=== PATIENT | female | born 1980 | race Caucasian/White ===

== ENCOUNTER 2020-03-16 16:05 | Outpatient (CLI) | payer MEDICARE, MEDICAID, SELFPAY ==
--- NOTE | ~2020-03-16 | US_ITS ---
EXAMINATION: US thyroid EXAM DATE: 03/16/2020 16:30 INDICATION: Lynn's disease. TECHNIQUE: Multiple grayscale and Doppler images of the thyroid were obtained (by a technologist who performed the scan) and subsequently reviewed. Individual nodules and recommendations may be reporte d in accordance with TI-RADS system as designated by the 2017 ACR White Paper TI-RADS committee. Comp arison is made to prior examination from 10/05/2019, 01/11/2019. FINDINGS: The right thyroid lobe measures 6.6 x 2.7 x 2.3 cm, the left measuring 6.7 x 2.6 x 2.1 cm. There is d iffusely heterogeneous thyroid echogenicity. Scattered subcentimeter nodular regions, but difficult t o be sure some of these are discrete nodules given the diffuse heterogeneity. These dimensions are sl ightly larger than reported on prior 2 examinations. IMPRESSION: Moderately enlarged heterogeneous thyroid, mild interval increase in size. Reviewed, dictated and finalized at location A. IMPRESSION: Moderately enlarged heterogeneous thyroid, mild interval increase i n size.
== END 2020-03-16 16:06 | disposition home or self-care (01) ==
LOC: ANHIMG 16:08
PROVIDERS: PCP Family Medicine; Visit Provider Internal Medicine Endocrinology, Diabetes & Metabolism
DX: E04.1 Nontoxic single thyroid nodule (principal)
CPT/HCPCS: 76536

== ENCOUNTER 2021-02-13 13:29 | Outpatient (CLI) | payer MEDICARE, MEDICAID, SELFPAY ==
--- NOTE | 2021-02-13 | ECHO_ITS ---
Patient Info Name: Cheryl Alvarez Age: 40 years : 1980 Gender: Female Ht: 67 in Wt: 200 lbs BSA: 2.10 m2 HR: 78 bpm BP: 143 / 103 mmHg Heart Rhythm: Sinus Rhythm Technical Quality: Good Exam Date: 02/13/2021 1:52 PM Exam Location: [facility] Patient Status: Outpatient Admit Date: 02/13/2021 Staff Ordering Physician: MarieRenuka MD General Accounting Manager: Latoya Morin RDCS Attending Provider: Ray*Renuka MD Referring Physician: Scottie CARL; Exam Type: CA echo doppler color flow Study Info Indications I34.1 - Nonrheumatic mitral (valve) prolapse Complete two-dimensional, color flow and Doppler transthoracic echocardiogram is performed. Summary 1. Complete two-dimensional, color flow and Doppler transthoracic echocardiogram is performed. 2. Left ventricular wall thickness, systolic function and diastolic function are normal with no regional wall motion abnormalities with an estimated ejection fraction of 60-65%. Borderline left ventricular enlargement. 3. Left atrial chamber dimension is mildly enlarged. 4. No pulmonary hypertension, estimated pulmonary arterial systolic pressure is 30 mmHg. 5. No mitral valve prolapse and proceed on this study. 6. Normal sinus rhythm. Left Ventricle Left ventricular chamber dimension is mildly enlarged. Left ventricular systolic function is normal, estimated at 60-65%. There is no increased left ventricular wall thickness. Left ventricular septal wall motion is normal. The left ventricular diastolic function is normal. Global longitudinal strain is normal at 20 %. Left ventricular wall thickness, systolic function and diastolic function are normal with no regional wall motion abnormalities with an estimated ejection fraction of 60-65%. Borderline left ventricular enlargement. Right Ventricle Right ventricular chamber dimension is normal. Right ventricular systolic function is normal. Left Atria Left atrial chamber dimension is mildly enlarged. Right Atria Right atrial chamber dimension is normal. Aortic Valve The aortic valve is trileaflet. There is no aortic valve sclerosis. There is no aortic valve stenosis. There is no aortic valve regurgitation. Pulmonic Valve The pulmonic valve is normal. There is no pulmonic valve stenosis. There is no pulmonic regurgitation. Mitral Valve The mitral valve has normal leaflets. There is no mitral valve stenosis. There is trace mitral valve regurgitation. Tricuspid Valve The tricuspid valve leaflets are normal. There is no significant tricuspid valve stenosis. There is trace tricuspid valve regurgitation. No pulmonary hypertension, estimated pulmonary arterial systolic pressure is 30 mmHg. Pericardium/Pleural The pericardium appears normal. There is no pericardial effusion. Inferior Vena Cava Normal inferior vena cava with >50% collapse upon inspiration consistent with Empty right atrial pressure, 10 mmHg. Aorta The aortic root size at the sinus of Valsalva is normal. The prox ascending aorta size is normal. Left Ventricular Outflow Tract Name Value Normal LVOT 2D LVOT Diameter 2.0 cm LVOT Doppler
== END 2021-02-13 13:30 | disposition home or self-care (01) ==
LOC: ANHCARD 13:33
PROVIDERS: PCP Family Medicine; Visit Provider Internal Medicine Endocrinology, Diabetes & Metabolism
DX: I34.1 Nonrheumatic mitral (valve) prolapse (principal)
CPT/HCPCS: 93306

== ENCOUNTER 2021-10-23 10:58 | Outpatient (CLI) | payer OTHER, SELFPAY ==
--- NOTE | ~2021-10-23 | US_ITS ---
EXAMINATION: US thyroid DATE: 10/23/2021 11:40 INDICATION: Hypothyroidism TECHNIQUE: Multiple ultrasound images of the thyroid were obtained. COMPARISON: 03/16/2020, 01/11/2019 FINDINGS: The right thyroid lobe measures 6.2 x 1.9 x 1.9 cm. The left thyroid lobe measures 6.4 x 1.8 x 1.8 c m. There is heterogeneously decreased echogenicity with coarsened echotexture and with diffusely inc reased vascular flow throughout the thyroid. 5 mm wide than tall solid hypoechoic nodule with smooth margins and without echogenic foci (TI-RADS 4, moderately suspicious , FNA if >=1.5 cm, annual follow up is >=1 cm) at the inferior right thyroid lobe. No significant interval change since 01/11/2019 in a 1.8 x 0.5 x 0.5 cm solid hypoechoic nodule along the deep medial margin of the left thyroid lobe whi ch appears from the left thyroid lobe by thin hyperechoic plane at the periphery of the thy roid. IMPRESSION: 1. Enlarged heterogeneous and mildly hypervascular thyroid consistent with chronic lymphocytic densit ies Lynn) thyroiditis. 2. Unchanged 1.8 x 0.5 x 0.5 cm solid hypoechoic nodule along side but appearing peripheral to the de ep medial margin of the left thyroid lobe with differential including a lymph node, parathyroid adeno ma or less likely an additional TI-RADS 4 thyroid nodule. Could consider either ultrasound-guided fin e-needle aspiration or parathyroid scintigraphy as clinically indicated. Reviewed, dictated and finalized at location . CLE COST ENGINEER IMPRESSION: 1. Enlarged heterogeneous and mildly hypervascular thyroid consistent with baker pastry madeline lymphocytic densities Lynn) thyroiditis. 2. Unchanged 1.8 x 0.5 x 0.5 cm solid hypoechoic nodule along side but appearin g peripheral to the deep medial margin of the left thyroid lobe with differenti al including a lymph node, parathyroid adenoma or less likely an additional TI- RADS 4 thyroid nodule. Could consider either ultrasound-guided fine-needle aspi ration or parathyroid scintigraphy as clinically indicated.
== END 2021-10-23 10:59 | disposition home or self-care (01) ==
LOC: ANHIMG 11:05
PROVIDERS: PCP Family Medicine; Visit Provider Internal Medicine Endocrinology, Diabetes & Metabolism
DX: E03.9 Hypothyroidism, unspecified (principal); E04.1 Nontoxic single thyroid nodule
CPT/HCPCS: 76536

== ENCOUNTER 2022-11-26 07:51 | Outpatient (CLI) | payer OTHER, SELFPAY ==
--- NOTE | ~2022-11-26 | MM_ITS ---
EXAMINATION: MM screening renea BI w thompson HISTORY: Screening mammogram TECHNIQUE: Craniocaudal and mediolateral oblique 3-D tomosynthesis images were obtained and synthetic 2-D images were generated. CAD analysis was submitted and interpreted. COMPARISON: 10/01/2016 diagnostic left mammogram and limited left breast ultrasound BREAST PARENCHYMAL COMPOSITION: There are scattered areas of fibroglandular density. FINDINGS: There is no evidence of suspicious mass, calcification, or architectural distortion to sugg est malignancy in either breast. There has been no suspicious interval change. IMPRESSION: 1. No mammographic evidence of malignancy. 2. Recommend routine screening mammography in one year. BI-RADS Category 1: Negative Reviewed, dictated and finalized at location A. RONMENTAL PROGRAM MANAGER
== END 2022-11-26 07:52 | disposition home or self-care (01) ==
PROVIDERS: PCP Family Medicine; Visit Provider Family Medicine
DX: Z12.31 Encounter for screening mammogram for malignant neoplasm of breast (principal)
CPT/HCPCS: 77063; 77067

== ENCOUNTER 2024-01-07 09:24 | Outpatient (CLI) | payer OTHER, SELFPAY ==
--- NOTE | ~2024-01-07 | MM_ITS ---
EXAMINATION: MM screening renea BI w thompson HISTORY: Screening mammogram TECHNIQUE: Craniocaudal and mediolateral oblique 3-D tomosynthesis images were obtained and synthetic 2-D images were generated. CAD analysis was submitted and interpreted. COMPARISON: 11/22/2022 bilateral screening mammogram BREAST PARENCHYMAL COMPOSITION: There are scattered areas of fibroglandular density. FINDINGS: Approximately 3.8 mm and 6.4 mm circumscribed opacities are noted in the right axillary solomon l, likely benign axillary tail lymph nodes. These are not evident on the 11/22/2022 mammogram, likely due to positioning. Diagnostic right mammogram and right breast ultrasound examination are recommende d. Otherwise no suspicious mass, architectural distortion, malignant calcification, skin thickening or r etraction or significant new or developing density of either breast is detected. IMPRESSION: 1. Right axillary soft tissue masses, possibly benign lymph nodes, but not imaged on 11/22/2022 mammog mario 2. Diagnostic right mammogram and right breast ultrasound examination are recommended. BI-RADS Category 0: Incomplete: Needs additional imaging evaluation. Reviewed, dictated and finalized at location A. RTISING SALES AGENT IMPRESSION: 1. Right axillary soft tissue masses, possibly benign lymph nodes, but not imag ed on 11/22/2022 mammogram 2. Diagnostic right mammogram and right breast ultrasound examination are recom mended. BI-RADS Category 0: Incomplete: Needs additional imaging evaluation.
== END 2024-01-07 09:25 | disposition home or self-care (01) ==
LOC: ANHIMG 09:26
PROVIDERS: PCP Family Medicine; Visit Provider Family Medicine
DX: Z12.31 Encounter for screening mammogram for malignant neoplasm of breast (principal); R92.8 Other abnormal and inconclusive findings on diagnostic imaging of breast
CPT/HCPCS: 77063; 77067

== ENCOUNTER 2024-01-30 13:15 | Outpatient (CLI) | payer OTHER, SELFPAY ==
--- NOTE | ~2024-01-30 | MMUS_ITS ---
EXAMINATION: MM diagnostic renea RT w thompson, US breast RT limited HISTORY: Right axillary soft tissue masses, possibly benign lymph nodes, noted on 01/07/2024 screening mammogram TECHNIQUE: Additional 3-D tomosynthesis images of the right breast were performed and synthetic 2-D i mages were generated. CAD analysis was submitted and interpreted. High resolution targeted right axil armaan tail breast ultrasound was performed. COMPARISON: 01/07/2024 and 11/26/2022 bilateral screening mammogram examinations FINDINGS: MAMMOGRAPHIC FINDINGS: Circumscribed low-density approximately 4 x 5.6 mm opacity with halo sign is noted in the right axill grecia tail area. This is likely a benign axillary tail lymph node. Nearby approximately 2 x 3.5 mm oval low-density circumscribed opacities probably benign smaller axillary tail lymph node. No suspicious mass or architectural distortion is noted. ULTRASOUND: 3.6 x 6 mm parallel circumscribed lymph node with central fatty hilum is identified at 10:30 o'clock 13 cm from the nipple, corresponding to the mammographic finding. No suspicious mass or shadowing is detected. IMPRESSION: 1. Benign findings 2. Routine annual mammographic screening is recommended. BI-RADS Category 2: Benign finding(s). Reviewed, dictated and finalized at location A. IMPRESSION: 1. Benign findings 2. Routine annual mammographic screening is recommended. BI-RADS Category 2: Benign finding(s).
== END 2024-01-30 13:16 | disposition home or self-care (01) ==
LOC: ANHIMG 13:21
PROVIDERS: PCP Family Medicine; Visit Provider Family Medicine
DX: R92.8 Other abnormal and inconclusive findings on diagnostic imaging of breast (principal)
CPT/HCPCS: 76642; 77061; 77065; G0279

== ENCOUNTER 2024-03-17 13:32 | Outpatient (CLI) | payer OTHER, SELFPAY ==
--- NOTE | ~2024-03-17 | US_ITS ---
EXAMINATION: US thyroid DATE: 03/17/2024 14:50 INDICATION: Goiter. TECHNIQUE: Multiple ultrasound images of the thyroid were obtained. COMPARISON: Ultrasound 10/23/2021, 01/11/2019 FINDINGS: The right thyroid lobe measures 5.5 x 1.9 x 1.8 cm. The left thyroid lobe measures 5.9 x 1.3 x 2.5 c m. The thyroid is diffusely heterogeneous and hypoechoic. No discrete nodule. Vascularity is normal. IMPRESSION: 1. Heterogeneous thyroid, likely chronic lymphocytic (Lynn's) thyroiditis. Reviewed, dictated and finalized at location E.
== END 2024-03-17 13:33 | disposition home or self-care (01) ==
PROVIDERS: PCP Family Medicine; Visit Provider Family Medicine
DX: E04.9 Nontoxic goiter, unspecified (principal)
CPT/HCPCS: 76536

== ENCOUNTER 2024-06-14 08:22 | Outpatient (CLI) | payer OTHER, SELFPAY ==
[2024-06-14 09:01] LABS: Hemoglobin A1C 5.4 % (<5.7)
[2024-06-14 09:17] LABS: Thyroid Stimulating Hormone < 0.015 uIU/mL (0.465-4.680)
[2024-06-14 09:32] LABS: Free T4 Free Thyroxine 1.06 ng/mL (0.78-2.19); Vitamin D 25 Hydroxy 84.9 ng/mL
[2024-06-19 00:34] LABS: Testosterone Total 17 ng/dL (2-45)
[2024-06-19 23:09] LABS: Testosterone Free 1.4 pg/mL (0.2-5.0)
== END 2024-06-14 08:23 | disposition home or self-care (01) ==
LOC: ANHLAB 08:23
PROVIDERS: PCP Nurse Practitioner; Visit Provider Internal Medicine Endocrinology, Diabetes & Metabolism
DX: E03.9 Hypothyroidism, unspecified (principal); E28.2 Polycystic ovarian syndrome; R73.03 Prediabetes; E55.9 Vitamin D deficiency, unspecified; R79.89 Other specified abnormal findings of blood chemistry
CPT/HCPCS: 36415; 82306; 82607; 83036; 84402; 84403; 84439; 84443

== ENCOUNTER 2024-07-06 14:58 | Outpatient (CLI) | payer OTHER, SELFPAY ==
--- NOTE | ~2024-07-06 | US_ITS ---
EXAMINATION: US thyroid DATE: 07/06/2024 15:55 INDICATION: Nontoxic single thyroid nodule. TECHNIQUE: Multiple ultrasound images of the thyroid were obtained. COMPARISON: Ultrasound 03/17/2024 FINDINGS: The right thyroid lobe measures 5.9 x 1.5 x 1.7 cm. The left thyroid lobe measures 5.0 x 1.3 x 1.6 c m. The thyroid is diffusely hypoechoic and heterogeneous. Vascularity is increased. No discrete nodu le. IMPRESSION: 1. Heterogeneous and hypervascular thyroid, likely chronic lymphocytic (Lynn's) thyroiditis. Reviewed, dictated and finalized at location A. IMPRESSION: 1. Heterogeneous and hypervascular thyroid, likely chronic lymphocytic (Hashimo to's) thyroiditis.
== END 2024-07-06 14:59 | disposition home or self-care (01) ==
LOC: ANHIMG 15:00
PROVIDERS: PCP Nurse Practitioner; Visit Provider Internal Medicine Endocrinology, Diabetes & Metabolism
DX: E04.1 Nontoxic single thyroid nodule (principal); E07.89 Other specified disorders of thyroid
CPT/HCPCS: 76536

== ENCOUNTER 2024-07-21 12:58 | Outpatient (CLI) | payer OTHER, SELFPAY ==
--- NOTE | ~2024-07-21 | XR_ITS ---
EXAMINATION: XR hip RT min 2V DATE: 07/21/2024 13:20 INDICATION: Posterior right hip pain TECHNIQUE: Anteroposterior and frog-leg lateral views of the right hip were obtained. COMPARISON: None. FINDINGS: Bone alignment is normal. No fracture or suspected osteonecrosis. There is mild right right hip and s acral iliac osteoarthritis. A few phleboliths in the pelvis. Soft tissues otherwise unremarkable. IMPRESSION: 1. Moderate right hip and sacroiliac osteoarthritis without acute osseous abnormality. Reviewed, dictated and finalized at location B. IMPRESSION: 1. Moderate right hip and sacroiliac osteoarthritis without acute osseous abnor mality.
== END 2024-07-21 12:59 | disposition home or self-care (01) ==
LOC: ANHIMG 13:00
PROVIDERS: PCP Nurse Practitioner; Visit Provider Nurse Practitioner
DX: M25.551 Pain in right hip (principal)
CPT/HCPCS: 73502

== ENCOUNTER 2024-07-22 08:23 | Outpatient (CLI) | payer OTHER, SELFPAY ==
[2024-07-22 13:40] LABS: Alanine Aminotransferase 25 U/L (6-35); Alkaline Phosphatase 59 U/L (38-126); Anion Gap 6 mmol/L (4-12); Aspartate Amino Transferase 61 U/L (14-36); Bilirubin,Total 0.4 mg/dL (0.2-1.3); Blood Urea Nitrogen 9 mg/dL (7-17); Calcium 9.3 mg/dL (8.4-10.2); Carbon Dioxide 29 mmol/L (22-30); Chloride 103 mmol/L (98-107); Cholesterol 201 mg/dL (0-200); Estimated Glomerular Filt Rate > 60; Glucose 95 mg/dL (65-110); HDL Direct 45 mg/dL; Potassium 4.1 mmol/L (3.4-5.0); Sodium 138 mmol/L (137-145); Triglycerides 115 mg/dL (<150); Uric Acid 6.1 mg/dL (2.5-7.5)
[2024-07-22 13:41] LABS: Basophils Percent Auto 0.6 % (0.2-1.2); Eosinophils Absolute Auto 0.1 K/mm3 (0-0.3); Eosinophils Percent Auto 1.8 % (0-4.4); Hematocrit 44.7 % (37.0-47.0); Hemoglobin 14.7 g/dL (12.0-15.0); Immature Granulocyte Absolute 0.02 K/mm3 (0.00-0.031); Immature Granulocyte Percent A 0.3 % (0-0.5); Lymphocytes Absolute Auto 2.16 K/mm3 (0.9-3.2); Lymphocytes Percent Auto 30.7 % (18.3-44.2); Mean Corpuscular HGB Conc 32.9 g/dl (32-36); Mean Corpuscular Hemoglobin 29.1 pg (26-34); Mean Corpuscular Volume 88.3 fl (80-100); Mean Platelet Volume 9.5 fl (7.4-10.4); Monocytes Absolute Auto 0.4 K/mm3 (0.1-0.6); Neutrophils Absolute Auto 4.3 K/mm3 (1.3-6.7); Neutrophils Percent Auto 60.6 % (45.5-73.1); Platelet Count Result 231 k/mm3 (150-375); Red Blood Count 5.06 M/mm3 (4.2-5.4); Red Cell Distribution Width 12.5 % (11.5-14.5)
[2024-07-22 13:51] LABS: LDL Cholesterol Direct 135 mg/dL; Rheumatoid Factor < 12.0 IU/ML (<12)
[2024-07-22 14:11] LABS: Thyroid Stimulating Hormone < 0.015 uIU/mL (0.465-4.680)
[2024-07-22 14:57] LABS: Free T4 Free Thyroxine 1.06 ng/mL (0.78-2.19)
[2024-07-23 10:27] LABS: ANA Cascade Screen NEGATIVE (NEGATIVE)
== END 2024-07-22 08:24 | disposition home or self-care (01) ==
LOC: ANHGOSHLAB 08:25
PROVIDERS: PCP Nurse Practitioner; Visit Provider Internal Medicine Endocrinology, Diabetes & Metabolism
DX: E03.9 Hypothyroidism, unspecified (principal); M25.551 Pain in right hip; R76.8 Other specified abnormal immunological findings in serum; R79.89 Other specified abnormal findings of blood chemistry; R73.03 Prediabetes
CPT/HCPCS: 36415; 80053; 80061; 84439; 84443; 84550; 85025; 86038; 86225; 86235; 86364; 86430

== ENCOUNTER 2024-08-07 13:01 | Emergency (ER) | payer OTHER, SELFPAY ==
--- NOTE | 2024-08-07 14:00 | ED.GENADULT ---
HPI - General Adult General Chief complaint: Abdominal Pain Stated complaint: severe abdominal pain Time Seen by Provider: 08/07/24 14:24 Source: patient, RN notes reviewed and old records reviewed Mode of arrival: ambulatory Limitations: no limitations History of Present Illness HPI narrative: 44-year-old female to [facility] with complaint left upper abdominal pain and swelling for 2 days. Patient states that she is currently using a cane and that 5 days ago she started experiencing a sulfur burps. Patient states she skipped her dose for the week and noticed the abdominal pain starting shortly thereafter. Patient also endorsing loose, [place] colored stool for 2 days. Patient denies urinary changes, nausea, vomiting, injury. Patient states that she did eat breakfast this morning and has been able to keep food and fluids down without difficulty. Patient resting comfortably in exam room in no acute distress. Respirations even and nonlabored. Related Data Home Medications Medication Instructions Recorded Confirmed cholecalciferol (vitamin D3) 250 250 mcg PO DAILY 06/10/24 08/07/24 mcg (10,000 unit) tablet escitalopram oxalate 20 mg tablet 40 mg PO DAILY 06/10/24 08/07/24 vitamin B complex 1 tablet PO DAILY 06/10/24 08/07/24 liothyronine 5 mcg tablet 5 mcg PO DAILY 07/23/24 08/07/24 Allergies Allergy/AdvReac Type Severity Reaction Status Date / Time hydrocodone Allergy Unknown Itching Verified 08/07/24 14:08 amoxicillin AdvReac Unknown Diarrhea Verified 08/07/24 14:08 clavulanic acid AdvReac Unknown Diarrhea Verified 08/07/24 14:08 Review of Systems Review of Systems: All systems reviewed & are unremarkable except as noted in HPI and below Constitutional: Constitutional: Reports no additional constitutional complaints Eyes: Eyes: Reports no additional eye complaints ENT: Reports system reviewed and no additional complaints, except as documented Cardiovascular: Cardiovascular: Reports no additional cardiovascular complaints, Denies chest pain and Denies dyspnea Respiratory: Respiratory: Reports no additional respiratory complaints, Denies cough and Denies dyspnea Gastrointestinal: Gastrointestinal: Reports as per HPI, Reports abdominal pain ( Left upper quadrant, with swelling per patient) and Reports loose stools Musculoskeletal: Musculoskeletal: Reports no additional musculoskeletal complaints Neurologic: Reports system reviewed and no additional complaints, except as documented Psychiatric: Psychiatric: Reports no additional psychiatric complaints PMFSH Past Medical History Medical History Anxiety Arthritis delivery delivered 11/22/2011 and 04/01/2014 Headache Legal blindness Family History Family History Mother Depression Anxiety Cerebrovascular accident Father Alcoholism Anxiety Depression Sibling Depression Anxiety Other Diabetes mellitus Heart disease Hypertension Social History Social History Smoking status: Never smoker Alcohol intake: never Substance use: never Do You Feel Safe in your Home?: No Lack of Transportation: YES Lack of Food: Sometimes True Current Housing: I Have Housing Concerned About Future Housing: No Difficulty Paying Gas/Electric Bills: No Difficulty Paying for Meds: No Currently Unemployed: No Education: Decline to Answer Difficulty w/ Childcare or Family Care: No Living arrangements: with family Gender identity (if verbalized by the patient): Female Comments At the time of my signature, I reviewed and agree with the nursing past medical, surgical, social, and family history. There is no relevant family history pertinent to the patient complaint. Exam Const: General: cooperative, no acute distress, alert, uncomfortable, we
[2024-08-07 14:11] VITALS: BP 144/106; PULSE 76; RESP 16; TEMP 36.6; O2SAT 99
== END 2024-08-07 14:35 | disposition short-term general hospital (02) ==
LOC: EXPGOSH 13:33
PROVIDERS: Emergency Provider Nurse Practitioner Family; PCP Nurse Practitioner
DX: R10.12 Left upper quadrant pain (principal)
CPT/HCPCS: 99212; G0463

== ENCOUNTER 2024-08-07 14:51 | Emergency (ER) | payer OTHER, SELFPAY ==
--- NOTE | ~2024-08-07 | CT_ITS ---
EXAMINATION: CT abdomen pelvis w con DATE: 08/07/2024 17:11 INDICATION: LUQ abd pain TECHNIQUE: Computed tomography (CT) of the abdomen and pelvis was performed with 100 mL Omnipaque-350 intravenous contrast. Automated exposure control and iterative reconstruction technique were employe d. The dose-length product was 1153.07 mGy-cm. COMPARISON: None. FINDINGS: Lower thorax: Unremarkable Liver: Normal. Biliary/Gallbladder: Gallbladder is normal. No bile duct dilation. Pancreas: No mass or duct dilation. Spleen: Normal. Adrenals:No mass. Kidneys: No suspicious mass, obstructing stone, or hydronephrosis. GI tract: No small or large bowel dilation. Normal appendix. Mesentery/Peritoneum: No ascites, mass, or free air. Retroperitoneum: No mass. Pelvis: Pelvic organs are within normal limits. Soft Tissues: Moderate sized uncomplicated appearing fat-containing umbilical hernia. Bones: No acute osseous finding. IMPRESSION: No acute abdominopelvic process detected. Reviewed, dictated and finalized at location K.
--- NOTE | ~2024-08-07 | XR_ITS ---
EXAMINATION: XR chest 2V Exam Date/Time: 08/07/2024 17:45 CDT HISTORY: LUQ pain Comparison: 08/18/2019. RESULT: Lines, tubes, and devices: None. Lungs and pleura: Clear. Cardiomediastinal silhouette: Stable. Other: No acute osseous or upper abdominal finding. IMPRESSION: No acute cardiopulmonary process. Reviewed, dictated and finalized at location K.
[2024-08-07 14:55] VITALS: BP 149/93; PULSE 78; RESP 18; TEMP 35.7; O2SAT 97
[2024-08-07 16:14] LABS: Basophils Percent Auto 0.5 % (0.2-1.2); Eosinophils Absolute Auto 0.2 K/mm3 (0-0.3); Eosinophils Percent Auto 2.1 % (0-4.4); Hematocrit 42.9 % (37.0-47.0); Hemoglobin 14.5 g/dL (12.0-15.0); Immature Granulocyte Absolute 0.02 K/mm3 (0.00-0.031); Immature Granulocyte Percent A 0.2 % (0-0.5); Lymphocytes Absolute Auto 2.45 K/mm3 (0.9-3.2); Mean Corpuscular HGB Conc 33.8 g/dl (32-36); Mean Corpuscular Hemoglobin 29.2 pg (26-34); Mean Corpuscular Volume 86.3 fl (80-100); Mean Platelet Volume 8.7 fl (7.4-10.4); Monocytes Absolute Auto 0.5 K/mm3 (0.1-0.6); Monocytes Percent Auto 5.9 % (2.6-8.5); Neutrophils Percent Auto 61.3 % (45.5-73.1); Platelet Count Result 266 k/mm3 (150-375); Red Blood Count 4.97 M/mm3 (4.2-5.4); Red Cell Distribution Width 12.7 % (11.5-14.5); White Blood Count 8.2 K/mm3 (4.5-10.0)
--- NOTE | 2024-08-07 16:19 | ED.ABDPAIN ---
HPI - Abdominal Pain General Chief Complaint: Abdominal Pain Stated Complaint: swollen abd Time Seen by Provider: 08/07/24 15:49 History of Present Illness HPI narrative: 44-year-old female with history of albinism, Lynn's, diabetes, Blindness, anxiety and depression presents to the emergency department from local urgent care for abdominal pain. Patient states she has had several days of left upper quadrant abdominal pain the pain is worsened since yesterday. She reports associated nausea but no emesis. States she has been taking Ozempic for 9 weeks and skipped her dose this week due to her symptoms. she reports associated diarrhea, last bowel movement was yesterday and watery. Also reporting associated belching. She denies fever, dysuria or hematuria. denies history of alcohol or drug Abuse. Denies prior history of pancreatitis. Related Data Home Medications Medication Instructions Recorded Confirmed cholecalciferol (vitamin D3) 250 250 mcg PO DAILY 06/10/24 08/07/24 mcg (10,000 unit) tablet escitalopram oxalate 20 mg tablet 40 mg PO DAILY 06/10/24 08/07/24 vitamin B complex 1 tablet PO DAILY 06/10/24 08/07/24 liothyronine 5 mcg tablet 5 mcg PO DAILY 07/23/24 08/07/24 Allergies Allergy/AdvReac Type Severity Reaction Status Date / Time hydrocodone Allergy Unknown Itching Verified 08/07/24 14:08 amoxicillin AdvReac Unknown Diarrhea Verified 08/07/24 14:08 clavulanic acid AdvReac Unknown Diarrhea Verified 08/07/24 14:08 Review of Systems Review of Systems: All systems reviewed & are unremarkable except as noted in HPI and below PMFSH Past Medical History Medical History Anxiety Arthritis delivery delivered 11/22/2011 and 04/01/2014 Headache Legal blindness Family History Family History Mother Depression Anxiety Cerebrovascular accident Father Alcoholism Anxiety Depression Sibling Depression Anxiety Other Diabetes mellitus Heart disease Hypertension Social History Social History Smoking status: Never smoker Alcohol intake: never Substance use: never Do You Feel Safe in your Home?: No Lack of Transportation: YES Lack of Food: Sometimes True Current Housing: I Have Housing Concerned About Future Housing: No Difficulty Paying Gas/Electric Bills: No Difficulty Paying for Meds: No Currently Unemployed: No Education: Decline to Answer Difficulty w/ Childcare or Family Care: No Living arrangements: with family Gender identity (if verbalized by the patient): Female Exam Narrative: GENERAL: Well-appearing, well-nourished, and in no acute distress. HEAD: Normocephalic, atraumatic. ENT: Nares clear, no rhinorrhea or epistaxis. Mucous membranes moist. NECK: Supple. CHEST: Clear to auscultation. No respiratory distress. HEART: Regular rate and rhythm. No murmur heard. Normal peripheral pulses. ABDOMEN: Quiet bowel sounds. Abdomen soft with tenderness in the left upper quadrant with associated voluntary guarding. No rebound or rigidity. No CVA tenderness. EXTREMITIES: Normal range of motion. No edema. SKIN: Warm, dry, no rash. NEURO: No focal deficits. Alert and oriented x3 Course Vital Signs Vital signs: Vital Signs Temperature 96.3 F L 08/07/24 14:55 Pulse Rate 78 08/07/24 14:55 Respiratory Rate 18 08/07/24 14:55 Blood Pressure 149/93 H 08/07/24 14:55 Pulse Oximetry 97 08/07/24 14:55 Temperature 96.3 F L 08/07/24 14:55 Pulse Rate 78 08/07/24 14:55 Respiratory Rate 18 08/07/24 14:55 Blood Pressure 149/93 H 08/07/24 14:55 Pulse Oximetry 97 08/07/24 14:55 MDM - Abdominal Pain MDM Narrative Medical decision making narrative: 44-year-old female presents to the emergency department for left upper quadrant abdominal p
[2024-08-07 16:23] LABS: Ammonia < 9 umol/L (9-30)
[2024-08-07 16:24] LABS: Alanine Aminotransferase 21 U/L (6-35); Albumin Level 4.2 g/dL (3.5-5.1); Alkaline Phosphatase 70 U/L (38-126); Anion Gap 8 mmol/L (4-12); Aspartate Amino Transferase 25 U/L (14-36); Bilirubin,Total 0.3 mg/dL (0.2-1.3); Blood Urea Nitrogen 11 mg/dL (7-17); Calcium 9.6 mg/dL (8.4-10.2); Carbon Dioxide 25 mmol/L (22-30); Chloride 106 mmol/L (98-107); Estimated CRCL calculation 100 ml/min; Estimated Glomerular Filt Rate > 60; Glucose 97 mg/dL (65-110); Lactic Acid Reflex 0.7 mmol/L (0.7-2.0); Lipase 122 U/L (23-300); Potassium 3.8 mmol/L (3.4-5.0); Sodium 139 mmol/L (137-145)
[2024-08-07 16:27] LABS: Add Urine Microscopic? YES; Appearance Urine Cloudy (Clear); Bacteria Urine None Seen /hpf; Bilirubin Urine Negative (Negative); Blood Urine 1+ (Negative); Color Urine Dark Yellow (Yellow); Glucose Urine UA Negative (Negative); Ketones Urine Trace mg/dL (Negative); Leukocyte Esterase Ur Negative LEU/UL (Negative); Nitrate Urine Negative (Negative); Non Pathogenic Casts 0-2; Protein Urine Negative (Negative); RBC Urine 0-2 /hpf (0-2); Specific Grav Ur 1.031 (1.001-1.035); Squamous Epithelial Cell Urine Occasional /hpf (Few); WBC Urine 0-5 /hpf (0-3); pH Urine 5.5 (5.0-9.0)
[2024-08-07] MEDS: ONDANSETRON INJ 4 MG/2 ML VIAL IV PUSH (16:28)
[2024-08-07] MEDS: SODIUM CHLORIDE 0.9% IV 1,000 ML 999 ML IV CONT (16:28)
[2024-08-07] MEDS: PANTOPRAZOLE SODIUM IV 40 MG VIAL IV PUSH (16:28)
[2024-08-07 16:35] LABS: BEDSIDEPREGUCG Negative (Negative)
--- NOTE | 2024-08-07 17:21 | ECG_ITS ---
Test Date: 2024-08-07 17:40:14 Measurements Intervals [place] Rate: 61 P: 10 CT: 152 QRS: 4 QRSD: 105 T: 14 QT: 417 QTc: 423 Interpretive Statements SINUS RHYTHM No previous ECG available for comparison Electronically Signed On 08-08-2024 11:31:14 CDT by Bebeto Frazier M.D.
[2024-08-07 17:44] LABS: Troponin I < 0.012 ng/mL (0.000-0.034)
[2024-08-07 19:01] VITALS: TEMP 37.1
== END 2024-08-07 18:55 | disposition home or self-care (01) ==
PROVIDERS: Preventive Medicine Aerospace Medicine; Emergency Provider Physician Assistant; PCP Nurse Practitioner
DX: K52.9 Noninfective gastroenteritis and colitis, unspecified (principal); R10.12 Left upper quadrant pain; E11.9 Type 2 diabetes mellitus without complications; E06.3 Autoimmune thyroiditis; E70.30 Albinism, unspecified; H54.8 Legal blindness, as defined in USA; F41.9 Anxiety disorder, unspecified; Z79.899 Other long term (current) drug therapy; Z79.85 Long-term (current) use of injectable non-insulin antidiabetic drugs
CPT/HCPCS: 36415; 71046; 74177; 80053; 81001; 81025; 82140; 83605; 83690; 84484; 85025; 93005; 96361; 96374; 96375; 99284; J2405; J2470; J7030; Q9967

== ENCOUNTER 2024-09-15 11:43 | Emergency (ER) | payer OTHER, SELFPAY ==
[2024-09-15 11:53] VITALS: BP 143/98; PULSE 96; RESP 16; TEMP 36.6; O2SAT 98
--- NOTE | 2024-09-15 12:06 | ED.DENTAL ---
HPI - Dental/Oral General Chief complaint: Dental/Oral Stated complaint: left side jaw pain Source: patient Mode of arrival: ambulatory History of Present Illness HPI Narrative: 44-year-old female presented for complaint of left TMJ swelling and pain. Onset last night. Reports pain is worse when trying to open her mouth, stating the pain is sharp. Has not taken anything for pain stating she did not want to mask it. Rates pain 4/10. Denies popping or clicking to the jaw. Denies pain with chewing or swallowing. denies ear pain. Denies trauma. MD Complaint: tooth pain Related Data Home Medications Medication Instructions Recorded Confirmed cholecalciferol (vitamin D3) 250 250 mcg PO DAILY 06/10/24 08/07/24 mcg (10,000 unit) tablet escitalopram oxalate 20 mg tablet 40 mg PO DAILY 06/10/24 08/07/24 vitamin B complex 1 tablet PO DAILY 06/10/24 08/07/24 liothyronine 5 mcg tablet 5 mcg PO DAILY 07/23/24 08/07/24 Allergies Allergy/AdvReac Type Severity Reaction Status Date / Time hydrocodone Allergy Unknown Itching Verified 09/15/24 11:56 amoxicillin AdvReac Unknown Diarrhea Verified 09/15/24 11:56 clavulanic acid AdvReac Unknown Diarrhea Verified 09/15/24 11:56 Review of Systems Review of Systems: CONSTITUTIONAL: Denies body aches, fever, chills ENT: Denies rhinorrhea, congestion, sore throat, or otalgia. Reports dental pain CARDIOVASCULAR: Denies chest pain, palpitations RESPIRATORY: Denies cough or dyspnea. SKIN: Denies rash, itching, or wounds. MUSCULOSKELETAL: Denies myalgia. NEUROLOGIC: Denies headache, numbness, tingling, or weakness. FORMERLY [facility] Past Medical History Medical History Anxiety Arthritis delivery delivered 11/22/2011 and 04/01/2014 Headache Legal blindness Family History Family History Mother Depression Anxiety Cerebrovascular accident Father Alcoholism Anxiety Depression Sibling Depression Anxiety Other Diabetes mellitus Heart disease Hypertension Social History Social History Smoking status: Never smoker Alcohol intake: never Substance use: never Do You Feel Safe in your Home?: No Lack of Transportation: YES Lack of Food: Sometimes True Current Housing: I Have Housing Concerned About Future Housing: No Difficulty Paying Gas/Electric Bills: No Difficulty Paying for Meds: No Currently Unemployed: No Education: Decline to Answer Difficulty w/ Childcare or Family Care: No Living arrangements: with family Gender identity (if verbalized by the patient): Female Comments At time of signature, I have reviewed and agree with nursing past medical, surgical, social and family history unless otherwise noted. Please see nursing chart for further information. There is no relevant family history pertinent to the presenting complaint Exam Narrative: GENERAL: well appearing; no acute distress. HEAD: Normocephalic, atraumatic. EYES: EOMI. No redness or drainage. Conjunctivae normal. ENT: Subjective pain location of Left TMJ, mild swelling noted. No erythema. Nontender with palpation no apparent popping or clicking. Pt reported improvement with ROM of the jaw with pressure applied to the TMJ. Mucous membranes pink and moist. TMs normal bilaterally. Throat normal. Uvula midline. NECK: Normal AROM. No lymphadenopathy. CHEST: Clear to auscultation. HEART: Regular rate and rhythm. SKIN: Warm, dry, no rash. NEURO: No focal deficits. Alert and oriented x3. Gait steady. Course Course Emergency Course: Patient is aware of diagnosis, understands and agrees to treatment plan. Anticipatory guidance given. Patient agrees to follow-up as directed and is aware of reasons to seek care at the emergency department. Portions of this record may have been created with voice recognition software Level of Care: Express Care Visit Vital Signs Vital signs: Vital Signs Oxygen Delivery Room Air 09/15/24 11:52 Temperature 97.9 F 09/15/24 11:53 Pulse Rate 96 09/15/24 11:53 Respiratory Rate 16 09/15/24 11:53 Blood Pressure 143/98 H 09/15/24 11:53 Pulse Oximetry 98 09/15/24 11:53 Oxygen Delivery Room Air 09/15/24 11:52 MDM - Dental/Oral MDM Narrative Medical decision making narrative: Patients pain and complaint coupled with physical findings are consistent with pain to TMJ area. There are no focal signs of space occupying lesions that are compromising to the airway; Patient is non-toxic appearing. The floor of the mouth is soft with no signs of Augie's Angina. Patient is without trismus or drooling and able to swallow secretions. Patient is felt appropriate for discharge home with dental follow up. Discharge Plan Discharge Clinical Impression: Temporomandibular joint pain Patient Disposition: Home, Self-Care Condition: Stable Instructions: Antibiotic Form, Temporomandibular Disorder (ED) Additional Instructions: May apply heat or ice to the face Alternate Tylenol and ibuprofen as needed for pain Avoid these things which may result in more jaw pain: - Yawning or yelling - Crunchy or hard foods - Taking large bites of food - Foods that require prolonged chewing - Chewing gum -?Nail biting - Chewing cheeks and lips - Resting your jaw in your hand - Clenching or grinding your teeth - Clenching jaw muscles pushing the tongue against your teeth Follow-up with the dentist as soon as possible Follow up with your pcp Go to the ER for worsening symptoms or concerns Prescriptions: New ibuprofen 800 mg tablet 800 mg PO TID PRN (Reason: pain) Qty: 15 0RF No Action escitalopram oxalate 20 mg tablet 40 mg PO DAILY Ozempic 0.25 mg or 0.5 mg (2 mg/3 mL) pen injector 0.25 mg subcut WEEKLY Qty: 6 0RF Rx Instructions: 0.25 mg once a week for 4 weeks then 0.5 mg once a weeks cholecalciferol (vitamin D3) 250 mcg (10,000 unit) tablet 250 mcg PO DAILY vitamin B complex Tablet 1 tablet PO DAILY pantoprazole 40 mg tablet,delayed release (DR/EC) 40 mg PO HS Qty: 20 0RF ondansetron 4 mg tablet,disintegrating 4 mg PO Q8H Qty: 14 0RF liothyronine 5 mcg tablet 5 mcg PO DAILY levothyroxine [Synthroid] 88 mcg tablet 88 mcg PO DAILY Qty: 90 1RF Follow-up/Referrals: PHYSICIAN NOT ON STAFF,NONSTAFF [Primary Care Provider] - Stand Alone Forms: Work/School Release IP Time of Disposition: 12:17
== END 2024-09-15 12:19 | disposition home or self-care (01) ==
PROVIDERS: Emergency Provider Nurse Practitioner Family
DX: M26.622 Arthralgia of left temporomandibular joint (principal); M19.90 Unspecified osteoarthritis, unspecified site; H54.8 Legal blindness, as defined in USA
CPT/HCPCS: 99211; G0463

== ENCOUNTER 2024-10-01 10:03 | Outpatient (CLI) | payer OTHER, SELFPAY ==
[2024-10-01 10:53] LABS: Free T4 Free Thyroxine 1.14 ng/mL (0.78-2.19)
[2024-10-01 11:02] LABS: Thyroid Stimulating Hormone < 0.015 uIU/mL (0.465-4.680)
== END 2024-10-01 10:04 | disposition home or self-care (01) ==
PROVIDERS: PCP Nurse Practitioner; Visit Provider Internal Medicine Endocrinology, Diabetes & Metabolism
DX: E03.9 Hypothyroidism, unspecified (principal); R73.03 Prediabetes
CPT/HCPCS: 36415; 84439; 84443

== ENCOUNTER 2024-11-10 09:05 | Outpatient (CLI) | payer OTHER, SELFPAY ==
--- NOTE | ~2024-11-10 | XR_ITS ---
XR chest 2V Ordering provider: Edwina Mckeon NP History: 44 years Female with . R05.9 - Cough, unspecified . Comparison: August 07, 2024 FINDINGS: MEDIASTINUM: The cardiac silhouette is not enlarged. LUNGS: No infiltrates, effusions or pneumothorax. OTHER: No free air under the diaphragm. IMPRESSION: No acute cardiopulmonary pathology. Reviewed, dictated and finalized at location A. [facility] FRAME OPERATOR
== END 2024-11-10 09:06 | disposition home or self-care (01) ==
PROVIDERS: PCP Internal Medicine; Visit Provider Nurse Practitioner
DX: R05.9 Cough, unspecified (principal)
CPT/HCPCS: 71046

== ENCOUNTER 2024-11-24 12:31 | Emergency (ER) | payer OTHER, SELFPAY ==
[2024-11-24 12:46] VITALS: BP 150/96; PULSE 80; RESP 16; TEMP 36.6; O2SAT 98
[2024-11-24 13:16] LABS: EDSTREPNEGPOS1 Negative (Negative)
--- NOTE | 2024-11-24 13:59 | ED_ITS ---
HPI - URI/Sore Throat General Chief Complaint: Upper Respiratory Infection Stated Complaint: sorethroat, boil Time Seen by Provider: 11/24/24 13:03 Source: patient, family (Friend) and RN notes reviewed Mode of arrival: ambulatory Limitations: no limitations History of Present Illness HPI Narrative: Patient presents today with a 4 to five-day history of sore throat with postnasal drainage, congestion, rhinorrhea. She has been taking Tylenol and ibuprofen with some relief and currently rates her sore throat 4/. Patient is also complaining a boil to the right groin area. The few weeks ago she was seen by her PCP to prescribe her some doxycycline. States that the area has improved with the antibiotic but wanted to have it looked at while she was here. History of hidradenitis suppurativa. Related Data Home Medications ?Medication ?Instructions ?Recorded ?Confirmed ?Last Taken ?Type cholecalciferol (vitamin D3) 250 250 mcg PO DAILY 06/10/24 11/24/24 Unknown History mcg (10,000 unit) tablet escitalopram oxalate 20 mg tablet 40 mg PO DAILY 06/10/24 11/24/24 Unknown History vitamin B complex 1 tablet PO DAILY 06/10/24 11/24/24 Unknown History liothyronine 5 mcg tablet 5 mcg PO DAILY 07/23/24 11/24/24 Unknown History Saccharomyces boulardii 250 mg 250 mg PO DAILY 10/20/24 11/24/24 Unknown History capsule (Daily Probiotic (S. boulardii)) Allergies Allergy/AdvReac Type Severity Reaction Status Date / Time hydrocodone Allergy Unknown Itching Verified 11/24/24 12:48 amoxicillin AdvReac Unknown Diarrhea Verified 11/24/24 12:48 clavulanic acid AdvReac Unknown Diarrhea Verified 11/24/24 12:48 Review of Systems Review of Systems: CONSTITUTIONAL: Denies body aches, fever, chills, or sweats. EYES: Denies visual changes, redness, or discharge. ENT: + sore throat, postnasal drip, congestion, rhinorrhea CARDIOVASCULAR: Denies chest pain, palpitations, or edema. RESPIRATORY: Denies cough or dyspnea. GASTROINTESTINAL: Denies abdominal pain, nausea, vomiting, or diarrhea. GENITOURINARY: Denies dysuria or hematuria. SKIN: Denies rash, itching, or wounds.+ boil to right groin MUSCULOSKELETAL: Denies back pain, joint pain, or myalgia. NEUROLOGIC: Denies headache, numbness, tingling, or weakness. PSYCH: Denies depression or anxiety. FORMERLY [facility], [facility] Past Medical History Medical History (Updated 11/24/24 @ 14:01 by Renuka Boone, [facility], ) Hidradenitis suppurativa Legal blindness delivery delivered 11/22/2011 and 04/01/2014 Headache Arthritis Anxiety Family History Family History Mother Depression Anxiety Cerebrovascular accident Bright esophagus Father Alcoholism Anxiety Depression Sibling Depression Anxiety Other Diabetes mellitus Heart disease Hypertension Social History Social History Smoking status: Never smoker Alcohol intake: never Substance use: never Do You Feel Safe in your Home?: No Lack of Transportation: YES Lack of Food: Sometimes True Current Housing: I Have Housing Concerned About Future Housing: No Difficulty Paying Gas/Electric Bills: No Difficulty Paying for Meds: No Currently Unemployed: No Education: Decline to Answer Difficulty w/ Childcare or Family Care: No Living arrangements: with family Gender identity (if verbalized by the patient): Female Comments At time of signature, I have reviewed and agree with nursing past medical, surgical, social and family history unless otherwise noted. Please see nursing chart for further information. There is no relevant family history pertinent to the presenting complaint Exam Narrative: GENERAL: Well-appearing, well-nourished, and in no acute distress. HEAD: Normocephalic, atraumatic. EYES: Nystagmus noted bilaterally. No redness or drainage. Conjunctivae normal. ENT: Mucous membranes pink and moist. Nares mildly congested. No rhinorrhea. TMs normal bilaterally. Throat normal. Uvula midline. NECK: Normal AROM. Supple. No lymphadenopathy. CHEST: No respiratory distress. Clear to auscultation. HEART: Regular rate and rhythm. No murmur appreciated. EXTREMITIES: Normal range of motion. No edema. SKIN: Warm, dry, no rash. Capillary refill normal. Normal skin turgor. Small, nonerythematous nodule noted to the right groin fold that is mildly tender to palpation, measuring approx 0.5 cm round. No fluctuance noted. NEURO: No focal deficits. Alert and oriented x3. Gait steady. PSYCH: Normal affect. No signs of depression or anxiety. Course Course Level of Care: Express Care Visit Vital Signs Vital signs: Vital Signs Temperature 98 F 11/24/24 12:46 Pulse Rate 80 11/24/24 12:46 Respiratory Rate 16 11/24/24 12:46 Blood Pressure 150/96 H 11/24/24 12:46 Pulse Oximetry 98 11/24/24 12:46 Temperature 98 F 11/24/24 12:46 Pulse Rate 80 11/24/24 12:46 Respiratory Rate 16 11/24/24 12:46 Blood Pressure 150/96 H 11/24/24 12:46 Pulse Oximetry 98 11/24/24 12:46 Reviewed MDM - URI/Sore Throat MDM Narrative Medical decision making narrative: Rapid strep negative. Strep culture pending. Symptoms likely viral in etiology. Discussed ayrl-gqi-vunozod medication use and duration of illness. No prescription medications indicated at this time. Anticipatory guidance given. Patient's boil has improved significantly since onset and even from this morning, per patient. At this time, there is nothing to margarita. Differential Diagnosis Differential diagnosis: Likely upper respiratory infection, viral infection, pharyngitis and other (Strep throat, abscess, cellulitis) Lab Data Attestation: I reviewed the patient's lab results. Labs: Lab Results 11/24/24 Range/Units 13:14 POC Grp A Strep Screen Negative (Negative) Critical Care Time Critical Care Time Critical Care Time: No Discharge Plan Discharge Clinical Impression: Upper respiratory infection Patient Disposition: Home, Self-Care Condition: Stable Instructions: Upper Respiratory Infection (DC) Additional Instructions: Your rapid strep swab was negative today at [facility]. You will be notified in a few days if the culture comes back positive for strep, and appropriate antibiotics will be called in for you at that time. Your symptoms are likely due to a viral illness, which is not treated with antibiotics. Viral symptoms can be present for up to 7-10 days. Take Tylenol or ibuprofen for fever or pain. Rest and stay hydrated. Follow up with your PCP in 7 days if symptoms are not improving. Go to the ER immediately if [] any difficulty breathing or swallowing. Your blood pressure was elevated above 120/80 today at Urgent Care. This puts you above the threshold for follow up. Please schedule a followup visit with your personal physician as soon as possible, for further evaluation and treatment. Even blood pressure exceeding 120/80 may indicate pre-hypertension. Patient Language: Vietnamese Prescriptions: No Action escitalopram oxalate 20 mg tablet 40 mg PO DAILY cholecalciferol (vitamin D3) 250 mcg (10,000 unit) tablet 250 mcg PO DAILY vitamin B complex Tablet 1 tablet PO DAILY Saccharomyces boulardii [Daily Probiotic (S. boulardii)] 250 mg capsule 250 mg PO DAILY lisinopril 5 mg tablet 5 mg PO DAILY Qty: 30 2RF liothyronine 5 mcg tablet 5 mcg PO DAILY levothyroxine [Synthroid] 88 mcg tablet 88 mcg PO .COMPLEX Qty: 90 1RF Rx Instructions: 88 mcg orally 6 days a week, skip Sundays; Follow-up/Referrals: Edwina Mckeon DATABASE CONSULTANT [Primary Care Provider] - Time of Disposition: 13:14
== END 2024-11-24 13:17 | disposition home or self-care (01) ==
PROVIDERS: Emergency Provider Nurse Practitioner; PCP Nurse Practitioner
DX: J06.9 Acute upper respiratory infection, unspecified (principal); Z48.00 Encounter for change or removal of nonsurgical wound dressing; H54.8 Legal blindness, as defined in USA; M19.90 Unspecified osteoarthritis, unspecified site; F41.9 Anxiety disorder, unspecified
CPT/HCPCS: 87081; 87880; 99213; G0463

== ENCOUNTER 2024-12-02 14:28 | Outpatient (CLI) | payer OTHER, SELFPAY ==
--- NOTE | ~2024-12-02 | US_ITS ---
EXAM: Focused ultrasound examination of the soft tissues of the left axilla HISTORY: R22.31 TECHNIQUE: Sonographic evaluation of the soft tissues of the bilateral axilla were performed assessin g grayscale appearance and color Doppler flow. COMPARISON: None. FINDINGS: Multiple morphologically benign nonpathologically enlarged lymph nodes within the bilateral axilla, c orresponding to the area of palpable concern. Sonographic evaluation of the remainder of the soft tissues of the bilateral axilla demonstrate benig n fibrofatty and fibromuscular elements without a cystic or solid lesion of concern. IMPRESSION: Morphologically benign nonpathologically enlarged lymph nodes within the bilateral axilla, correspond ing to the area of palpable concern. Reviewed, dictated and finalized at location A. RECORDER IMPRESSION: Morphologically benign nonpathologically enlarged lymph nodes within the bilate ral axilla, corresponding to the area of palpable concern.
--- OUTSIDE RECORDS SUMMARY | 2024-12-02 15:09 | XMS_ITS | Clinical Summary ---
Author Organization [facility] [address] Address [address] [place] [address] Care Team Providers Care Property Management Bookkeeper Name Role Phone Walter Erwin DO Primary Care Provider [phone] Allergies Active Allergy Reactions Criticality Noted Date Comments Amoxicillin-Pot Clavulanate Diarrhea,Nausea And Vomiting Low 09/01/2018 Hydrocodone-Acetaminophe n Hives,Itching High 09/01/2018 Levothyroxine Other (See comments) Low 12/05/2023 Does not work. Must have brand name Synthroid Medications cholecalciferol (VITAMIN D-3) 5,000 unit tablet Take by mouth 05/29/20 23 Active Trulicity 3 mg/0.5 mL pen injector INJECT 3 MG SUBCUTANEOUSLY EVERY WEEK AT DINNER FOR 90 DAYS 10/22/20 23 Active escitalopram (LEXAPRO) 20 mg tablet Take 2 tablets (40 mg total) by mouth daily Active Lactobacillus rhamnosus GG 5 billion cell powder in packet Take by mouth 05/29/20 23 Active multivitamin tablet Take 1 tablet by mouth daily Active Synthroid 112 mcg tabletIndicatio ns:Hypothyroidi sm due to Lynn's thyroiditis Take 1 tablet (112 mcg total) by mouth daily 90 tablet 3 12/08/19 24 025 Active Active Problems Problem Noted Date Diagnosed Date 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 Assessment & Plan (12/08/2023 8:29 AM AUTOMATIC BUFFING WHEEL FORMER): Chronic, unknown status Continue current dose of Synthroid 112 mcg oral daily Advised to stop Cytomel Recheck thyroid function test today and further plans based on it Polycystic ovarian syndrome 12/05/2023 Assessment & Plan (12/08/2023 8:30 AM AUTOMATIC BUFFING WHEEL FORMER): Counseled on diet and exercise Class 1 obesity due to exces s calories with serious comorbidity and body mass index (BMI) of 33.0 to 33.9 in adult 12/05/2023 Assessment & Plan (12/08/2023 8:30 AM AUTOMATIC BUFFING WHEEL FORMER): Chronic, progressively improving with Trulicity 3 mg subQ weekly dose Advised patient to include healthy lifestyle habits Include complex carbs, healthy fats and proteins Work on portion control Avoid eating processed food cutback on sugar Advised to start exercising at least 30-40 minutes every day Prediabetes 12/05/2023 Assessment & Plan (12/08/2023 8:30 AM AUTOMATIC BUFFING WHEEL FORMER): On Trulicity Recheck A1c Counseled on diet and exercise Surgical History Surgery Date Site/Laterality Comments SECTION 2011, 2013 Medical History Medical History Date Comments Hypothyroidism Legally blind Albinism (HCC) Social History Tobacco Use Types Packs/Day Years Used Date Smoking Tobacco: Never Smokeless Tobacco: Never AUDIT-C Answer Date Recorded Frequency of Alcohol Consumption Not on file 12/05/2023 Q2: How many drinks containi ng alcohol do you have on a typical day when you are drinking? Patient does not drink Frequency of Binge Drinking Not on file 12/2023 Personal Safety Answer Date Recorded Getting School Help Needed Not on file 11/22 Comments Unknown Sex and Gender Information Value Date Recorded Sex Assigned at Not on file Legal Sex Female 5:17 PM AUTOMATIC BUFFING WHEEL FORMER Gender Identity Female 12/05/2023 10:07 AM AUTOMATIC BUFFING WHEEL FORMER Sexual Orientation Choose not to disclose 2023 10:07 AM AUTOMATIC BUFFING WHEEL FORMER Obstetrics History Last Filed Vital Signs Vital Sign Reading Time Taken Comments Blood Pressure 128/80 12/05/2023 11:22 AM AUTOMATIC BUFFING WHEEL FORMER Pulse 73 12/05/2023 11:22 AM AUTOMATIC BUFFING WHEEL FORMER Temperature - - Respiratory Rate 16 12/05/2023 11:22 AM AUTOMATIC BUFFING WHEEL FORMER Oxygen Saturation - - Inhaled Oxygen Concentration - - Weight 97.1 kg (214 lb) 12/05/2023 11:22 AM AUTOMATIC BUFFING WHEEL FORMER Height 170.2 cm (5' 7 ) 12/05/2023 11:22 AM AUTOMATIC BUFFING WHEEL FORMER Body Mass Index 33.52 12/05/2023 11:22 AM AUTOMATIC BUFFING WHEEL FORMER Plan of Treatment Health Maintenance Due Date Last Done Comments Breast Cancer Screening-Mammogram 1981 Cervical Cancer Screening 1981 Depression Screening 1981 Hepatitis C Screening 1981 DTaP/Tdap/Td Vaccine (1 - Tdap) 1992 Varicella Vaccines (1 of 2 - 13+ 2-dose series) 1994 Hepatitis B Screening 1999 Regular Well Visit/Exam 18-64 1999 Covid-19 Vaccine ( season) 2024 10/12/2021, 01/05/2021 Influenza Vaccine (#1) 2024 5, 08/30/2013, 08/30/2013, Additional history exists HPV Vaccines Aged Out No longer eligi ble based on patient's age to complete this topic Pneumococcal vaccine <65 Aged Out No longer eligible based on patient's age to complete this topic Insurance ([place]) [address] [place] [id number] [facility] Care Teams Property Management Bookkeeper Relationship Specialty Start Date End Date Walter Erwin DO [facility] [address] [address] PCP - General Internal Medicine 10/20/24
--- OUTSIDE RECORDS SUMMARY | 2024-12-02 15:09 | XMS_ITS | Clinical Summary ---
Author Organization [facility] Address [address] [place] [address] Care Team Providers Care Rotary Drill Operator Helper Name Role Phone Jess Plascencia MD Primary Care Provider + Allergies Active Allergy Reactions Criticality Noted Date Comments Amoxicillin-Pot Clavulanate Nausea and Vomiting Low 09/01/2018 Hydrocodone-Acetaminophen Hives High 09/01/2018 Medications TURMERIC ORAL Take by mouth daily. Active ergocalciferol, vitamin D2, (VITAMIN D ORAL) Take by mouth daily. Active multivitamin (DAILY-JESSICA) tablet Take 1 Tablet by mouth daily. Active levothyroxine 75 mcg tablet Take 75 mcg by mouth daily. Active escitalopram oxalate (LEXAPRO) 20 mg tablet TK 1 T PO QD 4 06/24/2018 Active Lactobacillus rhamnosus GG (CULTURELLE ORAL) Take by mouth daily. Active Active Problems Problem Noted Date Diagnosed Date Albinism 10/02/2018 Acute mastitis 09/04/2018 Mastodynia 09/01/2018 Swollen breast 09/01/2018 Social History Tobacco Use Types Packs/Day Years Used Date Smoking Tobacco: Never Smokeless Tobacco: Never Alcohol Use Standard Drinks/Week Comments No 0 (1 standard drink = 0.6 oz pur e alcohol) Comments No Sex and Gender Information Value Date Recorded Sex Assigned at Not on file Legal Sex Female 11:47 AM CDT Gender Identity Not on file Sexual Orientation Not on file Last Filed Vital Signs Vital Sign Reading Time Taken Comments Blood Pressure 126/83 10/01/2018 9:52 AM FLOOR COVERING CONTRACTOR Pulse 70 10/01/2018 9:52 AM FLOOR COVERING CONTRACTOR Temperature 36.7 ??C (98.1 ??F) 10/01/2018 9:52 AM CS T Respiratory Rate - - Oxygen Saturation 98% 10/01/2018 9:52 AM FLOOR COVERING CONTRACTOR Inhaled Oxygen Concentration - - Weight 112.7 kg (248 lb 8 oz) 10/01/2018 9:52 AM FLOOR COVERING CONTRACTOR Height 170.2 cm (5' 7 ) 10/01/2018 9:52 AM FLOOR COVERING CONTRACTOR Body Mass Index 38.92 10/01/2018 9:52 AM FLOOR COVERING CONTRACTOR Plan of Treatment Health Maintenance Due Date Last Done Comments DTAP/TDAP/TD VACCINES (1 - Tdap) 2000 HEPATITIS B VACCINES (1 of 3 - 19+ 3-dose series) 2000 CERVICAL CANCER SCREENING 2011 BREAST CANCER SCREENING 2021 INFLUENZA VACCINE (#1) 2024 HPV VACCINES Aged Out No longer eligi ble based on patient's age to complete this topic Insurance MEDICARE PART A AND B Care Teams Rotary Drill Operator Helper Relationship Specialty Start Date End Date Jess Plascencia MD [address] [place] [id number] PCP - General Family Practice 09/01/18
--- OUTSIDE RECORDS SUMMARY | 2024-12-02 15:09 | XMS_ITS | Referral Summary ---
Author Organization [facility] [address] Address [address] [place] [address] Care Team Providers Care Nitroglycerin Supervisor Name Role Phone Walter Erwin DO Primary Care Provider [phone]- [phone] Allergies Active Allergy Reactions Criticality Noted Date [...] thyroiditis Assessment & Plan (12/08/2023 8:29 AM INSTRUCTIONAL MEDIA SERVICES TECHNICIAN): Chronic, unknown status Continue current dose of Synthroid 112 mcg oral daily Advised to stop Cytomel Recheck thyroid function test today and further plans based on it Polycystic ovarian syndrome 12/05/2023 Assessment & Plan (12/08/2023 8:30 AM INSTRUCTIONAL MEDIA SERVICES TECHNICIAN): Counseled on diet and exercise Class 1 obesity due to exces s calories with serious comorbidity and body mass index (BMI) of 33.0 to 33.9 in adult 12/05/2023 Assessment & Plan (12/08/2023 8:30 AM INSTRUCTIONAL MEDIA SERVICES TECHNICIAN): Chronic, progressively improving with Trulicity 3 mg subQ weekly dose Advised patient to include healthy lifestyle habits Include complex carbs, healthy fats and proteins Work on portion control Avoid eating processed food cutback on sugar Advised to start exercising at least 30-40 minutes every day Prediabetes 12/05/2023 Assessment & Plan (12/08/2023 8:30 AM INSTRUCTIONAL MEDIA SERVICES TECHNICIAN): On Trulicity Recheck A1c Counseled on diet and exercise Social History Tobacco Use Types Packs/Day Years [...] on file Legal Sex Female 5:17 PM INSTRUCTIONAL MEDIA SERVICES TECHNICIAN Gender Identity Female 12/05/2023 10:07 AM INSTRUCTIONAL MEDIA SERVICES TECHNICIAN Sexual Orientation Choose not to disclose 2023 10:07 AM INSTRUCTIONAL MEDIA SERVICES TECHNICIAN Last Filed Vital Signs Vital Sign Reading Time Taken Comments Blood Pressure 128/80 12/05/2023 11:22 AM INSTRUCTIONAL MEDIA SERVICES TECHNICIAN Pulse 73 12/05/2023 11:22 AM INSTRUCTIONAL MEDIA SERVICES TECHNICIAN Temperature - - Respiratory Rate 16 12/05/2023 11:22 AM INSTRUCTIONAL MEDIA SERVICES TECHNICIAN Oxygen Saturation - - Inhaled Oxygen Concentration - - Weight 97.1 kg (214 lb) 12/05/2023 11:22 AM INSTRUCTIONAL MEDIA SERVICES TECHNICIAN Height 170.2 cm (5' 7 ) 12/05/2023 11:22 AM INSTRUCTIONAL MEDIA SERVICES TECHNICIAN Body Mass Index 33.52 12/05/2023 11:22 AM INSTRUCTIONAL MEDIA SERVICES TECHNICIAN Plan of Treatment Not on file Insurance [facility] Care Teams Nitroglycerin Supervisor Relationship Specialty Start Date End Date Walter Erwin DO [facility] [address] PCP - General Internal Medicine 10/20/24
== END 2024-12-02 14:29 | disposition home or self-care (01) ==
PROVIDERS: PCP Internal Medicine; Visit Provider Nurse Practitioner
DX: R22.31 Localized swelling, mass and lump, right upper limb (principal)
CPT/HCPCS: 76882

== ENCOUNTER 2024-12-11 08:34 | Outpatient (CLI) | payer OTHER, SELFPAY ==
--- OUTSIDE RECORDS SUMMARY | 2024-12-11 08:36 | XMS_ITS | Referral Summary ---
Author Organization [facility] [place] [address] Address [address] [place] [address] Care Team Providers Care Learning And Development Assistant Name Role Phone Walter Erwin DO Primary Care Provider [phone]- [phone] Encounters Date Type Department Care Team Description 12/08/2024 8:00 AM PROGRAM MGR Office Visit [facility] [address] [place] [phone] Arnulfo Molina, OD Ocular albinism (HCC) (Primary Dx) from Last 3 Months Allergies Active Allergy Reactions Criticality Noted Date Comments Amoxicillin-Pot Clavulanate Diarrhea,Nausea And Vomiting Low 09/01/2018 Hydrocodone-Acetaminophe n Hives,Itching High 09/01/2018 Levothyroxine Other (See comments),Unknown Low 12/05/2023 Does not work. 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 Assessment & Plan (12/08/2024 8:58 AM PROGRAM MGR): Very difficult views with nystagmus DFE generally unremarkable Patient having some intermittent tearing / swelling OD (not present today) Could be MGD related, will try artificial tears and hot compresses RTC with next flare PRN Auto MRx today with high cyl, has been told in past she needs bitoric Spoke with patient about potential for prosthetic colored CL for photophobia Gave patient information on low vision, has been in past but not in [facility] RTC 1 year, PRN with concerns GERD (gastroesophageal reflux disease) Overview (12/08/2024): Last Assessment & Plan: Condition: stable Source of diagnosis: Medication and Diagnosis confirmed from PCP record and currently active GERD Guidelines Problem: GERD Managing Stress Goal: Member/caregiver/family will use at least 1 stress/anxiety reduction technique to reduce gastroesophageal reflux disease (GERD) symptoms Intervention: Member will walk 30 minutes a day, 5 days of the week as tolerable for the management of anxiety/stress and gastroesophageal reflux symptoms Reviewed use of antacid medication and/or diet modifications of decreasing caffeine, spicy foods, chocolate, and avoiding alcohol, tobacco, NSAIDs, and reducing citrus acids. 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 Assessment & Plan (12/08/2023 8:29 AM PROGRAM MGR): Chronic, unknown status Continue current dose of Synthroid 112 mcg oral daily Advised to stop Cytomel Recheck thyroid function test today and further plans based on it Class 1 obesity due to exces s calories with serious comorbidity and body mass index (BMI) of 33.0 to 33.9 in adult 12/05/2023 Assessment & Plan (12/08/2023 8:30 AM PROGRAM MGR): Chronic, progressively improving with Trulicity 3 mg subQ weekly dose Advised patient to include healthy lifestyle habits Include complex carbs, healthy fats and proteins Work on portion control Avoid eating processed food cutback on sugar Advised to start exercising at least 30-40 minutes every day Prediabetes 12/05/2023 Assessment & Plan (12/08/2023 8:30 AM PROGRAM MGR): On Trulicity Recheck A1c Counseled on diet and exercise Blindness of both eyes 05/29/2023 Overview (12/08/2024): Last Assessment & Plan: Condition: stable Source of diagnosis: Diagnosis confirmed from PCP record and currently active Follow up in: one month Vitamin D deficiency 05/29/2023 Overview (12/08/2024): Last Assessment & Plan: Condition: stable Source of diagnosis: Medication and Diagnosis confirmed from PCP record and currently active Follow up in: one month Dermatitis 04/09/2023 Overview (12/08/2024): Last Assessment & Plan: Condition: stable Source of diagnosis: Medication and Diagnosis confirmed from PCP record and currently active Follow up in: one month Last Assessment & Plan: Condition: stable Source of diagnosis: Medication and Diagnosis confirmed from PCP record and currently active Follow up in: one month Polycystic ovary syndrome 01/05/2023 Overview (12/08/2024): Last Assessment & Plan: Condition: stable Source of diagnosis: Diagnosis confirmed from PCP record and currently active Follow up in: one month Assessment & Plan (12/08/2023 8:30 AM PROGRAM MGR): Counseled on diet and exercise EMY (generalized anxiety disorder) 01/25/2022 Overview (12/08/2024): Last Assessment & Plan: Condition: stable Source of diagnosis: Medication and Diagnosis confirmed from PCP record and currently active Anxiety Guidelines Problem: Anxiety Coping Strategies Goal: Member will use at least 1 strategy that would decrease triggers for anxiety that may improve their emotional and behavioral health Interventions: Member will monitor anxiety symptoms via the use of a daily journal or well being/mental health phone application to track internal/external triggers or stressors that impact mood and coping strategies used to address them Follow up in: one month Hypothyroidism 01/25/2022 Overview (12/08/2024): Last Assessment & Plan: Condition: stable Source of diagnosis: Medication and Diagnosis confirmed from PCP record and currently active Follow up in: one month Albinism 10/02/2018 Overview (12/08/2024): Last Assessment & Plan: Condition: stable Source of diagnosis: Diagnosis confirmed from PCP record and currently active Follow up in: one month Acute mastitis 09/04/2018 Mastodynia 09/01/2018 Swollen breast [...] of Binge Drinking Not on file 12/2023 Comments Unknown Sex and Gender Information Value Date Recorded Sex Assigned at Not on file Legal Sex Female 5:17 PM PROGRAM MGR Gender Identity Female 12/05/2023 10:07 AM PROGRAM MGR Sexual Orientation Choose not to disclose 2023 10:07 AM PROGRAM MGR Last Filed Vital Signs Vital Sign Reading Time Taken Comments Blood Pressure 128/80 12/05/2023 11:22 AM PROGRAM MGR Pulse 73 12/05/2023 11:22 AM PROGRAM MGR Temperature - - Respiratory Rate 16 12/05/2023 11:22 AM PROGRAM MGR Oxygen Saturation - - Inhaled Oxygen Concentration - - Weight 97.1 kg (214 lb) 12/05/2023 11:22 AM PROGRAM MGR Height 170.2 cm (5' 7 ) 12/05/2023 11:22 AM PROGRAM MGR Body Mass Index 33.52 12/05/2023 11:22 AM PROGRAM MGR Plan of Treatment Not on file Insurance [facility] Care Teams Learning And Development Assistant Relationship Specialty Start Date End Date Walter Erwin DO [facility] [address] [address] [place] [id number] PCP - General Internal Medicine 10/20/24
--- OUTSIDE RECORDS SUMMARY | 2024-12-11 08:36 | XMS_ITS | Clinical Summary ---
Author Organization [facility] [place] [address] Address [address] [place] [address] Care Team Providers Care Muck Operator Name Role Phone Walter Erwin DO Primary Care Provider [phone]- [phone] Allergies Active Allergy Reactions Criticality Noted Date [...] 12/08/2024 Assessment & Plan (12/08/2024 8:58 AM OPHTHALMIC ASST): Very difficult views with nystagmus DFE generally [...] thyroiditis Assessment & Plan (12/08/2023 8:29 AM OPHTHALMIC ASST): Chronic, unknown status Continue current dose of Synthroid 112 mcg oral daily Advised to stop Cytomel Recheck thyroid function test today and further plans based on it Class 1 obesity due to exces s calories with serious comorbidity and body mass index (BMI) of 33.0 to 33.9 in adult 12/05/2023 Assessment & Plan (12/08/2023 8:30 AM OPHTHALMIC ASST): Chronic, progressively improving with Trulicity 3 mg subQ weekly dose Advised patient to include healthy lifestyle habits Include complex carbs, healthy fats and proteins Work on portion control Avoid eating processed food cutback on sugar Advised to start exercising at least 30-40 minutes every day Prediabetes 12/05/2023 Assessment & Plan (12/08/2023 8:30 AM OPHTHALMIC ASST): On Trulicity Recheck A1c Counseled on diet [...] month Assessment & Plan (12/08/2023 8:30 AM OPHTHALMIC ASST): Counseled on diet and exercise EMY (generalized [...] mastitis 09/04/2018 Mastodynia 09/01/2018 Swollen breast 09/01/2018 Encounters Date Type Department Care Team Description 12/08/2024 8:00 AM OPHTHALMIC ASST Office Visit [facility] [address] [place] [phone] Arnulfo Molina, MYRTLE Ocular albinism (HCC) (Primary Dx) from Last 3 Months Surgical History Surgery Date Site/Laterality Comments SECTION 2011, 2013 Medical History Medical History Date Comments Hypothyroidism Legally blind Albinism (HCC) Family History Medical History Relation Name Comments Glaucoma Mother Relation Name Status Comments Mother Social History Tobacco Use Types Packs/Day Years [...] on file Legal Sex Female 5:17 PM OPHTHALMIC ASST Gender Identity Female 12/05/2023 10:07 AM OPHTHALMIC ASST Sexual Orientation Choose not to disclose 2023 10:07 AM OPHTHALMIC ASST Obstetrics History Last Filed Vital Signs Vital Sign Reading Time Taken Comments Blood Pressure 128/80 12/05/2023 11:22 AM OPHTHALMIC ASST Pulse 73 12/05/2023 11:22 AM OPHTHALMIC ASST Temperature - - Respiratory Rate 16 12/05/2023 11:22 AM OPHTHALMIC ASST Oxygen Saturation - - Inhaled Oxygen Concentration - - Weight 97.1 kg (214 lb) 12/05/2023 11:22 AM OPHTHALMIC ASST Height 170.2 cm (5' 7 ) 12/05/2023 11:22 AM OPHTHALMIC ASST Body Mass Index 33.52 12/05/2023 11:22 AM OPHTHALMIC ASST Plan of Treatment Health Maintenance Due Date Last Done Comments Breast Cancer Screening-Mammogram 1981 Cervical Cancer Screening 1981 Depression Screening 1981 Hepatitis C Screening 1981 DTaP/Tdap/Td Vaccine (1 - Tdap) 1992 Varicella Vaccines (1 of 2 - 13+ 2-dose series) 1994 Hepatitis B Screening 1999 Regular Well Visit/Exam 18-64 1999 Covid-19 Vaccine (3 - 2023-2 5 season) 2024 10/12/2021, 01/05/2021 Influenza Vaccine (#1) 2024 5, 08/30/2013, 08/27/2013 HPV Vaccines Aged Out No longer eligi ble based on patient's age to complete this topic Pneumococcal vaccine <65 Aged Out No longer eligible based on patient's age to complete this topic Insurance [facility] Care Teams Muck Operator Relationship Specialty Start Date End Date Walter Erwin DO [address] [place], [place] [id number] PCP - General Internal Medicine 10/20/24
--- OUTSIDE RECORDS SUMMARY | 2024-12-11 08:37 | XMS_ITS | Data Portability ---
Author Organization [place] - [facility] [employer], Main Office Address [address] [place] [address] Assessment Encounter Date Assessment Date Assessment LastModified by Organization Details LastModified Time 04/22/2024 04/22/2024 Assessment: Delayed sleep phase syndrome Mild OSHS, HI = 4 Plan: The following were reviewed and explained to the patient: primary care/referral note [facility] home sleep study 04/14/24 HI = 4, supine HI = 18. Sleep in lateral recumbent or semirecumbent position for the time being. There could also be substantial [id number] variability in the AHI that can lead to missed diagnosis and disease severity misclassification. The home sleep study unit's estimated total sleep time is only 3 minutes less than total recording time. The patient's own estimated total sleep time is around 5 hours, and hence the HI will be 8 or higher. We will appeal to insurance and obtain authorization for either an in-lab diagnostic sleep study. General information on sleep disordered breathing and evaluation of sleep disordered breathing were covered. We discussed with the patient the impact of weight on: Sleep disordered breathing Hypertension Hyperlipidemia Prediabetes Varicosis Educated the patient on sleep hygiene measures. Relaxing rituals to rest easy, understanding foods with positive and negative impact on sleep, creating a peaceful sleep environment, timing of exercise, using herbal sleep aids, and practicing sleep-friendly meditation were covered. To determine how much sleep is needed, the patient will assess where she falls on the spectrum, examine what lifestyle factor such as stress is affecting the quality and quantity of sleep. In general, adults need 7-9 hours of sleep. Educated the patient regarding foods that promote sleep. These include but are not limited to cherries, bananas, toast, oatmeal, and warm milk. Educated the patient regarding foods and drinks to avoid before bedtime. These include but are not limited to aged cheese, chocolate, spicy foods, tomato-based sauces, soy, ginseng tea and processed meat. Advocated influenza vaccination annually and pneumonia vaccination SHANELLE. Advocated weight loss through diet and exercise. Patient's ideal body weight according to height and gender is up to 145 lbs. Encouraged patient to adjust caloric intake to maintain/achieve ideal body weight, emphasizing on fruits, vegetables, whole grains, and fat-free or low-fat products. These include lean meats, poultry, fish, beans, eggs, and nuts and foods that are low in saturated fats, trans-fats, cholesterol, salt (sodium), and glycemic index. Stressed the importance of regular exercise up to the patient's capacity limits. In this case, we recommend 20 min daily walking, 2 days a week of resistance training. Patient to monitor BP daily and bring records to PCP for further management. Follow-up: 1 week after diagnostic sleep study Not available 04/22/2024 10:49:07 06/16/2024 06/16/2024 Assessment: Mild OSAHS, AHI = 6 Plan: The following were reviewed and explained to the patient: [facility] home sleep study 04/14/24 HI = 4, supine HI = 18 [facility] diagnostic sleep study 06/08/24 sleep onset = 18 minutes, REM onset = none, AHI = 6, supine AHI = 36, PLMI = 2 General information on sleep disordered breathing, evaluation of sleep disordered breathing, treatment with PAP therapy, and living with PAP therapy were covered. PSG is medically necessary to determine the management of sleep apnea. We discussed with the patient the impact of weight on: Sleep disordered breathing Hypertension Hyperlipidemia Prediabetes Varicosis We discussed with the patient the benefit of PAP therapy on: Sleep disordered breathing Depression/Anxiety Rhinitis PASP 30 mmHg Hypertension Prediabetes Educated the patient on sleep hygiene measures. Relaxing rituals to rest easy, understanding foods with positive and negative impact on sleep, creating a peaceful sleep environment, timing of exercise, using herbal sleep aids, and practicing sleep-friendly meditation were covered. To determine how much sleep is needed, the patient will assess where she falls on the spectrum, examine what lifestyle factor such as stress is affecting the quality and quantity of sleep. In general, adults need 7-9 hours of sleep. Educated the patient regarding foods that promote sleep. These include but are not limited to cherries, bananas, toast, oatmeal, and warm milk. Educated the patient regarding foods and drinks to avoid before bedtime. These include but are not limited to aged cheese, chocolate, spicy foods, tomato-based sauces, soy, ginseng tea and processed meat. Advocated influenza vaccination annually and pneumonia vaccination SHANELLE. Advocated weight loss through diet and exercise. Patient's ideal body weight according to height and gender is up to 145 lbs. Encouraged patient to adjust caloric intake to maintain/achieve ideal body weight, emphasizing on fruits, vegetables, whole grains, and fat-free or low-fat products. These include lean meats, poultry, fish, beans, eggs, and nuts and foods that are low in saturated fats, trans-fats, cholesterol, salt (sodium), and glycemic index. Stressed the importance of regular exercise up to the patient's capacity limits. In this case, we recommend 20 min daily walking, 2 days a week of resistance training. Patient to monitor BP daily and bring records to PCP for further management. Follow-up: 1 week after titration sleep study Not available 06/16/2024 09:47:25 08/24/2024 08/24/2024 Assessment: Mild OSAHS, AHI = 6 Plan: The following were reviewed and explained to the patient: [facility] home sleep study 04/14/24 HI = 4, supine HI = 18 [facility] diagnostic sleep study 06/08/24 sleep onset = 18 minutes, REM onset = none, AHI = 6, supine AHI = 36, PLMI = 2 [facility] titration sleep study 08/03/24 sleep onset = 61.5 minutes, REM onset = none, Respironics small DreamWear full face mask @ 9-20 cmH2O Educated the patient on problems and solutions associated with positive airway pressure (PAP) use. Difficulty tolerating pressure, mask leaks, intolerance of interface, nasal congestion, claustrophobic response, dry mouth, and unintentional mask removal during sleep were covered. Patient's mask leaks air. We will ensure the mask is situated properly. Patient can wear protective eye covering during sleep, and the mask can be resized. Dry mouth is a normal occurrence for people who just start out on PAP therapy because they are not used to air blowing in to the throat to hold open. Dry mouth is exacerbated for people who wear nasal PAP mask and whose jaw drops open during sleep. Not only does this create a much less efficient therapy because of leakage, it also causes dry mouth. There are a couple solutions to help prevent this type of problem. A simple solution would be to wear a chinstrap which essentially holds the jaw in place. A second solution would be a switch to a full face mask which covers both the nose and mouth. Although this is another easy solution, using a full face mask for some could seem claustrophobic or confining. There is no silver bullet solution as no single mask is right for everybody. Sometimes it takes a bit of experimentation to find a PAP mask which best meets the patient's needs as well as fits comfortably. Another tactic is to use a humidifier on your PAP machine. Most new PAP machines have integrated humidifiers. Humidification is maldonado when dealing with symptoms of dry mouth because the humidifier can supply both warm and room temperate air. Even a small amount of humidity in the airflow will help nasal passages to stay hydrated. If a person is using both a full face mask and a PAP machine with a heated humidifier and is still experiencing dry mouth, an ill-fitted PAP mask might be causing the problem. Leakage can be caused by a mask that is to large or small, the wrong style mask, the cushion is degraded or simply because the mask's straps aren't adjusted correctly. If leakage occurs, dry air from the room can leak in while humidification escapes. The result is reduced humidification within the circuit and resulting in dry throat and mouth. Finally, beyond factors involving the PAP machine and mask, dry mouth can also be caused or worsened by dehydration. The general recommendation to during eight 8 oz. glasses of water a day might be too little for many people. When people drink large amounts of coffee or other caffeine beverages, or sweat a lot during the day, making sure to rehydrate is an important part of PAP therapy. ResMed Air Sense 11 auto set unit with heated humidifier, supplies and Respironics small DreamWear full face mask @ 9-20 cmH2O ordered. Further titration will be based on clinical response. Provided the patient with a list of local home care stores where positive airway pressure (PAP) units, accoutrement, and services are available. Home care store selection is based on patient's insurance carrier. Patient will setup an appointment with [facility] for supplies and pressure adjustments. A major predictor of success with use of PAP is follow-up with both the respiratory supplier and the treating physician. The respiratory supplier optimally will follow-up within two weeks after starting use while the treating physician optimally will follow-up within 90 days after starting therapy to assess adherence and effectiveness of treatment. The download results can show the treating physician information about adherence to treatment, residual AHI while on treatment and presence of large mask leakage. This information is especially helpful if the patient has residual sleepiness despite treatment. General information on sleep disordered breathing, evaluation of sleep disordered breathing, treatment with PAP therapy, and living with PAP therapy were covered. We discussed with the patient the impact of weight on: Sleep disordered breathing Hypertension Hyperlipidemia Prediabetes Varicosis We discussed with the patient the benefit of PAP therapy on: Sleep disordered breathing Depression/Anxiety Rhinitis PASP 30 mmHg Hypertension Prediabetes Educated the patient on sleep hygiene measures. Relaxing rituals to rest easy, understanding foods with positive and negative impact on sleep, creating a peaceful sleep environment, timing of exercise, using herbal sleep aids, and practicing sleep-friendly meditation were covered. To determine how much sleep is needed, the patient will assess where she falls on the spectrum, examine what lifestyle factor such as stress is affecting the quality and quantity of sleep. In general, adults need 7-9 hours of sleep. Educated the patient regarding foods that promote sleep. These include but are not limited to cherries, bananas, toast, oatmeal, and warm milk. Educated the patient regarding foods and drinks to avoid before bedtime. These include but are not limited to aged cheese, chocolate, spicy foods, tomato-based sauces, soy, ginseng tea and processed meat. Advocated influenza vaccination annually and pneumonia vaccination SHANELLE. Advocated weight loss through diet and exercise. Patient's ideal body weight according to height and gender is up to 145 lbs. Encouraged patient to adjust caloric intake to maintain/achieve ideal body weight, emphasizing on fruits, vegetables, whole grains, and fat-free or low-fat products. These include lean meats, poultry, fish, beans, eggs, and nuts and foods that are low in saturated fats, trans-fats, cholesterol, salt (sodium), and glycemic index. Stressed the importance of regular exercise up to the patient's capacity limits. In this case, we recommend 20 min daily walking, 2 days a week of resistance training. Patient to monitor BP daily and bring records to PCP for further management. Follow-up: 3 months, November 2024 Not available 08/24/2024 09:58:16 11/24/2024 11/24/2024 Assessment: Mild OSAHS, AHI = 6 Plan: The following were reviewed and explained to the patient: [facility] home sleep study 04/14/24 HI = 4, supine HI = 18 [facility] diagnostic sleep study 06/08/24 sleep onset = 18 minutes, REM onset = none, AHI = 6, supine AHI = 36, PLMI = 2 [facility] titration sleep study 08/03/24 sleep onset = 61.5 minutes, REM onset = none, Respironics small DreamWear full face mask @ 9-20 cmH2O PAP compliance downloaded and interpreted x 20 minutes. Data reviewed and explained to the patient. Average apnea/hypopnea index (AHI) is 0.6. Patient used PAP > 4 hours 62% of the time. PAP is set at 9-20 cmH2O. PAP will be reset at 8-12 cmH2O. Oxygen supplementation: none Keep ramp start at 7 cmH2O. Keep ramp duration at 20 minutes. Keep EPR +2 time clock repairer. Keep humidifier level at 2. Keep tube temperature at 76 F. Patient is benefiting from PAP therapy. Encouraged patient to maintain PAP use more than 70% of the time. Statement of PAP use and benefits will be sent to the home care store. Educated the patient on problems and solutions associated with positive airway pressure (PAP) use. Difficulty tolerating pressure, mask leaks, intolerance of interface, nasal congestion, claustrophobic response, dry mouth, and unintentional mask removal during sleep were covered. Patient's mask leaks air. We will ensure the mask is situated properly. Patient can wear protective eye covering during sleep, and the mask can be resized. Dry mouth is a normal occurrence for people who just start out on PAP therapy because they are not used to air blowing in to the throat to hold open. Dry mouth is exacerbated for people who wear nasal PAP mask and whose jaw drops open during sleep. Not only does this create a much less efficient therapy because of leakage, it also causes dry mouth. There are a couple solutions to help prevent this type of problem. A simple solution would be to wear a chinstrap which essentially holds the jaw in place. A second solution would be a switch to a full face mask which covers both the nose and mouth. Although this is another easy solution, using a full face mask for some could seem claustrophobic or confining. There is no silver bullet solution as no single mask is right for everybody. Sometimes it takes a bit of experimentation to find a PAP mask which best meets the patient's needs as well as fits comfortably. Another tactic is to use a humidifier on your PAP machine. Most new PAP machines have integrated humidifiers. Humidification is maldonado when dealing with symptoms of dry mouth because the humidifier can supply both warm and room temperate air. Even a small amount of humidity in the airflow will help nasal passages to stay hydrated. If a person is using both a full face mask and a PAP machine with a heated humidifier and is still experiencing dry mouth, an ill-fitted PAP mask might be causing the problem. Leakage can be caused by a mask that is to large or small, the wrong style mask, the cushion is degraded or simply because the mask's straps aren't adjusted correctly. If leakage occurs, dry air from the room can leak in while humidification escapes. The result is reduced humidification within the circuit and resulting in dry throat and mouth. Finally, beyond factors involving the PAP machine and mask, dry mouth can also be caused or worsened by dehydration. The general recommendation to during eight 8 oz. glasses of water a day might be too little for many people. When people drink large amounts of coffee or other caffeine beverages, or sweat a lot during the day, making sure to rehydrate is an important part of PAP therapy. Provided the patient with a list of local home care stores where positive airway pressure (PAP) units, accoutrement, and services are available. Home care store selection is based on patient's insurance carrier. Patient will setup an appointment with [facility] for supplies and pressure adjustments. A major predictor of success with use of PAP is follow-up with both the respiratory supplier and the treating physician. The respiratory supplier optimally will follow-up within two weeks after starting use while the treating physician optimally will follow-up within 90 days after starting therapy to assess adherence and effectiveness of treatment. The download results can show the treating physician information about adherence to treatment, residual AHI while on treatment and presence of large mask leakage. This information is especially helpful if the patient has residual sleepiness despite treatment. General information on sleep disordered breathing, evaluation of sleep disordered breathing, treatment with PAP therapy, and living with PAP therapy were covered. We discussed with the patient the impact of weight on: Sleep disordered breathing Hypertension Hyperlipidemia Prediabetes Varicosis We discussed with the patient the benefit of PAP therapy on: Sleep disordered breathing Depression/Anxiety Rhinitis PASP 30 mmHg Hypertension Prediabetes Educated the patient on sleep hygiene measures. Relaxing rituals to rest easy, understanding foods with positive and negative impact on sleep, creating a peaceful sleep environment, timing of exercise, using herbal sleep aids, and practicing sleep-friendly meditation were covered. To determine how much sleep is needed, the patient will assess where she falls on the spectrum, examine what lifestyle factor such as stress is affecting the quality and quantity of sleep. In general, adults need 7-9 hours of sleep. Educated the patient regarding foods that promote sleep. These include but are not limited to cherries, bananas, toast, oatmeal, and warm milk. Educated the patient regarding foods and drinks to avoid before bedtime. These include but are not limited to aged cheese, chocolate, spicy foods, tomato-based sauces, soy, ginseng tea and processed meat. Advocated influenza vaccination annually and pneumonia vaccination SHANELLE. Advocated weight loss through diet and exercise. Patient's ideal body weight according to height and gender is up to 145 lbs. Encouraged patient to adjust caloric intake to maintain/achieve ideal body weight, emphasizing on fruits, vegetables, whole grains, and fat-free or low-fat products. These include lean meats, poultry, fish, beans, eggs, and nuts and foods that are low in saturated fats, trans-fats, cholesterol, salt (sodium), and glycemic index. Stressed the importance of regular exercise up to the patient's capacity limits. In this case, we recommend 20 min daily walking, 2 days a week of resistance training. Patient to monitor BP daily and bring records to PCP for further management. Follow-up: 1 year, November 2025 Not available 11/24/2024 09:27:02 Plan of Treatment Reminders Order Date Submit Date Provider Last Modified By Organization Details Last Modified Time Details Appointments Follow Up 30 2025 10:00A Aislinn Phipps MD Not available Not available Not available Lab None recorded. Referral None recorded. Procedures None recorded. Surgeries None recorded. Imaging home sleep study - *Please call pt to schedule* 2023 024 [facility], [address] [place], [address], 04/16/2024 14:48:34 polysomno gram, diagnosti c, 6 yrs or older - approved [id number] 1 04/22/24-2023 024 [email or web address] [facility], [address] [place], [address], 05/03/2024 08:12:03 polysomno gram, titration study 2023 024 [email or web address] [facility], [address] [place], [address], 07/19/2024 10:04:06 Medication Orders aspirin 81 mg tablet,de layed release 2023 024 [id number], [address], [id number], 11/24/2024 09:35:14 losartan 50 mg tablet 2023 024 [facility] #[id number], [address], [id number], 04/22/2024 10:06:10 Patient TargetsNo targets recorded. Patient InstructionsNo instructions recorded. Reason for Referral None Reported. Results Created Date Observation Date Name Description Value Unit Range Abnormal Flag Note LastModifiedBy Organization Detail LastModifiedTime 03/17/2003/17/2024 US, thyro id No observ ation record ed. [facility] [address] [facility] [address] [place] [address], [address], 03/18/2024 13:20:14 04/16/20 24 04/14/2024 home sleep study No observ ation record ed. [email or web address] [facility] [address] [place], [address], 05/21/2024 09:41:12 04/16/20 24 04/14/2024 home sleep study No observ ation record ed. [facility] [address] [place], [address], 04/16/2024 14:48:34 06/11/20 24 06/08/2024 polys omnog mario, diagn ostic , 6 yrs or older No observ ation record ed. [facility] [address] [place], [address], 06/11/2024 12:17:27 08/24/20 24 08/03/2024 polys omnog mario, titra tion study No observ ation record ed. [facility] [address] [place], [address], 08/24/2024 10:07:59 Result Notes None recorded. Problems Name Problem SNOMED Code Status Onset Date Resolution Date Notes Provider Name and Address Organization Details Recorded Time Polycystic ovary syndrome 815880720 Active 2022 Not Available [facility] 3 22:28:42 Prediabete s 772708836 Active 2022 Not Available [facility] 3 22:28:42 Arthritis 9399898 Active 2022 Not Available [facility] 3 22:28:42 Mixed anxiety and depressive disorder 171349060 Active 2022 Not Available [facility] 3 22:28:42 Cobalamin deficiency 904090266 Active 2023 Jess Plascencia MD [address] [facility] [address], [place], [address] , [facility] 4 12:27:48 Albinism 66146663 Active Not Available [facility] 3 22:28:42 Pain in throat 074388896 Completed Not Available [facility] 3 03:22:27 Blindness - both eyes 871763367 Active Not Available [facility] 3 22:28:42 Vitamin D deficiency 16913462 Active Not Available [facility] 3 22:28:42 Goiter 6402709 Active Not Available [facility] 3 22:28:42 Hypothyroi dism 90038030 Active Not Available [facility] 3 22:28:42 Hemorrhoid s 17715261 Active Not Available [facility] 3 22:28:42 Essential hypertensi on 73022277 Active 2023 MARTINE Mcginnis-C [address], [place], [address] , [facility] 4 14:32:49 Varicose veins of lower extremity 01643495 Active 2023 MARTINE Mcginnis-C [address], [place], [address] , [facility] 4 14:33:55 Obstructiv e sleep apnea syndrome 31800481 Active 2023 Jw Phipps MD [address], [place], [address] , [facility] 4 10:44:19 Notes:Medical History: Beltran ism Depression/Anxiety Bilateral legal blindness Rhinitis with postnasal drip Obesity with mild OSAHS, AHI = 6, 06/08/24, on autoCPAP Treatment-emergent central apneas PASP 30 mmHg Mild LAE Hypertension EF 60% Hyperlipidemia Lynn's hypothyroidism Prediabetes Hemorrhoids PCOS Vit B12 deficiency Vit D deficiency Varicosis Procedure History: C-sections 2011, 2013 Occupational History: Disabled PAP Mask Use History: Respironics small DreamWear full face mask ResMed medium AirTouch F20 full face mask Problem Notes None recorded. Procedures Surgical History Date Name Laterality Status Provider Name and Address Organization Details Recorded Time 4 Most Recent Mammogram completed Lola Chávez LPN [employer] 01/08/2024 11:27:10 4 delivery completed Not Available [facility] 01/01/2023 03:14:20 2 delivery completed Not Available [facility] 01/01/2023 03:14:20 Imaging Results Imaging Date Name Status LastModified by Organiz ation Details LastModified Time 03/17/2024 US, thyroid completed [facility] [address], [place], [address], 03/18/2024 13:20:14 04/14/2024 home sleep study completed [address] [place], [address], 05/21/2024 09:41:12 04/14/2024 home sleep study completed [facility] [address] [place], [address], 04/16/2024 14:48:34 06/08/2024 polysomnogram, diagnostic, 6 yrs or older completed [facility] [address] [place], [address], 06/11/2024 12:17:27 08/03/2024 polysomnogram, titration study completed [facility] [address] [place], [address], 08/24/2024 10:07:59 Procedure Notes None recorded. Medical Equipment None Reported. Allergies Allergen ID Allergen Name Allergen Category Reaction Reaction Severity Criticality Documentation Date Start Date Code Code System Note Provider Name and Address Organization Details Recorded Time 6274 acetamino phen / hydrocodo ne medicatio n itching Not available Not available 01/01/2023 96860 2 RxNorm Not Available [facility] 3 03:34:13 6275 Augmentin medicatio n diarrhea Not available Not available 01/01/2023 94747 2 RxNorm Not Available [facility] 3 03:34:13 Medications Name Sig Start Date Stop Date Status Note LastModified by Organization Details LastModified Time losartan 50 mg tablet TAKE 1 TABLET BY MOUTH EVERY DAY 04/22 completed Not Available Not Available Not Available clindamycin HCl 300 mg capsule TK 1 C PO Q 6 H 09/07 completed Not Available Not Available Not Available azithromyci n 250 mg tablet TAKE 2 TABLETS BY MOUTH FOR 1 DAY THEN TAKE 1 TABLET BY MOUTH DAILY FOR 4 DAYS 01/06 completed Not Available Not Available Not Available ibuprofen 800 mg tablet TAKE 1 TABLET BY MOUTH THREE TIMES DAILY NEEDED FOR PAIN 11/24 completed Not Available Not Available Not Available tizanidine 4 mg tablet Take 1 tablet every 8 hours by oral route as needed. active Not Available Not Available No t Available fluconazole 150 mg tablet TAKE 1 TABLET BY MOUTH 1 TIME. MAY REPEAT IN 72 HOURS NEEDED 11/24 completed Not Available Not Available Not Available Nystop 100,000 unit/gram topical powder APPLY TO THE AFFECTED AREA TOPICALLY TWICE DAILY 04/15 completed Not Available Not Available Not Available Synthroid 150 mcg tablet TAKE 1 TABLET BY MOUTH EVERY DAY IN THE MORNING 04/10 completed Not Available Not Available Not Available meloxicam 15 mg tablet TK 1 T PO QD active Not Available Not Available No t Available promethazin e 12.5 mg tablet TK 1 T PO Q 6 H PRF NAUSEA OR VOM 09/07 completed Not Available Not Available Not Available Synthroid 125 mcg tablet TAKE 1 TABLET BY MOUTH EVERY DAY IN THE MORNING 05/24 completed Not Available Not Available Not Available prednisone 20 mg tablet Take 2 tablets every day by oral route for 5 days. active Not Available Not Available No t Available Synthroid 100 mcg tablet TK 1 T PO QAM 04/07 completed Not Available Not Available Not Available acetaminoph en 300 mg-codeine 30 mg tablet TK 1-2 TS PO Q 4 TO 6 H PRN P 05/14 completed Not Available Not Available Not Available amlodipine 5 mg tablet Take 1 tablet every day by oral route for 30 days. active Not Available Not Available No t Available allopurinol 100 mg tablet TK 1 T PO D 09/07 completed Not Available Not Available Not Available sulfamethox azole 800 mg-trimetho prim 160 mg tablet TK 1 T PO Q 12 H FOR 10 DAYS active Not Available Not Available No t Available liothyronin e 5 mcg tablet TAKE 1 TABLET BY MOUTH TWICE DAILY AROUND THE CLOCK active Not Available Not Available No t Available aspirin 81 mg tablet,christian yed release TAKE 1 TABLET BY MOUTH EVERY DAY 11/24 completed Not Available Not Available Not Available triamcinolo ne acetonide 0.1 % topical cream APPLY THIN LAYER TOPICALLY TO THE AFFECTED AREA TWICE DAILY 04/15 completed Not Available Not Available Not Available levothyroxi ne 25 mcg tablet Take 1 tablet every day by oral route. 05/08 completed Not Available Not Available Not Available levothyroxi ne 75 mcg tablet TK 1 T PO D 09/03 completed Not Available Not Available Not Available hydrocortis one 2.5 % topical cream with perineal applicator APPLY THIN LAYER TOPICALLY TO THE AFFECTED AREA 2 TO 4 TIMES DAILY NEEDED 04/22 completed Not Available Not Available Not Available amoxicillin 875 mg tablet Take 1 tablet every 12 hours by oral route for 10 days. active Not Available Not Available No t Available dexamethaso ne 1 mg tablet TAKE 1 TABLET BY MOUTH AT 10PM NIGHT PRIOR TO 8AM CORTISOL APPOINTME NT 04/10 completed Not Available Not Available Not Available levothyroxi ne 50 mcg tablet TK 1 T PO QD 05/08 completed Not Available Not Available Not Available cephalexin 500 mg capsule TAKE 1 CAPSULE BY MOUTH TWICE DAILY FOR 7 DAYS 02/03 completed Not Available Not Available Not Available pantoprazol e 40 mg tablet,christian yed release TAKE 1 TABLET BY MOUTH AT BEDTIME 11/24 completed Not Available Not Available Not Available oseltamivir 75 mg capsule TAKE 1 CAPSULE BY MOUTH TWICE DAILY FOR 5 DAYS 02/03 completed Not Available Not Available Not Available nystatin 100,000 unit/gram topical cream 11/24 completed Not Available Not Available Not Available Synthroid 88 mcg tablet TAKE 1 TABLET BY MOUTH DAILY active Not Available Not Available No t Available cephalexin 500 mg tablet Take 1 tablet twice a day by oral route for 7 days. 09/07 completed Not Available Not Available Not Available lisinopril 5 mg tablet TAKE 1 TABLET BY MOUTH DAILY active Not Available Not Available No t Available Synthroid 112 mcg tablet TAKE 1 TABLET BY MOUTH EVERY MORNING 02/03 completed Not Available Not Available Not Available dexamethaso ne sodium phosphate 4 mg/mL injection solution APPLY TO HEEL WITH IONTOPHRE SIS 2ML PER SESSION 05/14 completed Not Available Not Available Not Available levofloxaci n 500 mg tablet TK 1 T PO Q 24 H IN THE MORNING FOR 14 DAYS 01/16 completed Not Available Not Available Not Available methylpredn isolone 4 mg tablets in a dose pack TK PER [facility] DIRECTION S UTD FOR 6 DAYS active Not Available Not Available No t Available ondansetron 4 mg disintegrat ing tablet DISSOLVE 1 TABLET ON THE TONGUE EVERY 8 HOURS 11/24 completed Not Available Not Available Not Available metformin ER 500 mg tablet,exte nded release 24 hr TAKE 1 TABLET BY MOUTH TWICE DAILY BEFORE MEALS 01/06 completed Not Available Not Available Not Available doxycycline hyclate 100 mg tablet TAKE 1 TABLET BY MOUTH EVERY 12 HOURS FOR 7 DAYS 11/24 completed Not Available Not Available Not Available loratadine 10 mg tablet TK 1 T PO QD 09/07 completed Not Available Not Available Not Available spironolact one 50 mg tablet TAKE 2 TABLETS BY MOUTH EVERY DAY IN THE MORNING 04/07 completed Not Available Not Available Not Available amoxicillin 875 mg-potassiu m clavulanate 125 mg tablet Take 1 tablet every 12 hours by oral route for 4 days. active Not Available Not Available No t Available buspirone 15 mg tablet TK 1 T PO TID 05/08 completed Not Available Not Available Not Available escitalopra m 10 mg tablet Take 1 tablet every day by oral route. active Not Available Not Available No t Available escitalopra m 20 mg tablet TAKE 2 TABLETS BY MOUTH EVERY DAY active Not Available Not Available No t Available Synthroid 137 mcg tablet TAKE 1 TABLET BY MOUTH EVERY DAY IN THE MORNING 08/14 completed Not Available Not Available Not Available cyclobenzap rine 5 mg tablet Take 1 tablet 3 times a day by oral route. active Not Available Not Available No t Available bupropion HCl XL 150 mg 24 hr tablet, extended release Take 1 tablet every day by oral route. active Not Available Not Available No t Available metformin ER 500 mg tablet,exte nded release 24hr (osmotic) Take 1 tablet twice a day by oral route before meals for 30 days. 04/28 completed Not Available Not Available Not Available chlorhexidi ne gluconate 0.12 % mouthwash USE UTD 11/06 completed Not Available Not Available Not Available Vitamin B-12 04/22 completed Not Available Not Available Not Available Vitamin D 04/22 completed Not Available Not Available Not Available 05/08 completed Not Available Not Available Not Available Vitamin B12 04/15 completed Not Available Not Available Not Available Colcrys 0.6 mg tablet TK 1 T PO QD IN THE MORNING 04/28 completed Not Available Not Available Not Available Tirosint 100 mcg capsule Take 1 capsule every day by oral route in the morning for 30 days. 03/23 completed Not Available Not Available Not Available Vitamin D3 50 mcg (2,000 unit) capsule Take 2 capsules every day by oral route in the morning for 30 days. 10/13 completed Not Available Not Available Not Available Trulicity 1.5 mg/0.5 mL subcutaneou s pen injector INJECT 1.5 MG UNDER THE SKIN ONCE A WEEK AT DINNER 08/14 completed Not Available Not Available Not Available Trulicity 0.75 mg/0.5 mL subcutaneou s pen injector Inject 0.75 mg every week by subcutane ous route at dinner for 30 days. 08/14 completed Not Available Not Available Not Available Anusol-HC 2.5 % topical cream APPLY A THIN LAYER TO THE AFFECTED AREA(S) BY TOPICAL ROUTE 2 TIMES PER DAY 11/06 completed Not Available Not Available Not Available Trulicity 3 mg/0.5 mL subcutaneou s pen injector INJECT 3 MG SUBCUTANE OUSLY EVERY WEEK AT DINNER FOR 90 DAYS 04/22 completed Not Available Not Available Not Available Paxlovid 300 mg (150 mg x 2)-100 mg tablets in a dose pack FOLLOW PACKAGE DIRECTION S 01/06 completed Not Available Not Available Not Available Ozempic 0.25 mg or 0.5 mg (2 mg/3 mL) subcutaneou s pen injector 11/24 completed Not Available Not Available Not Available Vitals Date Recorded Body height Body mass index (BMI) Body weight Body temperature Heart rate Oxygen saturation Oxygen saturation in Arterial blood by Pulse oximetry Systolic blood pressure Diastolic blood pressure Provider Name and Address Organization Details Last Updated DateTime 4 170.18 cm 35.2 kg/m2 790847. 28 g 97.1 [degF] 79 /min 96 % 96 % 152 mm[Hg] 98 mm[Hg] Keara Santana RN [place] - [place] [employer] [facility] 4 14:13:47 Date Recorded Body height Body mass index (BMI) Body weight Heart rate Oxygen saturation Oxygen saturation in Arterial blood by Pulse oximetry Body temperature Systolic blood pressure Diastolic blood pressure Provider Name and Address Organization Details Last Updated DateTime 4 170.18 cm 35.2 kg/m2 438671. 28 g 70 /min 98 % 98 % 97.6 [degF] 120 mm[Hg] 70 mm[Hg] Enedina Sánchez CMA [place] [employer] [facility] [employer] [facility] 4 10:02:54 Date Recorded Heart rate Respiratory rate Provider N ayan and Address Organization Details Last Updated DateTime 04/22/2024 70 /min 15 /min Jw Phipps MD [address], [place], [address], [place] [employer] [facility] [employer] 04/22/2024 10:49:29 Date Recorded Body height Body mass index (BMI) Body weight Body temperature Heart rate Oxygen saturation Oxygen saturation in Arterial blood by Pulse oximetry Systolic blood pressure Diastolic blood pressure Provider Name and Address Organization Details Last Updated DateTime 4 170.18 cm 37 kg/m2 552234. 8 g 98.1 [degF] 76 /min 97 % 97 % 118 mm[Hg] 76 mm[Hg] Sosa Mazariegos MA [facility] [employer] 4 09:09:52 Date Recorded Heart rate Respiratory rate Provider N ayan and Address Organization Details Last Updated DateTime 06/16/2024 76 /min 15 /min Jw Phipps MD [address], [place], [address], [facility] [employer] 06/16/2024 09:49:18 Date Recorded Body height Body mass index (BMI) Body weight Heart rate Oxygen saturation Oxygen saturation in Arterial blood by Pulse oximetry Body temperature Systolic blood pressure Diastolic blood pressure Provider Name and Address Organization Details Last Updated DateTime 4 170.18 cm 37.1 kg/m2 894435. 39 g 75 /min 97 % 97 % 98.1 [degF] 118 mm[Hg] 70 mm[Hg] Enedina Sánchez CMA [place] [employer] [facility] [employer] 4 09:31:48 Date Recorded Heart rate Respiratory rate Provider N ayan and Address Organization Details Last Updated DateTime 08/24/2024 75 /min 15 /min Jw Phipps MD [address] [facility], [address], [place], [address], [place] [employer] [facility] [employer] 08/24/2024 09:59:00 Date Recorded Body height Body mass index (BMI) Body weight Body temperature Heart rate Oxygen saturation Oxygen saturation in Arterial blood by Pulse oximetry Systolic blood pressure Diastolic blood pressure Provider Name and Address Organization Details Last Updated DateTime 170.18 cm 38.2 kg/m2 932963. 54 g 97.7 [degF] 70 /min 98 % 98 % 126 mm[Hg] 84 mm[Hg] Sosa Mazariegos MA [place] [employer] [facility] [employer] 09:22:52 Date Recorded Heart rate Respiratory rate Provider Flor botello and Address Organization Details Last Updated DateTime 11/24/2024 70 /min 15 /min Jw Phipps MD [address] [facility], [address], [place], [address], [employer] 11/24/2024 09:44:05 Social History Question Answer Notes LastModified by Organizat ion Details LastModified Time Tobacco Smoking Status Never Smoker SHERRI Garg null, [facility] [employer] 08/14/2023 15:59:16 What Is Your Level Of Alcohol Consumption? None [id number] Information not available 01/01/2023 What Is Your Level Of Caffeine Consumption? Occasional [id number] Information not available 01/01/2023 How Much Tobacco Do You Chew? None [id number] Information not available 01/01/2023 In The 14 Days Before Symptom Onset, Have You Had Close Contact With A Laboratory-confir med COVID-19 While That Case Was Ill? No Information not available 08/14/2023 In The 14 Days Before Symptom Onset, Have You Had Close Contact With A Person Who Is Under Investigation For COVID-19 While That Person Was Ill? No Information not available 08/14/2023 What Type Of Diet Are You Following? REGULAR Information not available 06/16/2024 Which Illicit Or Recreational Drugs Have You Used? None Information not available 08/14/2023 Do You Or Have You Ever Used E-cigarettes Or Vape? Never Used Electronic Cigarettes Information not available 08/14/2023 Do You Have An Electrostatic Air Filter? Yes Information not available 06/16/2024 What Is Your Occupation? Disabled Information not available 08/14/2023 Do You Have A Humidifier? Yes Information not available 06/16/2024 Do You Have Moisture Problems In Your Home? No Information not available 06/16/2024 What Was The Date Of Your Most Recent Tobacco Screening? 11/24/2024 Information not available 11/24/2024 Do You Have Any Pets? Yes Information not available 06/16/2024 Do You Use Your Seat Belt Or Car Seat Routinely? Yes Information not available 06/16/2024 Do You Have Smoke And Carbon Monoxide Detectors In Your Home? Yes Information not available 06/16/2024 Are You Passively Exposed To Smoke? No Information no t available 06/16/2024 Do You Or Have You Ever Used Smokeless Tobacco? Never Used Smokeless Tobacco [id number] Information not available 01/01/2023 Do You Feel Stressed (tense, Restless, Nervous, Or Anxious, Or Unable To Sleep At Night)? [id number] Information not available 06/16/2024 Do You Use Sunscreen Routinely? Yes Information not available 06/16/2024 Have You Recently Traveled Abroad? No Information not available 06/16/2024 Do You Have Any Dietary Restrictions? No Information not available 06/16/2024 Sex: Unknown Functional Status Question Answer Note LastModified by Organizat ion Details LastModified Time What is your exercise level? Occasional Information not available 06/16/2024 Mental Status None recorded. Family History Relationship Description Onset Age of this Age Resolved Age Notes LastModified by Organization Details LastModified Time Mother Rheumatoid arthritis [email or web address] Not available 11/24 09:08:12 Mother Fibromyalgia [email or web address] Not sherry ilable 11/24/2024 09:08:12 Mother Autoimmune hepatitis [email or web address] Not available 11/24 09:08:12 Mother Osteoporosis [email or web address] Not sherry ilable 11/24/2024 09:08:12 Mother Transient cerebral ischemia Not available 11/24 09:08:12 Maternal Grandfather Diabetes mellitus [id number] Not available 01/01/2023 03:14:27 Maternal Grandfather Heart disease [id number] Not available 01/01/2023 03:14:27 Maternal Grandfather Congestive heart failure [email or web address] Not available 11/24 09:08:12 Maternal Grandfather Malignant neoplasm of skin [email or web address] Not available 11/24 09:08:12 Maternal Grandfather Malignant tumor of prostate [email or web address] Not available 11/24 09:08:12 Maternal Grandfather Tuberculosis [email or web address] Not availabl e 11/24/2024 09:08:12 Maternal Grandmother Diabetes mellitus [id number] Not available 01/01/2023 03:14:27 Maternal Grandmother Heart disease [id number] Not available 01/01/2023 03:14:27 Paternal Grandfather Diabetes mellitus [id number] Not available 01/01/2023 03:14:27 Paternal Grandmother Diabetes mellitus [id number] Not available 01/01/2023 03:14:27 Sister Polycystic ovary syndrome [email or web address] Not available 11/24 09:08:12 Sister Prolactinoma [email or web address] Not sherry ilable 11/24/2024 09:08:12 Father Chronic obstructive pulmonary disease [email or web address] Not available 11/24 09:08:12 Paternal Grandfather Heart disease Not available 2023 10:17:10 Paternal Grandfather Cerebrovascu lar accident [email or web address] Not available 09:08:12 Paternal Grandmother Heart disease Not available 2023 10:17:13 Maternal Grandmother Cerebrovascu lar accident [email or web address] Not available 09:08:12 Medical History Condition Response Other # 2 Y OTHER # 1 Y INPATIENT PSYCH CARE Y DEPRESSION (INCLUDING POST ) Y HYPOTHYROIDISM Y Gynecological History Statement/Question Response Most Recent Mammogram 01/07/2024 Obstetrics History GPAL:G 0 P 0 0 0 0 Immunizations Vaccine Type Date Status Note Provider Nam e and Address Organization Details Recorded Time Influenza, split virus, trivalent, PF 3 completed Not Available [facility] 08/13/2023 22:28:42 Influenza, split virus, trivalent, preservative 3 completed Not Available [facility] 08/13/2023 22:28:42 Influenza, split virus, quadrivalent, PF 5 completed Not Available [facility] 08/13/2023 22:28:42 Past Encounters Encounter ID Performer Location Encounter Start Date Encounter Closed Date Diagnosis/Indication Diagnosis SNOMED-CT Code Diagnosis ICD10 Code Diagnosis Note [id number] [facility] [place] [address] [facility] [address] [place] [address] 01/09/2021 00:00:00 01/09/2021 09:15:01 [id number] [facility] [place] [address] [place] [address] 01/12/2021 00:00:00 01/12/2021 17:31:37 [id number] [facility] [place] [address] [place] [address] [address] [place] [address] 02/23/2021 00:00:00 02/28/2021 16:27:12 [id number] [facility] [place] [address] [place] [address] 05/14/2021 00:00:00 05/14/2021 13:26:05 [id number] [facility] [place] [address] [place] [address] [address] [place] [address] 08/09/2021 00:00:00 08/09/2021 09:17:14 [id number] [facility] [place] [address] [place] [address] 08/14/2021 00:00:00 08/14/2021 18:08:12 [id number] [facility] [place] [address] [facility] [address] [place] [address] 10/31/2021 00:00:00 11/01/2021 07:47:28 [id number] [facility] [place] [address] [place] [address] 02/05/2022 00:00:00 02/05/2022 17:25:28 [id number] [facility] [place] [address] [place] [address] 02/12/2022 00:00:00 02/13/2022 12:25:32 [id number] [facility] [place] [address] [place] [address] 03/13/2022 00:00:00 03/13/2022 10:35:24 [id number] [facility] [place] [address] [place] [address] 05/24/2022 00:00:00 05/24/2022 17:41:32 [id number] [facility] [place] [address] [place] [address] 05/28/2022 00:00:00 05/28/2022 17:28:27 [id number] [facility] [place] [address] [place] [address] 07/17/2022 00:00:00 07/17/2022 11:42:05 [id number] [facility] [place] [address] [place] [address] 11/01/2022 00:00:00 11/01/2022 20:13:31 [id number] MARTINE Ruiz [facility] [place] [address] [place] [address] 01/02/2023 08:24:23 01/02/2023 08:43:01 [id number] Renuka Rubin MD [facility] [place] [address] [place] [address] 01/06/2023 16:41:17 01/06/2023 17:30:43 [facility] [id number] E03.9 FT4 low and patient having more fatigue- will uptitrate synthroid to 150 mcg daily and continue T3 twice daily. She was reminded to take her synthroid on empty stomach with glass of water and wait one hour to eat or have her coffee in morning and up to 4 hours if ever taking any heartburn or reflux medication s to help optimize absorption . Discussed paleo like diet with restrictio n of GMOs to help with energy and to optimize absorption of vitamins and minerals and reduce inflammati on. 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 Continue on spironolac tone as she has had less hair loss/ more growth. Tolerating well. Weight gain 0963697 R63. 5 Will send for low dose dexa suppressio n testing to screen for hypercorti solic state. She had a 1.1 ug/dL last year- has more weight gain and higher BP so screen for assessment in change or increase. Spent up to 25 minutes preparing to see the patient (eg, review of tests), obtaining and/or reviewing separately obtained history, performing a medically appropriat e examinatio n and evaluation , counseling and educating the patient, ordering medication s, tests, along with documentin g clinical informatio n in the electronic health record, independen tly interpreti ng results and communicat ing results to the patient. RTC in 3-4 months. Patient was provided a handwritte n lab order which contains our fax number. If she chooses to go outside of the [facility] system to obtain labwork she was advised to provide our fax number and my informatio n to the lab she will be obtaining labwork from in order to have her labs properly forwarded over for me to review so there is no loss of follow up due to use of outside network. She was also advised to contact our clinic informing us that she has completed her labwork so we are aware we will need to reach out to the appropriat e laboratory to request her results be forwarded to us so I might have the ability to review and make further medical decision making in her case. She voiced understand ing. [id number] CHARISSA Hernandez [facility] [place] [address] [facility] [address] [place] [address] 01/08/2023 08:56:53 01/08/2023 09:00:37 [id number] Jess Plascencia MD [facility] [place] [address] [facility] [address] [place] [address] 04/02/2023 11:11:45 04/02/2023 11:39:23 [id number] Renuka Rubin MD [facility] [place] [address] [place] [address] 04/10/2023 16:16:28 04/10/2023 17:08:03 Prediabetes [id number] R73.03 Glucose running around 99-115 mg/dL fasting- she is tolerating metformin well. Recommende d GLP1 agonist therapy as she is having trouble at times with cravings of sweets and portion control. Discussed potentiall y reducing total carb intake to 120 grams daily into 4-5 small split meals with addition of healthy protein based snack at bedtime to help reduce financial sales manager hyperglyce [place]. She has no hx of pancreatit is or medullary thyroid cancer and is willing to trial on a GLP1 agonist therapy. She was advised to contact clinic if she experience s any nausea, vomiting or significan t thyroid pain / swelling or abdominal pain so we can discuss and discontinu e and potentiall y look to other therapy. Will trial on trulicity 0.75 mg SQ weekly x 4 weeks then increase to 1.5 mg SQ weekly with largest meal of that day as tolerated. Polycystic ovary syndrome [id number] E28.2 Continue natural insulin textile conversion manager s as struggled with metformin. Continue on spironolac tone as she has had less hair loss/ more growth. Tolerating well. Hypothyroidism [id number] E03.9 FT4 in range- continue on synthroid 137 mcg daily. She was reminded to take her synthroid on empty stomach with glass of water and wait one hour to eat or have her coffee in morning and up to 4 hours if ever taking any heartburn or reflux medication s to help optimize absorption . Discussed paleo like diet with restrictio n of GMOs to help with energy and to optimize absorption of vitamins and minerals and reduce inflammati on. Arthritis [id number] M19.90 Will send for repeat SAIRA with specific antibodies along with rheumatoid screening to assess for any evidence of autoimmune disease. Thyroid nodule [id number] E04.1 Repeat thyroid u/s prior to return visit. Send for calcitonin and parathyroi d function to screen for c cell hyperplasi a and hyperparat hyroidism. 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 will uptitrate escitalopr am to 40 mg daily as this seems to help when she takes higher dose on occasion. Spent up to 28 minutes preparing to see the patient (eg, review of tests), obtaining and/or reviewing separately obtained history, performing a medically appropriat e examinatio n and evaluation , counseling and educating the patient, ordering medication s, tests, along with documentin g clinical informatio n in the electronic health record, independen tly interpreti ng results and communicat ing results to the patient. RTC in 4 months. Patient was provided a handwritte n lab order which contains our fax number. If she chooses to go outside of the [facility] system to obtain labwork she was advised to provide our fax number and my informatio n to the lab she will be obtaining labwork from in order to have her labs properly forwarded over for me to review so there is no loss of follow up due to use of outside network. She was also advised to contact our clinic informing us that she has completed her labwork so we are aware we will need to reach out to the appropriat e laboratory to request her results be forwarded to us so I might have the ability to review and make further medical decision making in her case. She voiced understand ing. [id number] [facility] [address] [facility] [address] [place] [address] 04/14/2023 08:23:02 04/14/2023 09:57:18 [id number] [facility] [address] [facility] [facility] [address] [place] [address] 08/06/2023 11:10:43 09/02/2023 14:58:20 [id number] Renuka Rubin MD [facility] Nicholas Giordano [address] [place] [address] 08/14/2023 15:58:27 08/14/2023 16:49:03 Hypothyroidism [id number] E03.9 FT4 high normal range and with weight loss recommend we drop her dose 25 mcg - drop to 112 mcg of synthroid daily and she can hold on the liothyroni ne until she has lost her weight- and resume in afternoon if struggling with any fatigue in future. She was reminded to take her synthroid on empty stomach with glass of water and wait one hour to eat or have her coffee in morning and up to 4 hours if ever taking any heartburn or reflux medication s to help optimize absorption . Discussed paleo like diet with restrictio n of GMOs to help with energy and to optimize absorption of vitamins and minerals and reduce inflammati on. Prediabetes [id number] R7 3.03 A1C 5.3% down from 6% range- she has lost 26 pounds- continue on trulicity but uptitrate to 3 mg once weekly as patient tolerating well. Discussed carb counting and how to read food labels. Recommende d patient to utilize the diabetesfo [employer] from the ADA website to help with food preparatio n as this presents ideal carb content per meal so this will make carb counting much easier for patient. Recommende d she incorporat e natural insulin textile conversion manager s such as pears, apples, cinnamon, cristóbal and sweet potatoes to help mobilize her endogenous insulin. Recommende d up to 150 minutes of moderate level activity/e xercise weekly. Polycystic ovary syndrome [id number] E28.2 Continue natural insulin textile conversion manager s as struggled with metformin. Continue on spironolac tone as she has had less hair loss/ more growth. Tolerating well. Generalize d anxiety disorder [id number] F41.1 Continue on escitalopr am 40 mg daily. Spent up to 25 minutes preparing to see the patient (eg, review of tests), obtaining and/or reviewing separately obtained history, performing a medically appropriat e examinatio n and evaluation , counseling and educating the patient, ordering medication s, tests, along with documentin g clinical informatio n in the electronic health record, independen tly interpreti ng results and communicat ing results to the patient. Patient can be followed by PCP - she/he is aware of my resignatio n and last day of August 15. If needed his/her PCP can refer patient to another endocrinol ogist in the area. All questions /concerns answered and refills necessary at visit today. [id number] Jess Plascencia MD [facility] Primary Care [address] [place] [address] 12/02/2023 17:40:44 12/02/2023 17:46:35 [id number] Jess Plascencia MD [facility] Primary Care [address] [place] [address] 02/04/2024 12:12:00 02/04/2024 12:42:54 Hypothyroidism 07755166 E03.9 refills givenhas appt with endocrinol ogy Dr. Rubin Prediabetes 556507284 R7 3.03 Vitamin D deficiency 347 08707 E55.9 Cobalamin deficiency 190 323152 E53.8 Hyperlipid emia screening 103102995 Z13.220 Z79.981 [id number] RACHELE Mcginnis [facility] Primary Care [address] [place] [address] 04/07/2024 14:00:02 04/07/2024 14:40:03 Varicose veins of lower extremity 14844325 I83.92 -noted only to the left lower extremity so far-declin es 81mg-trial aspirin Essential hypertension 37699057 I10 trial losartan Sleep apnea 81439374 G47 .30 snoring, witnessed apnea, excessive daytime somnolence . Will order home sleep study. [id number] Jw Phipps MD [address] [address] 04/22/2024 09:54:32 04/26/2024 09:11:25 Obstructive sleep apnea syndrome 89260779 G47.33 G47.36 G47.61 [id number] Jw Phipps MD [address] [address] 06/16/2024 08:55:08 06/17/2024 09:14:10 Obstructive sleep apnea syndrome 64867502 G47.33 G47.36 [id number] Jw Phipps MD [facility] [place] [address] 08/24/2024 09:07:43 08/24/2024 15:51:59 Obstructive sleep apnea syndrome 03145481 G47.33 G47.36 [id number] MD PRASANTH Trujillo_[address] [address] 11/24/2024 09:07:16 11/29/2024 14:55:34 Obstructive sleep apnea syndrome 57756515 G47.33 G47.36 Health Concerns Section Related Observation LastModified by Organization Detai ls LastModified Time None Recorded Concern Status LastModified by Organization Details LastModified Time None Recorded Advance Directives Directive None Recorded Payers Encounter Date Sequence Insurance Name Policy Number Policy Ring Covered Member ID Ring Member ID Guarantor Name 04/07/2024 1 [employer] [facility] [place] [facility] [employer] (MEDICARE - MEDICAID REPLACEMENT HMO) [id number] Cheryl B Shake [id number] Cheryl B Shake 04/22/2024 1 [employer] [place] (MEDICARE - MEDICAID REPLACEMENT HMO) [id number] 0003 Cheryl B Shake [id number] Cheryl B Shake 06/16/2024 1 [employer] [place] [place]MEDICARE - MEDICAID REPLACEMENT HMO) [id number] 0003 Cheryl B Shake [id number] Cheryl B Shake 08/24/2024 1 [employer] [facility] [place] (MEDICARE - MEDICAID REPLACEMENT HMO) [id number] 0003 Cheryl B Shake [id number] Cheryl B Shake 11/24/2024 1 [employer] [place] [employer] (MEDICARE - MEDICAID REPLACEMENT HMO) [id number] 0003 Cheryl B Shake [id number] Cheryl B Shake Notes Date Note Type Note Provider Name and Address Organization Details Recorded Time 04/07/2024 text/html pt is here for varicose veins MARTINE Mcginnis-Angel [address], [place], [address], [place] [facility] 04/07/2024 15:30:09 04/22/2024 text/html Primary care/Ref erring provider: MARTINE Bernard-C During the [facility] home sleep study on 04/14/24 HI = 4, supine HI = 18. At home, the patient sleeps from 1 am to 7 am and wakes up with an alarm. Snoring: light Snorting: no Choking: yes Coughing: yes Gasping: yes Gagging: no Sighing: yes Witnessed apnea: yes Twitching or jerking of leg(s), arm(s), body, head: yes Teeth grinding: no Teeth clenching: no Sleeptalking: yes Sleepwalking: no Sleep crying: yes Bedwetting: no Tongue/lip/gum/cheek biting: no Sleeping with open mouth: yes Sleep paralysis: no Hypnagogic hallucinations: no Hypnopompic hallucinations: no Vivid dreams: no Difficulty with sleep onset: yes Difficulty with sleep maintenance: yes Sleep interruptions: bodily movements Patient wakes up with: fatigue, xerostomia, sore throat, headaches Daytime cataplexy: no Morning hypersomnolence: yes Afternoon hypersomnolence: yes Caffeine sources in diet: soda 24 oz per day, chocolate 1 candy bar per month Associated medical and psychiatric conditions: Congestive heart failure: no Coronary artery disease: no Myocardial infarction: no Hypertension: yes Stroke: no Bronchial asthma: no Chronic obstructive pulmonary disease: no Depression: yes Bipolar disorder: no Anxiety: yes Panic disorder: no Posttraumatic stress disorder: no Attention deficit and hyperactivity disorder: no Obsessive Compulsive disorder: no Schizophrenia: no Schizoaffective disorder: no Personality disorder: no Chronic analgesic use: no Chronic sedative/hypnotic use: no EPWORTH SLEEPINESS SCALE (ESS) CHANCE OF DOZING SCORE 0 = would never doze 1 = slight chance of dozing 2 = moderate chance of dozing 3 = high chance of dozing SITUATION AND CHANCE OF DOZING Sitting and reading - 1 Watching television - 1 Sitting inactive in a public place (e.g. a theater or meeting) - 1 As a passenger in a car for an hour without a break - 1 Lying down to rest in the afternoon when circumstances permit - 2 Sitting and talking to someone - 1 Sitting quietly after lunch without alcohol - 2 In a car, while stopped for a few minutes in the traffic - 1 TOTAL SCORE 0 Subjectively, patient has no chance of dozing. Jw Phipps MD [address] [place] [address], [address], [place] - [facility] [employer] 04/22/2024 10:49:46 06/16/2024 text/html Primary care/Ref erring provider: Phil Evangelista, [facility] During the [facility] home sleep study on 04/14/24, HI = 4, supine HI = 18. During the [facility] diagnostic sleep study 06/08/24, sleep onset = 18 minutes, REM onset = none, AHI = 6, supine AHI = 36, PLMI = 2. At home, the patient sleeps from 1 am to 7 am and wakes up with an alarm. Snoring: lightSnorting: noChoking: yesCoughing: yesGasping: yesGagging: noSighing: yesWitnessed apnea: yesTwitching or jerking of leg(s), arm(s), body, head: yesTeeth grinding: noTeeth clenching: noSleeptalking: yesSleepwalking: noSleep crying: yesBedwetting: noTongue/lip/gum/cheek biting: noSleeping with open mouth: yesSleep paralysis: noHypnagogic hallucinations: noHypnopompic hallucinations: noVivid dreams: noDifficulty with sleep onset: yesDifficulty with sleep maintenance: yesSleep interruptions: bodily movementsPatient wakes up with: fatigue, xerostomia, sore throat, headachesDaytime cataplexy: noMorning hypersomnolence: yesAfternoon hypersomnolence: yesCaffeine sources in diet: soda 24 oz per day, chocolate 1 candy bar per month Associated medical and psychiatric conditions:Congestive heart failure: noCoronary artery disease: noMyocardial infarction: noHypertension: yesStroke: noBronchial asthma: noChronic obstructive pulmonary disease: noDepression: yesBipolar disorder: noAnxiety: yesPanic disorder: noPosttraumatic stress disorder: noAttention deficit and hyperactivity disorder: noObsessive Compulsive disorder: noSchizophrenia: noSchizoaffective disorder: noPersonality disorder: noChronic analgesic use: noChronic sedative/hypnotic use: no EPWORTH SLEEPINESS SCALE (ESS) CHANCE OF DOZING SCORE0 = would never doze1 = slight chance of dozing2 = moderate chance of dozing3 = high chance of dozing SITUATION AND CHANCE OF DOZINGSitting and reading - 1Watching television - 1Sitting inactive in a public place (e.g. a theater or meeting) - 1As a passenger in a car for an hour without a break - 3Lying down to rest in the afternoon when circumstances permit - 3Sitting and talking to someone - 0Sitting quietly after lunch without alcohol - 1In a car, while stopped for a few minutes in the traffic - 0TOTAL SCORE 10Subjectively, patient has a moderate chance of dozing. Jw Phipps MD [address] [place] [address], [address], [address], [facility] [employer] 06/16/2024 09:49:27 08/24/2024 text/html Primary care/Ref erring provider: Phil Evangelista, [facility] During the [facility] home sleep study on 04/14/24, HI = 4, supine HI = 18. During the [facility] diagnostic sleep study 06/08/24, sleep onset = 18 minutes, REM onset = none, AHI = 6, supine AHI = 36, PLMI = 2. During the [facility] titration sleep study on 08/03/24, sleep onset = 61.5 minutes, REM onset = none. The patient uses a ResMed AirSense 11 autoset unit with heated humidification. The patient does not need the ramp to start low and go up slowly on the pressure. There is some xerostomia in a.m. There is no hose/mask condensation with water. The patient wears a Respironics small DreamWear full face mask without chin strap. There is no claustrophobia, no nostril/nose bridge irritation, no facial rash, no facial numbness, no nosebleeding. The patient feels more refreshed upon waking and daytime alertness is improved. Energy levels are sustained for the remainder of the day. At home, the patient sleeps from 1 am to 7 am and wakes up with an alarm. Snoring: lightSnorting: noChoking: yesCoughing: yesGasping: yesGagging: noSighing: yesWitnessed apnea: yesTwitching or jerking of leg(s), arm(s), body, head: yesTeeth grinding: noTeeth clenching: noSleeptalking: yesSleepwalking: noSleep crying: yesBedwetting: noTongue/lip/gum/cheek biting: noSleeping with open mouth: yesSleep paralysis: noHypnagogic hallucinations: noHypnopompic hallucinations: noVivid dreams: noDifficulty with sleep onset: yesDifficulty with sleep maintenance: yesSleep interruptions: bodily movementsPatient wakes up with: fatigue, xerostomia, sore throat, headachesDaytime cataplexy: noMorning hypersomnolence: yesAfternoon hypersomnolence: yesCaffeine sources in diet: soda 24 oz per day, chocolate 1 candy bar per month Associated medical and psychiatric conditions:Congestive heart failure: noCoronary artery disease: noMyocardial infarction: noHypertension: yesStroke: noBronchial asthma: noChronic obstructive pulmonary disease: noDepression: yesBipolar disorder: noAnxiety: yesPanic disorder: noPosttraumatic stress disorder: noAttention deficit and hyperactivity disorder: noObsessive Compulsive disorder: noSchizophrenia: noSchizoaffective disorder: noPersonality disorder: noChronic analgesic use: noChronic sedative/hypnotic use: no EPWORTH SLEEPINESS SCALE (ESS) CHANCE OF DOZING SCORE0 = would never doze1 = slight chance of dozing2 = moderate chance of dozing3 = high chance of dozing SITUATION AND CHANCE OF DOZINGSitting and reading - 0Watching television - 0Sitting inactive in a public place (e.g. a theater or meeting) - 0As a passenger in a car for an hour without a break - 1Lying down to rest in the afternoon when circumstances permit - 0Sitting and talking to someone - 0Sitting quietly after lunch without alcohol - 0In a car, while stopped for a few minutes in the traffic - 0TOTAL SCORE 1Subjectively, patient has a slight chance of dozing. Jw Phipps MD [address] [place] [address], [facility] [address], [place], [address], [place] - [facility] 08/24/2024 09:59:12 11/24/2024 text/html Primary care/Ref erring provider: Edwina Mckeon NP During the [facility] home sleep study on 04/14/24, HI = 4, supine HI = 18. During the [facility] diagnostic sleep study 06/08/24, sleep onset = 18 minutes, REM onset = none, AHI = 6, supine AHI = 36, PLMI = 2. During the [facility] titration sleep study on 08/03/24, sleep onset = 61.5 minutes, REM onset = none. At home since 09/03/24, the patient uses a ResMed AirSense 11 autoset unit with heated humidification. The patient does not need the ramp to start low and go up slowly on the pressure. There is some xerostomia in a.m. There is no hose/mask condensation with water. The patient switched from a Respironics small DreamWear full face mask to a ResMed medium AirTouch F20 full face mask without chin strap. There is no claustrophobia, no nostril/nose bridge irritation, no facial rash, no facial numbness, no nosebleeding. The patient feels more refreshed upon waking and daytime alertness is improved. Energy levels are sustained for the remainder of the day. At home, the patient sleeps from 1 am to 7 am and wakes up with an alarm. Snoring: lightSnorting: noChoking: yesCoughing: yesGasping: yesGagging: noSighing: yesWitnessed apnea: yesTwitching or jerking of leg(s), arm(s), body, head: yesTeeth grinding: noTeeth clenching: noSleeptalking: yesSleepwalking: noSleep crying: yesBedwetting: noTongue/lip/gum/cheek biting: noSleeping with open mouth: yesSleep paralysis: noHypnagogic hallucinations: noHypnopompic hallucinations: noVivid dreams: noDifficulty with sleep onset: yesDifficulty with sleep maintenance: yesSleep interruptions: bodily movementsPatient wakes up with: fatigue, xerostomia, sore throat, headachesDaytime cataplexy: noMorning hypersomnolence: yesAfternoon hypersomnolence: yesCaffeine sources in diet: soda 24 oz per day, chocolate 1 candy bar per month Associated medical and psychiatric conditions:Congestive heart failure: noCoronary artery disease: noMyocardial infarction: noHypertension: yesStroke: noBronchial asthma: noChronic obstructive pulmonary disease: noDepression: yesBipolar disorder: noAnxiety: yesPanic disorder: noPosttraumatic stress disorder: noAttention deficit and hyperactivity disorder: noObsessive Compulsive disorder: noSchizophrenia: noSchizoaffective disorder: noPersonality disorder: noChronic analgesic use: noChronic sedative/hypnotic use: no EPWORTH SLEEPINESS SCALE (ESS) CHANCE OF DOZING SCORE0 = would never doze1 = slight chance of dozing2 = moderate chance of dozing3 = high chance of dozing SITUATION AND CHANCE OF DOZINGSitting and reading - 0Watching television - 0Sitting inactive in a public place (e.g. a theater or meeting) - 0As a passenger in a car for an hour without a break - 0Lying down to rest in the afternoon when circumstances permit - 2Sitting and talking to someone - 0Sitting quietly after lunch without alcohol - 0In a car, while stopped for a few minutes in the traffic - 0TOTAL SCORE 2Subjectively, patient has a slight chance of dozing. Jw Phipps MD [address] [facility] [address], [place], [address], [facility] [employer] 11/24/2024 10:52:51 OBGyn Episode No OBEpisode recorded.
--- OUTSIDE RECORDS SUMMARY | 2024-12-11 08:37 | XMS_ITS ---
Author Organization [facility] [employer] [facility] Address [address] [facility] [address] [place] [address] Care Team Providers [employer] Professor Name Role Phone Edwina Mckeon APN Primary Care Provider Unavailab Edwina May Unavailable [phone] REASON FOR VISIT RE:RE:Bridge therapy Social History Sex Assigned At : Social History Observation Description Sex Assigned At Female Encounters Encounter Location Date Provider Diagnosis [facility] [email or web address] [facility] [address] [facility] [address] [place] [address] 11/30/2024 Edwina Blackwell Plan Of Treatment Next Appt Details Provider Name:Edwina loo, 12/15/2024 02:00:00 PM, [address], [address], [address], Provider Name:Sergio Aguayo , 12/29/2024 10:30:00 AM, [facility], [address], [address], Provider Name:Darcie Singh , 01/05/2025 11:00:00 AM, [facility] [address], [address], [address], Progress Notes * SAMAN CAMERONB:1980 ([age] yo F)Acc No.[id number]:11/30/2024 Patient: MATIAS KAHN :1980 A ge:44 Y S ex:Female Phone: Address:[address], [place], [address] * * Date:
--- OUTSIDE RECORDS SUMMARY | 2024-12-11 08:37 | XMS_ITS ---
Author Organization [facility] Mobile [employer] [facility] Address [address] [place] [address] Care Team Providers Care Business Process Analyst Name Role Phone Edwina Mckeon APN Primary Care Provider Unavailab Edwina May Unavailable [phone] REASON FOR VISIT Therapy Visit, phq less than 5 Medications Medication SIG (Take, Route, Frequency, Duration) Notes Start Date End Date Status Nystatin 323122 UNIT/GM External for 30 Days Unknown Liothyronine Sodium 5 MCG Oral for 90 Days Unknown Escitalopram Oxalate 20 MG Oral for 90 Days Unknown Atomoxetine HCl 25 MG 1 capsule Orally once daily for 14 days after two weeks increase to 4 0 mg daily 11/26/2024 12/10/2024 Unknown Atomoxetine HCl 40 MG 1 capsule in the morning Orally Once a day for 30 days 12/02/2024 01/01/2025 Unknown Vitamin D 25 MCG (1000 UT) 1 tablet Oral ly Once a day Unknown Vitamin B Complex - as directed Orally Unknown Synthroid 88 MCG Oral for 90 Days Unknown Lisinopril 5 MG Oral for 90 Days Unknown Social History Tobacco Use: Social History Observation Description Date Details (start date - stop date) Never Smoker NA - NA Sex Assigned At : Social History Observation Description Sex Assigned At Female Household Question Answer Notes Number of adults in household: 2 Number of children in household: 2 Tobacco Control (Standard) Question Answer Notes Tobacco use: Nonsmoker AUDIT-C (Standard) Question Answer Notes Did you have a drink containing alcohol in the p ast year? No Encounters Encounter Location Date Provider Diagnosis [facility] [email or web address] [facility], [address] [address] [place] [address] 12/08/2024 Edwina Blackwell Major depressive disorder, recurrent severe without psychotic features F33.2 ; Generalized anxiety disorder F41.1 and ADHD (attention deficit hyperactivity disorder), inattentive type F90.0 Assessments Encounter Date Diagnosis (ICD Code) Assessment Notes Treatment Notes Treatment Clinical Notes Section Notes 12/08/2024 Major depressive disorder, recurrent severe without psychotic features (ICD-10 - F33.2) Eye Swelling and Vision Distortion Follow up with the low vision doctor and [employer] as recommended after patient reports intermittent eye swelling and vision distortion in one eye. Monitor symptoms and report any changes or worsening to the computer specialist. PTSD Continue with current therapy sessions and support system for patient with a history of PTSD who startles easily. Consider discussing with the therapist about possible group therapy or additional resources for managing PTSD symptoms. Angioedema due to Lisinopril Follow up with primary care provider for alternative blood pressure medication, avoiding BRYN inhibitors, after patient experienced angioedema as a side effect of lisinopril. Monitor for any recurrence of angioedema symptoms and report to the primary care provider immediately. ADHD Continue taking generic Strattera (non-stimulant medication) as prescribed and monitor for effectiveness for recently diagnosed ADHD. Follow up with the prescribing physician for dose adjustments and to discuss any side effects or concerns. Anxiety and Depression Continue with new therapist for patient with a history of anxiety and depression. Encourage open communication with the therapist about any concerns or changes in mental health status. Consider discussing with the therapist about additional coping strategies and resources for managing anxiety and depression. Family and Social Support Encourage open communication with the therapist about concerns regarding family dynamics, social support, and safety. Continue building a support network and engaging in self-care activities. Consider discussing with the therapist about resources for family therapy or support groups. 12/08/2024 Generalized anxiety disorder (ICD-10 - F41.1) Eye Swelling and Vision Distortion Follow up with the low vision doctor and [employer] as recommended after patient reports intermittent eye swelling and vision distortion in one eye. Monitor symptoms and report any changes or worsening to the computer specialist. PTSD Continue with current therapy sessions and support system for patient with a history of PTSD who startles easily. Consider discussing with the therapist about possible group therapy or additional resources for managing PTSD symptoms. Angioedema due to Lisinopril Follow up with primary care provider for alternative blood pressure medication, avoiding BRYN inhibitors, after patient experienced angioedema as a side effect of lisinopril. Monitor for any recurrence of angioedema symptoms and report to the primary care provider immediately. ADHD Continue taking generic Strattera (non-stimulant medication) as prescribed and monitor for effectiveness for recently diagnosed ADHD. Follow up with the prescribing physician for dose adjustments and to discuss any side effects or concerns. Anxiety and Depression Continue with new therapist for patient with a history of anxiety and depression. Encourage open communication with the therapist about any concerns or changes in mental health status. Consider discussing with the therapist about additional coping strategies and resources for managing anxiety and depression. Family and Social Support Encourage open communication with the therapist about concerns regarding family dynamics, social support, and safety. Continue building a support network and engaging in self-care activities. Consider discussing with the therapist about resources for family therapy or support groups. 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 Monitor symptoms and report any changes or worsening to the computer specialist. PTSD Continue with current therapy sessions and support system for patient with a history of PTSD who startles easily. Consider discussing with the therapist about possible group therapy or additional resources for managing PTSD symptoms. Angioedema due to Lisinopril Follow up with primary care provider for alternative blood pressure medication, avoiding BRYN inhibitors, after patient experienced angioedema as a side effect of lisinopril. Monitor for any recurrence of angioedema symptoms and report to the primary care provider immediately. ADHD Continue taking generic Strattera (non-stimulant medication) as prescribed and monitor for effectiveness for recently diagnosed ADHD. Follow up with the prescribing physician for dose adjustments and to discuss any side effects or concerns. Anxiety and Depression Continue with new therapist for patient with a history of anxiety and depression. Encourage open communication with the therapist about any concerns or changes in mental health status. Consider discussing with the therapist about additional coping strategies and resources for managing anxiety and depression. Family and Social Support Encourage open communication with the therapist about concerns regarding family dynamics, social support, and safety. Continue building a support network and engaging in self-care activities. Consider discussing with the therapist about resources for family therapy or support groups. Plan Of Treatment Next Appt Details Follow Up: 1 Week, Reason: Provider Name:Edwina loo, 12/15/2024 02:00:00 PM, [address], [address], [place], [address], Provider Name:Sergio Aguayo , 12/29/2024 10:30:00 AM, [address], [facility] [address], [place], [address], Provider Name:Darcie Singh , 01/05/2025 11:00:00 AM, [address], [address], [place], [address], Progress Notes * SAMAN CAMERONB:1980 ([age] yo F)Acc No.[id number]:12/08/2024 Patient: MATIAS KAHN Provider: Mikey Blackwell :1980 A ge:44 Y S ex:Female Date:12/08/2024 Phone: Address:[facility], [id number] Pcp:Edwina Mckeon APN Data: * Time Tracker: * Date Start Time End Time Duration User Type Captured By Mode Notes 12/08/2024 11:00 AM 12:05 PM 01:05:26 Therapist Harvinder Blackwell Timer * Chief Complaints: * 1 . Therapy Visit. 2. Phq less than 5. * HPI: D epression screening: PHQ-9 L ittle interest or pleasure in doing things N ot at all, F eeling down, depressed, or hopeless N ot at all, T rouble falling or staying asleep, or sleeping too much S everal days, F eeling tired or having little energy S everal days, P oor appetite or overeating N ot at all, F eeling bad about yourself or that you are a failure, or have let yourself or your family down N ot at all, T rouble concentrating on things, such as reading the newspaper or watching television N ot at all, M oving or speaking so slowly that other people could have noticed; or the opposite, being so fidgety or restless that you have been moving around a lot more than usual N ot at all, T houghts that you would be better off or of hurting yourself in some way N ot at all, T otal Score 2 , Interpretation M inimal Depression. I ntervention D epression Screening Findings?Negative, S uicide Risk Assessment Performed 0 12/08/2024 . C [place]-Suicide Severity Rating Scale: Suicide Risk (CSRS-screener) i n the past one month Have you wished you were or wished you could go to sleep and not wake up? N o, i n the past one month Have you actually had any thoughts of killing yourself? N o. D epression Screening: EMY-7 (2018 Edition) F eeling nervous, anxious, or on edge?Not at all, N ot being able to stop or control worrying N ot at all, W orrying too much about different things N ot at all, T rouble relaxing S everal days, B eing so restless that it is hard to sit still N ot at all, B ecoming easily annoyed or irritable?Not at all, F eeling afraid as if something awful might happen N ot at all, T otal EMY-7 Score 1 , I nterpretation of Total ( 0 to 4) No Anxiety. F unctional Status: Client presents today for psychotherapy to treat trauma. Based on the session, the client appears to be making good progress. Changes to the treatment plan are not recommended at this time. Client denies wanting to harm self or others at this time. Discussed continued treatment with client. She would like to meet again in one week. The patient reports experiencing intermittent swelling in one eye occurring a few times per week, accompanied by vision distortion, somnolence, and lacrimation. She underwent an eye examination today, where the physician noted her eyes appeared consistent with albinism. The patient was provided with paperwork to consult a low television antenna installer. Her last comprehensive eye exam was in 2022. The patient recently experienced a severe episode of angioedema while taking lisinopril, manifesting as significant lingual swelling, drooling, and severe odynophagia. She discontinued the medication, resulting in significant improvement of symptoms within 24 hours. During this episode, she reported experiencing dyspnea and anxiety, with her oxygen saturation dropping to 90-91%. As a result, she is now allergic to all BRYN inhibitors and requires alternative antihypertensive medication. The patient describes symptoms consistent with ADHD, primarily inattentive type, including disorganization and racing thoughts. She was recently prescribed generic Strattera, a non-stimulant medication, due to her concurrent use of medical marijuana. Given her sensitivity to medications, she is currently on the lowest dose. The patient reports ongoing anxiety and depression, which she speculates may be related to untreated ADHD and a history of emotional neglect. She expresses feeling developmentally stunted and has concerns about her emotional maturity. * Behavioral History: P ast psychiatric Hospitalization:Yes. W hen and where was the last admission?:2002. H istory of suicidal attempt?:No. * Family History: F ather: alive, Anxiety Disorder,PTSD,Major Depressive Episode. M aternal Aunt: None. M aternal Uncle: None. P aternal Aunt: None. P aternal Uncle: None. M other: alive, Major Depressive Episode. P aternal Grandfather: None. P aternal Grandmother: None. M aternal Grandfather: None. M aternal Grandmother: None. B rother: alive, Major Depressive Episode,ADHD. S ister: alive, Major Depressive Episode. S on: alive, None. 1 brother(s) , 2 sister(s) . 2 son(s) - healthy. . * Social History: T obacco Use: T obacco Control (Standard) T obacco use: N onsmoker. D rug/Alcohol: D rugs H ave you used drugs other than those for medical reasons in the past 12 months??No. D o you smoke marijuana?: Admits, has medical card. Do you drink alcohol?: No. AUDIT-C (Standard) D id you have a drink containing alcohol in the past year? N o. H ousehold: H ousehold N umber of adults in household: 2 , N umber of children in household:?2. M iscellaneous: S afety issues A re there any firearms in the house? N o. O ccupation: Disabled. Advance Care Planning A re you your own decision-maker Y es, D o you have Power of Rat Culturist for Health or Medical? N o. S ocial History: H ousehold M arital Status: N ot Answered, N umber of Adults in household: 2 ,?Number of Children in Household: 2 , L evel of Education: N ot Finished College.? * Medications: U nknown Vitamin B Complex - Tablet as directed Orally , Unknown Vitamin D 25 MCG (1000 UT) Tablet 1 tablet Orally Once a day , Unknown Synthroid 88 MCG Tablet Oral , Unknown Lisinopril 5 MG Tablet Oral , Unknown Nystatin 904393 UNIT/GM Cream External , Unknown Escitalopram Oxalate 20 MG Tablet Oral , Unknown Liothyronine Sodium 5 MCG Tablet Oral , Unknown Atomoxetine HCl 40 MG Capsule 1 capsule in the morning Orally Once a day , stop date 01/01/2025, Unknown Atomoxetine HCl 25 MG Capsule 1 capsule Orally once daily after two weeks increase to 4 0 mg daily, stop date 12/10/2024, Medication List reviewed and reconciled with the patient * Examination: G eneral Examination: M ental Status Examination: Patient presented wearing sunglasses, attributed to a recent eye appointment and eye dilation. Demonstrated anxiety and distress, particularly concerning personal health and safety. Speech was coherent, yet laden with distress about personal and family safety. Mood was characterized as anxious, with feelings of being overwhelmed and fearfulness. Cognition appeared intact, albeit heavily preoccupied with various stressors. Physical Examination: Eye Examination: Recent eye examination revealed no alarming findings, aside from a remark on appearance indicative of albinism. Symptoms include periodic swelling, vision distortion, sleepiness, and eye watering. General Appearance: Physical appearance showed no signs of acute distress, with the exception of eye health concerns. Diagnostic Test Results and Labs: Eye Health: Underwent unspecified imaging tests during eye examination; results were not detailed. Referral made to a low television antenna installer and the [employer] in [place]. Allergy to BRYN inhibitors: Severe allergic reaction to lisinopril in 2022, marked by angioedema of the tongue, significant pain, and respiratory distress, necessitating discontinuation of the medication. P sychiatry: Appearance: w ell-groomed. Abnormal body movements: n one. Affect / mood: a nxious. Aggression: l ow. Anger control: g ood. Attention: n ormal in conversation. Attitude: c ooperative. Homicidal ideation: n one. Suicidal ideation: n one. Memory status: n o impairment noted. Degree of awareness of surroundings: w ithin normal limits.? Delusions: n o. Hallucinations: n o. Impulse control: g ood. Insight: g ood. Intellectual functioning: n o impairment noted. Judgement: g ood. Orientation: a wake, alert and oriented x 3. Perceptual disorders: n o perceptual disorder noted. Psychomotor activity: w ithin normal range. Speech / language: n ormal rate, volume, and articulation (RVR), loud at times. Thought content: a ppropriate. Thought process: i ntact. Assessment: * Assessment: 1. G eneralized anxiety disorder - F41.1 (Primary) 2 . M ajor depressive disorder, recurrent severe without psychotic features - F33.2 3 . A DHD (attention deficit hyperactivity disorder), inattentive type - F90.0 Eye Swelling and Vision Dist ortion Follow up with the low vision doctor and [employer] as recommended after patient reports intermittent eye swelling and vision distortion in one eye. Monitor symptoms and report any changes or worsening to the computer specialist. PTSD Continue with current therapy sessions and support system for patient with a history of PTSD who startles easily. Consider discussing with the therapist about possible group therapy or additional resources for managing PTSD symptoms. Angioedema due to Lisinopril Follow up with primary care provider for alternative blood pressure medication, avoiding BRYN inhibitors, after patient experienced angioedema as a side effect of lisinopril. Monitor for any recurrence of angioedema symptoms and report to the primary care provider immediately. ADHD Continue taking generic Strattera (non-stimulant medication) as prescribed and monitor for effectiveness for recently diagnosed ADHD. Follow up with the prescribing physician for dose adjustments and to discuss any side effects or concerns. Anxiety and Depression Continue with new therapist for patient with a history of anxiety and depression. Encourage open communication with the therapist about any concerns or changes in mental health status. Consider discussing with the therapist about additional coping strategies and resources for managing anxiety and depression. Family and Social Support Encourage open communication with the therapist about concerns regarding family dynamics, social support, and safety. Continue building a support network and engaging in self-care activities. Consider discussing with the therapist about resources for family therapy or support groups. Plan: * Behavioral Health Treatment Plan: I mported Date:12/08/2024 02:47 PM Imported By:Edwina Blackwell Term Therapy ProgramStrengthsRelationships, such as having family or friends who support the patient.Good social supportSelf-awareness of weakness, barrier, and triggersProblem/Goal/Objective/InterventionGroup1: Adult Psychotherapy 5eProblem 1:Unipolar DepressionICDMajor depressive disorder, recurrent severe without psychotic featuresBehavioral DefinitionHistory of chronic or recurrent depression for which the client has taken antidepressant medication, been hospitalized, had outpatient treatment, or had a course of electroconvulsive therapy.Low self-esteem.Feelings of hopelessness, worthlessness, or inappropriate guilt.Suicidal thoughts and/or gestures.Poor concentration and indecisiveness.Lack of energy.Sleeplessness or hypersomnia.Psychomotor agitation or retardation.Diminished interest in or enjoyment of activities.Decrease or loss of appetite.Depressed or irritable mood.GoalRecognize, accept, and cope with feelings of depression. Progress Start Date Target Date Assigned To Priority Statu s 22% 2024-09-22 2024-12-23 Edwina Blackwell Open Objective* Learn and implement behavioral strategies to overcome depression. Progress Start Date Target Date Assigned To Status 22% 2024-09-22 2024-12-23 Edwina Blackwell Intervention* Conduct Cognitive-Behavioral Therapy (see Cognitive Behavior Therapy by Latif; Overcoming Depressionby Jeferson et al.), beginning with helping the client learn the connection among cognition, depressive feelings, and actions. Start Date Target Date Assigned To Status 2024-09-22 2024-12-23 Edwina Blackwell * Treatment: * Procedure Codes: 9 6127 BEHAV ASSMT W/SCORE & DOCD/STAND INSTRUMENT, 25812 PSYCHOTHERAPY W/PATIENT 60 MINUTES * Follow Up: 1 Week * Billing Information: * Visit Code: * Procedure Codes: 53074 BEHAV ASSMT W/SCORE & DOCD/STAND INSTRUMENT. 88081 PSYCHOTHERAPY W/PATIENT 60 MINUTES. * WASHER TENDER Sign off status: Completed Signatures: No Ad Hoc Signature Added true * Provider: Mikey Blackwell Date: 0 12/08/2024 Generated for Marita hinojosa/Sarita/Reji on: 12/11/2024 08:36 AM COAL WASHER TENDER
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
--- OUTSIDE RECORDS SUMMARY | 2024-12-11 08:37 | XMS_ITS | Clinical Summary ---
Author Organization [facility] Address [address] [place] [address] Care Team Providers Care Blasting Entry Specialist Name Role Phone Jess Plascencia MD Primary [...] Comments Blood Pressure 126/83 10/01/2018 9:52 AM SILK SCREEN CUTTER Pulse 70 10/01/2018 9:52 AM SILK SCREEN CUTTER Temperature 36.7 C (98.1 F) 10/01/2018 9:52 AM SILK SCREEN CUTTER Respiratory Rate - - Oxygen Saturation 98% 10/01/2018 9:52 AM SILK SCREEN CUTTER Inhaled Oxygen Concentration - - Weight 112.7 kg (248 lb 8 oz) 10/01/2018 9:52 AM SILK SCREEN CUTTER Height 170.2 cm (5' 7 ) 10/01/2018 9:52 AM SILK SCREEN CUTTER Body Mass Index 38.92 10/01/2018 9:52 AM SILK SCREEN CUTTER Plan of Treatment Health Maintenance Due Date Last Done Comments DTAP/TDAP/TD VACCINES (1 - Tdap) 2000 HEPATITIS B VACCINES (1 of 3 - 19+ 3-dose series) 2000 CERVICAL CANCER SCREENING 2011 BREAST CANCER SCREENING 2021 INFLUENZA VACCINE (#1) 2024 HPV VACCINES Aged Out No longer eligi ble based on patient's age to complete this topic Insurance MEDICARE PART A AND B Care Teams Blasting Entry Specialist Relationship Specialty Start Date End Date Jess Plascencia MD [address] [place] [id number] PCP - General Family Practice 09/01/18
--- OUTSIDE RECORDS SUMMARY | 2024-12-11 08:38 | XMS_ITS ---
Author Organization [facility] Address [facility] [address] [address] Care Team Providers Care Vegetables Cook Name Role Phone Edwina Mckeon APN Primary Care Provider Unavailab Edwina May Unavailable [phone] REASON FOR VISIT RE:Bridge therapy Social History Sex Assigned At : Social History Observation Description Sex Assigned At Female Encounters Encounter Location Date Provider Diagnosis [facility] [address] [address] 11/29/2024 Edwina Blackwell Plan Of Treatment Next Appt Details Provider Name:Edwina loo, 12/15/2024 02:00:00 PM, [facility] [address] [facility], [address], [address], Provider Name:Sergio Aguayo , 12/29/2024 10:30:00 AM, [facility] [address], [address], [address], Provider Name:Darcie Singh , 01/05/2025 11:00:00 AM, [address] [place] [address] [address], [address], [address], Progress Notes * SAMAN CAMERONB:1980 ([age] yo F)Acc No.[id number]:11/29/2024 Patient: MATIAS KAHN :1980 A ge:44 Y S ex:Female Phone: Address:[address], [place], [address] * true * Date: Generated for Printi ng/Faxing/eTransmitting on: 0 12/11/2024 08:37 AM COLOR CHECKER ROVING OR YARN
[2024-12-11 09:32] LABS: Thyroid Stimulating Hormone 0.196 uIU/mL (0.465-4.680)
== END 2024-12-11 08:35 | disposition home or self-care (01) ==
LOC: ANHLAB 08:35
PROVIDERS: PCP Internal Medicine; Visit Provider Internal Medicine Endocrinology, Diabetes & Metabolism
DX: R73.03 Prediabetes (principal); E03.9 Hypothyroidism, unspecified
CPT/HCPCS: 36415; 84439; 84443

== ENCOUNTER 2024-12-22 10:15 | Emergency (ER) | payer OTHER, SELFPAY ==
[2024-12-22 10:16] VITALS: BP 149/114; PULSE 120; RESP 18; TEMP 36.8; O2SAT 100
[2024-12-22 10:23] VITALS: BP 166/116; PULSE 103; RESP 16; TEMP 36.9; O2SAT 99
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
--- OUTSIDE RECORDS SUMMARY | 2024-12-22 10:27 | XMS_ITS | Clinical Summary ---
Author Organization [facility] [address] Address [address] [place] [address] Care Team Providers Care Customs Compliance Specialist Name Role Phone Walter Erwin DO Primary Care Provider [phone] Allergies Active Allergy Reactions Criticality Noted Date [...] 12/08/2024 Assessment & Plan (12/08/2024 8:58 AM DRIER AND EVAPORATOR OPERATOR): Very difficult views with nystagmus DFE generally [...] thyroiditis Assessment & Plan (12/08/2023 8:29 AM DRIER AND EVAPORATOR OPERATOR): Chronic, unknown status Continue current dose of Synthroid 112 mcg oral daily Advised to stop Cytomel Recheck thyroid function test today and further plans based on it Class 1 obesity due to exces s calories with serious comorbidity and body mass index (BMI) of 33.0 to 33.9 in adult 12/05/2023 Assessment & Plan (12/08/2023 8:30 AM DRIER AND EVAPORATOR OPERATOR): Chronic, progressively improving with Trulicity 3 mg subQ weekly dose Advised patient to include healthy lifestyle habits Include complex carbs, healthy fats and proteins Work on portion control Avoid eating processed food cutback on sugar Advised to start exercising at least 30-40 minutes every day Prediabetes 12/05/2023 Assessment & Plan (12/08/2023 8:30 AM DRIER AND EVAPORATOR OPERATOR): On Trulicity Recheck A1c Counseled on diet [...] month Assessment & Plan (12/08/2023 8:30 AM DRIER AND EVAPORATOR OPERATOR): Counseled on diet and exercise EMY (generalized [...] Department Care Team Description 12/08/2024 8:00 AM DRIER AND EVAPORATOR OPERATOR Office Visit [facility] [address] [place] [id number] Arnulfo Molina, MYRTLE Ocular albinism (HCC) (Primary [...] on file Legal Sex Female 5:17 PM DRIER AND EVAPORATOR OPERATOR Gender Identity Female 12/05/2023 10:07 AM DRIER AND EVAPORATOR OPERATOR Sexual Orientation Choose not to disclose 2023 10:07 AM DRIER AND EVAPORATOR OPERATOR Obstetrics History Last Filed Vital Signs Vital Sign Reading Time Taken Comments Blood Pressure 128/80 12/05/2023 11:22 AM DRIER AND EVAPORATOR OPERATOR Pulse 73 12/05/2023 11:22 AM DRIER AND EVAPORATOR OPERATOR Temperature - - Respiratory Rate 16 12/05/2023 11:22 AM DRIER AND EVAPORATOR OPERATOR Oxygen Saturation - - Inhaled Oxygen Concentration - - Weight 97.1 kg (214 lb) 12/05/2023 11:22 AM DRIER AND EVAPORATOR OPERATOR Height 170.2 cm (5' 7 ) 12/05/2023 11:22 AM DRIER AND EVAPORATOR OPERATOR Body Mass Index 33.52 12/05/2023 11:22 AM DRIER AND EVAPORATOR OPERATOR Plan of Treatment Health Maintenance Due Date [...] patient's age to complete this topic Insurance [facility] Care Teams Customs Compliance Specialist Relationship Specialty Start Date End Date Walter Erwin DO [address] [place], [place] [id number] PCP - General Internal Medicine 10/20/24
--- OUTSIDE RECORDS SUMMARY | 2024-12-22 10:27 | XMS_ITS ---
Author Organization [facility] [employer] Address [address] [place] [address] Care Team Providers Care Director Of Quality Control Name Role Phone Edwina Mckeon APN Primary Care Provider Unavailab Edwina May Unavailable [phone] REASON FOR VISIT Therapy Visit, Depression screening negative Medications Medication SIG (Take, Route, Frequency, Duration) Notes Start Date End Date Status Vitamin D 25 MCG (1000 UT) 1 tablet Oral ly Once a day Unknown Vitamin B Complex - as directed Orally Unknown Lisinopril 5 MG Oral for 90 Days Unknown Synthroid 88 MCG Oral for 90 Days Unknown Atomoxetine HCl 40 MG 1 capsule in the morning Orally Once a day for 30 days 12/02/2024 01/01/2025 Unknown Liothyronine Sodium 5 MCG Oral for 90 Days Unknown Escitalopram Oxalate 20 MG Oral for 90 Days Unknown Nystatin 339528 UNIT/GM External for 30 Days Unknown Social History Tobacco Use: Social [...] No Encounters Encounter Location Date Provider Diagnosis [facility] [employer] [facility], [address] [address] [place] [address] 12/15/2024 Edwina Blackwell ADHD (attention deficit hyperactivity disorder), inattentive type F90.0 ; Major depressive disorder, recurrent severe without psychotic features F33.2 and Generalized anxiety disorder F41.1 Assessments Encounter Date Diagnosis (ICD Code) Assessment Notes Treatment Notes Treatment Clinical Notes Section Notes 12/15/2024 ADHD (attention deficit hyperactivity disorder), inattentive type (ICD-10 - F90.0) Assessment and Plan: ADHD Acknowledge the patient's increased awareness and understanding of ADHD symptoms and their impact. Maintain the current treatment plan and monitor progress. Recommend exploring resources such as How to ADHD on [employer] and [employer] for additional support and information. Rejection-Sensit khanh Dysphoria (RSD) Note the patient's significant distress related to RSD and its effects on relationships and self-perception. Apply cognitive-behavi oral strategies to address cognitive distortions and unhelpful thinking patterns associated with RSD. Provide the patient with a handout on cognitive distortions via email for further review. Plan to delve into attachment issues linked to RSD in upcoming sessions. Depression Discuss the patient's inquiry about the possibility of tapering off Lexapro contingent on improved management of ADHD symptoms. Monitor ADHD symptom management progress and consider discussing medication adjustments with Dr. Aguayo as needed. Attachment Issues Recognize the patient's awareness of the impact of her attachment style on relationships and her willingness to address these issues. Continue exploring attachment patterns in therapy and developing strategies for building healthy attachments in relationships. Coping Skills and Self-Compassion Support the patient's intention to practice self-compassion and develop coping skills for managing ADHD and RSD symptoms. Keep assisting the patient in the development and application of coping strategies and self-compassion practices in daily life. 12/15/2024 Major depressive disorder, recurrent severe without psychotic features (ICD-10 - F33.2) Assessment and Plan: ADHD Acknowledge the patient's increased awareness and understanding of ADHD symptoms and their impact. Maintain the current treatment plan and monitor progress. Recommend exploring resources such as How to ADHD on [employer] and [employer] for additional support and information. Rejection-Sensit khanh Dysphoria (RSD) Note the patient's significant distress related to RSD and its effects on relationships and self-perception. Apply cognitive-behavi oral strategies to address cognitive distortions and unhelpful thinking patterns associated with RSD. Provide the patient with a handout on cognitive distortions via email for further review. Plan to delve into attachment issues linked to RSD in upcoming sessions. Depression Discuss the patient's inquiry about the possibility of tapering off Lexapro contingent on improved management of ADHD symptoms. Monitor ADHD symptom management progress and consider discussing medication adjustments with Dr. Aguayo as needed. Attachment Issues Recognize the patient's awareness of the impact of her attachment style on relationships and her willingness to address these issues. Continue exploring attachment patterns in therapy and developing strategies for building healthy attachments in relationships. Coping Skills and Self-Compassion Support the patient's intention to practice self-compassion and develop coping skills for managing ADHD and RSD symptoms. Keep assisting the patient in the development and application of coping strategies and self-compassion practices in daily life. 12/15/2024 Generalized anxiety disorder (ICD-10 - F41.1) Assessment and Plan: ADHD Acknowledge the patient's increased awareness and understanding of ADHD symptoms and their impact. Maintain the current treatment plan and monitor progress. Recommend exploring resources such as How to ADHD on [employer] and [employer] for additional support and information. Rejection-Sensit khanh Dysphoria (RSD) Note the patient's significant distress related to RSD and its effects on relationships and self-perception. Apply cognitive-behavi oral strategies to address cognitive distortions and unhelpful thinking patterns associated with RSD. Provide the patient with a handout on cognitive distortions via email for further review. Plan to delve into attachment issues linked to RSD in upcoming sessions. Depression Discuss the patient's inquiry about the possibility of tapering off Lexapro contingent on improved management of ADHD symptoms. Monitor ADHD symptom management progress and consider discussing medication adjustments with Dr. Aguayo as needed. Attachment Issues Recognize the patient's awareness of the impact of her attachment style on relationships and her willingness to address these issues. Continue exploring attachment patterns in therapy and developing strategies for building healthy attachments in relationships. Coping Skills and Self-Compassion Support the patient's intention to practice self-compassion and develop coping skills for managing ADHD and RSD symptoms. Keep assisting the patient in the development and application of coping strategies and self-compassion practices in daily life. Plan Of Treatment Next Appt Details Follow Up: 1 Week, Reason: Provider Name:Sergio Aguayo , 12/29/2024 10:30:00 AM, [address], [facility] [address], [place], [address], Provider Name:Edwina loo, 12/29/2024 11:00:00 AM, [address], [address], [place], [address], Provider Name:Darcie Singh , 01/05/2025 11:00:00 AM, [address], [address], [place], [address], Progress Notes * LALA CAMERON:1980 ([age] yo F)Acc No.[id number]:12/15/2024 Patient: MATIAS KAHN Provider: Mikey Blackwell :1980 A ge:44 Y S ex:Female Date:12/15/2024 Phone: Address:[address] [place] [address], [id number] Pcp:Edwina Mckeon APN Data: * Time Tracker: * Date Start Time End Time Duration User Type Captured By Mode Notes 12/15/2024 01:58 PM 02:59 PM 01:00:59 Therapist Harvinder Blackwell Timer * Chief Complaints: * 1 . Therapy Visit. 2. Depression screening negative. * HPI: D epression screening: PHQ-9 L ittle interest or pleasure in doing things?Not at all F eeling down, depressed, or hopeless N ot at all T rouble falling or staying asleep, or sleeping too much M ore than half the days F eeling tired or having little energy N ot at all P oor appetite or overeating S everal days F eeling bad about yourself or that you are a failure, or have let yourself or your family down N ot at all T rouble concentrating on things, such as reading the newspaper or watching television N ot at all M oving or speaking so slowly that other people could have noticed; or the opposite, being so fidgety or restless that you have been moving around a lot more than usual N ot at all T houghts that you would be better off or of hurting yourself in some way N ot at all T otal Score 3 I nterpretation M inimal Depression Intervention D epression Screening Findings N egative S uicide Risk Assessment Performed 0 12/15/2024 C [place]-Suicide Severity Rating Scale: Suicide Risk (CSRS-screener) i n the past one month Have you wished you were or wished you could go to sleep and not wake up? N o i n the past one month Have you actually had any thoughts of killing yourself? N o D epression Screening: EMY-7 (2018 Edition) F eeling nervous, anxious, or on edge N ot at all N ot being able to stop or control worrying?Not at all W orrying too much about different things N ot at all T rouble relaxing N ot at all B eing so restless that it is hard to sit still N ot at all B ecoming easily annoyed or irritable N ot at all F eeling afraid as if something awful might happen N ot at all T otal EMY-7 Score 0 I nterpretation of Total ( 0 to 4) No Anxiety F unctional Status: Client presents today for psychotherapy to treat ADHD and rejection sensitive dysphoria. Based on the session, the client appears to be making good progress. Changes to the treatment plan are not recommended at this time. Client denies wanting to harm self or others at this time. Discussed continued treatment with client. She would like to meet again in one week. The patient presents with concerns related to Attention Deficit Hyperactivity Disorder (ADHD). She reports recently hyperfocusing on ADHD and discovering various symptoms she previously did not associate with the condition. The patient emphasizes experiencing Rejection Sensitive Dysphoria (RSD), which she describes as intense and distressing. She notes that RSD affects her relationships, including her 15-year partnership, where even what she considers minor comments can trigger strong emotional responses. The patient discloses a history of seeking medical attention for years, feeling that something was wrong. She has received an ADHD diagnosis and has been conducting personal education on the condition. The patient expresses relief at having an explanation for her experiences and aims to use this knowledge for self- treatment and self-compassion. She reports symptoms consistent with ADHD, such as the ability to multitask effectively (e.g., listening to audiobooks at increased speed while completing other tasks). The patient inquires about the possibility of tapering off Lexapro, suggesting a potential link between her ADHD symptoms and depressive experiences. She hypothesizes that addressing her ADHD might alleviate her depressive symptoms. Additionally, the patient mentions a recent thyroid appointment, where her TSH levels were reported to have increased, which her doctor indicated was still not within the desired range. * Behavioral History: P ast psychiatric Hospitalization:Yes. [...] obacco Control (Standard) T obacco use: N onsmoker D rug/Alcohol: D rugs H ave you used drugs other than those for medical reasons in the past 12 months? N o Do you smoke marijuana?: Admits, has medical card. Do you drink alcohol?: No. AUDIT-C (Standard) D id you have a drink containing alcohol in the past year? N o H ousehold: H john N umber of adults in household: 2 N umber of children in household: 2 M iscellaneous: S afety issues A re there any firearms in the house? N o Occupation: Disabled. Advance Care Planning A re you your own decision-maker Y es D o you have Power of [employer] Prospect[employer] Operator Helper for Health or Medical? N o S ocial History: H john M arital Status: N ot Answered N umber of Adults in household: 2 N umber of Children in Household: 2 L evel of Education: N ot Finished College * Medications: U nknown Vitamin B Complex - Tablet as directed Orally , Unknown Vitamin D 25 MCG (1000 UT) Tablet 1 tablet Orally Once a day , Unknown Synthroid 88 MCG Tablet Oral , Unknown Lisinopril 5 MG Tablet Oral , Unknown Nystatin 892754 UNIT/GM Cream External , Unknown Escitalopram Oxalate 20 MG Tablet Oral , Unknown Liothyronine Sodium 5 MCG Tablet Oral , Unknown Atomoxetine HCl 40 MG Capsule 1 capsule in the morning Orally Once a day , stop date 01/01/2025, Medication List reviewed and reconciled with the patient * Examination: P sychiatry: Appearance: w ell-groomed. Abnormal body [...] w ithin normal range. Speech / language: c lear and coherent, pressured. Thought content: a ppropriate. Thought process: i ntact. G eneral Examination: - Mental Status Examination: - Patient exhibited signs of hyper-focus and detailed self-awareness regarding her ADHD diagnosis and associated symptoms, particularly rejection-sensitive dysphoria (RSD). - Demonstrated significant insight into personal mental health, with a clear understanding of her symptoms and their impact on daily functioning. - Emotional responses included feelings of guilt, shame, and a strong reaction to perceived rejection, consistent with reported RSD. - Cognitive processes appeared intact with good verbal fluency, though patient reported difficulty with decision-making and attention consistency, typical of ADHD. Assessment: * Assessment: 1. A DHD (attention deficit hyperactivity disorder), inattentive type - F90.0 (Primary) ? 2 . M ajor depressive disorder, recurrent severe without psychotic features - F33.2? 3. G eneralized anxiety disorder - F41.1 Assessment and Plan: ADHD A cknowledge the patient's increased awareness and understanding of ADHD symptoms and their impact. M aintain the current treatment plan and monitor progress. R ecommend exploring resources such as How to ADHD on [employer] and [employer] for additional support and information. Rejection-Sensitive Dysphoria (RSD) N ote the patient's significant distress related to RSD and its effects on relationships and self-perception. A pply cognitive-behavioral strategies to address cognitive distortions and unhelpful thinking patterns associated with RSD. P rovide the patient with a handout on cognitive distortions via email for further review. P mike to delve into attachment issues linked to RSD in upcoming sessions. Depression D iscuss the patient's inquiry about the possibility of tapering off Lexapro contingent on improved management of ADHD symptoms. M onitor ADHD symptom management progress and consider discussing medication adjustments with Dr. Aguayo as needed. Attachment Issues R ecognize the patient's awareness of the impact of her attachment style on relationships and her willingness to address these issues. C ontinue exploring attachment patterns in therapy and developing strategies for building healthy attachments in relationships. Coping Skills and Self-Compassion S upport the patient's intention to practice self-compassion and develop coping skills for managing ADHD and RSD symptoms. K eep assisting the patient in the development and application of coping strategies and self-compassion practices in daily life. Plan: * Behavioral Health Treatment Plan: I mported Date:12/16/2024 08:00 AM Imported By:Edwina Blackwell Term Therapy ProgramStrengthsRelationships, such [...] Target Date Assigned To Priority Statu s 24% 2024-09-22 2024-12-23 Edwina Blackwell Open Objective* Learn and implement behavioral strategies to overcome depression. Progress Start Date Target Date Assigned To Status 24% 2024-09-22 2024-12-23 Edwina Blackwell Intervention* Conduct Cognitive-Behavioral Therapy (see Cognitive Behavior Therapy by Latif; Overcoming Depressionby Jeferson et al.), beginning with helping the client learn the connection among cognition, depressive feelings, and actions. Start Date Target Date Assigned To Status 2024-09-22 2024-12-23 Edwina Blackwell * Treatment: * Procedure Codes: 9 0837 PSYCHOTHERAPY W/PATIENT 60 MINUTES, 39418 BEHAV ASSMT W/SCORE & DOCD/STAND INSTRUMENT * Follow Up: 1 Week * Billing Information: * Visit Code: * Procedure Codes: 41002 PSYCHOTHERAPY W/PATIENT 60 MINUTES. 69383 BEHAV ASSMT W/SCORE & DOCD/STAND INSTRUMENT. * SCOURER Sign off status: Completed Signatures: No Ad Hoc Signature Added true * Provider: Mikey Blackwell Date: 0 12/15/2024 Generated for Marita Simeon/Reji on: 0 12/22/2024 10:27 AM HEEL SCOURER
--- OUTSIDE RECORDS SUMMARY | 2024-12-22 10:27 | XMS_ITS | Referral Summary ---
Author Organization [facility] [address] Address [address] [place] [address] Care Team Providers Care Meters Superintendent Name Role Phone Walter Erwin DO Primary Care Provider [phone] Encounters Date Type Department Care Team Description 12/08/2024 8:00 AM TRACKLESS TROLLEY DRIVER Office Visit [facility] [address] [place] [id number] Arnulfo Molina, OD Ocular albinism (HCC) (Primary [...] 12/08/2024 Assessment & Plan (12/08/2024 8:58 AM TRACKLESS TROLLEY DRIVER): Very difficult views with nystagmus DFE generally [...] thyroiditis Assessment & Plan (12/08/2023 8:29 AM TRACKLESS TROLLEY DRIVER): Chronic, unknown status Continue current dose of Synthroid 112 mcg oral daily Advised to stop Cytomel Recheck thyroid function test today and further plans based on it Class 1 obesity due to exces s calories with serious comorbidity and body mass index (BMI) of 33.0 to 33.9 in adult 12/05/2023 Assessment & Plan (12/08/2023 8:30 AM TRACKLESS TROLLEY DRIVER): Chronic, progressively improving with Trulicity 3 mg subQ weekly dose Advised patient to include healthy lifestyle habits Include complex carbs, healthy fats and proteins Work on portion control Avoid eating processed food cutback on sugar Advised to start exercising at least 30-40 minutes every day Prediabetes 12/05/2023 Assessment & Plan (12/08/2023 8:30 AM TRACKLESS TROLLEY DRIVER): On Trulicity Recheck A1c Counseled on diet [...] month Assessment & Plan (12/08/2023 8:30 AM TRACKLESS TROLLEY DRIVER): Counseled on diet and exercise EMY (generalized [...] on file Legal Sex Female 5:17 PM TRACKLESS TROLLEY DRIVER Gender Identity Female 12/05/2023 10:07 AM TRACKLESS TROLLEY DRIVER Sexual Orientation Choose not to disclose 2023 10:07 AM TRACKLESS TROLLEY DRIVER Last Filed Vital Signs Vital Sign Reading Time Taken Comments Blood Pressure 128/80 12/05/2023 11:22 AM TRACKLESS TROLLEY DRIVER Pulse 73 12/05/2023 11:22 AM TRACKLESS TROLLEY DRIVER Temperature - - Respiratory Rate 16 12/05/2023 11:22 AM TRACKLESS TROLLEY DRIVER Oxygen Saturation - - Inhaled Oxygen Concentration - - Weight 97.1 kg (214 lb) 12/05/2023 11:22 AM TRACKLESS TROLLEY DRIVER Height 170.2 cm (5' 7 ) 12/05/2023 11:22 AM TRACKLESS TROLLEY DRIVER Body Mass Index 33.52 12/05/2023 11:22 AM TRACKLESS TROLLEY DRIVER Plan of Treatment Not on file Insurance [facility] Care Teams Meters Superintendent Relationship Specialty Start Date End Date Walter Erwin DO [facility] [address] [place] [id number] PCP - General Internal Medicine 10/20/24
--- OUTSIDE RECORDS SUMMARY | 2024-12-22 10:28 | XMS_ITS | Patient Health Record ---
Author Organization [facility] [employer] Address [address] [facility] [address] [place] [address] Care Team Providers Care Web Communications Specialist Name Role Phone Edwina Mckeon APN Primary Care Provider Unavailab Edwina May Unavailable [phone] Sergio Aguayo Unavailable [phone] Allergies Allergen (clinical drug ingredient) Drug/Non Drug Allergy documented on EMR Reaction Allergy Type Onset Date Status amoxicillin / clavulanate Augmentin Unknown Drug Allergy Active Vicodin Unknown Drug Allergy Active Results Component Value Reference Range Notes UDT Reviewed date:11/26/2024 11:15:53 AM Interpretation: Performing Lab: Notes/Report: THC POS 0 - 50 ng/ml Cocaine NEG 0 - 300 ng/ml Amphetamine NEG 0 - 1000 ng/ml Buprenorphine (BUP) NEG 0 - 10 ng/ml Secobarbital (Bar) NEG 0 - 300 ng/ml Oxazepam (BZO) NEG 0 - 300 ng/ml 2-cudsgivzqw-2,7-skzfvikd-5,3-diphenylpyrrolidine (STEVIE P) NEG 0 - 300 ng/ml Methamphetamine (MET) NEG 0 - 1000 ng/ml Methylenedioxymethamphetamine (MDMA) NEG 0 - 500 ng/ml Morphine (MOP 300/DTE1283) NEG 0 - 300 ng/ml Methadone (MTD) NEG 0 - 300 ng/ml Phencyclidine (PCP) NEG 0 - 25 ng/ml Propoxyphene (PPX) NEG 0 - 300 ng/ml Nortriptyline (TCA) NEG 0 - 1000 ng/ml Oxycodone NEG 0 - 300 ng/ml Reason For Referral No Information Medications Medication SIG (Take, Route, Frequency, Duration) Notes Start Date End Date Status Vitamin B Complex - as directed Orally Unknown Vitamin D 25 MCG (1000 UT) 1 tablet Oral ly Once a day Unknown Atomoxetine HCl 40 MG 1 capsule in the morning Orally Once a day for 30 days 12/02/2024 01/01/2025 Unknown Escitalopram Oxalate 20 MG Oral for 90 Days Unknown Liothyronine Sodium 5 MCG Oral for 90 Days Unknown Lisinopril 5 MG Oral for 90 Days Unknown Nystatin 570887 UNIT/GM External for 30 Days Unknown Synthroid 88 MCG Oral for 90 Days Unknown Social History [...] alcohol in the p ast year? 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), inattentive type (F90.0) Active confirmed Problem 150370722 Medical marijuan a use (Z79.899) Active confirmed Problem Polycystic ovarian syndrome (E28.2) 12/05/19 24 Active confirmed Problem Vitamin D deficiency (05095176) Vitamin D deficiency (E55.9) 05/29/20 23 Active confirmed Problem 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 (658204160) 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) 12/05/19 24 Active confirmed Problem Blindness - both eyes (disorder) (127040218) Blindness of both eyes (H54.3) 05/29/20 23 Active confirmed Problem Albinism (58127937) 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) 10/02/20 18 Active confirmed Vital Signs Heart Rate 96 /min 11/26/2024 Blood pressure diastolic 88 mm Hg 11/26/2024 Weight-kg 111.49 kg 11/26/2024 Blood pressure systolic 149 mm Hg 11/26/2024 Weight 245.8 lbs 11/26/2024 Encounters Encounter Location Date Provider Diagnosis [facility] [employer], [place] [address] [place] [address] 12/22/2024 Edwina Hinderliter [facility], [employer] [address] [place] [address] 09/22/2024 Edwina Hinderliter Major depressive disorder, recurrent severe without psychotic features F33.2 [facility], [place] [address] [place] [address] 09/29/2024 Edwina Hinderliter Major depressive disorder, recurrent severe without psychotic features F33.2 [facility], [place] [address] [place] [address] 10/06/2024 Edwina Hinderliter Major depressive disorder, recurrent severe without psychotic features F33.2 [facility], [place] [address] [place] [address] 10/13/2024 Edwina Hinderliter Major depressive disorder, recurrent severe without psychotic features F33.2 [facility] [employer], [place] [address] [place] [address] 10/20/2024 Edwina Hinderliter Major depressive disorder, recurrent severe without psychotic features F33.2 and Generalized anxiety disorder F41.1 [facility], [place] [address] [place] [address] 10/29/2024 Edwina Hinderliter Major depressive disorder, recurrent severe without psychotic features F33.2 and Generalized anxiety disorder F41.1 [facility] [place] [address] [place] [address] 11/10/2024 Edwina Hinderliter Major depressive disorder, recurrent severe without psychotic features F33.2 and Generalized anxiety disorder F41.1 [facility] [place] [address] [place] [address] 11/17/2024 Edwina Hinderliter Major depressive disorder, recurrent severe without psychotic features F33.2 and Generalized anxiety disorder F41.1 [facility] [place] [address] [place] [address] 11/24/2024 Edwina Hinderliter Major depressive disorder, recurrent severe without psychotic features F33.2 and Generalized anxiety disorder F41.1 [facility] [address] [place] [address] 11/26/2024 Sergio Aguayo Major depressive disorder, recurrent severe without psychotic features F33.2 ; ADHD (attention deficit hyperactivity disorder), inattentive type F90.0 ; Polycystic ovarian syndrome E28.2 ; 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 E06.3 ; Essential (primary) hypertension I10 ; Blindness of both eyes H54.3 ; Vitamin D deficiency E55.9 ; Albinism E70.30 ; Generalized anxiety disorder F41.1 and Medical marijuana use Z79.899 [facility], [facility] [address] [place] [address] 12/08/2024 Edwina Blackwell Major depressive disorder, recurrent severe without psychotic features F33.2 ; Generalized anxiety disorder F41.1 and ADHD (attention deficit hyperactivity disorder), inattentive type F90.0 [facility], [place] [address] [place] [address] 12/15/2024 Edwina Blackwell ADHD (attention deficit hyperactivity disorder), inattentive type F90.0 ; Major depressive disorder, recurrent severe without psychotic features F33.2 and Generalized anxiety disorder F41.1 [facility] [address] [place] [address] 11/26/2024 Edwina Blackwell [facility] [address] [facility] [address] [place] [address] 12/15/2024 Edwina Blackwell [facility] [address] [place] [address] 11/09/2024 Edwina Blackwell [facility] [address] [place] [address] 11/29/2024 Edwina Blackwell [facility] [address] [facility] [address] [place] [address] 11/30/2024 Edwina Blackwell [facility] [address] [facility] [address] [place] [address] 12/15/2024 Edwina Blackwell Assessments Encounter Date Diagnosis (ICD Code) Assessment Notes Treatment Notes Treatment Clinical Notes Section Notes 09/22/2024 Major depressive disorder, recurrent severe without psychotic features (ICD-10 - F33.2) Marital Status: terminal carman partnership Living Arrangement: lives with partner and 2 children Children: 2 children, online abigail friends, 3 sisters, best friends Support System: /partner Highest Level of Education: some college Employment Status: disabled Financial Concerns: just like everyone else. 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 Currently on cpap, obstructive sleep apnea, hypertension Suicidal Ideation/Self Harm: Passive SI Homicidal Ideation: Denied Access to Means (firearms, stockpiled medication, etc.): Denied Anxiety: Restless, decision paralysis, will vomit if too anxious. Feels like mind runs a mile a minute. Misophonia Depression: Isolation, fatigued, low self-esteem. Shutting down to recharge and process. Currently on Lexapro. Sleep: Average of 3-5 hours a night. 2 sleep study lab that show no REM sleep. Takes 4 hours to fall asleep. Appetite: Noted first time she was hospitalized because she was starving herself. Noted some texture aversions Trauma: Noted childhood trauma Substance Use (type, last use, amount, frequency, withdrawal symptoms): Denied Goal(s) for Therapy: Increase positive self talk 1. Suicidal Ideation - Continue to closely monitor the patient's passive suicidal ideation in subsequent sessions, focusing on safety planning and enhancing support system utilization. 2. Sleep Disorders - Address the patient's chronic sleep disturbances and the impact of obstructive sleep apnea on mental health. The patient plans to discuss sleep issues and hypertension with her doctor. 3. Mental Health Management - Schedule follow-up appointments for continuous cognitive behavioral therapy, focusing on self-talk and decision-making processes. Assess the effectiveness of Lexapro 40 mg and facilitate consultation with a psychiatrist for potential medication adjustments. 4. Vision Impairment and [place] - Discuss strategies to enhance the patient's independence, considering the limitations due to legal blindness and albinism, in future sessions. 5. Social Support and Family Dynamics - Encourage the use of the patient's support system and further explore complex family dynamics in therapy to improve coping strategies. 6. General Health and Medication Management - Recommend a comprehensive medication review with a nurse practitioner and encourage discussion of health concerns with the primary care provider to optimize the medication regimen. 7. ADHD and Neurodivergence - Arrange for ADHD testing and consider referral for non-computerized testing if necessary. Discuss the results and implications for treatment in future sessions. Follow-up: - Schedule a follow-up appointment to monitor the patient's progress and continue addressing the identified issues. 09/29/2024 Major depressive disorder, recurrent severe without psychotic features (ICD-10 - F33.2) 1. Sleep Issues and Insomnia - Continue monitoring Cheryl's sleep patterns and discuss stress management techniques to mitigate insomnia, especially nocturnal thoughts that may contribute to sleep disturbances. 2. Premenstrual Dysphoric Disorder (PMDD) - Closely track Cheryl's mood and menstrual cycle to assess for PMDD, noting the unusual frequency of her periods and historical mood fluctuations. - Consider hormonal therapy or antidepressants following a thorough evaluation if PMDD is diagnosed. 3. Stress and Coping Mechanisms - Encourage Cheryl to utilize therapy sessions for developing healthier coping mechanisms and improving communication strategies within her relationships. - Support Cheryl in establishing boundaries and assertiveness in decision-making processes, with her partner Lizbeth taking over some decisions to alleviate stress. 4. Adjustment with CPAP Machine - Monitor the effectiveness of the CPAP machine adjustments and consider further modifications if necessary to address persistent sleep issues and discomfort. - Encourage follow up with PCP on any recurrent issues related to swelling or discomfort post-adjustment. 5. Social Support and Family Dynamics - Continue supporting Cheryl in setting boundaries with family members and advocating for her needs in social settings. - Encourage open communication with her family about her preferences and limitations to reduce anxiety related to social interactions and decision-making. 6. General Mental Health and Well-being - Consider a comprehensive mental health evaluation to reassess Cheryl's current treatment plan, including potential medication adjustments and therapy focus enhancements. - Encourage regular therapy sessions to address significant depressive symptoms and improve overall mental health, acknowledging her feelings of being a shell and her history of depression. Follow-up: - Schedule a follow-up appointment to monitor Cheryl's progress and continue addressing the identified issues. 10/06/2024 Major depressive disorder, recurrent severe without psychotic features (ICD-10 - F33.2) 1. Thyroid Dysfunction Management - Continue monitoring and management under the care of her surgical lead for hyperthyroidism, as indicated by a TSH level less than 0.015 and symptoms including heart palpitations and shakiness. No changes in treatment or medication were discussed. 2. Arthritis Management - Continue current management strategies for moderate arthritis, attributed to current medication, and follow up with healthcare provider as needed. 3. Mental Health - PTSD and Family Dynamics - Continue cognitive behavioral therapy focusing on managing PTSD symptoms and handling complex family dynamics. Encourage the use of radical acceptance for uncontrollable aspects of her relationship with her mother. 4. Sleep Issues - Consider evaluation for alternative sleep medications or therapies post-holidays, respecting the patient's preference and history of Ambien use. Encourage adherence to CPAP use as prescribed. 5. Social Relationships and Communication - Focus therapy sessions on enhancing communication skills, managing expectations in relationships, and maintaining healthy boundaries with friends and family. -Client will utilize communication discussed in session with a friend to better communicate her social needs. 6. Comprehensive Psychological Evaluation - Refer for a comprehensive psychological assessment to explore potential diagnoses such as ADHD or Autism Spectrum Disorder. Discuss options for providers who accept her insurance. Overall Plan: - Continue regular therapy sessions to address ongoing mental health concerns. - Follow up on referrals and ensure connection with appropriate medical and psychological services. - Monitor response to any new treatments or changes in current regimen. 10/13/2024 Major depressive disorder, recurrent severe without psychotic features (ICD-10 - F33.2) 1. Depression and Anxiety - Continue Cognitive Behavioral Therapy focusing on managing symptoms of depression and anxiety, including feeling down, trouble sleeping, low energy, and poor concentration. - Utilize techniques such as challenging negative thoughts and increasing mindfulness to improve emotional regulation, especially in social situations and in response to stressors. 2. ADHD (Inattentive Type) - Implement non-pharmacologica l strategies to enhance executive functioning and decision-making for symptoms like decision paralysis and difficulty managing emotions. - Techniques include breaking tasks into smaller steps and using cognitive restructuring to handle overwhelming choices. 3. Menopause and Emotional Regulation - Focus on improving emotional regulation through therapy, addressing triggers, and developing healthier response mechanisms to emotional stimuli, in light of symptoms such as hot flashes and night sweats. 4. Attachment and Relationship Dynamics - Work on understanding and addressing anxious attachment styles in therapy to improve personal relationships and meet emotional needs effectively. - Use self-reflection and communication strategies to address concerns about interactions with partners and friends. 5. Self-Compassion and Coping Strategies - Encourage the development of self-compassion through cognitive restructuring and positive self-talk, particularly after accidents or mistakes. - Practice reframing negative thoughts and focus on being kinder to oneself as discussed in sessions. Follow-up: - Schedule follow-up appointments to continue addressing these issues, monitor progress, and adjust treatment strategies as necessary. 10/20/2024 Major depressive disorder, recurrent severe without psychotic features (ICD-10 - F33.2) Assessment and Plan: 1. Anxiety and Panic Attacks - Continue taking Lexapro as prescribed. - Utilize grounding techniques such as physical touch, deep breathing, and exposure to cold air. - Engage in healthy distractions like art and crafts, listening to loud music, and physical activity. - Practice RAIN (Recognize, Allow, Investigate, Nurture) to manage anxiety and stay present. 2. Attachment and Communication Issues - Continue working on healing attachments and improving communication skills. - Practice assertiveness without being passive-aggressive . - Focus on building a solid foundation for core family relationships. 3. Thyroid Eye Disease - Attend eye appointment with Paola. - Follow up with thyroid appointment in December. - Monitor for DEXA bone density scan and echocardiogram orders from the doctor. 4. Sleep Issues and CPAP Use - Continue using CPAP machine and monitor hours of use. - Address panic attacks related to CPAP use with grounding techniques. - Discuss potential changes in thyroid medication and its impact on sleep with the doctor. 5. ADHD Symptoms - Monitor daily activities and distractions. - Consider discussing ADHD evaluation with the doctor during the next appointment. 6. Depression - Continue taking Lexapro as prescribed. - Monitor progress in therapy and changes in depression rating scale. - Engage in activities that promote self-compassion and staying present. 7. Coping with Medical Concerns - Focus on staying present and not worrying about future medical issues. - Utilize grounding techniques and RAIN to manage anxiety related to medical concerns. 8. Family Dynamics and Boundaries - Continue setting boundaries with family members. - Encourage open communication and expression of feelings within the core family. Follow-up: - Schedule a follow-up appointment to assess progress and discuss any concerns. 10/20/2024 Generalized anxiety disorder (ICD-10 - F41.1) Assessment and Plan: 1. Anxiety and Panic Attacks - Continue taking Lexapro as prescribed. - Utilize grounding techniques such as physical touch, deep breathing, and exposure to cold air. - Engage in healthy distractions like art and crafts, listening to loud music, and physical activity. - Practice RAIN (Recognize, Allow, Investigate, Nurture) to manage anxiety and stay present. 2. Attachment and Communication Issues - Continue working on healing attachments and improving communication skills. - Practice assertiveness without being passive-aggressive . - Focus on building a solid foundation for core family relationships. 3. Thyroid Eye Disease - Attend eye appointment with Paola. - Follow up with thyroid appointment in December. - Monitor for DEXA bone density scan and echocardiogram orders from the doctor. 4. Sleep Issues and CPAP Use - Continue using CPAP machine and monitor hours of use. - Address panic attacks related to CPAP use with grounding techniques. - Discuss potential changes in thyroid medication and its impact on sleep with the doctor. 5. ADHD Symptoms - Monitor daily activities and distractions. - Consider discussing ADHD evaluation with the doctor during the next appointment. 6. Depression - Continue taking Lexapro as prescribed. - Monitor progress in therapy and changes in depression rating scale. - Engage in activities that promote self-compassion and staying present. 7. Coping with Medical Concerns - Focus on staying present and not worrying about future medical issues. - Utilize grounding techniques and RAIN to manage anxiety related to medical concerns. 8. Family Dynamics and Boundaries - Continue setting boundaries with family members. - Encourage open communication and expression of feelings within the core family. Follow-up: - Schedule a follow-up appointment to assess progress and discuss any concerns. 10/29/2024 Major depressive disorder, recurrent severe without psychotic features (ICD-10 - F33.2) 1. Emotional Distress Related to Family Conflicts - Continue Cognitive Behavioral Therapy to address emotional distress and improve coping skills. - Encourage the patient to set healthy boundaries with family members. - Develop communication strategies to express feelings and needs assertively. - Explore the possibility of family therapy to address ongoing conflicts and improve relationships. 2. Migraines Triggered by Stress - Encourage the patient to identify and manage stressors, including family conflicts. - Recommend relaxation techniques, such as deep breathing exercises, progressive muscle relaxation, and mindfulness meditation. - Advise the patient to maintain a regular sleep schedule and practice good sleep hygiene. - Consider referral to a neurologist for further evaluation and management of migraines if they persist or worsen. 3. Sleep Disturbances Related to CPAP Machine Issues - Encourage the patient to consult with her primary care provider or sleep specialist to address CPAP machine issues. - Recommend the patient to maintain a consistent sleep schedule and create a relaxing bedtime routine. - Advise the patient to avoid caffeine, nicotine, and alcohol close to bedtime. 4. Difficulty with Emotional Regulation and Grounding - Teach the patient grounding techniques to help manage feelings of dissociation and dysregulation. - Encourage the patient to practice self-compassion and self-care during times of emotional distress. Encourage use of RAIN (Recognize, Allow, Interpret, Nurture) to increase acceptance of emotions and increase in self care. - Continue to monitor the patient's progress in therapy and adjust the treatment plan as needed. 5. Strained Relationships with Family Members - Encourage the patient to set boundaries and prioritize her mental health and well-being. - Explore the possibility of family therapy or mediation to address ongoing conflicts and improve relationships. - Support the patient in developing healthy communication strategies to express her feelings and needs assertively. Follow-up: - Schedule a follow-up appointment to monitor the patient's progress and continue working on the identified issues. 10/29/2024 Generalized anxiety disorder (ICD-10 - F41.1) 1. Emotional Distress Related to Family Conflicts - Continue Cognitive Behavioral Therapy to address emotional distress and improve coping skills. - Encourage the patient to set healthy boundaries with family members. - Develop communication strategies to express feelings and needs assertively. - Explore the possibility of family therapy to address ongoing conflicts and improve relationships. 2. Migraines Triggered by Stress - Encourage the patient to identify and manage stressors, including family conflicts. - Recommend relaxation techniques, such as deep breathing exercises, progressive muscle relaxation, and mindfulness meditation. - Advise the patient to maintain a regular sleep schedule and practice good sleep hygiene. - Consider referral to a neurologist for further evaluation and management of migraines if they persist or worsen. 3. Sleep Disturbances Related to CPAP Machine Issues - Encourage the patient to consult with her primary care provider or sleep specialist to address CPAP machine issues. - Recommend the patient to maintain a consistent sleep schedule and create a relaxing bedtime routine. - Advise the patient to avoid caffeine, nicotine, and alcohol close to bedtime. 4. Difficulty with Emotional Regulation and Grounding - Teach the patient grounding techniques to help manage feelings of dissociation and dysregulation. - Encourage the patient to practice self-compassion and self-care during times of emotional distress. Encourage use of RAIN (Recognize, Allow, Interpret, Nurture) to increase acceptance of emotions and increase in self care. - Continue to monitor the patient's progress in therapy and adjust the treatment plan as needed. 5. Strained Relationships with Family Members - Encourage the patient to set boundaries and prioritize her mental health and well-being. - Explore the possibility of family therapy or mediation to address ongoing conflicts and improve relationships. - Support the patient in developing healthy communication strategies to express her feelings and needs assertively. Follow-up: - Schedule a follow-up appointment to monitor the patient's progress and continue working on the identified issues. 11/10/2024 Major depressive disorder, recurrent severe without psychotic features (ICD-10 - F33.2) Emotional distress related to family dynamics Continue Cognitive Behavioral Therapy sessions to address emotional distress and improve coping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
--- OUTSIDE RECORDS SUMMARY | 2024-12-22 10:28 | XMS_ITS | Clinical Summary ---
Author Organization [facility] Address [address] [place] [address] Care Team Providers Care Final Inspector And Tester Name Role Phone Jess Plascencia MD Primary [...] Comments Blood Pressure 126/83 10/01/2018 9:52 AM [facility] Pulse 70 10/01/2018 9:52 AM [facility] [employer] Temperature 36.7 C (98.1 F) 10/01/2018 9:52 AM [facility] [employer] Respiratory Rate - - Oxygen Saturation 98% 10/01/2018 9:52 AM [facility] [employer] Inhaled Oxygen Concentration - - Weight 112.7 kg (248 lb 8 oz) 10/01/2018 9:52 AM [facility] [employer] Height 170.2 cm (5' 7 ) 10/01/2018 9:52 AM [facility] [employer] Body Mass Index 38.92 10/01/2018 9:52 AM [facility] [employer] Plan of Treatment Health Maintenance Due Date Last Done Comments DTAP/TDAP/TD VACCINES (1 - Tdap) 2000 HEPATITIS B VACCINES (1 of 3 - 19+ 3-dose series) 2000 CERVICAL CANCER SCREENING 2011 BREAST CANCER SCREENING 2021 INFLUENZA VACCINE (#1) 2024 HPV VACCINES Aged Out No longer eligi ble based on patient's age to complete this topic Insurance MEDICARE PART A AND B Care Teams Final Inspector And Tester Relationship Specialty Start Date End Date Jess Plascencia MD [address] [place] [id number] PCP - General Family Practice 09/01/18
--- OUTSIDE RECORDS SUMMARY | 2024-12-22 10:28 | XMS_ITS | Data Portability ---
Author Organization [place] [facility], Main Office Address [address] [place] [address] Assessment Encounter Date Assessment Date Assessment LastModified by Organization Details LastModified Time 04/22/2024 04/22/2024 Assessment: Delayed sleep phase syndrome Mild OSHS, HI = 4 Plan: The following were reviewed and explained to the patient: primary care/referral note [facility] home sleep study 04/14/24 HI = 4, supine HI = 18. Sleep in lateral recumbent or semirecumbent position for the time being. There could also be substantial smwnt-vt-eblfv variability in the AHI that can lead [...] were reviewed and explained to the patient: [facility] home sleep study 04/14/24 HI = 4, supine HI = 18 [facility] diagnostic sleep study 06/08/24 sleep onset = [...] were reviewed and explained to the patient: [facility] home sleep study 04/14/24 HI = 4, supine HI = 18 [facility] diagnostic sleep study 06/08/24 sleep onset = 18 minutes, REM onset = none, AHI = 6, supine AHI = 36, PLMI = 2 [facility] titration sleep study 08/03/24 sleep onset = [...] carrier. Patient will setup an appointment with [facility] for supplies and pressure adjustments. A major [...] were reviewed and explained to the patient: [facility] home sleep study 04/14/24 HI = 4, supine HI = 18 [facility] diagnostic sleep study 06/08/24 sleep onset = 18 minutes, REM onset = none, AHI = 6, supine AHI = 36, PLMI = 2 [facility] titration sleep study 08/03/24 sleep onset = [...] at 20 minutes. 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 Keep humidifier level at 2. Keep tube [...] carrier. Patient will setup an appointment with [facility] for supplies and pressure adjustments. A major [...] Procedures None recorded. Surgeries None recorded. Imaging polysomno gram, titration study 2023 024 [email or web address] [facility], [address] [place], [address], 07/19/2024 10:04:06 polysomno gram, diagnosti c, 6 yrs or older - approved [id number] 1 04/22/24-2023 024 [email or web address] [facility], [address] [place], [address], 05/03/2024 08:12:03 home sleep study - *Please call pt to schedule* 2023 024 [facility], [address] [place], [address], 04/16/2024 14:48:34 Medication Orders aspirin 81 mg tablet,de layed release 2023 024 [id number], [address], [id number], 11/24/2024 09:35:14 losartan 50 mg tablet 2023 024 [email or web address] [facility] #[id number], [address], [id number], 04/22/2024 10:06:10 Patient TargetsNo targets recorded. Patient InstructionsNo instructions recorded. Reason for Referral None Reported. Results Created Date Observation Date Name Description Value Unit Range Abnormal Flag Note LastModifiedBy Organization Detail LastModifiedTime 03/17/2003/17/2024 US, thyro id No observ ation record ed. [facility] [address] [place] [address], [address], 03/18/2024 13:20:14 04/16/20 24 04/14/2024 home sleep study No observ ation record ed. [email or web address] [address] [place], [address], 05/21/2024 09:41:12 04/16/20 24 04/14/2024 home sleep study No observ ation record ed. [facility] [place] [address] [place], [address], 04/16/2024 14:48:34 06/11/20 24 06/08/2024 polys omnog mario, diagn ostic , 6 yrs or older No observ ation record ed. [facility] [place] [address] [place], [address], 06/11/2024 12:17:27 08/24/20 24 08/03/2024 polys omnog mario, titra tion study No observ ation record ed. [facility] [address] [place], [address], 08/24/2024 10:07:59 Result Notes None recorded. Problems Name Problem SNOMED Code Status Onset Date Resolution Date Notes Provider Name and Address Organization Details Recorded Time Polycystic ovary syndrome 963704192 Active 2022 Not Available [facility] 3 22:28:42 Prediabete s 334811384 Active 2022 Not Available [employer] 3 22:28:42 Arthritis 7979706 Active 2022 Not Available [facility] 3 22:28:42 Mixed anxiety and depressive disorder 182685995 Active 2022 Not Available [employer] 3 22:28:42 Cobalamin deficiency 241568768 Active 2023 Jess Plascencia MD [address] [facility], [facility] [address], [place], [address] , [facility] [email or web address] [facility] 4 12:27:48 Albinism 34468849 Active Not Available [facility] 3 22:28:42 Pain in throat 316303310 Completed Not Available [facility] 3 03:22:27 Blindness - both eyes 515751133 Active Not Available [employer] 3 22:28:42 Vitamin D deficiency 24243406 Active Not Available [facility] 3 22:28:42 Goiter 2624792 Active Not Available [facility] 3 22:28:42 Hypothyroi dism 16276628 Active Not Available [facility] 3 22:28:42 Hemorrhoid s 71985535 Active Not Available [facility] 3 22:28:42 Essential hypertensi on 88631346 Active 2023 MARTINE Mcginnis-C [address], [address], [place], [address] , [employer] 4 14:32:49 Varicose veins of lower extremity 09861821 Active 2023 MARTINE Mcginnis-C [address], [address], [place], [address] , [employer] 4 14:33:55 Obstructiv e sleep apnea syndrome 89438459 Active 2023 Jw Phipps MD [address], [address], [place], [address] , [employer] 4 10:44:19 Notes:Medical History: Beltran ism Depression/Anxiety [...] Most Recent Mammogram completed Lola Chávez LPN [employer] 01/08/2024 11:27:10 4 delivery completed Not Available [facility] 01/01/2023 03:14:20 2 delivery completed Not Available [facility] 01/01/2023 03:14:20 Imaging Results Imaging Date Name Status LastModified by Organiz ation Details LastModified Time 03/17/2024 US, thyroid completed [facility] [address], [place], [address], 03/18/2024 13:20:14 04/14/2024 home sleep study completed [address] [place], [address], 05/21/2024 09:41:12 04/14/[address] [facility] [address] [place], [address], 04/16/2024 14:48:34 06/08/2024 polysomnogram, diagnostic, [address] [facility] [address] [place], [address], 06/11/2024 12:17:27 08/03/2024 polysomnogram, titration study completed [facility] [address] [place], [address], 08/24/2024 10:07:59 Procedure Notes None recorded. Medical Equipment None Reported. Allergies Allergen ID Allergen Name Allergen Category Reaction Reaction Severity Criticality Documentation Date Start Date Code Code System Note Provider Name and Address Organization Details Recorded Time 6274 acetamino phen / hydrocodo ne medicatio n itching Not available Not available 01/01/2023 95521 2 RxNorm Not Available [facility] 3 03:34:13 6275 Augmentin medicatio n diarrhea Not available Not available 01/01/2023 78485 2 RxNorm Not Available [facility] 3 03:34:13 Medications Name Sig Start Date [...] tablets in a dose pack TK PER [facility] DIRECTION S UTD FOR 6 DAYS active [...] Updated DateTime 4 170.18 cm 35.2 kg/m2 877466. 28 g 97.1 [degF] 79 /min 96 % 96 % 152 mm[Hg] 98 mm[Hg] Keara Santana RN [place] - [place] [employer] [facility] 4 14:13:47 Date Recorded Body height Body mass index (BMI) Body weight Heart rate Oxygen saturation Oxygen saturation in Arterial blood by Pulse oximetry Body temperature Systolic blood pressure Diastolic blood pressure Provider Name and Address Organization Details Last Updated DateTime 4 170.18 cm 35.2 kg/m2 925348. 28 g 70 /min 98 % 98 % 97.6 [degF] 120 mm[Hg] 70 mm[Hg] Enedina Sánchez CMA [place] [employer] [facility] [employer] [facility] 4 10:02:54 Date Recorded Heart rate Respiratory rate Provider N ayan and Address Organization Details Last Updated DateTime 04/22/2024 70 /min 15 /min Jw Phipps MD [address], [place], [address], [place] [employer] [facility] [employer] 04/22/2024 10:49:29 Date Recorded Body height Body mass index (BMI) Body weight Body temperature Heart rate Oxygen saturation Oxygen saturation in Arterial blood by Pulse oximetry Systolic blood pressure Diastolic blood pressure Provider Name and Address Organization Details Last Updated DateTime 4 170.18 cm 37 kg/m2 158651. 8 g 98.1 [degF] 76 /min 97 % 97 % 118 mm[Hg] 76 mm[Hg] Sosa Mazariegos MA [facility] [employer] 4 09:09:52 Date Recorded Heart rate Respiratory rate Provider N ayan and Address Organization Details Last Updated DateTime 06/16/2024 76 /min 15 /min Jw Phipps MD [address], [place], [address], [facility] [employer] 06/16/2024 09:49:18 Date Recorded Body height Body mass index (BMI) Body weight Heart rate Oxygen saturation Oxygen saturation in Arterial blood by Pulse oximetry Body temperature Systolic blood pressure Diastolic blood pressure Provider Name and Address Organization Details Last Updated DateTime 4 170.18 cm 37.1 kg/m2 152446. 39 g 75 /min 97 % 97 % 98.1 [degF] 118 mm[Hg] 70 mm[Hg] Enedina Sánchez CMA [place] [employer] [facility] [employer] 4 09:31:48 Date Recorded Heart rate Respiratory rate Provider N ayan and Address Organization Details Last Updated DateTime 08/24/2024 75 /min 15 /min Jw Phipps MD [address] [facility], [address], [place], [address], [place] [employer] [facility] [employer] 08/24/2024 09:59:00 Date Recorded Body height Body mass index (BMI) Body weight Body temperature Heart rate Oxygen saturation Oxygen saturation in Arterial blood by Pulse oximetry Systolic blood pressure Diastolic blood pressure Provider Name and Address Organization Details Last Updated DateTime 170.18 cm 38.2 kg/m2 063051. 54 g 97.7 [degF] 70 /min 98 % 98 % 126 mm[Hg] 84 mm[Hg] Sosa Mazariegos MA [place] [employer] [facility] 09:22:52 Date Recorded Heart rate Respiratory rate Provider Flor botello and Address Organization Details Last Updated DateTime 11/24/2024 70 /min 15 /min Jw Phipps MD [address] [facility], [address], [place], [address], [employer] 11/24/2024 09:44:05 Social History Question Answer Notes LastModified by Organizat ion Details LastModified Time Tobacco Smoking Status Never Smoker SHERRI Garg null, [facility] 08/14/2023 15:59:16 What Is Your Level Of Alcohol Consumption? None [id number] Information not available 01/01/2023 What Is Your Level Of Caffeine Consumption? Occasional [id number] Information not available 01/01/2023 How Much Tobacco Do You Chew? None [id number] Information not available 01/01/2023 In The 14 [...] Used Smokeless Tobacco? Never Used Smokeless Tobacco [id number] Information not available 01/01/2023 Do You Feel Stressed (tense, Restless, Nervous, Or Anxious, Or Unable To Sleep At Night)? [id number] Information not available 06/16/2024 Do You Use [...] Organization Details LastModified Time Mother Rheumatoid arthritis [email or web address] Not available 11/24 09:08:12 Mother Fibromyalgia [email or web address] Not sherry ilable 11/24/2024 09:08:12 Mother Autoimmune hepatitis [email or web address] Not available 11/24 09:08:12 Mother Osteoporosis orplqsxl28 Not sherry ilable 11/24/2024 09:08:12 Mother Transient cerebral ischemia Not available 11/24 09:08:12 Maternal Grandfather Diabetes mellitus MIGRATION.550 [id number] Not available 01/01/2023 03:14:27 Maternal Grandfather Heart disease MIGRATION.108 [id number] Not available 01/01/2023 03:14:27 Maternal Grandfather Congestive heart failure [email or web address] Not available 11/24 09:08:12 Maternal Grandfather Malignant neoplasm of skin [email or web address] Not available 11/24 09:08:12 Maternal Grandfather Malignant tumor of prostate glfjzpzo73 Not available 11/24 09:08:12 Maternal Grandfather Tuberculosis [email or web address] Not availabl e 11/24/2024 09:08:12 Maternal Grandmother Diabetes mellitus MIGRATION.398 [id number] Not available 01/01/2023 03:14:27 Maternal Grandmother Heart disease MIGRATION.389 [id number] Not available 01/01/2023 03:14:27 Paternal Grandfather Diabetes mellitus MIGRATION.036 [id number] Not available 01/01/2023 03:14:27 Paternal Grandmother Diabetes mellitus MIGRATION.139 [id number] Not available 01/01/2023 03:14:27 Sister Polycystic ovary syndrome [id number] Not available 11/24 09:08:12 Sister Prolactinoma [email or web address] Not sherry ilable 11/24/2024 09:08:12 Father Chronic obstructive pulmonary disease [id number] Not available 11/24 09:08:12 Paternal Grandfather Heart disease Not available 2023 10:17:10 Paternal Grandfather Cerebrovascu lar accident [email or web address] Not available 09:08:12 Paternal Grandmother Heart disease Not available 2023 10:17:13 Maternal Grandmother Cerebrovascu lar accident [email or web address] Not available 09:08:12 Medical History Condition Response [...] virus, trivalent, PF 3 completed Not Available [facility] 08/13/2023 22:28:42 Influenza, split virus, trivalent, preservative 3 completed Not Available [facility] 08/13/2023 22:28:42 Influenza, split virus, quadrivalent, PF 5 completed Not Available [facility] 08/13/2023 22:28:42 Past Encounters Encounter ID Performer Location Encounter Start Date Encounter Closed Date Diagnosis/Indication Diagnosis SNOMED-CT Code Diagnosis ICD10 Code Diagnosis Note [id number] [facility] [place] [address] [facility] [address] [place] [address] 01/09/2021 00:00:00 01/09/2021 09:15:01 [id number] [facility] [place] [place] [address] [place] [address] 01/12/2021 00:00:00 01/12/2021 17:31:37 [id number] [facility] [place] [address] [place] [address] [address] [place] [address] 02/23/2021 00:00:00 02/28/2021 16:27:12 [id number] [facility] [place] [address] [place] [address] 05/14/2021 00:00:00 05/14/2021 13:26:05 [id number] [facility] [place] [address] [place] [address] [address] [place] [address] 08/09/2021 00:00:00 08/09/2021 09:17:14 [id number] [facility] [place] [address] [place] [address] 08/14/2021 00:00:00 08/14/2021 18:08:12 [id number] [facility] [place] [address] [facility] [address] [place] [address] 10/31/2021 00:00:00 11/01/2021 07:47:28 [id number] [facility] [place] [address] [place] [address] 02/05/2022 00:00:00 02/05/2022 17:25:28 [id number] [facility] [place] [address] [place] [address] 02/12/2022 00:00:00 02/13/2022 12:25:32 [id number] [facility] [place] [address] [place] [address] 03/13/2022 00:00:00 03/13/2022 10:35:24 [id number] [facility] [place] [address] [place] [address] 05/24/2022 00:00:00 05/24/2022 17:41:32 [id number] [facility] [place] [address] [place] [address] 05/28/2022 00:00:00 05/28/2022 17:28:27 [id number] [facility] [place] [address] [place] [address] 07/17/2022 00:00:00 07/17/2022 11:42:05 [id number] [facility] [place] [address] [place] [address] 11/01/2022 00:00:00 11/01/2022 20:13:31 [id number] MARTINE Ruiz [facility] [place] [address] [place] [address] 01/02/2023 08:24:23 01/02/2023 08:43:01 [id number] Renuka Rubin MD [facility] [place] [address] [place] [address] 01/06/2023 16:41:17 01/06/2023 17:30:43 [facility] 54323406 E03.9 FT4 low and patient having more [...] and reduce inflammati on. Polycystic ovary syndrome 322821737 E28.2 Continue natural insulin tinsmith apprentice s as struggled with metformin. Continue on spironolac tone as she has had less hair loss/ more growth. Tolerating well. Weight gain 6014055 R63. 5 Will send for low dose [...] she chooses to go outside of the [facility] to obtain labwork she was [...] in her case. She voiced understand ing. [id number] CHARISSA Hernandez [facility] [place] [address] [facility] [address] [place] [address] 01/08/2023 08:56:53 01/08/2023 09:00:37 [id number] Jess Plascencia MD [facility] [place] [address] [facility] [address] [place] [address] 04/02/2023 11:11:45 04/02/2023 11:39:23 [id number] Renuka Rubin MD [facility] [place] [address] [place] [address] 04/10/2023 16:16:28 04/10/2023 17:08:03 Prediabetes 045603562 R73.03 Glucose running around 99-115 mg/dL fasting- she is tolerating metformin well. Recommende d GLP1 agonist therapy as she is having trouble at times with cravings of sweets and portion control. 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 She has no hx [...] that day as tolerated. Polycystic ovary syndrome 212591631 E28.2 Continue natural insulin tinsmith apprentice s as struggled with metformin. Continue on spironolac tone as she has had less hair loss/ more growth. Tolerating well. Hypothyroidism 85726071 E03.9 FT4 in range- continue on synthroid [...] and minerals and reduce inflammati on. Arthritis 5020768 M19.90 Will send for repeat SAIRA with specific antibodies along with rheumatoid screening to assess for any evidence of autoimmune disease. Thyroid nodule 830343756 E04.1 Repeat thyroid u/s prior to return visit. Send for calcitonin and parathyroi d function to screen for c cell hyperplasi a and hyperparat hyroidism. Mixed anxi ety and depressive disorder 928715314 F41.8 refer to psychiatry for further evaluation [...] she chooses to go outside of the [facility] to obtain labwork she was [...] in her case. She voiced understand ing. [id number] [facility] [address] [facility] [address] [place] [address] 04/14/2023 08:23:02 04/14/2023 09:57:18 [id number] Jess [facility]encia [facility] [address] [facility] [address] [place] [address] 08/06/2023 11:10:43 09/02/2023 14:58:20 [id number] Renuka Rubin MD [facility] [place] [address] [place] [address] 08/14/2023 15:58:27 08/14/2023 16:49:03 Hypothyroidism 89760789 E03.9 FT4 high normal range and with [...] and minerals and reduce inflammati on. Prediabetes 179031387 R7 3.03 A1C 5.3% down from 6% range- she has lost 26 pounds- continue on trulicity but uptitrate to 3 mg once weekly as patient tolerating well. Discussed carb counting and how to read food labels. Recommende d patient to utilize the diabetesfo [employer] from the ADA website to help with food preparatio n as this presents ideal carb content per meal so this will make carb counting much easier for patient. Recommende d she incorporat e natural insulin tinsmith apprentice s such as pears, apples, cinnamon, cristóbal and sweet potatoes to help mobilize her endogenous insulin. Recommende d up to 150 minutes of moderate level activity/e xercise weekly. Polycystic ovary syndrome 445967580 E28.2 Continue natural insulin tinsmith apprentice s as struggled with metformin. Continue on spironolac tone as she has had less hair loss/ more growth. Tolerating well. Generalize d anxiety disorder 99628683 F41.1 Continue on escitalopr am 40 mg [...] answered and refills necessary at visit today. [id number] Jess Plascencia MD [facility] Primary Care [address] [place] [address] 12/02/2023 17:40:44 12/02/2023 17:46:35 [id number] Jess Plascencia MD [facility] Primary Care [address] [place] [address] 02/04/2024 12:12:00 02/04/2024 12:42:54 Hypothyroidism 84319332 E03.9 refills givenhas appt with endocrinol ogy Dr. Rubin Prediabetes 779527356 R7 3.03 Vitamin D deficiency 347 02138 E55.9 Cobalamin deficiency 190 234545 E53.8 Hyperlipid emia screening 990465685 Z13.220 Z79.047 [id number] RACHELE Mcginnis [facility] Primary Care [address] [place] [address] 04/07/2024 14:00:02 04/07/2024 14:40:03 Varicose veins of lower extremity 05803297 I83.92 -noted only to the left lower extremity so far-declin es 81mg-trial aspirin Essential hypertension 28053275 I10 trial losartan Sleep apnea 00660689 G47 .30 snoring, witnessed apnea, excessive daytime somnolence . Will order home sleep study. [id number] Jw Phipps MD [address] [address] 04/22/2024 09:54:32 04/26/2024 09:11:25 Obstructive sleep apnea syndrome 46048136 G47.33 G47.36 G47.61 [id number] Jw Phipps MD [address] [address] 06/16/2024 08:55:08 06/17/2024 09:14:10 Obstructive sleep apnea syndrome 14755789 G47.33 G47.36 [id number] Jw Phipps MD [facility] [place] [address] 08/24/2024 09:07:43 08/24/2024 15:51:59 Obstructive sleep apnea syndrome 22870037 G47.33 G47.36 [id number] MD PRASANTH Trujillo_[address] [address] 11/24/2024 09:07:16 11/29/2024 14:55:34 Obstructive sleep apnea syndrome 99805971 G47.33 G47.36 Health Concerns Section Related Observation LastModified by Organization Detai ls LastModified Time None Recorded Concern Status LastModified by Organization Details LastModified Time None Recorded Advance Directives Directive None Recorded Payers Encounter Date Sequence Insurance Name Policy Number Policy Ring Covered Member ID Ring Member ID Guarantor Name 04/07/2024 1 [employer] [facility] [place] [employer] (MEDICARE - MEDICAID REPLACEMENT HMO) [id number] Cheryl B Shake [id number] Cheryl B Shake 04/22/2024 1 [employer] [place] [employer] (MEDICARE - MEDICAID REPLACEMENT HMO) [id number] Cheryl B Shake [id number] Cheryl B Shake 06/16/2024 1 [employer] [place] (MEDICARE - MEDICAID REPLACEMENT HMO) [id number] 0003 Cheryl B Shake [id number] Cheryl B Shake 08/24/2024 1 [employer] [place] (MEDICARE - MEDICAID REPLACEMENT HMO) [id number] 0003 Cheryl B Shake [id number] Cheryl B Shake 11/24/2024 1 [employer] [place] [employer] [place] (MEDICARE - MEDICAID REPLACEMENT HMO) [id number] 0003 Cheryl B Shake [id number] Cheryl B Shake Notes Date Note Type Note Provider Name and Address Organization Details Recorded Time 04/07/2024 text/html pt is here for varicose veins MARTINE Mcginnis-Angel [address] [facility], [place], [address], [place] - [facility] 04/07/2024 15:30:09 04/22/2024 text/html Primary care/Ref erring provider: MARTINE Bernard-C During the [facility] home sleep study on 04/14/24 HI = [...] no chance of dozing. Jw Phipps MD [address] [place] [address], [address], [place] [facility] 04/22/2024 10:49:46 06/16/2024 text/html Primary care/Ref erring provider: Phil Evangelista, [facility] During the [facility] home sleep study on 04/14/24, HI = 4, supine HI = 18. During the [facility] diagnostic sleep study 06/08/24, sleep onset = [...] moderate chance of dozing. Jw Phipps MD [address] [place] [address], [address], [address], [facility] [place] [facility] [employer] 06/16/2024 09:49:27 08/24/2024 text/html Primary care/Ref erring provider: Phil Evangelista, [facility] [facility] During the [facility] home sleep study on 04/14/24, HI = 4, supine HI = 18. During the [facility] diagnostic sleep study 06/08/24, sleep onset = 18 minutes, REM onset = none, AHI = 6, supine AHI = 36, PLMI = 2. During the [facility] titration sleep study on 08/03/24, sleep onset [...] slight chance of dozing. Jw Phipps MD [address] [place] [address], [facility] [address], [place], [address], [place] - [facility] 08/24/2024 09:59:12 11/24/2024 text/html Primary care/Ref erring provider: Edwina Mckeon NP During the [facility] home sleep study on 04/14/24, HI = 4, supine HI = 18. During the [facility] diagnostic sleep study 06/08/24, sleep onset = 18 minutes, REM onset = none, AHI = 6, supine AHI = 36, PLMI = 2. During the [facility] titration sleep study on 08/03/24, sleep onset [...] chance of dozing. Jw Phipps MD [address] [facility], [facility] [address], [place], [address], [facility] [employer] 11/24/2024 10:52:51 OBGyn Episode No OBEpisode recorded.
--- OUTSIDE RECORDS SUMMARY | 2024-12-22 10:28 | XMS_ITS ---
Author Organization [facility] [employer] [facility] Address [address] [facility] [address] [place] [address] Care Team Providers Care Industrial Technician Name Role Phone Edwina Mckeon APN Primary Care Provider Unavailab Edwina May Unavailable [phone] REASON FOR VISIT Therapy Visit Medications Medication SIG (Take, Route, Frequency, Duration) [...] MG Oral for 90 Days Unknown Nystatin 610103 UNIT/GM External for 30 Days Unknown Synthroid [...] No Encounters Encounter Location Date Provider Diagnosis [facility] [employer] [facility], [address] [place] [address] 12/22/2024 Edwina Blackwell Plan Of Treatment Next Appt Details Provider Name:Sergio Aguayo , 12/29/2024 10:30:00 AM, [address], [address], [address], Provider Name:Edwina loo, 12/29/2024 11:00:00 AM, [address], [facility] [address], [place], [address], Provider Name:Darcie Singh , 01/05/2025 11:00:00 AM, [address], [facility] [address], [place], [address], Progress Notes * BRETT CAMERONANAB:1980 ([age] yo F)Acc No.[id number]:12/22/2024 Patient: MATIAS KAHN Provider: Mikey Blackwell :1980 A ge:44 Y S ex:Female Date:12/22/2024 Phone: Address:[address] [place] [address], [id number] Pcp:Edwina Mckeon APN Data: * Time Tracker: * Date Start Time End Time Duration User Type Captured By Mode Notes 12/22/2024 08:02 AM 09:19 AM 01:17:11 Therapist Harvinder Blackwell Timer * Chief Complaints: * 1 . Therapy Visit. * HPI: D epression Screening: EMY-7 (2018 Edition) F eeling nervous, anxious, or on edge S everal days N ot being able to stop or control worrying?Several days W orrying too much about different things S everal days T rouble relaxing N ot at all B eing so restless that it is hard to sit still N ot at all B ecoming easily annoyed or irritable S everal days F eeling afraid as if something awful might happen M ore than half the days T otal EMY-7 Score 6 I nterpretation of Total ( 5 to 9) Mild [place]-Suicide Severity Rating Scale: Suicide Risk (CSRS-screener) i n the past one month Have you wished you were or wished you could go to sleep and not wake up? Y es i n the past one month Have you actually had any thoughts of killing yourself? N o D epression screening: PHQ-9 L ittle interest or pleasure in doing things?Nearly every day F eeling down, depressed, or hopeless M ore than half the days T rouble falling or staying asleep, or sleeping too much N early every day F eeling tired or having little energy N early every day P oor appetite or overeating N early every day F eeling bad about yourself or that you are a failure, or have let yourself or your family down S T rouble concentrating on things, such as reading the newspaper or watching television M oving or speaking so slowly that other people could have noticed; or the opposite, being so fidgety or restless that you have been moving around a lot more than usual S T houghts that you would be better off or of hurting yourself in some way S (Consider Suicide Assessment Risk) T otal Score 1 8 I nterpretation M oderately Severe Depression * Social History: T obacco Use: T [...] es D o you have Power of Plsql Developer for Health or Medical? N o S ocial History: H oukathi M arital Status: N ot Answered N [...] 5 MG Tablet Oral , Unknown Nystatin 362851 UNIT/GM Cream External , Unknown Escitalopram Oxalate 20 MG Tablet Oral , Unknown Liothyronine Sodium 5 MCG Tablet Oral , Unknown Atomoxetine HCl 40 MG Capsule 1 capsule in the morning Orally Once a day , stop date 01/01/2025 Assessment: Plan: * Treatment: * Billing Information: * Visit Code: * Procedure Codes: * Electronic signature of Harvinder Blackwell LCPC on 12/22/2024 at 10:27 AM HEALTH AND WELLNESS DIRECTOR Sign off status: Pending Signatures: No Ad Hoc Signature Added * Provider: Mikey Blackwell Date: 0 12/22/2024 Generated for Marita ng/Fasarai/eTransmitting on: 0 12/22/2024 10:27 AM HEALTH AND WELLNESS DIRECTOR History and Physical Notes * HPI (History of Present Illness) Category Sub-Category Detail Notes Category Not es Depression screening PHQ-9 Little inte rest or pleasure in doing things: Nearly every day Feeling down, depressed, or hopeless: Mo re than half the days Trouble falling or staying asleep, or sl eeping too much: Nearly every day Feeling tired or having little energy: N early every day Poor appetite or overeating: Nearly ever y day Feeling bad about yourself o r that you are a failure, or have let yourself or your family down: Several days Trouble concentrating on thi ngs, such as reading the newspaper or watching television: Several days Moving or speaking so slowly that other people could have noticed; or the opposite, being so fidgety or restless that you have been moving around a lot more than usual: Several days Thoughts that you would be b lei off or of hurting yourself in some way: Several days (Consider Suicide Assessment Risk) Total Score: 18 Interpretation: Moderately Severe Depres spencer Depression Screening EMY-7 (2018 Edition) Feelin g nervous, anxious, or on edge: Several days Not being able to stop or control worryi ng: Several days Worrying too much about different things : Several days Trouble relaxing: Not at all Being so restless that it is hard to sit still: Not at all Becoming easily annoyed or irritable: Se veral days Feeling afraid as if something awful rhonda ht happen: More than half the days Total EMY-7 Score: 6 Interpretation of Total: (5 to 9) Mild [place]-Suicide Severity Rating Scale Suicide Risk (CSRS-screener) in the past one month Have you wished you were or wished you could go to sleep and not wake up?: Yes in the past one month Have y ou actually had any thoughts of killing yourself?: No
--- OUTSIDE RECORDS SUMMARY | 2024-12-22 10:28 | XMS_ITS ---
Author Organization [facility] [employer] [facility] Address [address] [facility] [address] [place] [address] Care Team Providers Care Draw Frame Operator Name Role Phone Edwina Mckeon APN Primary Care Provider Unavailab Edwina May Unavailable [phone] REASON FOR VISIT Appt time r/s Social History Sex Assigned At : Social History Observation Description Sex Assigned At Female Encounters Encounter Location Date Provider Diagnosis [facility] [employer] [facility] [address] [facility] [address] [place] [address] 12/15/2024 Edwina Blackwell Plan Of Treatment Next Appt Details Provider Name:Sergio Aguayo , 12/29/2024 10:30:00 AM, [address], [address], [address], Provider Name:Edwina loo, 12/29/2024 11:00:00 AM, [facility], [address], [address], Provider Name:Darcie Singh , 01/05/2025 11:00:00 AM, [facility], [address], [address], Progress Notes * SAMAN CAMERONB:1980 ([age] yo F)Acc No.[id number]:12/15/2024 Patient: MATIAS KAHN :1980 A ge:44 Y S ex:Female Phone: Address:[address], [place], [address] * true * Date: Generated for Printi ng/Faxing/eTransmitting on: 0 12/22/2024 10:27 AM QUARRY WORKER
--- NOTE | 2024-12-22 10:30 | ED.ALLEREA ---
HPI - Allergic Reaction General Chief complaint: Allergic Reaction Stated complaint: ?mouth swelling Time Seen by Provider: 12/22/24 10:22 Source: patient Mode of arrival: ambulatory Limitations: no limitations History of Present Illness HPI narrative: This is a 44 year old female that presents to the ER for possible allergic reaction. Reports a couple of weeks ago she experienced angioedema from her Lisinopril. This was stopped and her symptoms resolved. Reports again last night she started to experience swelling in her tongue and lips. She used magic mouth wash with some relief. Denies trouble swallowing or difficulty breathing. Related Data Home Medications ?Medication ?Instructions ?Recorded ?Confirmed ?Last Taken ?Type cholecalciferol (vitamin D3) 250 250 mcg PO DAILY 06/10/24 12/22/24 12/21/24 History mcg (10,000 unit) tablet escitalopram oxalate 20 mg tablet 40 mg PO DAILY 06/10/24 12/22/24 12/21/24 History vitamin B complex 1 tablet PO DAILY 06/10/24 12/22/24 12/21/24 History Saccharomyces boulardii 250 mg 250 mg PO DAILY 10/20/24 12/22/24 12/21/24 History capsule (Daily Probiotic (S. boulardii)) atomoxetine 25 mg capsule 25 mg PO DAILY 12/15/24 12/22/24 12/21/24 History (Strattera) Allergies Allergy/AdvReac Type Severity Reaction Status Date / Time BRYN Inhibitors Allergy Severe Swelling Verified 12/22/24 10:35 of Lip/Tongue/Throat hydrocodone Allergy Unknown Itching Verified 12/22/24 10:35 amoxicillin AdvReac Unknown Diarrhea Verified 12/22/24 10:35 clavulanic acid AdvReac Unknown Diarrhea Verified 12/22/24 10:35 Review of Systems Review of Systems: CONSTITUTIONAL: Denies fever RESPIRATORY: Denies dyspnea. All systems reviewed & are unremarkable except as noted in HPI and below PMFSH Past Medical History Medical History Hidradenitis suppurativa Legal blindness delivery delivered 11/22/2011 and 04/01/2014 Headache Arthritis Anxiety Family History Family History Mother Depression Anxiety Cerebrovascular accident Bright esophagus Father Alcoholism Anxiety Depression Sibling Depression Anxiety Other Diabetes mellitus Heart disease Hypertension Social History Social History Smoking status: Never smoker Alcohol intake: never Substance use: never Do You Feel Safe in your Home?: No Lack of Transportation: YES Lack of Food: Sometimes True Current Housing: I Have Housing Concerned About Future Housing: No Difficulty Paying Gas/Electric Bills: No Difficulty Paying for Meds: No Currently Unemployed: No Education: Decline to Answer Difficulty w/ Childcare or Family Care: No Living arrangements: with family Gender identity (if verbalized by the patient): Female Exam Narrative: GENERAL: Well-appearing, well-nourished, and in no acute distress. HEAD: Normocephalic, atraumatic. ENT: Nares clear, no rhinorrhea or epistaxis. Mucous membranes moist. Mild swelling of the tongue. Oropharynx without tonsillar hypertrophy exudate or other lesions. NECK: Supple. No adenopathy or masses. CHEST: Clear to auscultation. No respiratory distress. No wheezes rales or rhonchi HEART: Regular rate and rhythm. No murmur heard. Normal peripheral pulses. EXTREMITIES: Normal range of motion. No edema. SKIN: Warm, dry, no rash. NEURO: No focal deficits. Alert and oriented x3. PSYCH: Normal mood and affect Course Course Emergency Course: Patient reports improvement. Resting comfortably Vital Signs Vital signs: Vital Signs Temperature 98.2 F 12/22/24 10:16 Pulse Rate 120 H 12/22/24 10:16 Respiratory Rate 18 12/22/24 10:16 Blood Pressure 149/114 H 12/22/24 10:16 Pulse Oximetry 100 12/22/24 10:16 Oxygen Delivery Room Air 12/22/24 10:16 Temperature 98.4 F 12/22/24 10:23 Pulse Rate 86 12/22/24 11:49 Respiratory Rate 24 H 12/22/24 11:49 Blood Pressure 148/99 H 12/22/24 11:49 Pulse Oximetry 97 12/22/24 11:49 Oxygen Delivery Room Air 12/22/24 10:32 MDM - Allergic Reaction MDM Narrative Medical decision making narrative: Patient presents to the ER for swelling Differential Diagnosis Differential diagnosis: Likely allergic reaction, angioedema and adverse reaction to drug Critical Care Time Critical Care Time Critical Care Time: No Discharge Plan Discharge Clinical Impression: Allergic reaction Qualifiers: Encounter type: initial encounter Qualified Code(s): T78.40XA - Allergy, unspecified, initial encounter Patient Disposition: Home, Self-Care Condition: Improved Instructions: General Allergic Reaction (ED) Additional Instructions: Return to the emergency department if you experience difficulty swallowing, trouble breathing, or any other symptoms that are concerning to you Take a Pepcid and Zyrtec daily. Take steroid as prescribed. Benadryl as needed for swelling/discomfort Follow-up with your primary care doctor Patient Language: [place] Prescriptions: New methylprednisolone 4 mg tablets,dose pack See Rx Instructions .ROUTE .COMPLEX Qty: 21 0RF Rx Instructions: orally per package directions No Action escitalopram oxalate 20 mg tablet 40 mg PO DAILY cholecalciferol (vitamin D3) 250 mcg (10,000 unit) tablet 250 mcg PO DAILY vitamin B complex Tablet 1 tablet PO DAILY atomoxetine [Strattera] 25 mg capsule 25 mg PO DAILY levothyroxine [Synthroid] 50 mcg tablet 50 mcg PO DAILY 90 Days Qty: 90 1RF Rx Instructions: please dispense brand Synthroid liothyronine 5 mcg tablet 5 mcg PO DAILY Qty: 90 1RF Saccharomyces boulardii [Daily Probiotic (S. boulardii)] 250 mg capsule 250 mg PO DAILY amlodipine [Norvasc] 10 mg tablet 10 mg PO DAILY Qty: 90 1RF Follow-up/Referrals: Edwina Mckeon, CARBON PRINTER [Primary Care Provider] -
[2024-12-22 10:32] VITALS: O2SAT 98
[2024-12-22] MEDS: diphenhydrAMINE HCl INJ 50 MG/ML VIAL 25 MG IV PUSH (10:42)
[2024-12-22] MEDS: methylPREDNISolone SOD SUCC 125 MG VIAL IV PUSH (10:42)
[2024-12-22] MEDS: FAMOTIDINE 20 MG/2 ML VIAL IV PUSH (10:43)
[2024-12-22] MEDS: SODIUM CHLORIDE 0.9% IV 500 ML 999 ML IV CONT (10:43)
--- OUTSIDE RECORDS SUMMARY | 2024-12-22 11:10 | XMS_ITS | Referral Summary ---
Author Organization [facility] [address] Address [address] [place] [address] Care Team Providers Care Clamshell Engineer Name Role Phone Walter Erwin DO Primary Care Provider [phone] Encounters Date Type Department Care Team Description 12/08/2024 8:00 AM SEWING MACHINE ASSEMBLER Office Visit [facility] [address] [place] [address] Arnulfo Molina, OD Ocular albinism (HCC) (Primary [...] 12/08/2024 Assessment & Plan (12/08/2024 8:58 AM SEWING MACHINE ASSEMBLER): Very difficult views with nystagmus DFE generally [...] thyroiditis Assessment & Plan (12/08/2023 8:29 AM SEWING MACHINE ASSEMBLER): Chronic, unknown status Continue current dose of Synthroid 112 mcg oral daily Advised to stop Cytomel Recheck thyroid function test today and further plans based on it Class 1 obesity due to exces s calories with serious comorbidity and body mass index (BMI) of 33.0 to 33.9 in adult 12/05/2023 Assessment & Plan (12/08/2023 8:30 AM SEWING MACHINE ASSEMBLER): Chronic, progressively improving with Trulicity 3 mg subQ weekly dose Advised patient to include healthy lifestyle habits Include complex carbs, healthy fats and proteins Work on portion control Avoid eating processed food cutback on sugar Advised to start exercising at least 30-40 minutes every day Prediabetes 12/05/2023 Assessment & Plan (12/08/2023 8:30 AM SEWING MACHINE ASSEMBLER): On Trulicity Recheck A1c Counseled on diet [...] month Assessment & Plan (12/08/2023 8:30 AM SEWING MACHINE ASSEMBLER): Counseled on diet and exercise EMY (generalized [...] on file Legal Sex Female 5:17 PM SEWING MACHINE ASSEMBLER Gender Identity Female 12/05/2023 10:07 AM SEWING MACHINE ASSEMBLER Sexual Orientation Choose not to disclose 2023 10:07 AM SEWING MACHINE ASSEMBLER Last Filed Vital Signs Vital Sign Reading Time Taken Comments Blood Pressure 128/80 12/05/2023 11:22 AM SEWING MACHINE ASSEMBLER Pulse 73 12/05/2023 11:22 AM SEWING MACHINE ASSEMBLER Temperature - - Respiratory Rate 16 12/05/2023 11:22 AM SEWING MACHINE ASSEMBLER Oxygen Saturation - - Inhaled Oxygen Concentration - - Weight 97.1 kg (214 lb) 12/05/2023 11:22 AM SEWING MACHINE ASSEMBLER Height 170.2 cm (5' 7 ) 12/05/2023 11:22 AM SEWING MACHINE ASSEMBLER Body Mass Index 33.52 12/05/2023 11:22 AM SEWING MACHINE ASSEMBLER Plan of Treatment Not on file Insurance [employer] [facility] Care Teams Clamshell Engineer Relationship Specialty Start Date End Date Walter Erwin DO [facility] [facility] [address] [place] [id number] PCP - General Internal Medicine 10/20/24
--- OUTSIDE RECORDS SUMMARY | 2024-12-22 11:10 | XMS_ITS | Clinical Summary ---
Author Organization [facility] [address] Address [address] [place] [address] Care Team Providers Care Insurance Counsel Name Role Phone Walter Erwin DO Primary Care Provider [phone]- [phone] Allergies Active Allergy Reactions Criticality Noted Date [...] 12/08/2024 Assessment & Plan (12/08/2024 8:58 AM STRETCH BOX TENDER): Very difficult views with nystagmus DFE generally [...] thyroiditis Assessment & Plan (12/08/2023 8:29 AM STRETCH BOX TENDER): Chronic, unknown status Continue current dose of Synthroid 112 mcg oral daily Advised to stop Cytomel Recheck thyroid function test today and further plans based on it Class 1 obesity due to exces s calories with serious comorbidity and body mass index (BMI) of 33.0 to 33.9 in adult 12/05/2023 Assessment & Plan (12/08/2023 8:30 AM STRETCH BOX TENDER): Chronic, progressively improving with Trulicity 3 mg subQ weekly dose Advised patient to include healthy lifestyle habits Include complex carbs, healthy fats and proteins Work on portion control Avoid eating processed food cutback on sugar Advised to start exercising at least 30-40 minutes every day Prediabetes 12/05/2023 Assessment & Plan (12/08/2023 8:30 AM STRETCH BOX TENDER): On Trulicity Recheck A1c Counseled on diet [...] month Assessment & Plan (12/08/2023 8:30 AM STRETCH BOX TENDER): Counseled on diet and exercise EMY (generalized [...] Department Care Team Description 12/08/2024 8:00 AM STRETCH BOX TENDER Office Visit [facility] [address] [place] [address] Arnulfo Molina, MYRTLE Ocular albinism (HCC) (Primary [...] on file Legal Sex Female 5:17 PM STRETCH BOX TENDER Gender Identity Female 12/05/2023 10:07 AM STRETCH BOX TENDER Sexual Orientation Choose not to disclose 2023 10:07 AM STRETCH BOX TENDER Obstetrics History Last Filed Vital Signs Vital Sign Reading Time Taken Comments Blood Pressure 128/80 12/05/2023 11:22 AM STRETCH BOX TENDER Pulse 73 12/05/2023 11:22 AM STRETCH BOX TENDER Temperature - - Respiratory Rate 16 12/05/2023 11:22 AM STRETCH BOX TENDER Oxygen Saturation - - Inhaled Oxygen Concentration - - Weight 97.1 kg (214 lb) 12/05/2023 11:22 AM STRETCH BOX TENDER Height 170.2 cm (5' 7 ) 12/05/2023 11:22 AM STRETCH BOX TENDER Body Mass Index 33.52 12/05/2023 11:22 AM STRETCH BOX TENDER Plan of Treatment Health Maintenance Due Date [...] patient's age to complete this topic Insurance [facility] Care Teams Insurance Counsel Relationship Specialty Start Date End Date Walter Erwin DO [address] [facility] [place], [place] [id number] PCP - General Internal Medicine 10/20/24
--- OUTSIDE RECORDS SUMMARY | 2024-12-22 11:11 | XMS_ITS | Clinical Summary ---
Author Organization [facility] Address [address] [place] [address] Care Team Providers Care Research Manager Name Role Phone Jess Plascencia MD Primary [...] Comments Blood Pressure 126/83 10/01/2018 9:52 AM FISH BAILER Pulse 70 10/01/2018 9:52 AM FISH BAILER Temperature 36.7 C (98.1 F) 10/01/2018 9:52 AM FISH BAILER Respiratory Rate - - Oxygen Saturation 98% 10/01/2018 9:52 AM FISH BAILER Inhaled Oxygen Concentration - - Weight 112.7 kg (248 lb 8 oz) 10/01/2018 9:52 AM FISH BAILER Height 170.2 cm (5' 7 ) 10/01/2018 9:52 AM FISH BAILER Body Mass Index 38.92 10/01/2018 9:52 AM FISH BAILER Plan of Treatment Health Maintenance Due Date Last Done Comments DTAP/TDAP/TD VACCINES (1 - Tdap) 2000 HEPATITIS B VACCINES (1 of 3 - 19+ 3-dose series) 2000 CERVICAL CANCER SCREENING 2011 BREAST CANCER SCREENING 2021 INFLUENZA VACCINE (#1) 2024 HPV VACCINES Aged Out No longer eligi ble based on patient's age to complete this topic Insurance MEDICARE PART A AND B Care Teams Research Manager Relationship Specialty Start Date End Date Jess Plascencia MD [address] [place] [id number] PCP - General Family Practice 09/01/18
[2024-12-22 11:49] VITALS: BP 148/99; PULSE 86; RESP 24; O2SAT 97
--- NOTE | 2024-12-22 12:34 | ECG_ITS ---
Test Date: 2024-12-22 10:25:28 Measurements Intervals [place] Rate: 102 P: 28 [place]: 144 QRS: 2 QRSD: 94 T: 10 QT: 353 QTc: 462 Interpretive Statements SINUS TACHYCARDIA POSSIBLE LEFT ATRIAL ENLARGEMENT INCOMPLETE RIGHT BUNDLE BRANCH BLOCK BORDERLINE T WAVE ABNORMALITY- ANT/INF LEADS BASELINE ARTIFACT- I, III, AVL BORDERLINE ECG ABNORMAL RHYTHM ECG Compared to ECG 08/07/2024 17:40:14 HEART RATE HAS INCREASED Electronically Signed On 12-22-2024 13:29:59 HANDLE BAR ASSEMBLER by Chencho Mendez D.O.
[2024-12-22 13:19] VITALS: BP 148/99; PULSE 85; RESP 24; TEMP 36.9; O2SAT 97
== END 2024-12-22 13:22 | disposition home or self-care (01) ==
PROVIDERS: Emergency Provider Physician Assistant; PCP Nurse Practitioner
DX: T78.40XA Allergy, unspecified, initial encounter (principal); M19.90 Unspecified osteoarthritis, unspecified site; F41.9 Anxiety disorder, unspecified; Z79.899 Other long term (current) drug therapy; X58.XXXA Exposure to other specified factors, initial encounter
CPT/HCPCS: 93005; 96361; 96374; 96375; 99284; J1200; J2919; J7040

== ENCOUNTER 2025-01-07 14:32 | Outpatient (CLI) | payer OTHER, SELFPAY ==
--- NOTE | 2025-01-07 14:37 | ECHO_ITS ---
Patient Info Name: Cheryl Alvarez Age: 44 years : 1980 Gender: Female Ht: 70 in Wt: 240 lbs BSA: 2.36 m2 HR: 67 bpm BP: 144 / 104 mmHg Technical Quality: Good Exam Date: 01/07/2025 2:58 PM Exam Location: Echo Lab Patient Status: Outpatient Admit Date: 01/07/2025 Staff Ordering Physician: Edwina Mckeon NP Paint Department Supervisor: Tati Su RDCS Attending Provider: Edwina Mckeon NP Referring Physician: Mike LEPE; Exam Type: CA echo doppler color flow Study Info Indications - Hypertension Complete two-dimensional, color flow and Doppler transthoracic echocardiogram is performed. Summary 1. Complete two-dimensional, color flow and Doppler transthoracic echocardiogram is performed. 2. Left ventricular chamber dimension is normal. 3. Left ventricular systolic function is normal, estimated at 60-65%. 4. The left ventricular diastolic function is grade I diastolic dysfunction. 5. E/e' 5 is not elevated. 6. Left atrial chamber dimension is mildly enlarged. 7. There is trace mitral valve regurgitation. 8. There is trace tricuspid valve regurgitation. 9. No pulmonary hypertension, estimated pulmonary arterial systolic pressure is 22 mmHg. Left Ventricle E/e' 5 is not elevated. Left ventricular chamber dimension is normal. Left ventricular systolic function is normal, estimated at 60-65%. The left ventricular diastolic function is grade I diastolic dysfunction. Right Ventricle Right ventricular systolic function is normal and with normal TAPSE 2.1 cm. Right ventricular chamber dimension is normal. Left Atria Left atrial chamber dimension is mildly enlarged. Right Atria Right atrial chamber dimension is normal. Aortic Valve The aortic valve is trileaflet. There is no aortic valve stenosis. There is no aortic valve regurgitation. Pulmonic Valve There is no pulmonic regurgitation. Mitral Valve There is no mitral valve stenosis. There is trace mitral valve regurgitation. Tricuspid Valve There is trace tricuspid valve regurgitation. No pulmonary hypertension, estimated pulmonary arterial systolic pressure is 22 mmHg. Pericardium/Pleural There is no pericardial effusion. Inferior Vena Cava Normal inferior vena cava with >50% collapse upon inspiration consistent with normal right atrial pressure, 5 mmHg. Aorta The aortic root size at the sinus of Valsalva is normal. Left Ventricular Outflow Tract Name Value Normal LVOT Doppler LVOT Peak Gradient 4 mmHg LVOT Mean Gradient 3 mmHg LVOT VTI 21 cm LVOT VTI/AV VTI Ratio 0.9 Pulmonic Valve Name Value Normal PV Doppler PV Peak Gradient 3 mmHg Mitral Valve Name Value Normal MV Doppler MV Decel [place] 212 cm/s2 MV PHT 82 ms MV Area (PHT) 2.7 cm2 4.0-5.0 MV Diastolic Function MV E Peak Velocity 60 cm/s MV A Peak Velocity 66 cm/s MV E/A 0.9 MV Decel Time 282 ms MV Annular TDI MV E/e' (Septal) 7.9 <=8.0 MV E/e' (Lateral) 3.6 <=8.0 MV E/e' (Average) 5.8 Tricuspid Valve Name Value Normal TV Regurgitation Doppler TR Peak Velocity 204 cm/s TR Peak Gradient 17 mmHg Estimated PAP/RSVP RA Pressure 5 mmHg <=5 PA Systolic Pressure 22 mmHg <36 RV Systolic Pressure 22 mmHg <36 Aorta Name Value Normal Ascending Aorta Ao Root Diameter (MM) 2.9 cm Ao Root Diam Index (MM) 1.2 cm/m2 Aortic Valve Name Value Normal AV Doppler AV Peak Velocity 114 cm/s AV Peak Gradient 5 mmHg AV Mean Gradient 3 mmHg AV VTI 23 cm Ventricles Name Value Normal LV Dimensions 2D/MM IVS Diastolic Thickness (2D) 1.1 cm 0.6-1.0 LVID Diastole (2D) 4.6 cm 3.8-5.2 LVIW Diastolic Thickness (2D) 1.1 cm 0.6-0.9 LVID Systole (2D) 3.3 cm 2.2-3.5 LV Mass (2D Cubed) 183.31 g 67.00-162.00 LV Mass Index (2D Cubed) 78 g/m2 43-95 Relative Wall Thickness (2D) 0.49 LV Fractional Shortening/Ejection Fraction 2D/MM LV Fractional Shortening (2D) 28 % 27-45 LV EF (2D Teicholz) 55 % 54-74 LV Diastolic Volume (4C MOD) 106 ml LV EF (4C MOD) 51 % LV Diastolic Length (4C) 7.7 cm LV Systolic Length (4C) 6.3 cm LV Stroke Volume (4C MOD) 54 ml Atria Name Value Normal LA Dimensions LA Dimension (MM) 4.2 cm 2.7-3.8 LA Volume (4C A-L) 43 ml LA Volume (BP A-L) 57 ml RA Dimensions RA Area (4C) 12.1 cm2 <=18.0 Report Signatures
--- OUTSIDE RECORDS SUMMARY | 2025-01-07 14:41 | XMS_ITS | Clinical Summary ---
Author Organization [facility] Address [address] [place] [address] Care Team Providers Care Crystal Report Developer Name Role Phone Jess Plascencia MD Primary [...] Comments Blood Pressure 126/83 10/01/2018 9:52 AM [employer] Pulse 70 10/01/2018 9:52 AM [employer] Temperature 36.7 C (98.1 F) 10/01/2018 9:52 AM [employer] Respiratory Rate - - Oxygen Saturation 98% 10/01/2018 9:52 AM [employer] Inhaled Oxygen Concentration - - Weight 112.7 kg (248 lb 8 oz) 10/01/2018 9:52 AM [employer] Height 170.2 cm (5' 7 ) 10/01/2018 9:52 AM [employer] Body Mass Index 38.92 10/01/2018 9:52 AM [employer] Plan of Treatment Health Maintenance Due Date Last Done Comments DTAP/TDAP/TD VACCINES (1 - Tdap) 2000 HEPATITIS B VACCINES (1 of 3 - 19+ 3-dose series) 2000 CERVICAL CANCER SCREENING 2011 BREAST CANCER SCREENING 2021 INFLUENZA VACCINE (#1) 2024 HPV VACCINES Aged Out No longer eligi ble based on patient's age to complete this topic Insurance MEDICARE PART A AND B Care Teams Crystal Report Developer Relationship Specialty Start Date End Date Jess Plascencia MD [address] [place] [phone] PCP - General Family Practice 09/01/18
--- OUTSIDE RECORDS SUMMARY | 2025-01-07 14:41 | XMS_ITS | Referral Summary ---
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 Allergies [...] 12/08/2024 Assessment & Plan (12/08/2024 8:58 AM CHINESE MEDICINE PRACTITIONER): Very difficult views with nystagmus DFE generally [...] thyroiditis Assessment & Plan (12/08/2023 8:29 AM CHINESE MEDICINE PRACTITIONER): Chronic, unknown status Continue current dose of Synthroid 112 mcg oral daily Advised to stop Cytomel Recheck thyroid function test today and further plans based on it Class 1 obesity due to exces s calories with serious comorbidity and body mass index (BMI) of 33.0 to 33.9 in adult 12/05/2023 Assessment & Plan (12/08/2023 8:30 AM CHINESE MEDICINE PRACTITIONER): Chronic, progressively improving with Trulicity 3 mg subQ weekly dose Advised patient to include healthy lifestyle habits Include complex carbs, healthy fats and proteins Work on portion control Avoid eating processed food cutback on sugar Advised to start exercising at least 30-40 minutes every day Prediabetes 12/05/2023 Assessment & Plan (12/08/2023 8:30 AM CHINESE MEDICINE PRACTITIONER): On Trulicity Recheck A1c Counseled on diet [...] month Assessment & Plan (12/08/2023 8:30 AM CHINESE MEDICINE PRACTITIONER): Counseled on diet and exercise EMY (generalized [...] on file Legal Sex Female 5:17 PM CHINESE MEDICINE PRACTITIONER Gender Identity Female 12/05/2023 10:07 AM CHINESE MEDICINE PRACTITIONER Sexual Orientation Choose not to disclose 2023 10:07 AM CHINESE MEDICINE PRACTITIONER Last Filed Vital Signs Vital Sign Reading Time Taken Comments Blood Pressure 128/80 12/05/2023 11:22 AM CHINESE MEDICINE PRACTITIONER Pulse 73 12/05/2023 11:22 AM CHINESE MEDICINE PRACTITIONER Temperature - - Respiratory Rate 16 12/05/2023 11:22 AM CHINESE MEDICINE PRACTITIONER Oxygen Saturation - - Inhaled Oxygen Concentration - - Weight 97.1 kg (214 lb) 12/05/2023 11:22 AM CHINESE MEDICINE PRACTITIONER Height 170.2 cm (5' 7 ) 12/05/2023 11:22 AM CHINESE MEDICINE PRACTITIONER Body Mass Index 33.52 12/05/2023 11:22 AM CHINESE MEDICINE PRACTITIONER Plan of Treatment Not on file Insurance [facility] [facility] Care Teams Pump House Technician Relationship Specialty Start Date End Date Walter Erwin DO [address] [place] [address] [address] ENGLE [address] [place] [id number] PCP - General Internal Medicine 10/20/24
--- OUTSIDE RECORDS SUMMARY | 2025-01-07 14:41 | XMS_ITS | Clinical Summary ---
Author Organization [facility] [place] [address] Address [address] [place] [address] Care Team Providers Care Line Manager Name Role Phone Walter Erwin DO Primary Care Provider +1- [phone] Allergies Active Allergy Reactions Criticality Noted Date [...] 12/08/2024 Assessment & Plan (12/08/2024 8:58 AM PHYSIOTHERAPY ASSISTANT): Very difficult views with nystagmus DFE generally [...] thyroiditis Assessment & Plan (12/08/2023 8:29 AM PHYSIOTHERAPY ASSISTANT): Chronic, unknown status Continue current dose of Synthroid 112 mcg oral daily Advised to stop Cytomel Recheck thyroid function test today and further plans based on it Class 1 obesity due to exces s calories with serious comorbidity and body mass index (BMI) of 33.0 to 33.9 in adult 12/05/2023 Assessment & Plan (12/08/2023 8:30 AM PHYSIOTHERAPY ASSISTANT): Chronic, progressively improving with Trulicity 3 mg subQ weekly dose Advised patient to include healthy lifestyle habits Include complex carbs, healthy fats and proteins Work on portion control Avoid eating processed food cutback on sugar Advised to start exercising at least 30-40 minutes every day Prediabetes 12/05/2023 Assessment & Plan (12/08/2023 8:30 AM PHYSIOTHERAPY ASSISTANT): On Trulicity Recheck A1c Counseled on diet [...] month Assessment & Plan (12/08/2023 8:30 AM PHYSIOTHERAPY ASSISTANT): Counseled on diet and exercise EMY (generalized [...] Department Care Team Description 12/08/2024 8:00 AM PHYSIOTHERAPY ASSISTANT Office Visit 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 Surgical History Surgery Date Site/Laterality Comments SECTION 2011, 2013 Medical History Medical History Date Comments Hypothyroidism Legally blind Albinism Family History Medical History Relation Name Comments [...] on file Legal Sex Female 5:17 PM PHYSIOTHERAPY ASSISTANT Gender Identity Female 12/05/2023 10:07 AM PHYSIOTHERAPY ASSISTANT Sexual Orientation Choose not to disclose 2023 10:07 AM PHYSIOTHERAPY ASSISTANT Obstetrics History Last Filed Vital Signs Vital Sign Reading Time Taken Comments Blood Pressure 128/80 12/05/2023 11:22 AM PHYSIOTHERAPY ASSISTANT Pulse 73 12/05/2023 11:22 AM PHYSIOTHERAPY ASSISTANT Temperature - - Respiratory Rate 16 12/05/2023 11:22 AM PHYSIOTHERAPY ASSISTANT Oxygen Saturation - - Inhaled Oxygen Concentration - - Weight 97.1 kg (214 lb) 12/05/2023 11:22 AM PHYSIOTHERAPY ASSISTANT Height 170.2 cm (5' 7 ) 12/05/2023 11:22 AM PHYSIOTHERAPY ASSISTANT Body Mass Index 33.52 12/05/2023 11:22 AM PHYSIOTHERAPY ASSISTANT Plan of Treatment Health Maintenance Due Date [...] patient's age to complete this topic Insurance [facility] Care Teams Line Manager Relationship Specialty Start Date End Date Walter Erwin DO [address] [place] [address] PCP - General Internal Medicine 10/20/24
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
--- OUTSIDE RECORDS SUMMARY | 2025-01-07 14:41 | XMS_ITS ---
Author Organization [facility] Address [address] [facility] [address] [place] [address] Care Team Providers Care Media Buyer Name Role Phone Edwina Mckeon APN Primary Care Provider Unavailab Edwina May Unavailable [phone] REASON FOR VISIT Therapy Appt Social History Sex Assigned At : Social History Observation Description Sex Assigned At Female Encounters Encounter Location Date Provider Diagnosis [facility] [address] [facility] [address] [place] [address] 01/05/2025 Edwina Blackwell Plan Of Treatment Next Appt Details Provider Name:Sergio Aguayo , 01/26/2025 10:45:00 AM, [address], [facility] [address], [place], [address], Progress Notes * SAMAN CAMERONB:1980 ([age] yo F)Acc No.[id number]:01/05/2025 Patient: MATIAS KAHN :1980 A ge:44 Y S ex:Female Phone: Address:[address], [place], [address] * * Date:
--- OUTSIDE RECORDS SUMMARY | 2025-01-07 14:42 | XMS_ITS | Data Portability ---
Author Organization [place] [facility], Main Office Address [address] [place] [address] Assessment Encounter Date Assessment Date Assessment LastModified by Organization Details LastModified Time 04/22/2024 04/22/2024 Assessment: Delayed sleep phase syndrome Mild OSHS, HI = 4 Plan: The following were reviewed and explained to the patient: primary care/referral note [facility] home sleep study 04/14/24 HI = 4, supine HI = 18. Sleep in lateral recumbent or semirecumbent position for the time being. There could also be substantial ikbwn-yi-gpymc variability in the AHI that can lead [...] were reviewed and explained to the patient: [facility] home sleep study 04/14/24 HI = 4, supine HI = 18 [facility] diagnostic sleep study 06/08/24 sleep onset = [...] were reviewed and explained to the patient: [facility] home sleep study 04/14/24 HI = 4, supine HI = 18 [facility] diagnostic sleep study 06/08/24 sleep onset = 18 minutes, REM onset = none, AHI = 6, supine AHI = 36, PLMI = 2 [facility] titration sleep study 08/03/24 sleep onset = [...] carrier. Patient will setup an appointment with [facility] for supplies and pressure adjustments. A major [...] were reviewed and explained to the patient: [facility] home sleep study 04/14/24 HI = 4, supine HI = 18 [facility] diagnostic sleep study 06/08/24 sleep onset = 18 minutes, REM onset = none, AHI = 6, supine AHI = 36, PLMI = 2 [facility] titration sleep study 08/03/24 sleep onset = [...] duration at 20 minutes. 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 Keep humidifier level at 2. Keep tube [...] carrier. Patient will setup an appointment with [facility] for supplies and pressure adjustments. A major [...] Imaging polysomno gram, titration study 2023 024 [email or web address] [facility], [address] [place], [address], 07/19/2024 10:04:06 polysomno gram, diagnosti c, 6 yrs or older - approved [id number] 1 04/22/24-2023 024 [email or web address] [facility], [address] [place], [address], 05/03/2024 08:12:03 home sleep study - *Please call pt to schedule* 2023 024 [facility], [address] [place], [address], 04/16/2024 14:48:34 Medication Orders aspirin 81 mg tablet,de layed release 2023 024 [id number], [address], [id number], 11/24/2024 09:35:14 losartan 50 mg tablet 2023 024 [email or web address] [id number], [address], [id number], 04/22/2024 10:06:10 Patient TargetsNo targets recorded. Patient InstructionsNo instructions recorded. Reason for Referral None Reported. Results Created Date Observation Date Name Description Value Unit Range Abnormal Flag Note LastModifiedBy Organization Detail LastModifiedTime 03/17/2003/17/2024 US, thyro id No observ ation record ed. [facility] [address] [place] [address], [address], 03/18/2024 13:20:14 04/16/20 24 04/14/2024 home sleep study No observ ation record ed. [email or web address] [facility] [address] [place], [address], 05/21/2024 09:41:12 04/16/20 24 04/14/2024 home sleep study No observ ation record ed. [facility] [address] [place], [address], 04/16/2024 14:48:34 06/11/20 24 06/08/2024 polys omnog mario, diagn ostic , 6 yrs or older No observ ation record ed. [facility] [address] [place], [address], 06/11/2024 12:17:27 08/24/20 24 08/03/2024 polys omnog mario, titra tion study No observ ation record ed. [facility] [address] [place], [address], 08/24/2024 10:07:59 Result Notes None recorded. Problems Name Problem SNOMED Code Status Onset Date Resolution Date Notes Provider Name and Address Organization Details Recorded Time Polycystic ovary syndrome 034491319 Active 2022 Not Available [facility] 3 22:28:42 Prediabete s 914601613 Active 2022 Not Available [employer] 3 22:28:42 Arthritis 2855395 Active 2022 Not Available [facility] 3 22:28:42 Mixed anxiety and depressive disorder 714747850 Active 2022 Not Available [facility] 3 22:28:42 Cobalamin deficiency 919688877 Active 2023 Jess Plascencia MD [address] [facility], [facility] [address], [place], [address] , [facility] [employer] [facility] 4 12:27:48 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 Not Available [facility] 3 22:28:42 Pain in throat 105563464 Completed Not Available [facility] 3 03:22:27 Blindness - both eyes 856512921 Active Not Available [employer] 3 22:28:42 Vitamin D deficiency 60595281 Active Not Available [facility] 3 22:28:42 Goiter 3468802 Active Not Available [facility] 3 22:28:42 Hypothyroi dism 11125963 Active Not Available [facility] 3 22:28:42 Hemorrhoid s 12676790 Active Not Available [facility] 3 22:28:42 Essential hypertensi on 19644269 Active 2023 MARTINE Mcginnis-C [address], [address], [place], [address] , [facility] 4 14:32:49 Varicose veins of lower extremity 59456670 Active 2023 MARTINE Mcginnis-C [address], [address], [place], [address] , [employer] 4 14:33:55 Obstructiv e sleep apnea syndrome 65442499 Active 2023 Jw Phipps MD [address], [address], [place], [address] , [employer] 4 10:44:19 Notes:Medical History: Beltran ism Depression/Anxiety [...] Most Recent Mammogram completed Lola Chávez LPN [facility] 01/08/2024 11:27:10 4 delivery completed Not Available [facility] 01/01/2023 03:14:20 2 delivery completed Not Available [facility] 01/01/2023 03:14:20 Imaging Results Imaging Date Name Status LastModified by Organiz ation Details LastModified Time 03/17/2024 US, thyroid completed [facility] [address], [place], [address], 03/18/2024 13:20:14 04/14/2024 home sleep study completed [address] [place], [address], 05/21/2024 09:41:12 04/14/2024 home sleep study completed [facility] [address] [place], [address], 04/16/2024 14:48:34 06/08/2024 polysomnogram, diagnostic, 6 yrs or older completed [facility] [address] [place], [address], 06/11/2024 12:17:27 08/03/2024 polysomnogram, titration study completed [facility] [address] [place], [address], 08/24/2024 10:07:59 Procedure Notes None recorded. Medical Equipment None Reported. Allergies Allergen ID Allergen Name Allergen Category Reaction Reaction Severity Criticality Documentation Date Start Date Code Code System Note Provider Name and Address Organization Details Recorded Time 6274 acetamino phen / hydrocodo ne medicatio n itching Not available Not available 01/01/2023 71088 2 RxNorm Not Available [facility] 3 03:34:13 6275 Augmentin medicatio n diarrhea Not available Not available 01/01/2023 07902 2 RxNorm Not Available [facility] 3 03:34:13 Medications Name Sig Start Date [...] tablets in a dose pack TK PER [facility] DIRECTION S UTD FOR 6 DAYS [...] Updated DateTime 4 170.18 cm 35.2 kg/m2 497632. 28 g 97.1 [degF] 79 /min 96 % 96 % 152 mm[Hg] 98 mm[Hg] Keara Santana RN [place] - [facility] [place] [employer] 4 14:13:47 Date Recorded Body height Body mass index (BMI) Body weight Heart rate Oxygen saturation Oxygen saturation in Arterial blood by Pulse oximetry Body temperature Systolic blood pressure Diastolic blood pressure Provider Name and Address Organization Details Last Updated DateTime 4 170.18 cm 35.2 kg/m2 631560. 28 g 70 /min 98 % 98 % 97.6 [degF] 120 mm[Hg] 70 mm[Hg] Enedina Sánchez CMA [place] [employer] [facility] [employer] [facility] 4 10:02:54 Date Recorded Heart rate Respiratory rate Provider N ayan and Address Organization Details Last Updated DateTime 04/22/2024 70 /min 15 /min Jw Phipps MD [address] [employer], [address], [place], [address], [place] [employer] [facility] [employer] 04/22/2024 10:49:29 Date Recorded Body height Body mass index (BMI) Body weight Body temperature Heart rate Oxygen saturation Oxygen saturation in Arterial blood by Pulse oximetry Systolic blood pressure Diastolic blood pressure Provider Name and Address Organization Details Last Updated DateTime 4 170.18 cm 37 kg/m2 057526. 8 g 98.1 [degF] 76 /min 97 % 97 % 118 mm[Hg] 76 mm[Hg] Sosa Mazariegos MA [facility] 4 09:09:52 Date Recorded Heart rate Respiratory rate Provider N ayan and Address Organization Details Last Updated DateTime 06/16/2024 76 /min 15 /min Jw Phipps MD [address] [employer], [address], [place], [address], [facility] [employer] 06/16/2024 09:49:18 Date Recorded Body height Body mass index (BMI) Body weight Heart rate Oxygen saturation Oxygen saturation in Arterial blood by Pulse oximetry Body temperature Systolic blood pressure Diastolic blood pressure Provider Name and Address Organization Details Last Updated DateTime 4 170.18 cm 37.1 kg/m2 395145. 39 g 75 /min 97 % 97 % 98.1 [degF] 118 mm[Hg] 70 mm[Hg] Enedina Sánchez CMA [place] [employer] [facility] [employer] 4 09:31:48 Date Recorded Heart rate Respiratory rate Provider N ayan and Address Organization Details Last Updated DateTime 08/24/2024 75 /min 15 /min Jw Phipps MD [address] [facility], [address], [place], [address], [place] [employer] [facility] 08/24/2024 09:59:00 Date Recorded Body height Body mass index (BMI) Body weight Body temperature Heart rate Oxygen saturation Oxygen saturation in Arterial blood by Pulse oximetry Systolic blood pressure Diastolic blood pressure Provider Name and Address Organization Details Last Updated DateTime 170.18 cm 38.2 kg/m2 376734. 54 g 97.7 [degF] 70 /min 98 % 98 % 126 mm[Hg] 84 mm[Hg] Sosa Mazariegos MA [place] [employer] [facility] 09:22:52 Date Recorded Heart rate Respiratory rate Provider Flor botello and Address Organization Details Last Updated DateTime 11/24/2024 70 /min 15 /min Jw Phipps MD [address] [facility], [address], [place], [address], [facility] 11/24/2024 09:44:05 Social History Question Answer Notes LastModified by Organizat ion Details LastModified Time Tobacco Smoking Status Never Smoker SHERRI Garg null, [facility] 08/14/2023 15:59:16 What Is Your Level Of Alcohol Consumption? None [id number] Information not available 01/01/2023 What Is Your Level Of Caffeine Consumption? Occasional [id number] Information not available 01/01/2023 How Much Tobacco Do You Chew? None [id number] Information not available 01/01/2023 In The 14 [...] Used Smokeless Tobacco? Never Used Smokeless Tobacco [id number] Information not available 01/01/2023 Do You Feel Stressed (tense, Restless, Nervous, Or Anxious, Or Unable To Sleep At Night)? [id number] Information not available 06/16/2024 Do You Use [...] Organization Details LastModified Time Mother Rheumatoid arthritis [email or web address] Not available 11/24 09:08:12 Mother Fibromyalgia [email or web address] Not sherry ilable 11/24/2024 09:08:12 Mother Autoimmune hepatitis [email or web address] Not available 11/24 09:08:12 Mother Osteoporosis Not sherry ilable 11/24/2024 09:08:12 Mother Transient cerebral ischemia [email or web address] Not available 11/24 09:08:12 Maternal Grandfather Diabetes mellitus MIGRATION.565 [id number] Not available 01/01/2023 03:14:27 Maternal Grandfather Heart disease MIGRATION.497 [id number] Not available 01/01/2023 03:14:27 Maternal Grandfather Congestive heart failure [email or web address] Not available 11/24 09:08:12 Maternal Grandfather Malignant neoplasm of skin [email or web address] Not available 11/24 09:08:12 Maternal Grandfather Malignant tumor of prostate Not available 11/24 09:08:12 Maternal Grandfather Tuberculosis [email or web address] Not availabl e 11/24/2024 09:08:12 Maternal Grandmother Diabetes mellitus MIGRATION.751 [id number] Not available 01/01/2023 03:14:27 Maternal Grandmother Heart disease MIGRATION.400 [id number] Not available 01/01/2023 03:14:27 Paternal Grandfather Diabetes mellitus MIGRATION.031 [id number] Not available 01/01/2023 03:14:27 Paternal Grandmother Diabetes mellitus MIGRATION.565 [id number] Not available 01/01/2023 03:14:27 Sister Polycystic ovary syndrome [id number] Not available 11/24 09:08:12 Sister Prolactinoma [id number] Not sherry ilable 11/24/2024 09:08:12 Father Chronic obstructive pulmonary disease [email or web address] Not available 11/24 09:08:12 Paternal Grandfather Heart disease Not available 2023 10:17:10 Paternal Grandfather Cerebrovascu lar accident [email or web address] Not available 09:08:12 Paternal Grandmother Heart disease Not available 2023 10:17:13 Maternal Grandmother Cerebrovascu lar accident [email or web address] Not available 09:08:12 Medical History Condition Response OTHER # 1 Y Other # 2 Y HYPOTHYROIDISM Y DEPRESSION (INCLUDING POST ) Y INPATIENT PSYCH CARE Y Gynecological History Statement/Question Response Most Recent Mammogram 01/07/2024 Obstetrics History GPAL:G 0 P 0 0 0 0 Immunizations Vaccine Type Date Status Note Provider Nam e and Address Organization Details Recorded Time Influenza, split virus, trivalent, PF 3 completed Not Available [facility] 08/13/2023 22:28:42 Influenza, split virus, trivalent, preservative 3 completed Not Available [facility] 08/13/2023 22:28:42 Influenza, split virus, quadrivalent, PF 5 completed Not Available [facility] 08/13/2023 22:28:42 Past Encounters Encounter ID Performer Location Encounter Start Date Encounter Closed Date Diagnosis/Indication Diagnosis SNOMED-CT Code Diagnosis ICD10 Code Diagnosis Note [id number] [facility] [place] [address] [facility] [address] [place] [address] 01/09/2021 00:00:00 01/09/2021 09:15:01 [id number] [facility] [place] [address] [place] [address] 01/12/2021 00:00:00 01/12/2021 17:31:37 [id number] [facility] [place] [address] [place] [address] [address] [place] [address] 02/23/2021 00:00:00 02/28/2021 16:27:12 [id number] [facility] [place] [address] [place] [address] 05/14/2021 00:00:00 05/14/2021 13:26:05 [id number] [facility] [place] [address] [place] [address] [address] [place] [address] 08/09/2021 00:00:00 08/09/2021 09:17:14 [id number] [facility] [place] [address] [place] [address] 08/14/2021 00:00:00 08/14/2021 18:08:12 [id number] [facility] [place] [address] [facility] [address] [place] [address] 10/31/2021 00:00:00 11/01/2021 07:47:28 [id number] [facility] [place] [address] [place] [address] 02/05/2022 00:00:00 02/05/2022 17:25:28 [id number] [facility] [place] [address] [place] [address] 02/12/2022 00:00:00 02/13/2022 12:25:32 [id number] [facility] [place] [address] [place] [address] 03/13/2022 00:00:00 03/13/2022 10:35:24 [id number] [facility] [place] [address] [place] [address] 05/24/2022 00:00:00 05/24/2022 17:41:32 [id number] [facility] [place] [address] [place] [address] 05/28/2022 00:00:00 05/28/2022 17:28:27 [id number] [facility] [place] [address] [place] [address] 07/17/2022 00:00:00 07/17/2022 11:42:05 [id number] [facility] [place] [address] [place] [address] 11/01/2022 00:00:00 11/01/2022 20:13:31 [id number] MARTINE Ruiz [facility] [place] [address] [place] [address] 01/02/2023 08:24:23 01/02/2023 08:43:01 [id number] Renuka Rubin MD [facility] [place] [address] [place] [address] 01/06/2023 16:41:17 01/06/2023 17:30:43 [facility] 66752505 E03.9 FT4 low and patient having more [...] and reduce inflammati on. 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 Continue on spironolac tone as she has had less hair loss/ more growth. Tolerating well. Weight gain 1338835 R63. 5 Will send for low dose [...] she chooses to go [facility] to obtain labwork she was [...] in her case. She voiced understand ing. [id number] CHARISSA Hernandez [facility] [place] [address] [facility] [address] [place] [address] 01/08/2023 08:56:53 01/08/2023 09:00:37 [id number] Jess Plascencia MD [facility] [place] [address] [facility] [address] [place] [address] 04/02/2023 11:11:45 04/02/2023 11:39:23 [id number] Renuka Rubin MD [facility] [place] [address] [place] [address] 04/10/2023 16:16:28 04/10/2023 17:08:03 Prediabetes 218923343 R73.03 Glucose running around 99-115 mg/dL fasting- she is tolerating metformin well. Recommende d GLP1 agonist therapy as she is having trouble at times with cravings of sweets and portion control. Discussed potentiall y reducing total carb intake to 120 grams daily into 4-5 small split meals with addition of healthy protein based snack at bedtime to help reduce cotton stomper hyperglyce austin. She has no hx of [...] that day as tolerated. 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 Continue on spironolac tone as she has had less hair loss/ more growth. Tolerating well. Hypothyroidism 13899047 E03.9 FT4 in range- continue on synthroid [...] and minerals and reduce inflammati on. Arthritis 8868987 M19.90 Will send for repeat SAIRA with specific antibodies along with rheumatoid screening to assess for any evidence of autoimmune disease. Thyroid nodule 838332348 E04.1 Repeat thyroid u/s prior to return visit. Send for calcitonin and parathyroi d function to screen for c cell hyperplasi a and hyperparat hyroidism. Mixed anxi ety and depressive disorder 246667644 F41.8 refer to psychiatry for further evaluation [...] she chooses to go [facility] to obtain labwork she was [...] in her case. She voiced understand ing. [id number] Jess [facility]encia MD [facility] [address] [facility] [address] [place] [address] 04/14/2023 08:23:02 04/14/2023 09:57:18 [id number] Jess [facility]ascencia MD [facility] [address] [facility] [address] [place] [address] 08/06/2023 11:10:43 09/02/2023 14:58:20 [id number] Renuka Rubin MD [facility] [place] [address] [place] [address] 08/14/2023 15:58:27 08/14/2023 16:49:03 Hypothyroidism 39029839 E03.9 FT4 high normal range and with [...] and minerals and reduce inflammati on. Prediabetes 065865170 R7 3.03 A1C 5.3% down from 6% range- she has lost 26 pounds- continue on trulicity but uptitrate to 3 mg once weekly as patient tolerating well. Discussed carb counting and how to read food labels. Recommende d patient to utilize the diabetesfo Daricb.com from the ADA website to help with food preparatio n as this presents ideal carb content per meal so this will make carb counting much easier for patient. Recommende d she incorporat e natural insulin iron plastic bullet maker s such as pears, apples, cinnamon, cristóbal and sweet potatoes to help mobilize her endogenous insulin. Recommende d up to 150 minutes of moderate level activity/e xercise weekly. Polycystic ovary syndrome 794178426 E28.2 Continue natural insulin iron plastic bullet maker s as struggled with metformin. Continue on spironolac tone as she has had less hair loss/ more growth. Tolerating well. Generalize d anxiety disorder 23777996 F41.1 Continue on escitalopr am 40 mg [...] answered and refills necessary at visit today. [id number] Jess Plascencia MD [facility] Primary Care [address] [place] [address] 12/02/2023 17:40:44 12/02/2023 17:46:35 [id number] Jess Plascencia MD [facility] Primary Care [address] [place] [address] 02/04/2024 12:12:00 02/04/2024 12:42:54 Hypothyroidism 80249387 E03.9 refills givenhas appt with endocrinol ogy Dr. Rubin Prediabetes 637870964 R7 3.03 Vitamin D deficiency 347 87653 E55.9 Cobalamin deficiency 190 098880 E53.8 Hyperlipid emia screening 824459475 Z13.220 Z79.750 [id number] RACHELE Mcginnis [facility] Primary Care [address] [place] [address] 04/07/2024 14:00:02 04/07/2024 14:40:03 Varicose veins of lower extremity 60997736 I83.92 -noted only to the left lower extremity so far-declin es 81mg-trial aspirin Essential hypertension 60569779 I10 trial losartan Sleep apnea 52830158 G47 .30 snoring, witnessed apnea, excessive daytime somnolence . Will order home sleep study. [id number] Jw Phipps MD [address] [address] 04/22/2024 09:54:32 04/26/2024 09:11:25 Obstructive sleep apnea syndrome 46560614 G47.33 G47.36 G47.61 [id number] Jw Phipps MD [address] [address] 06/16/2024 08:55:08 06/17/2024 09:14:10 Obstructive sleep apnea syndrome 22293632 G47.33 G47.36 [id number] Jw Phipps MD [facility] [place] [address] 08/24/2024 09:07:43 08/24/2024 15:51:59 Obstructive sleep apnea syndrome 47972920 G47.33 G47.36 [id number] MD PRASANTH Trujillo_[address] [address] 11/24/2024 09:07:16 11/29/2024 14:55:34 Obstructive sleep apnea syndrome 08963024 G47.33 G47.36 Health Concerns Section Related Observation LastModified by Organization Detai ls LastModified Time None Recorded Concern Status LastModified by Organization Details LastModified Time None Recorded Advance Directives Directive None Recorded Payers Encounter Date Sequence Insurance Name Policy Number Policy Ring Covered Member ID Ring Member ID Guarantor Name 04/07/2024 1 [employer] [facility] [place] [employer] (MEDICARE - MEDICAID REPLACEMENT HMO) [id number] Cheryl B Shake [id number] Cheryl B Shake 04/22/2024 1 [employer] [place] [employer] [place]MEDICARE - MEDICAID REPLACEMENT HMO) [id number] Cheryl B Shake [id number] Cheryl B Shake 06/16/2024 1 [employer] [place] [place]MEDICARE - MEDICAID REPLACEMENT HMO) [id number] Cheryl B Shake [id number] Cheryl B Shake 08/24/2024 1 [employer] [place] [employer] [place]MEDICARE - MEDICAID REPLACEMENT HMO) [id number] Cheryl B Shake [id number] Cheryl B Shake 11/24/2024 1 [employer] [place] [employer] (MEDICARE - MEDICAID REPLACEMENT HMO) [id number] Cheryl B Shake [id number] Cheryl B Shake Notes Date Note Type Note Provider Name and Address Organization Details Recorded Time 04/07/2024 text/html pt is here for varicose veins MARTINE Mcginnis-Angel [address] [facility], [place], [address], [place] - [facility] 04/07/2024 15:30:09 04/22/2024 text/html Primary care/Ref erring provider: MARTINE Bernard-C During the [facility] home sleep study on 04/14/24 HI = [...] no chance of dozing. Jw Phipps MD [address] [place] [address], [address], [place] [facility] 04/22/2024 10:49:46 06/16/2024 text/html Primary care/Ref erring provider: Phil Evangelista, [facility] During the [facility] [facility] home sleep study on 04/14/24, HI = 4, supine HI = 18. During the [facility] diagnostic sleep study 06/08/24, sleep onset = [...] has a moderate chance of dozing. Jw Phpips MD [address] [place] [address], [address], [address], [facility] [employer] 06/16/2024 09:49:27 08/24/2024 text/html Primary care/Ref erring provider: Phil Evangelista, [facility] During the [facility] home sleep study on 04/14/24, HI = 4, supine HI = 18. During the [facility] diagnostic sleep study 06/08/24, sleep onset = 18 minutes, REM onset = none, AHI = 6, supine AHI = 36, PLMI = 2. During the [facility] titration sleep study on 08/03/24, sleep onset [...] slight chance of dozing. Jw Phipps MD [address] [place] [address], [facility] [address], [place], [address], [facility] 08/24/2024 09:59:12 11/24/2024 text/html Primary care/Ref erring provider: Edwina Mckeon NP During the [facility] home sleep study on 04/14/24, HI = 4, supine HI = 18. During the [facility] diagnostic sleep study 06/08/24, sleep onset = 18 minutes, REM onset = none, AHI = 6, supine AHI = 36, PLMI = 2. During the [facility] titration sleep study on 08/03/24, sleep onset [...] chance of dozing. Jw Phipps MD [address] [facility], [facility] [address], [place], [address], [facility] [employer] 11/24/2024 10:52:51 OBGyn Episode No OBEpisode recorded.
--- OUTSIDE RECORDS SUMMARY | 2025-01-07 14:42 | XMS_ITS ---
Author Organization [facility] [employer] Address [address] [facility] [address] [place] [address] Care Team Providers Care Global Chief Experience Officer Name Role Phone Edwina Mckeon APN Primary Care Provider Unavailab Edwina May Unavailable [phone] Sergio Nicholson Unavailable [phone] Allergies Allergen (clinical drug ingredient) Drug/Non Drug Allergy documented on EMR Reaction Allergy Type Onset Date Status amoxicillin / clavulanate Augmentin Unknown Drug Allergy Active Vicodin Unknown Drug Allergy Active amlodipine Amlodipine Unknown Drug Allergy Activ e lisinopril Lisinopril Unknown Drug Allergy Activ e REASON FOR VISIT PCP said to stop taking ADHD meds for now til BP meds are under control, but misses that medicationand wants to stay on it when can Medications Medication SIG (Take, Route, Frequency, Duration) Notes Start Date End Date Status Nystatin 766272 UNIT/GM External for 30 Days Active Synthroid 88 MCG Oral for 90 Days Active Atomoxetine HCl 40 MG 1 capsule in the morning Orally Once a day for 30 days 12/02/2024 01/01/2025 Unknown Liothyronine Sodium 5 MCG Oral for 90 Days Active Escitalopram Oxalate 20 MG Oral Active Vitamin D 25 MCG (1000 UT) 1 tablet Oral ly Once a day Active Vitamin B Complex - as directed Orally Active Social History Tobacco Use: Social History Observation [...] alcohol in the p ast year? No Vital Signs Blood pressure systolic 165 mm Hg 12/29/19 25 Blood pressure diastolic 113 mm Hg 025 Heart Rate 98 /min 12/29/2024 Weight 239 lbs 12/29/2024 Weight-kg 108.41 kg 12/29/2024 Height 67 in 12/29/2024 Height-cm 170.18 cm 12/29/2024 BMI 37.43 kg/m2 12/29/2024 Encounters Encounter Location Date Provider Diagnosis [facility] [employer] [address] [facility] [address] [place] [address] 12/29/2024 Sergio Nicholson Major depressive disorder, recurrent severe without psychotic features F33.2 ; Generalized anxiety disorder F41.1 ; PTSD (post-traumatic stress disorder) F43.10 and ADHD (attention deficit hyperactivity disorder), inattentive type F90.0 Assessments Encounter Date Diagnosis (ICD Code) Assessment Notes Treatment Notes Treatment Clinical Notes Section Notes 12/29/2024 Major depressive disorder, recurrent severe without psychotic features (ICD-10 - F33.2) 12/29/2024 Generalized anxiety disorder (ICD-10 - F41.1) 12/29/2024 PTSD (post-traumatic stress disorder) (ICD-10 - F43.10) 12/29/2024 ADHD (attention deficit hyperactivity disorder), inattentive type (ICD-10 - F90.0) 12/29/2024 Other ADHD - Assessment: Patient reports discontinuation of ADHD medication for the past week due to concerns about blood pressure control and is noticing its absence. - Plan: - Await printing specialist appointment on January 19 for further evaluation and guidance on potential alternative ADHD medications. - Continue monitoring blood pressure. - Follow up with primary care provider, Edwina, for possible adjustments to hydrochlorothiazide dosage. Hypertension - Assessment: Patient's blood pressure remains elevated (165/113 today, 165/102 on 2-20, 160/110 on 2-21) despite being on hydrochlorothiazide 25 mg. Medication timing: Synthroid at 6 AM, blood pressure medication at 9 AM, Zyrtec at 11 AM. - Plan: - Follow up with primary care provider, Edwina, tomorrow for possible adjustments to hydrochlorothiazide dosage. - Continue monitoring blood pressure daily and report any significant changes. Angioedema and Allergic Reactions - Assessment: Patient experienced angioedema from lisinopril and an allergic reaction to loxapine, leading to an ER visit. - Plan: - Discontinue lisinopril and loxapine. - Follow up with printing specialist appointment on January 19 for further evaluation and management. - Continue taking Zyrtec as needed for allergy symptoms. Abnormal EKG - Assessment: Patient had an abnormal EKG in the ER during the angioedema episode. - Plan: - Proceed with scheduled echocardiogram next Friday at [place] to further evaluate cardiac function and any potential underlying issues. Depression - Assessment: Patient is currently on 40 mg of escitalopram daily. - Plan: - Continue escitalopram as prescribed. - Transition to new therapist, Alexa, on January 05 for continued therapy focusing on childhood trauma. Hypothyroidism - Assessment: Patient is on Synthroid and liothyronine. - Plan: - Continue current medications as prescribed. - Monitor thyroid function and adjust dosages as needed. Vitamin Deficiencies - Assessment: Patient is taking vitamin B and vitamin D supplements. - Plan: - Continue current supplementation as prescribed. - Reevaluate vitamin levels as needed to ensure adequate supplementation. Recent Prednisone Use - Assessment: Patient recently completed a course of prednisone. - Plan: - Monitor for any lingering side effects or complications related to prednisone use. - Follow up as needed. Plan Of Treatment Medication Medication Name Sig Start Date Stop Date Notes Escitalopram Oxalate 20 MG Oral Next Appt Details Follow Up: 4 Weeks, Reason: Provider Name:Sergio Nicholson , 01/26/2025 10:45:00 AM, [address], [facility] [address], [place], [address], Progress Notes * SAMAN CAMERONB:1980 ([age] yo F)Acc No.[id number]:12/29/2024 Patient: MATIAS KAHN Provider: Tim NICHOLSON MD :1980 A ge:44 Y S ex:Female Date:12/29/2024 Phone: Address:[address] [place] [address], [id number] Pcp:Edwina Mckeon APN Subjective: * Chief Complaints: * P CP said to stop taking ADHD meds for now til BP meds are under control, but misses that medication and wants to stay on it when can * HPI: D epression Screening: The note is transcribed using speech recognition software. It is a reflection of a visit with the patient. It might have some inaccuracy, including medication names and transcribing errors, though efforts have been made to correct them. Chief Complaints: Uncontrolled hypertension, ADHD medication management, depression Hypertension Management: The patient has a history of hypertension with recent medication changes. Initially on lisinopril, she developed angioedema after 11 days and was switched to amlodipine. Currently taking hydrochlorothiazide 25 mg, but blood pressure remains uncontrolled with recent readings of 165/113, 165/102 on 12-23, and 160/110 on 12-24. Cardiovascular Concerns: The patient mentions an abnormal EKG during an ER visit for angioedema. An echodoppler is scheduled for next Friday at [place]. ADHD Management: The patient has a history of ADHD and reports that her ADHD medication was effective when she could take it. However, she has not taken ADHD medication for a week due to uncontrolled blood pressure and discontinued generic Strattera for the same reason. Recent Allergic Reaction: The patient experienced an allergic reaction to loxapine last week, necessitating an ER visit where she received steroids and antihistamines. An printing specialist appointment is scheduled for January 19. Depression Treatment: The patient reports a history of depression and is currently taking escitalopram 40 mg daily. Medication Regimen: - Recently completed a course of prednisone - Additional medications: vitamin B, vitamin D, Synthroid, liothyronine, nystatin, and Zyrtec - Medication schedule: Synthroid at 6 AM, blood pressure medication around 9 AM, and Zyrtec at 11 AM Therapy: The patient is transitioning to a new therapist who specializes in childhood trauma. Her current therapist's role is more focused on crisis intervention. The patient expresses positive feelings about her current therapist and is hopeful about the new therapy sessions. EMY-7 (2018 Edition) F eeling nervous, anxious, or on edge S everal days N ot being able to stop or control worrying?Not at all W orrying too much about different things N ot at all T rouble relaxing S everal days B eing so restless that it is hard to sit still S everal days B ecoming easily annoyed or irritable S everal F eeling afraid as if something awful might happen S everal [place]-Suicide Severity Rating Scale: Suicide Risk (CSRS-screener) i n the past one month Have you wished you were or wished you could go to sleep and not wake up? Y es i n the past one month Have you actually had any thoughts of killing yourself? N o D epression screening: PHQ-9 L ittle interest or pleasure in doing things?Several days F eeling down, depressed, or hopeless S ever T rouble falling or staying asleep, or sleeping too much S ever F eeling tired or having little energy S ever P oor appetite or overeating S ever F eeling bad about yourself or that you are a failure, or have let yourself or your family down S ever T rouble concentrating on things, such as reading the newspaper or watching television S M oving or speaking so slowly that other people could have noticed; or the opposite, being so fidgety or restless that you have been moving around a lot more than usual N ot at all T houghts that you would be better off or of hurting yourself in some way S (Consider Suicide Assessment Risk) Intervention D epression Screening Findings P ositve F ollow-Up for Depression M entwv health treatment assessment, Patient follow-up to return when and if necessary S uicide Risk Assessment Performed 0 12/29/2024 A dditional Evaluation for Depression P sychiatric interview and evaluation N ayan of the standardized tool used for adult depression screening: [facility] * Medical History: * Surgical History: * Hospitalization/Major Diagno stic Procedure: * Social History: T obacco Use: T [...] past year? N o H ousehold: H ousehold N umber of adults in household: 2 N umber of children in household: 2 M iscellaneous: S afety issues A re there any firearms in the house? N o Occupation: Disabled. Advance Care Planning A re you your own decision-maker Y es D o you have Power of Building Maintenance Superintendent for Health or Medical? N o S ocial History: H ouseleann M arital Status: N ot Answered N umber of Adults in household: 2 N umber of Children in Household: 2 L evel of Education: N ot Finished College * Medications: T akingVitamin B Complex - Tablet as directed Orally Vitamin D 25 MCG (1000 UT) Tablet 1 tablet Orally Once a day Synthroid 88 MCG Tablet Oral Nystatin [id number] UNIT/GM Cream External Escitalopram Oxalate 20 MG Tablet 1 tablet Oral twice a day Liothyronine Sodium 5 MCG Tablet Oral Taking Vitamin B Complex - Tablet as directed Orally Taking Vitamin D 25 MCG (1000 UT) Tablet 1 tablet Orally Once a day Taking Synthroid 88 MCG Tablet Oral Taking Nystatin 274080 UNIT/GM Cream External Taking Escitalopram Oxalate 20 MG Tablet 1 tablet Oral twice a day Taking Liothyronine Sodium 5 MCG Tablet Oral DiscontinuedLisinopril 5 MG Tablet Oral Discontinued Lisinopril 5 MG Tablet Oral UnknownAtomoxetine HCl 40 MG Capsule 1 capsule in the morning Orally Once a day , stop date 01/01/2025Medication List reviewed and reconciled with the patientUnknown Atomoxetine HCl 40 MG Capsule 1 capsule in the morning Orally Once a day , stop date 01/01/2025Medication List reviewed and reconciled with the patient * Allergies: A ugmentinVicodinAmlodipineLisinoprilno[Allergies Verified] Objective: * Vitals: B P:165/113mm Hg, HR:98/min, Wt:239lbs, Wt-k.41 kg, Ht: 67 in, Ht-cm: 170.18 cm, BMI:37.43Index, Body Surface Area: 2.26. * Examination: G eneral Examination: M ental Status Examination: Patient is alert and oriented to time, place, and person. Speech is coherent and goal-directed. Reports discontinuation of ADHD medication due to uncontrolled blood pressure and recent allergic reactions. Vital Signs: Blood pressure recorded today: 165/113 mmHg. Previous blood pressure readings: 165/102 mmHg on 12-23-2024, 160/110 mmHg on 12-24-2024. Physical Examination: No specific findings documented regarding the physical examination. Diagnostic Test Results and Labs: EKG performed in the ER for angioedema was reported as abnormal. Scheduled echodoppler for next Friday at [place]. Patient experienced angioedema from lisinopril and an allergic reaction to loxapine. Medication trials and adjustments: - Currently taking amlodipine and hydrochlorothiazide, with the latter not showing effectiveness yet. - ADHD medication discontinued due to uncontrolled blood pressure and recent allergic reactions. - Lisinopril caused angioedema. - Loxapine caused an allergic reaction. Upcoming appointments: Agricultural Education Teacher appointment on January 19. Assessment: * Assessment: 1. M ajor depressive disorder, recurrent severe without psychotic features - F33.2 (Primary)? 2. G eneralized anxiety disorder - F41.1 3 . P TSD (post-traumatic stress disorder) - F43.10 4 . A DHD (attention deficit hyperactivity disorder), inattentive type - F90.0 Plan: * Treatment: 2. O thers Clinical Notes: ADHD - Assessment: Patient reports discontinuation of ADHD medication for the past week due to concerns about blood pressure control and is noticing its absence. - Plan: - Await printing specialist appointment on January 19 for further evaluation and guidance on potential alternative ADHD medications. - Continue monitoring blood pressure. - Follow up with primary care provider, Edwina, for possible adjustments to hydrochlorothiazide dosage. Hypertension - Assessment: Patient's blood pressure remains elevated (165/113 today, 165/102 on 2-20, 160/110 on 2-21) despite being on hydrochlorothiazide 25 mg. Medication timing: Synthroid at 6 AM, blood pressure medication at 9 AM, Zyrtec at 11 AM. - Plan: - Follow up with primary care provider, Edwina, tomorrow for possible adjustments to hydrochlorothiazide dosage. - Continue monitoring blood pressure daily and report any significant changes. Angioedema and Allergic Reactions - Assessment: Patient experienced angioedema from lisinopril and an allergic reaction to loxapine, leading to an ER visit. - Plan: - Discontinue lisinopril and loxapine. - Follow up with printing specialist appointment on January 19 for further evaluation and management. - Continue taking Zyrtec as needed for allergy symptoms. Abnormal EKG - Assessment: Patient had an abnormal EKG in the ER during the angioedema episode. - Plan: - Proceed with scheduled echocardiogram next Friday at [place] to further evaluate cardiac function and any potential underlying issues. Depression - Assessment: Patient is currently on 40 mg of escitalopram daily. - Plan: - Continue escitalopram as prescribed. - Transition to new therapist, Alexa, on January 05 for continued therapy focusing on childhood trauma. Hypothyroidism - Assessment: Patient is on Synthroid and liothyronine. - Plan: - Continue current medications as prescribed. - Monitor thyroid function and adjust dosages as needed. Vitamin Deficiencies - Assessment: Patient is taking vitamin B and vitamin D supplements. - Plan: - Continue current supplementation as prescribed. - Reevaluate vitamin levels as needed to ensure adequate supplementation. Recent Prednisone Use - Assessment: Patient recently completed a course of prednisone. - Plan: - Monitor for any lingering side effects or complications related to prednisone use. - Follow up as needed. * Procedure Codes: G 8950 PREHTN/HTN BP DOC INDCD F/U [id number] PREHTN/HTN BP DOC INDCD F/U [id number] BEHAV ASSMT W/SCORE & DOCD/STAND [id number] MOST RECENT DIASTOLIC BP >= 90MM [id number] CLIN DEPRESSION SCREEN [id number] MOST RECENT SYSTOLIC BP >= 140MM HG * Preventive Medicine: Counseling: B P Management: PRE-HYPERTENSIVE FOLLOW-UP PLAN: F ollow-up 2-3 months LIFESTYLE RECOMMENDATION: Deidre fisher education REFERRAL TO ALTERNATIVE / PRIMARY CARE PROVIDER: Chele holm to general physician Alfonso dvance Care Planning Date of last Advance Care Planning:?12/29/2024 ____ MIPS * Follow Up: 4 Weeks * Billing Information: * Visit Code: [id number] OFFICE OUTPATIENT VISIT 25 MINUTES DETAILED HISTORY AND EXAM/MODERATE MEDICAL DECISION MAKING. * Procedure Codes: G8950 PREHTN/HTN BP DOC INDCD F/U DOC. G8950 PREHTN/HTN BP DOC INDCD F/U DOC. 07611 BEHAV ASSMT W/SCORE & DOCD/STAND INSTRUMENT. G8755 MOST RECENT DIASTOLIC BP >= 90MM HG. G8431 CLIN DEPRESSION SCREEN DOC. G8753 MOST RECENT SYSTOLIC BP >= 140MM HG. * [employer] Sign off status: Completed true * Provider: Tim NICHOLSON MD Date: 0 12/29/2024 Generated for Marita hinojosa/Sarita/Reji on: 0 01/07/2025 02:41 PM [employer] History and Physical Notes * HPI (History of Present Illness) Category Sub-Category Detail Notes Category Not es Depression screening PHQ-9 Little inte rest or pleasure in doing things: Several days Feeling down, depressed, or hopeless: Se veral days Trouble falling or staying asleep, or sl eeping too much: Several days Feeling tired or having little energy: S everal days Poor appetite or overeating: Several day s Feeling bad about yourself o r that [...] moving around a lot more than usual: Not at all Thoughts that you would be b lei off or of hurting yourself in some way: Several days (Consider Suicide Assessment Risk) Intervention Depression Screening Findings: P oscarina Follow-Up for Depression: [facility] treatment assessment, Patient follow-up to return when and if necessary Suicide Risk Assessment Performed: 12/29 Additional Evaluation for Depression: Ps ychiatric interview and evaluation Name of the standardized too l used for adult depression screening:: Patient Health Questionnaire (PHQ-9) Depression Screening EMY-7 (2018 Edition) Feelin g nervous, anxious, or on edge: Several days Not being able to stop or control worryi ng: Not at all Worrying too much about different things : Not at all Trouble relaxing: Several days Being so restless that it is hard to sit still: Several days Becoming easily annoyed or irritable: Se veral days Feeling afraid as if something awful rhonda ht happen: Several days [place]-Suicide Severity Rating Scale Suicide Risk (CSRS-screener) in the past one month Have you wished you were or wished you could go to sleep and not wake up?: Yes in the past one month Have y ou actually had any thoughts of killing yourself?: No Examination Category Sub-Category Detail Notes Category Not es General Examination Mental Status Examination: Patient is alert and oriented to time, place, and person. Speech is coherent and goal-directed. Reports discontinuation of ADHD medication due to uncontrolled blood pressure and recent allergic reactions. Vital Signs: Blood pressure recorded today: 165/113 mmHg. Previous blood pressure readings: 165/102 mmHg on 12-23-2024, 160/110 mmHg on 12-24-2024. Physical Examination: No specific findings documented regarding the physical examination. Diagnostic Test Results and Labs: EKG performed in the ER for angioedema was reported as abnormal. Scheduled echodoppler for next Friday at [place]. Patient experienced angioedema from lisinopril and an allergic reaction to loxapine. Medication trials and adjustments: - Currently taking amlodipine and hydrochlorothiazide, with the latter not showing effectiveness yet. - ADHD medication discontinued due to uncontrolled blood pressure and recent allergic reactions. - Lisinopril caused angioedema. - Loxapine caused an allergic reaction. Upcoming appointments: Agricultural Education Teacher appointment on January 19.
--- OUTSIDE RECORDS SUMMARY | 2025-01-07 14:42 | XMS_ITS ---
Author Organization [facility] Address [address] [place] [address] Care Team Providers Care Web Retailer Name Role Phone Edwina Mckeon APN Primary Care Provider Unavailab Edwina May Unavailable [phone] REASON FOR VISIT Therapy Visit, Depression screening positive Medications Medication SIG (Take, Route, Frequency, Duration) Notes Start Date End Date Status Lisinopril 5 MG Oral for 90 Days Unknown Atomoxetine HCl 40 MG 1 capsule in the morning Orally Once a day for 30 days 12/02/2024 01/01/2025 Unknown Liothyronine Sodium 5 MCG Oral for 90 Days Unknown Escitalopram Oxalate 20 MG Oral for 90 Days Unknown Nystatin 617835 UNIT/GM External for 30 Days Unknown Synthroid 88 MCG Oral for 90 Days Unknown Vitamin D 25 MCG (1000 UT) 1 tablet Oral ly Once a day Unknown Vitamin B Complex - as directed Orally Unknown Social History Tobacco Use: Social History [...] No Encounters Encounter Location Date Provider Diagnosis [facility], [address] [address] [place] [address] 12/29/2024 Edwina Blackwell Major depressive disorder, recurrent severe without psychotic features F33.2 ; ADHD (attention deficit hyperactivity disorder), inattentive type F90.0 and PTSD (post-traumatic stress disorder) F43.10 Assessments Encounter Date Diagnosis (ICD Code) Assessment Notes Treatment Notes Treatment Clinical Notes Section Notes 12/29/2024 Major depressive disorder, recurrent severe without psychotic features (ICD-10 - F33.2) Assessment and Plan: 1. ADHD: The patient has reported severe symptoms of ADHD following the discontinuation of medication due to uncontrolled hypertension. Plan: Continue to monitor the patient's blood pressure closely and collaborate with the primary care physician to achieve better control. Reassess the feasibility of resuming ADHD medication once the patient's blood pressure has stabilized. 2. Depression: The patient acknowledges the presence of depression and its significant impact on her daily life. Plan: Encourage the patient to continue engaging in self-care and self-love practices. It is recommended that the patient explore therapeutic options with new therapist, Darcie, to address childhood trauma and continue effective coping strategies. 3. Goals and Personal Growth: The patient has set personal goals, which include reading books, painting, visiting [place], and considering streaming on Tw[employer]. Plan: Encourage the patient to continue pursuing these personal goals and interests as a means to foster self-growth and manage mental health symptoms effectively. 4. Social Support: The patient benefits from a strong support system, which includes her partner and multiple close friends. Plan: Encourage the patient to continue relying on her support system and to engage in open communication with them regarding her mental health needs. 12/29/2024 ADHD (attention deficit hyperactivity disorder), inattentive type (ICD-10 - F90.0) Assessment and Plan: 1. ADHD: The patient has reported severe symptoms of ADHD following the discontinuation of medication due to uncontrolled hypertension. Plan: Continue to monitor the patient's blood pressure closely and collaborate with the primary care physician to achieve better control. Reassess the feasibility of resuming ADHD medication once the patient's blood pressure has stabilized. 2. Depression: The patient acknowledges the presence of depression and its significant impact on her daily life. Plan: Encourage the patient to continue engaging in self-care and self-love practices. It is recommended that the patient explore therapeutic options with new therapist, Darcie, to address childhood trauma and continue effective coping strategies. 3. Goals and Personal Growth: The patient has set personal goals, which include reading books, painting, visiting [place], and considering streaming on Tw[employer]. Plan: Encourage the patient to continue pursuing these personal goals and interests as a means to foster self-growth and manage mental health symptoms effectively. 4. Social Support: The patient benefits from a strong support system, which includes her partner and multiple close friends. Plan: Encourage the patient to continue relying on her support system and to engage in open communication with them regarding her mental health needs. 12/29/2024 PTSD (post-traumatic stress disorder) (ICD-10 - F43.10) Assessment and Plan: 1. ADHD: The patient has reported severe symptoms of ADHD following the discontinuation of medication due to uncontrolled hypertension. Plan: Continue to monitor the patient's blood pressure closely and collaborate with the primary care physician to achieve better control. Reassess the feasibility of resuming ADHD medication once the patient's blood pressure has stabilized. 2. Depression: The patient acknowledges the presence of depression and its significant impact on her daily life. Plan: Encourage the patient to continue engaging in self-care and self-love practices. It is recommended that the patient explore therapeutic options with new therapist, Darcie, to address childhood trauma and continue effective coping strategies. 3. Goals and Personal Growth: The patient has set personal goals, which include reading books, painting, visiting the [employer] [place], and considering streaming on Tw[employer]. Plan: Encourage the patient to continue pursuing these personal goals and interests as a means to foster self-growth and manage mental health symptoms effectively. 4. Social Support: The patient benefits from a strong support system, which includes her partner and multiple close friends. Plan: Encourage the patient to continue relying on her support system and to engage in open communication with them regarding her mental health needs. Plan Of Treatment Next Appt Details Follow Up: Follow up with Cindy roper on 01/05, Reason: Provider Name:Sergio Aguayo , 01/26/2025 10:45:00 AM, [address], [facility] [address], [place], [address], Progress Notes * SAMAN CAMERONB:1980 ([age] yo F)Acc No.[id number]:12/29/2024 Patient: MATIAS KAHN Provider: Mikey Blackwell :1980 A ge:44 Y S ex:Female Date:12/29/2024 Phone: Address:[address], [facility] Pcp:Edwina Mckeon APN Data: * Time Tracker: * Date Start Time End Time Duration User Type Captured By Mode Notes 12/29/2024 11:06 AM 12:00 PM 00:53:55 Therapist Harvinder Blackwell Timer * Chief Complaints: * 1 . Therapy Visit. 2. Depression screening positive. * HPI: D epression screening: PHQ-9 L [...] (Consider Suicide Assessment Risk) T otal Score 8 I nterpretation M ild Depression Intervention D epression Screening Findings P ositve F ollow-Up for Depression [facility] treatment assessment, Patient follow-up to return when and if necessary S uicide Risk Assessment Performed 0 12/29/2024 A dditional Evaluation for Depression P sychiatric interview and evaluation N ayan of the standardized tool used for adult depression screening: P atient Health Questionnaire (PHQ-9) F unctional Status: Client presents today for psychotherapy to treat depression and ADHD. Based on the session, the client appears to be making good progress. Changes to the treatment plan are not recommended at this time. Client denies wanting to harm self or others at this time. Discussed continued treatment with client. She will be transitioning to therapy with Darcie on 01/05. The patient presents for her final therapy session before terminating treatment. She reports experiencing severe ADHD symptoms due to the discontinuation of her medication, which was stopped because of uncontrolled hypertension. She is currently on her third different antihypertensive medication. The patient describes ADHD-related symptoms such as black and white thinking and difficulty with tasks like reading TV menus or names on [employer]. She also mentions experiencing rejection sensitive dysphoria (RSD) and struggling with self-rejection. Last week, the patient had an episode of emotional distress and visited the emergency room due to concerns about angioedema from allergic reactions. An abnormal EKG was noted during the ER visit. She was prescribed steroids for chronic inflammation, which provided symptomatic relief, but she is now experiencing pain after completing the course. The patient mentions having depression that creates sometimes unmanageable symptoms, though she feels she can manage it better now and was able to list skills she has learned in the past few months to better manage symptoms. Regarding her social history, the patient lives with her spouse (Lizbeth) and two children (Marbin and Ning). She has friends (Contreras, Alanna, Isidra) and a sister (Edwina) for social support. Her hobbies and interests include abigail (over 6000 hours in one game), plants, and art (painting). She has an incomplete degree, being 7 courses away from graduating. The patient's medical history includes severe ADHD, depression, recent ER visit for abnormal EKG, history of angioedema due to allergic reactions, chronic inflammation, and uncontrolled hypertension. Her current and past medications include ADHD medication (stopped due to blood pressure issues), prednisone (recently completed course), blood pressure medication, and THC (medical marijuana). A review of systems reveals cardiovascular issues (abnormal EKG, uncontrolled blood pressure), psychiatric concerns (depression, severe ADHD symptoms, RSD), immunologic problems (angioedema, allergic reactions), and musculoskeletal pain after stopping prednisone. * Behavioral History: P ast psychiatric Hospitalization:Yes. [...] aternal Grandfather: None. M aternal Grandmother: None. Dany soto: alive, Major Depressive Episode,ADHD. S ister: alive, [...] es D o you have Power of Foundation Relations Manager for Health or Medical? N o * Medications: U nknown Vitamin B Complex - Tablet as directed Orally , Unknown Vitamin D 25 MCG (1000 UT) Tablet 1 tablet Orally Once a day , Unknown Synthroid 88 MCG Tablet Oral , Unknown Lisinopril 5 MG Tablet Oral , Unknown Nystatin 979392 UNIT/GM Cream External , Unknown Escitalopram Oxalate 20 MG Tablet Oral , Unknown Liothyronine Sodium 5 MCG Tablet Oral , Unknown Atomoxetine HCl 40 MG Capsule 1 capsule in the morning Orally Once a day , stop date 01/01/2025, Medication List reviewed and reconciled with the patient * Examination: P sychiatry: Appearance: w ell-groomed. Abnormal body movements: n one. Affect / mood: a ppropriate, full range. Aggression: l ow. Anger control: g ood. Attention: n ormal in conversation. Attitude: c ooperative. Homicidal ideation: n one. Suicidal ideation: p assive; denies active SI, plan, or intent. Memory status: n o impairment noted. Degree [...] language: n ormal rate, volume, and articulation (RVR). Thought content: a ppropriate. Thought process: i ntact. G eneral Examination: M ental Status Examination: Patient presented as reflective during the session. Expressed gratitude and a sense of closure regarding therapy. Demonstrated insight into personal growth and challenges. Reported feeling overwhelmed and dysregulated in the previous week but was mindful and proactive in managing her symptoms. Discussed feelings of rejection and self-doubt, indicating ongoing struggles with self-esteem and interpersonal relationships, though continuing to find ways to challenge this. Assessment: * Assessment: 1. M ajor depressive disorder, recurrent severe without psychotic features - F33.2 (Primary)? 2. A DHD (attention deficit hyperactivity disorder), inattentive type - F90.0? 3. P TSD (post-traumatic stress disorder) - F43.10 Assessment and Plan: 1. ADHD: The patient has reported severe symptoms of ADHD following the discontinuation of medication due to uncontrolled hypertension. Plan: Continue to monitor the patient's blood pressure closely and collaborate with the primary care physician to achieve better control. Reassess the feasibility of resuming ADHD medication once the patient's blood pressure has stabilized. 2. Depression: The patient acknowledges the presence of depression and its significant impact on her daily life. Plan: Encourage the patient to continue engaging in self-care and self-love practices. It is recommended that the patient explore therapeutic options with new therapist, Darcie, to address childhood trauma and continue effective coping strategies. 3. Goals and Personal Growth: The patient has set personal goals, which include reading books, painting, visiting [place], and considering streaming on Tw[employer]. Plan: Encourage the patient to continue pursuing these personal goals and interests as a means to foster self-growth and manage mental health symptoms effectively. 4. Social Support: The patient benefits from a strong support system, which includes her partner and multiple close friends. Plan: Encourage the patient to continue relying on her support system and to engage in open communication with them regarding her mental health needs. Plan: * Treatment: * Procedure Codes: 9 0837 PSYCHOTHERAPY W/PATIENT 60 MINUTES, 44532 BEHAV ASSMT W/SCORE & DOCD/STAND INSTRUMENT, G8431 CLIN DEPRESSION SCREEN DOC * Follow Up: Ramon martinez up with Darcie on 01/05 * Billing Information: * Visit Code: * Procedure Codes: 16514 PSYCHOTHERAPY W/PATIENT 60 MINUTES. 67801 BEHAV ASSMT W/SCORE & DOCD/STAND INSTRUMENT. G8431 CLIN DEPRESSION SCREEN DOC. * ITY ENGINEER Sign off status: Completed Signatures: No Ad Hoc Signature Added true * Provider: Mikey Blackwell Date: 0 12/29/2024 Generated for Marita Simeon/Reji on: 0 01/07/2025 02:41 PM UTILITY ENGINEER History and Physical Notes * HPI (History [...] days (Consider Suicide Assessment Risk) Total Score: 8 Interpretation: Mild Depression Intervention Depression Screening Findings: P ositve Follow-Up for Depression: [facility] treatment assessment, Patient follow-up to return when and if necessary Suicide Risk Assessment Performed: 12/29 Additional Evaluation for Depression: Ps ychiatric interview and evaluation Name of the standardized too l used for adult depression screening:: Patient Health Questionnaire (PHQ-9) Examination Category Sub-Category Detail Notes Category Not es Psychiatry Appearance: well-groomed Attitude: cooperative Psychomotor activity: within normal rang e Abnormal body movements: none Attention: normal in conversati on Degree of awareness of surroundings: wit hin normal limits Orientation: awake, alert and zach ented x 3 Affect / mood: appropriate, full ra nge Speech / language: normal rate, volume, and articulation (RVR) Insight: good Judgement: good Thought process: intact Thought content: appropriate Perceptual disorders: no perceptual diso rder noted Aggression: low Anger control: good Suicidal ideation: passive; denies acti ve SI, plan, or intent Homicidal ideation: none Intellectual functioning: no impairment noted Impulse control: good Memory status: no impairment noted Delusions: no Hallucinations: no General Examination Mental Status Examination: Patient presented as reflective during the session. Expressed gratitude and a sense of closure regarding therapy. Demonstrated insight into personal growth and challenges. Reported feeling overwhelmed and dysregulated in the previous week but was mindful and proactive in managing her symptoms. Discussed feelings of rejection and self-doubt, indicating ongoing struggles with self-esteem and interpersonal relationships, though continuing to find ways to challenge this.
--- OUTSIDE RECORDS SUMMARY | 2025-01-07 14:42 | XMS_ITS | Patient Health Record ---
Author Organization [facility] [employer] Address [address] [facility] [address] [place] [address] Care Team Providers Care Privacy Specialist Name Role Phone Edwina Mckeon APN Primary Care Provider Unavailab Edwina May Unavailable [phone] Sergio Aguayo Unavailable [phone] Allergies Allergen (clinical drug ingredient) Drug/Non Drug Allergy documented on EMR Reaction Allergy Type Onset Date Status amoxicillin / clavulanate Augmentin Unknown Drug Allergy Active Vicodin Unknown Drug Allergy Active amlodipine Amlodipine Unknown Drug Allergy Activ e lisinopril Lisinopril Unknown Drug Allergy Activ e Results Component Value Reference Range Notes UDT Reviewed date:11/26/2024 11:15:53 AM Interpretation: Performing Lab: Notes/Report: THC POS 0 - 50 ng/ml Cocaine NEG 0 - 300 ng/ml Amphetamine NEG 0 - 1000 ng/ml Buprenorphine (BUP) NEG 0 - 10 ng/ml Secobarbital (Bar) NEG 0 - 300 ng/ml Oxazepam (BZO) NEG 0 - 300 ng/ml 8-bftbvloaqz-9,5-roaohhuc-8,3-diphenylpyrrolidine (STEVIE P) NEG 0 - 300 ng/ml Methamphetamine (MET) NEG 0 - 1000 ng/ml Methylenedioxymethamphetamine (MDMA) NEG 0 - 500 ng/ml Morphine (MOP 300/EBX0355) NEG 0 - 300 ng/ml Methadone (MTD) NEG 0 - 300 ng/ml Phencyclidine (PCP) NEG 0 - 25 ng/ml Nortriptyline (TCA) NEG 0 - 1000 ng/ml Oxycodone NEG 0 - 300 ng/ml x NEG 0 - 300 ng/ml Reason For Referral No Information Medications Medication SIG (Take, Route, Frequency, Duration) Notes Start Date End Date Status Lisinopril 5 MG Oral for 90 Days Unknown Synthroid 88 MCG Oral for 90 Days Unknown Vitamin D 25 MCG (1000 UT) 1 tablet Oral ly Once a day Unknown Vitamin B Complex - as directed Orally Unknown Liothyronine Sodium 5 MCG Oral for 90 Days Unknown Escitalopram Oxalate 20 MG Oral for 90 Days Unknown Nystatin 992572 UNIT/GM External for 30 Days Unknown Social [...] Severe recurrent major depression without psychotic features (99947786) Major depressive disorder, recurrent severe without psychotic features (F33.2) Active confirmed Problem Generalized anxiety disorder (42359586) Generalized anxiety disorder (F41.1) Active confirmed Problem Essential hypertension (06811110) Essential (primary) hypertension (I10) 10/21/20 22 Active confirmed Problem Posttraumatic stress disorder (29423922) PTSD (post-traumatic stress disorder) (F43.10) Active confirmed Problem Attention deficit hyperactivity disorder, predominantly inattentive type (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) ADHD (attention deficit hyperactivity disorder), inattentive type (F90.0) Active confirmed Problem 700214410 Medical marijuan a use (Z79.899) Active confirmed Problem Polycystic ovary syndrome (disorder) (635887233) Polycystic ovarian syndrome (E28.2) 12/05/19 24 Active confirmed Problem Vitamin D deficiency (87096705) Vitamin D deficiency (E55.9) 05/29/20 23 Active confirmed Problem 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 (677980994) 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) 12/05/19 24 Active confirmed Problem Blindness - both eyes (disorder) (621877633) Blindness of both eyes (H54.3) 05/29/20 23 Active confirmed Problem Albinism (19541962) 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) 10/02/20 18 Active confirmed Vital Signs Heart Rate 98 /min 12/29/2024 Height-cm 170.18 cm 12/29/2024 Blood pressure diastolic 113 mm Hg 12/29/2024 Weight-kg 108.41 kg 12/29/2024 Height 67 in 12/29/2024 Blood pressure systolic 165 mm Hg 12/29/2024 Weight 239 lbs 12/29/2024 BMI 37.43 kg/m2 12/29/2024 Encounters Encounter Location Date Provider Diagnosis [facility] [address] [place] [address] 09/22/2024 Edwina Hinderliter Major depressive disorder, recurrent severe without psychotic features F33.2 [facility] [address] [place] [address] 09/29/2024 Edwina Hinderliter Major depressive disorder, recurrent severe without psychotic features F33.2 [facility] [address] [place] [address] 10/06/2024 Edwina Hinderliter Major depressive disorder, recurrent severe without psychotic features F33.2 [facility] [address] [place] [address] 10/13/2024 Edwina Hinderliter Major depressive disorder, recurrent severe without psychotic features F33.2 [facility] [address] [place] [address] 10/20/2024 Edwina Hinderliter Major depressive disorder, recurrent severe without psychotic features F33.2 and Generalized anxiety disorder F41.1 [facility] [address] [place] [address] 10/29/2024 Edwina Hinderliter Major depressive disorder, recurrent severe without psychotic features F33.2 and Generalized anxiety disorder F41.1 [facility] [address] [place] [address] 11/10/2024 Edwina Hinderliter Major depressive disorder, recurrent severe without psychotic features F33.2 and Generalized anxiety disorder F41.1 [facility] [address] [place] [address] 11/17/2024 Edwina Hinderliter Major depressive disorder, recurrent severe without psychotic features F33.2 and Generalized anxiety disorder F41.1 [facility] [address] [place] [address] 11/24/2024 Edwinalottie Mockliter Major depressive disorder, recurrent severe without psychotic features F33.2 and Generalized anxiety disorder F41.1 [facility] [address] [place] [address] 11/26/2024 Sergio Olivier Major depressive disorder, recurrent severe without psychotic features F33.2 ; ADHD (attention deficit hyperactivity disorder), inattentive type F90.0 ; Polycystic ovarian syndrome E28.2 ; 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 E06.3 ; Essential (primary) hypertension I10 ; Blindness of both eyes H54.3 ; Vitamin D deficiency E55.9 ; Albinism E70.30 ; Generalized anxiety disorder F41.1 and Medical marijuana use Z79.899 [facility] [address] [place] [address] 12/08/2024 Edwinalottie Mockliter Major depressive disorder, recurrent severe without psychotic features F33.2 ; Generalized anxiety disorder F41.1 and ADHD (attention deficit hyperactivity disorder), inattentive type F90.0 [facility] [address] [place] [address] 12/15/2024 Edwinalottie Mockliter ADHD (attention deficit hyperactivity disorder), inattentive type F90.0 ; Major depressive disorder, recurrent severe without psychotic features F33.2 and Generalized anxiety disorder F41.1 [facility] [address] [place] [address] 12/22/2024 Edwinalottie Mockliter Major depressive disorder, recurrent severe without psychotic features F33.2 ; Generalized anxiety disorder F41.1 ; ADHD (attention deficit hyperactivity disorder), inattentive type F90.0 and PTSD (post-traumatic stress disorder) F43.10 [facility] [address] [place] [address] 12/29/2024 Sergio Olivier Major depressive disorder, recurrent severe without psychotic features F33.2 ; Generalized anxiety disorder F41.1 ; PTSD (post-traumatic stress disorder) F43.10 and ADHD (attention deficit hyperactivity disorder), inattentive type F90.0 [facility] [address] [place] [address] 12/29/2024 Edwina Blackwell Major depressive disorder, recurrent severe without psychotic features F33.2 ; ADHD (attention deficit hyperactivity disorder), inattentive type F90.0 and PTSD (post-traumatic stress disorder) F43.10 [facility], [place] [address] [place] [address] 01/05/2025 Edwina Blackwell [facility], [facility] [address] [place] [address] 11/26/2024 Edwina Blackwell [facility], [facility] [address] [facility] [address] [place] [address] 12/15/2024 Edwina Blackwell [facility], [facility] [address] [place] [address] 11/09/2024 Edwina Blackwell [facility], [facility] [address] [facility] [address] [place] [address] 11/29/2024 Edwina Blackwell [facility], [facility] [address] [facility] [address] [place] [address] 11/30/2024 Edwina Blackwell [facility], [facility] [address] [facility] [address] [place] [address] 12/15/2024 Edwina Blackwell Assessments Encounter Date Diagnosis (ICD Code) Assessment Notes Treatment Notes Treatment Clinical Notes Section Notes 09/22/2024 Major depressive disorder, recurrent severe without psychotic features (ICD-10 - F33.2) Marital Status: senior living partnership Living Arrangement: lives with partner and [...] potential medication adjustments. 4. Vision Impairment and [place] - Discuss strategies to enhance the patient's [...] Sleep Issues and Insomnia - Continue monitoring Matias's sleep patterns and discuss stress management techniques to mitigate insomnia, especially nocturnal thoughts that may contribute to sleep disturbances. 2. Premenstrual Dysphoric Disorder (PMDD) - Closely track Matias's mood and menstrual cycle to assess for PMDD, noting the unusual frequency of her periods and historical mood fluctuations. - Consider hormonal therapy or antidepressants following a thorough evaluation if PMDD is diagnosed. 3. Stress and Coping Mechanisms - Encourage Matias to utilize therapy sessions for developing healthier coping mechanisms and improving communication strategies within her relationships. - Support Matias in establishing boundaries and assertiveness in decision-making [...] Support and Family Dynamics - Continue supporting Matias in setting boundaries with family members and advocating for her needs in social settings. - Encourage open communication with her family about her preferences and limitations to reduce anxiety related to social interactions and decision-making. 6. General Mental Health and Well-being - Consider a comprehensive mental health evaluation to reassess Matias's current treatment plan, including potential medication adjustments and therapy focus enhancements. - Encourage regular therapy sessions to address significant depressive symptoms and improve overall mental health, acknowledging her feelings of being a shell and her history of depression. Follow-up: - Schedule a follow-up appointment to monitor Matias's progress and continue addressing the identified issues. 10/06/2024 Major depressive disorder, recurrent severe without psychotic features (ICD-10 - F33.2) 1. Thyroid Dysfunction Management - Continue monitoring and management under the care of her barrel bander for hyperthyroidism, as indicated by a TSH [...] Follow-up: Schedule the next therapy session for November 17, at a time convenient for the patient (, 11, or 1). Offer the option to [...] Follow-up: Schedule the next therapy session for November 17, at a time convenient for [...] report any changes or worsening to the senior marketing specialist. PTSD Continue with current therapy sessions [...] report any changes or worsening to the senior marketing specialist. PTSD Continue with current therapy sessions [...] resources such as How to ADHD on [employer] and [employer] for additional support and information. Rejection-Sensitiv e [...] as How to ADHD on [employer] and [employer] for additional support and information. Rejection-Sensitiv e [...] strategies and self-compassion practices in daily life. 12/22/2024 Major depressive disorder, recurrent severe without psychotic features (ICD-10 - F33.2) Assessment and Plan: Rejection Sensitivity Dysphoria (RSD) Continue monitoring symptoms and triggers associated with RSD. Encourage the patient to communicate with her support system during episodes of RSD. Consider the introduction of group therapy as a controlled setting to address rejection sensitivity. Depression Keep track of mood fluctuations and identify potential triggers. Encourage the patient to adhere to a daily schedule that includes self-care activities and designated breaks. Explore the use of Dialectical Behavior Therapy (DBT) techniques for improving emotion regulation and distress tolerance. Dissociation Advise the patient to take intentional breaks or mental vacations to avert involuntary dissociative episodes utilizing the IMPROVE method. Monitor the frequency and duration of dissociative episodes to assess the patient's condition. Anxiety Related to Current Events and Personal Safety Encourage the patient to dissect concerns into smaller, more manageable segments. Focus on elements within the patient's control and develop coping strategies for handling external stressors. Trauma History Validate the patient's experiences and recognize the influence of past traumas on her current functioning. Encourage the patient to practice self-compassion and forgiveness towards her younger self. Potential Need for Increased Therapy Frequency Evaluate the patient's progress and consider the need for more frequent therapy sessions if deemed necessary. Encourage the patient to openly communicate her needs and concerns regarding the frequency of therapy sessions. Consider referral for Intensive Outpatient Program (IOP). Social Support and Communication Encourage the patient to seek out friends and family for support during challenging times. Focus on enhancing healthy communication skills and establishing boundaries with loved ones. 12/22/2024 Generalized anxiety disorder (ICD-10 - F41.1) Assessment and Plan: Rejection Sensitivity Dysphoria (RSD) Continue monitoring symptoms and triggers associated with RSD. Encourage the patient to communicate with her support system during episodes of RSD. Consider the introduction of group therapy as a controlled setting to address rejection sensitivity. Depression Keep track of mood fluctuations and identify potential triggers. Encourage the patient to adhere to a daily schedule that includes self-care activities and designated breaks. Explore the use of Dialectical Behavior Therapy (DBT) techniques for improving emotion regulation and distress tolerance. Dissociation Advise the patient to take intentional breaks or mental vacations to avert involuntary dissociative episodes utilizing the IMPROVE method. Monitor the frequency and duration of dissociative episodes to assess the patient's condition. Anxiety Related to Current Events and Personal Safety Encourage the patient to dissect concerns into smaller, more manageable segments. Focus on elements within the patient's control and develop coping strategies for handling external stressors. Trauma History Validate the patient's experiences and recognize the influence of past traumas on her current functioning. Encourage the patient to practice self-compassion and forgiveness towards her younger self. Potential Need for Increased Therapy Frequency Evaluate the patient's progress and consider the need for more frequent therapy sessions if deemed necessary. Encourage the patient to openly communicate her needs and concerns regarding the frequency of therapy sessions. Consider referral for Intensive Outpatient Program (IOP). Social Support and Communication Encourage the patient to seek out friends and family for support during challenging times. Focus on enhancing healthy communication skills and establishing boundaries with loved ones. 12/29/2024 Major depressive disorder, recurrent severe without psychotic features (ICD-10 - F33.2) 12/29/2024 Generalized anxiety disorder (ICD-10 - F41.1) 12/29/2024 Major depressive disorder, recurrent severe without [...] which include reading books, painting, visiting the [employer], and considering streaming on Tw[employer]. Plan: Encourage [...] with them regarding her mental health needs. 12/22/2024 ADHD (attention deficit hyperactivity disorder), inattentive type (ICD-10 - F90.0) Assessment and Plan: Rejection Sensitivity Dysphoria (RSD) Continue monitoring symptoms and triggers associated with RSD. Encourage the patient to communicate with her support system during episodes of RSD. Consider the introduction of group therapy as a controlled setting to address rejection sensitivity. Depression Keep track of mood fluctuations and identify potential triggers. Encourage the patient to adhere to a daily schedule that includes self-care activities and designated breaks. Explore the use of Dialectical Behavior Therapy (DBT) techniques for improving emotion regulation and distress tolerance. Dissociation Advise the patient to take intentional breaks or mental vacations to avert involuntary dissociative episodes utilizing the IMPROVE method. Monitor the frequency and duration of dissociative episodes to assess the patient's condition. Anxiety Related to Current Events and Personal Safety Encourage the patient to dissect concerns into smaller, more manageable segments. Focus on elements within the patient's control and develop coping strategies for handling external stressors. Trauma History Validate the patient's experiences and recognize the influence of past traumas on her current functioning. Encourage the patient to practice self-compassion and forgiveness towards her younger self. Potential Need for Increased Therapy Frequency Evaluate the patient's progress and consider the need for more frequent therapy sessions if deemed necessary. Encourage the patient to openly communicate her needs and concerns regarding the frequency of therapy sessions. Consider referral for Intensive Outpatient Program (IOP). Social Support and Communication Encourage the patient to seek out friends and family for support during challenging times. Focus on enhancing healthy communication skills and establishing boundaries with loved ones. 12/29/2024 PTSD (post-traumatic stress disorder) (ICD-10 - F43.10) 12/15/2024 Generalized anxiety disorder (ICD-10 - F41.1) Assessment and Plan: ADHD Acknowledge the patient's increased awareness and understanding of ADHD symptoms and their impact. Maintain the current treatment plan and monitor progress. Recommend exploring resources such as How to ADHD on [employer] and [employer] for additional support and information. Rejection-Sensitiv e [...] report any changes or worsening to the senior marketing specialist. PTSD Continue with current therapy sessions [...] due to Lynn's thyroiditis (ICD-10 - E06.3) 12/22/2024 PTSD (post-traumatic stress disorder) (ICD-10 - F43.10) Assessment and Plan: Rejection Sensitivity Dysphoria (RSD) Continue monitoring symptoms and triggers associated with RSD. Encourage the patient to communicate with her support system during episodes of RSD. Consider the introduction of group therapy as a controlled setting to address rejection sensitivity. Depression Keep track of mood fluctuations and identify potential triggers. Encourage the patient to adhere to a daily schedule that includes self-care activities and designated breaks. Explore the use of Dialectical Behavior Therapy (DBT) techniques for improving emotion regulation and distress tolerance. Dissociation Advise the patient to take intentional breaks or mental vacations to avert involuntary dissociative episodes utilizing the IMPROVE method. Monitor the frequency and duration of dissociative episodes to assess the patient's condition. Anxiety Related to Current Events and Personal Safety Encourage the patient to dissect concerns into smaller, more manageable segments. Focus on elements within the patient's control and develop coping strategies for handling external stressors. Trauma History Validate the patient's experiences and recognize the influence of past traumas on her current functioning. Encourage the patient to practice self-compassion and forgiveness towards her younger self. Potential Need for Increased Therapy Frequency Evaluate the patient's progress and consider the need for more frequent therapy sessions if deemed necessary. Encourage the patient to openly communicate her needs and concerns regarding the frequency of therapy sessions. Consider referral for Intensive Outpatient Program (IOP). Social Support and Communication Encourage the patient to seek out friends and family for support during challenging times. Focus on enhancing healthy communication skills and establishing boundaries with loved ones. 12/29/2024 ADHD (attention deficit hyperactivity disorder), inattentive type (ICD-10 - F90.0) 11/26/2024 Essential (primary) hypertension (ICD-10 - I10) [...] - Monitor for any ongoing trauma-related symptoms. 12/29/2024 Other ADHD - Assessment: Patient reports discontinuation of ADHD medication for the past week due to concerns about blood pressure control and is noticing its absence. - Plan: - Await forge shop machine repairer appointment on January 19 for further evaluation [...] lisinopril and loxapine. - Follow up with forge shop machine repairer appointment on January 19 for further evaluation and management. - Continue taking Zyrtec as needed for allergy symptoms. Abnormal EKG - Assessment: Patient had an abnormal EKG in the ER during the angioedema episode. - Plan: - Proceed with scheduled echocardiogram next Friday at [facility] to further evaluate cardiac function and any [...] Follow up as needed. Plan Of Treatment Next Appt Details Provider Name:Sergio Aguayo , 01/26/2025 10:45:00 AM, [address], [facility] [address], [place], [address], Insurance Providers Payer Name Payer Address Payer Phone Subscriber Number Group Number Insured Name Patient Relationship to Insured Coverage Start Date Coverage End Date Medicare-I l Medicare [address] [place] [id number] MATIAS CAMERON Self - patient is the insured [...]
== END 2025-01-07 14:33 | disposition home or self-care (01) ==
LOC: ANHCARD 14:33
PROVIDERS: PCP Internal Medicine; Visit Provider Nurse Practitioner
DX: I45.10 Unspecified right bundle-branch block (principal); I10 Essential (primary) hypertension
CPT/HCPCS: 93306

== ENCOUNTER 2025-01-29 09:16 | Outpatient (CLI) | payer OTHER, SELFPAY ==
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
--- OUTSIDE RECORDS SUMMARY | 2025-01-29 09:20 | XMS_ITS | Referral Summary ---
Author Organization [facility] [address] Address [address] [place] [address] Care Team Providers Care System Administration Manager Name Role Phone Walter Erwin DO Primary Care Provider [phone]- [phone] Encounters Date Type Department Care Team Description 01/24/2025 Results Follow-Up [facility] [address] [facility] [address] [place] [address] Dirk Mohr MD 01/19/2025 3:30 PM CDT Lab [facility] [address] [place] [address] [address] [place] [address] 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, initial encounter; Angioedema, initial encounter 01/19/2025 2:20 PM CDT Office Visit [facility] [address] [facility] [address] [place] [address] Dirk Mohr MD Angioedema, initial encounter (Primary Dx); 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, initial encounter 12/08/2024 8:00 AM EXPELLER WORKER Office Visit [facility] [address] [facility] [address] [place] [address] Arnulfo Molina, OD 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 Take 1 tablet (112 mcg total) by mouth daily 90 tablet 3 12/08/19 24 Active Bystolic 10 mg tablet daily Active hydroCHLOROthia zide (HYDRODIURIL) 25 mg tablet daily Active VITAMIN B COMPLEX ORAL as directed Orally Active famotidine (Pepcid) 20 mg tablet daily Active cetirizine (ZyrTEC) 10 mg tablet daily Active Trulicity 3 mg/0.5 mL pen injector INJECT 3 MG SUBCUTANEOUSLY EVERY WEEK AT DINNER FOR 90 DAYS 10/22/20 23 025 Discontin ued(Thera py completed ) multivitamin tablet Take 1 tablet by mouth daily 025 Discontin ued(Thera py completed ) Active Problems Problem Noted Date Diagnosed Date 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 Assessment & Plan (12/08/2024 8:58 AM EXPELLER WORKER): Very difficult views with nystagmus DFE generally [...] PRN with concerns GERD (gastroesophageal reflux disease) 4 Overview (12/08/2024): Last Assessment & Plan: Condition: [...] thyroiditis Assessment & Plan (12/08/2023 8:29 AM EXPELLER WORKER): Chronic, unknown status Continue current dose of Synthroid 112 mcg oral daily Advised to stop Cytomel Recheck thyroid function test today and further plans based on it Class 1 obesity due to exces s calories with serious comorbidity and body mass index (BMI) of 33.0 to 33.9 in adult 12/05/2023 Assessment & Plan (12/08/2023 8:30 AM EXPELLER WORKER): Chronic, progressively improving with Trulicity 3 mg subQ weekly dose Advised patient to include healthy lifestyle habits Include complex carbs, healthy fats and proteins Work on portion control Avoid eating processed food cutback on sugar Advised to start exercising at least 30-40 minutes every day Prediabetes 12/05/2023 Assessment & Plan (12/08/2023 8:30 AM EXPELLER WORKER): On Trulicity Recheck A1c Counseled on diet [...] month Assessment & Plan (12/08/2023 8:30 AM EXPELLER WORKER): Counseled on diet and exercise EMY (generalized [...] Date Smoking Tobacco: Never Smokeless Tobacco: Never Tobacco Cessation:Counseling Given: Not Answered AUDIT-C Answer Date Recorded Frequency of Alcohol Consumption Not on file 12/05/2023 Q2: How many drinks containi ng alcohol do you have on a typical day when you are drinking? Patient does not drink Frequency of Binge Drinking Not on file 12/2023 Comments Unknown Sex and Gender Information Value Date Recorded Sex Assigned at Not on file Legal Sex Female 5:17 PM EXPELLER WORKER Gender Identity Female 12/05/2023 10:07 AM EXPELLER WORKER Sexual Orientation Choose not to disclose 2023 10:07 AM EXPELLER WORKER Last Filed Vital Signs Vital Sign Reading Time Taken Comments Blood Pressure 117/79 01/19/2025 2:21 PM CDT Pulse 54 01/19/2025 2:21 PM CDT Temperature 36.5 C (97.7 F) 01/19/2025 2:21 PM CDT Respiratory Rate 16 12/05/2023 11:22 AM EXPELLER WORKER Oxygen Saturation 96% 01/19/2025 2:21 PM CDT Inhaled Oxygen Concentration - - Weight 112 kg (247 lb) 01/19/2025 2:21 PM CDT Height 170.2 cm (5' 7 ) 01/19/2025 2:21 PM CDT Body Mass Index 38.69 01/19/2025 2:21 PM CDT Plan of Treatment Not on file Procedures Procedure Name Priority Date/Time Associated Diagnosis Comments TRYPTASE Routine 01/19/2025 3:30 PM CDT 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, initial encounter Angioedema, initial encounter C4 COMPLEMENT Routine 01/19/2025 3:30 PM CDT 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, initial encounter Angioedema, initial encounter from Last 3 Months Results * C4 complement (01/19/2025 3:30 PM CDT) Complement C4 30.0 10.0 - 40.0 mg/dL Blood 01/19/2025 3:30 PM CDT 01/19/2025 6:13 PM CDT Dirk Mohr MD LAB BLOOD ORDERABLES Fi nal Result Performing Organization Address City/[facility] Co de Phone Number [facility] Department [place] [address] * Tryptase (01/19/2025 3:30 PM CDT) Tryptase Level 3.1 <11.5 ng/mL Garcia ref Lab Comment: Test Performed by: [facility] [address] [place] [address] Key Punch Operator: Galen Gallardo Ph.D.; CLIA# [id number] Blood 01/19/2025 3:30 PM CDT 01/19/2025 6:44 PM CDT Dirk Mohr MD LAB BLOOD ORDERABLES Fi nal Result Performing Organization Address [facility] Co de Phone Number [facility] Department [place] [address] [place] ref Lab from Last 3 Months Insurance [facility] Member Subscriber Plan / Payer (Ef fective 2024-Present) Name:Cheryl Alvarez Relation to Subscriber:Self Name:Cheryl Alvarez Payer ID:[id number] (NAIC) Group ID:Not on file Type:MEDICAID RISK OTHER Address: [address] [facility] Member Subscriber Plan / Payer ( fective 2021-Present) Name:Cheryl Alvarez Relation to Subscriber:Self Name:Cheryl Alvarez Payer ID:[id number] (NAIC) Type:MEDICARE RISK OTHER Address: [address] Care Teams System Administration Manager Relationship Specialty Start Date End Date Walter Erwin DO PCP - General Internal Medicine 10/20/24
--- OUTSIDE RECORDS SUMMARY | 2025-01-29 09:20 | XMS_ITS | Clinical Summary ---
Author Organization [facility] [address] Address [address] [place] [address] Care Team Providers Care Lobby Attendant Name Role Phone Walter Erwin DO Primary Care Provider [phone]- [phone] Allergies Active Allergy Reactions Criticality Noted Date [...] 12/08/2024 Assessment & Plan (12/08/2024 8:58 AM BUILDING RIGGER): Very difficult views with nystagmus DFE generally [...] thyroiditis Assessment & Plan (12/08/2023 8:29 AM BUILDING RIGGER): Chronic, unknown status Continue current dose of Synthroid 112 mcg oral daily Advised to stop Cytomel Recheck thyroid function test today and further plans based on it Class 1 obesity due to exces s calories with serious comorbidity and body mass index (BMI) of 33.0 to 33.9 in adult 12/05/2023 Assessment & Plan (12/08/2023 8:30 AM BUILDING RIGGER): Chronic, progressively improving with Trulicity 3 mg subQ weekly dose Advised patient to include healthy lifestyle habits Include complex carbs, healthy fats and proteins Work on portion control Avoid eating processed food cutback on sugar Advised to start exercising at least 30-40 minutes every day Prediabetes 12/05/2023 Assessment & Plan (12/08/2023 8:30 AM BUILDING RIGGER): On Trulicity Recheck A1c Counseled on diet [...] month Assessment & Plan (12/08/2023 8:30 AM BUILDING RIGGER): Counseled on diet and exercise EMY (generalized [...] Department Care Team Description 01/24/2025 Results Follow-Up [facility] [address] [place] [address] Dirk Mohr MD 01/19/2025 3:30 PM CDT Lab [facility] [address] [place] [address] 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, initial encounter; Angioedema, initial encounter 01/19/2025 2:20 PM CDT Office Visit [facility] [address] [place] [address] [address] [place] [address] Dirk Mohr MD Angioedema, initial encounter (Primary Dx); 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, initial encounter 12/08/2024 8:00 AM BUILDING RIGGER Office Visit [facility] [address] [address] Arnulfo Molina Justine, OD Ocular albinism (Primary Dx) from Last [...] on file Legal Sex Female 5:17 PM BUILDING RIGGER Gender Identity Female 12/05/2023 10:07 AM BUILDING RIGGER Sexual Orientation Choose not to disclose 2023 10:07 AM BUILDING RIGGER Obstetrics History Last Filed Vital Signs Vital Sign Reading Time Taken Comments Blood Pressure 117/79 01/19/2025 2:21 PM CDT Pulse 54 01/19/2025 2:21 PM CDT Temperature 36.5 C (97.7 F) 01/19/2025 2:21 PM CDT Respiratory Rate 16 12/05/2023 11:22 AM BUILDING RIGGER Oxygen Saturation 96% 01/19/2025 2:21 PM CDT Inhaled Oxygen Concentration - - Weight 112 kg (247 lb) 01/19/2025 2:21 PM CDT Height 170.2 cm (5' 7 ) 01/19/2025 2:21 PM CDT Body Mass Index 38.69 01/19/2025 2:21 PM CDT Plan of Treatment Health Maintenance Due Date Last Done Comments Breast Cancer Screening-Mammogram 1981 Cervical Cancer Screening 1981 Depression Screening 1981 Hepatitis C Screening 1981 DTaP/Tdap/Td Vaccine (1 - Tdap) 1992 Varicella Vaccines (1 of 2 - 13+ 2-dose series) 1994 Hepatitis B Screening 1999 Regular Well Visit/Exam 18-64 1999 Covid-19 Vaccine (2023-2 5 season) 2024 10/12/2021, 01/05/2021 Influenza Vaccine (#1) 2024 5, 08/30/2013, 08/27/2013 HPV Vaccines Aged Out No longer eligi ble based on patient's age to complete this topic Pneumococcal vaccine <65 Aged Out No longer eligible based on patient's age to complete this topic Procedures Procedure Name Priority Date/Time Associated Diagnosis [...] ORDERABLES Fi nal Result Performing Organization Address City/State/[facility] Co de Phone Number [facility] Department [place] [address] * Tryptase (01/19/2025 3:30 PM CDT) Tryptase Level 3.1 <11.5 ng/mL Garcia ref Lab Comment: Test Performed by: [facility] [address] [place] [address] Dope Heater: Galen Gallardo Ph.D.; CLIA# [id number] Blood 01/19/2025 3:30 PM CDT 01/19/2025 6:44 PM CDT Dirk Mohr MD LAB BLOOD ORDERABLES Fi nal Result [facility] Department [place] [address] [place] ref Lab from Last 3 Months Insurance [facility] Member Subscriber Plan / Payer (Ef fective 2024-Present) Name:Cheryl Alvarez Relation to Subscriber:Self Name:Cheryl Alvarez Payer ID:[id number] (NAIC) Group ID:Not on file Type:MEDICAID RISK OTHER Address: [address] [place] [place] [facility] [place] Care Teams Lobby Attendant Relationship Specialty Start Date End Date Walter Erwin DO PCP - General Internal Medicine 10/20/24
--- OUTSIDE RECORDS SUMMARY | 2025-01-29 09:21 | XMS_ITS ---
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 things: Not at all Feeling down, depressed, or hopeless: No t at all Trouble falling or staying a sleep, or sleeping too much: More than half the days Feeling tired or having little energy: M ore than half the days Poor appetite or overeating: Several day s Feeling bad about yourself o r that you are a failure, or have let yourself or your family down: Not at all Trouble concentrating on thi ngs, such as reading the newspaper or watching television: More than half the days Moving or speaking so slowly that other people could have noticed; or the opposite, being so fidgety or restless that you have been moving around a lot more than usual: Not at all Thoughts that you would be b lei off or of hurting yourself in some way: Not at all Total Score: 7 Interpretation: Mild Depression Intervention Depression Screening Findings: P ositve Follow-Up for Depression: [facility] treatment assessment, Patient follow-up to return when and if necessary Suicide Risk Assessment Performed: 01/19 Client denies plan or intent to harm herself per PHQ and CSSR Additional Evaluation for De pression: Psychiatric interview and evaluation Name of the standardized too l used for adult depression screening:: Patient Health Questionnaire (PHQ-9) Depression Screening EMY-7 (2018 Edition) Feelin g nervous, anxious, or on edge: Several days Not being able to stop or control worryi ng: Not at all Worrying too much about different things : Several days Trouble relaxing: Several days Being so restless that it is hard to sit still: Several days Becoming easily annoyed or irritable: Se veral days Feeling afraid as if something awful rhonda ht happen: Not at all Total EMY-7 Score: 5 If you checked any problems, how difficult have they made it for you to do your work, take care of things at home, or get along with other people?: Somewhat difficult Interpretation of Total: (5 to 9) Mild [place]-Suicide Severity Rating Scale Suicide Risk (CSRS-screener) in the past one month Have you wished you were or wished you could go to sleep and not wake up?: Yes in the past one month Have y ou actually had any thoughts of killing yourself?: No Examination Category Sub-Category Detail Notes Category Not es Psychiatry Client is eddy anita groomed and oriented X 3
--- OUTSIDE RECORDS SUMMARY | 2025-01-29 09:21 | XMS_ITS | Data Portability ---
Author Organization [place] [facility], Main Office Address [address] [place] [address] Assessment Encounter Date Assessment Date Assessment LastModified by Organization Details LastModified Time 04/22/2024 04/22/2024 Assessment: Delayed sleep phase syndrome Mild OSHS, HI = 4 Plan: The following were reviewed and explained to the patient: primary care/referral note [facility] home sleep study 04/14/24 HI = 4, supine HI = 18. Sleep in lateral recumbent or semirecumbent position for the time being. There could also be substantial uldhd-gs-[id number] variability in the AHI that can lead [...] were reviewed and explained to the patient: [facility] home sleep study 04/14/24 HI = 4, supine HI = 18 [facility] diagnostic sleep study 06/08/24 sleep onset = [...] were reviewed and explained to the patient: [facility] home sleep study 04/14/24 HI = 4, supine HI = 18 [facility] diagnostic sleep study 06/08/24 sleep onset = 18 minutes, REM onset = none, AHI = 6, supine AHI = 36, PLMI = 2 [facility] titration sleep study 08/03/24 sleep onset = [...] carrier. Patient will setup an appointment with [facility] for supplies and pressure adjustments. A [...] were reviewed and explained to the patient: [facility] home sleep study 04/14/24 HI = 4, supine HI = 18 [facility] diagnostic sleep study 06/08/24 sleep onset = 18 minutes, REM onset = none, AHI = 6, supine AHI = 36, PLMI = 2 [facility] titration sleep study 08/03/24 sleep onset = [...] duration at 20 minutes. 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 Keep humidifier level at 2. Keep tube [...] carrier. Patient will setup an appointment with [facility] for supplies and pressure adjustments. A [...] Imaging polysomno gram, titration study 2023 024 [email or web address] [facility], [address] [place], [address], 07/19/2024 10:04:06 polysomno gram, diagnosti c, 6 yrs or older - approved [id number] 1 04/22/24-2023 024 [email or web address] [facility], [address] [place], [address], 05/03/2024 08:12:03 home sleep study - *Please call pt to schedule* 2023 024 [facility], [address] [place], [address], 04/16/2024 14:48:34 Medication Orders aspirin 81 mg tablet,de layed release 2023 024 [id number], [address], [id number], 11/24/2024 09:35:14 losartan 50 mg tablet 2023 024 [facility] #[id number], [address], [id number], 04/22/2024 10:06:10 Patient TargetsNo targets recorded. Patient InstructionsNo instructions recorded. Reason for Referral None Reported. Results Created Date Observation Date Name Description Value Unit Range Abnormal Flag Note LastModifiedBy Organization Detail LastModifiedTime 03/17/2003/17/2024 US, thyro id No observ ation record ed. [facility] [address] [place] [address], [address], 03/18/2024 13:20:14 04/16/20 24 04/14/2024 home sleep study No observ ation record ed. [email or web address] [facility] [address] [place], [address], 05/21/2024 09:41:12 04/16/20 24 04/14/2024 home sleep study No observ ation record ed. [facility] [address] [place], [address], 04/16/2024 14:48:34 06/11/20 24 06/08/2024 polys omnog mario, diagn ostic , 6 yrs or older No observ ation record ed. [facility] [address] [place], [address], 06/11/2024 12:17:27 08/24/20 24 08/03/2024 polys omnog mario, titra tion study No observ ation record ed. [facility] [address] [place], [address], 08/24/2024 10:07:59 Result Notes None recorded. Problems Name Problem SNOMED Code Status Onset Date Resolution Date Notes Provider Name and Address Organization Details Recorded Time Polycystic ovary syndrome 750868251 Active 2022 Not Available [facility] 3 22:28:42 Prediabete s 683038031 Active 2022 Not Available [employer] 3 22:28:42 Arthritis 4243820 Active 2022 Not Available [facility] 3 22:28:42 Mixed anxiety and depressive disorder 550934848 Active 2022 Not Available [employer] 3 22:28:42 Cobalamin deficiency 185524842 Active 2023 Jess Plascencia MD [address] [facility] [address], [place], [address] , [facility] [employer] [facility] 4 12:27:48 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 Not Available [facility] 3 22:28:42 Pain in throat 089166779 Completed Not Available [facility] 3 03:22:27 Blindness - both eyes 882205396 Active Not Available [employer] 3 22:28:42 Vitamin D deficiency 19282981 Active Not Available [facility] 3 22:28:42 Goiter 8965346 Active Not Available [facility] 3 22:28:42 Hypothyroi dism 14526184 Active Not Available [facility] 3 22:28:42 Hemorrhoid s 68747704 Active Not Available [facility] 3 22:28:42 Essential hypertensi on 14083047 Active 2023 MARTINE Mcginnis-C [address], [place], [address] , [employer] 4 14:32:49 Varicose veins of lower extremity 09388700 Active 2023 MARTINE Mcginnis-C [address], [address], [place], [address] , [employer] 4 14:33:55 Obstructiv e sleep apnea syndrome 54631477 Active 2023 Jw Phipps MD [address], [address], [place], [address] , [employer] 4 10:44:19 Notes:Medical History: Beltran ism Depression/Anxiety [...] Most Recent Mammogram completed Lola Chávez LPN [employer] 01/08/2024 11:27:10 4 delivery completed Not Available [facility] 01/01/2023 03:14:20 2 delivery completed Not Available [employer] 01/01/2023 03:14:20 Imaging Results Imaging Date Name Status LastModified by Organiz ation Details LastModified Time 03/17/2024 US, thyroid completed [facility] [address], [place], [address], 03/18/2024 13:20:14 04/14/2024 home sleep study completed [address] [place], [address], 05/21/2024 09:41:12 04/14/2024 home sleep study completed [facility] [address] [place], [address], 04/16/2024 14:48:34 06/08/2024 polysomnogram, diagnostic, 6 yrs or older completed [facility] [address] [place], [address], 06/11/2024 12:17:27 08/03/2024 polysomnogram, titration study completed [facility] [address] [place], [address], 08/24/2024 10:07:59 Procedure Notes None recorded. Medical Equipment None Reported. Allergies Allergen ID Allergen Name Allergen Category Reaction Reaction Severity Criticality Documentation Date Start Date Code Code System Note Provider Name and Address Organization Details Recorded Time 6274 acetamino phen / hydrocodo ne medicatio n itching Not available Not available 01/01/2023 00389 2 RxNorm Not Available [facility] 3 03:34:13 6275 Augmentin medicatio n diarrhea Not available Not available 01/01/2023 06056 2 RxNorm Not Available [facility] 3 03:34:13 Medications Name Sig Start Date [...] tablets in a dose pack TK PER [facility] DIRECTION S UTD FOR 6 DAYS [...] Updated DateTime 4 170.18 cm 35.2 kg/m2 988591. 28 g 97.1 [degF] 79 /min 96 % 96 % 152 mm[Hg] 98 mm[Hg] Keara Santana RN [place] [employer] [facility] 4 14:13:47 Date Recorded Body height Body mass index (BMI) Body weight Heart rate Oxygen saturation Oxygen saturation in Arterial blood by Pulse oximetry Body temperature Systolic blood pressure Diastolic blood pressure Provider Name and Address Organization Details Last Updated DateTime 4 170.18 cm 35.2 kg/m2 110916. 28 g 70 /min 98 % 98 % 97.6 [degF] 120 mm[Hg] 70 mm[Hg] Enedina Sánchez CMA [place] [employer] [facility] [employer] [facility] 4 10:02:54 Date Recorded Heart rate Respiratory rate Provider N ayan and Address Organization Details Last Updated DateTime 04/22/2024 70 /min 15 /min Jw Phipps MD [address], [place], [address], [place] [employer] [facility] [employer] 04/22/2024 10:49:29 Date Recorded Body height Body mass index (BMI) Body weight Body temperature Heart rate Oxygen saturation Oxygen saturation in Arterial blood by Pulse oximetry Systolic blood pressure Diastolic blood pressure Provider Name and Address Organization Details Last Updated DateTime 4 170.18 cm 37 kg/m2 086440. 8 g 98.1 [degF] 76 /min 97 % 97 % 118 mm[Hg] 76 mm[Hg] Sosa Mazariegos MA [facility] [employer] 4 09:09:52 Date Recorded Heart rate Respiratory rate Provider N ayan and Address Organization Details Last Updated DateTime 06/16/2024 76 /min 15 /min Jw Phipps MD [address], [place], [address], [employer] 06/16/2024 09:49:18 Date Recorded Body height Body mass index (BMI) Body weight Heart rate Oxygen saturation Oxygen saturation in Arterial blood by Pulse oximetry Body temperature Systolic blood pressure Diastolic blood pressure Provider Name and Address Organization Details Last Updated DateTime 4 170.18 cm 37.1 kg/m2 272089. 39 g 75 /min 97 % 97 % 98.1 [degF] 118 mm[Hg] 70 mm[Hg] Enedina Sánchez CMA [place] [employer] [place] [facility] [employer] 4 09:31:48 Date Recorded Heart rate Respiratory rate Provider N ayan and Address Organization Details Last Updated DateTime 08/24/2024 75 /min 15 /min Jw Phipps MD [address] [facility], [address], [place], [address], [place] [employer] [facility] [employer] 08/24/2024 09:59:00 Date Recorded Body height Body mass index (BMI) Body weight Body temperature Heart rate Oxygen saturation Oxygen saturation in Arterial blood by Pulse oximetry Systolic blood pressure Diastolic blood pressure Provider Name and Address Organization Details Last Updated DateTime 170.18 cm 38.2 kg/m2 693203. 54 g 97.7 [degF] 70 /min 98 % 98 % 126 mm[Hg] 84 mm[Hg] Sosa Mazariegos MA [place] [employer] [place] [facility] 09:22:52 Date Recorded Heart rate Respiratory rate Provider Flor botello and Address Organization Details Last Updated DateTime 11/24/2024 70 /min 15 /min Jw Phipps MD [address] [facility], [address], [place], [address], [employer] 11/24/2024 09:44:05 Social History Question Answer Notes LastModified by Organizat ion Details LastModified Time Tobacco Smoking Status Never Smoker SHERRI Garg null, [facility] [employer] 08/14/2023 15:59:16 What Is Your Level Of Alcohol Consumption? None [id number] Information not available 01/01/2023 What Is Your Level Of Caffeine Consumption? Occasional [id number] Information not available 01/01/2023 How Much Tobacco Do You Chew? None [id number] Information not available 01/01/2023 In The 14 [...] Used Smokeless Tobacco? Never Used Smokeless Tobacco [id number] Information not available 01/01/2023 Do You Feel Stressed (tense, Restless, Nervous, Or Anxious, Or Unable To Sleep At Night)? [id number] Information not available 06/16/2024 Do You Use [...] Organization Details LastModified Time Mother Rheumatoid arthritis [email or web address] Not available 11/24 09:08:12 Mother Fibromyalgia [email or web address] Not [facility] [employer] 11/24/2024 09:08:12 Mother Autoimmune hepatitis [email or web address] Not available 11/24 09:08:12 Mother Osteoporosis [email or web address] Not sherry [employer] 11/24/2024 09:08:12 Mother Transient cerebral ischemia [email or web address] Not available 11/24 09:08:12 Maternal Grandfather Diabetes mellitus [id number] [id number] Not available 01/01/2023 03:14:27 Maternal Grandfather Heart disease MIGRATION.287 [id number] Not available 01/01/2023 03:14:27 Maternal Grandfather Congestive heart failure [email or web address] Not available 11/24 09:08:12 Maternal Grandfather Malignant neoplasm of skin [email or web address] Not available 11/24 09:08:12 Maternal Grandfather Malignant tumor of prostate [id number] Not available 11/24 09:08:12 Maternal Grandfather Tuberculosis [email or web address] Not availabl e 11/24/2024 09:08:12 Maternal Grandmother Diabetes mellitus MIGRATION.763 [id number] Not available 01/01/2023 03:14:27 Maternal Grandmother Heart disease MIGRATION.338 [id number] Not available 01/01/2023 03:14:27 Paternal Grandfather Diabetes mellitus MIGRATION.672 [id number] Not available 01/01/2023 03:14:27 Paternal Grandmother Diabetes mellitus MIGRATION.598 [id number] Not available 01/01/2023 03:14:27 Sister Polycystic ovary syndrome [email or web address] Not available 11/24 09:08:12 Sister Prolactinoma [email or web address] Not sherry [employer]able 11/24/2024 09:08:12 Father Chronic obstructive pulmonary disease [email or web address] Not available 11/24 09:08:12 Paternal Grandfather Heart disease Not available 2023 10:17:10 Paternal Grandfather Cerebrovascu lar accident [email or web address] Not available 09:08:12 Paternal Grandmother Heart disease Not available 2023 10:17:13 Maternal Grandmother Cerebrovascu lar accident [email or web address] Not available 09:08:12 Medical History Condition Response [...] virus, trivalent, PF 3 completed Not Available [facility] 08/13/2023 22:28:42 Influenza, split virus, trivalent, preservative 3 completed Not Available [facility] 08/13/2023 22:28:42 Influenza, split virus, quadrivalent, PF 5 completed Not Available [facility] 08/13/2023 22:28:42 Past Encounters Encounter ID Performer Location Encounter Start Date Encounter Closed Date Diagnosis/Indication Diagnosis SNOMED-CT Code Diagnosis ICD10 Code Diagnosis Note [id number] [facility] [place] [address] [facility] [address] [place] [address] 01/09/2021 00:00:00 01/09/2021 09:15:01 [id number] [facility] [place] [address] [place] [address] 01/12/2021 00:00:00 01/12/2021 17:31:37 [id number] [facility] [place] [address] [place] [address] [address] [place] [address] 02/23/2021 00:00:00 02/28/2021 16:27:12 [id number] [facility] [place] [address] [place] [address] 05/14/2021 00:00:00 05/14/2021 13:26:05 [id number] [facility] [place] [address] [place] [address] [address] [place] [address] 08/09/2021 00:00:00 08/09/2021 09:17:14 [id number] [facility] [place] [address] [place] [address] 08/14/2021 00:00:00 08/14/2021 18:08:12 [id number] [facility] [place] [address] [facility] [address] [place] [address] 10/31/2021 00:00:00 11/01/2021 07:47:28 [id number] [facility] [place] [address] [place] [address] 02/05/2022 00:00:00 02/05/2022 17:25:28 [id number] [facility] [address] [place] [address] 02/12/2022 00:00:00 02/13/2022 12:25:32 [id number] [facility] [place] [address] [place] [address] 03/13/2022 00:00:00 03/13/2022 10:35:24 [id number] [facility] [place] [address] [place] [address] 05/24/2022 00:00:00 05/24/2022 17:41:32 [id number] [facility] [place] [address] [place] [address] 05/28/2022 00:00:00 05/28/2022 17:28:27 [id number] [facility] [place] [address] [place] [address] 07/17/2022 00:00:00 07/17/2022 11:42:05 [id number] [facility] [place] [address] [place] [address] 11/01/2022 00:00:00 11/01/2022 20:13:31 [id number] MARTINE Ruiz [facility] [place] [address] [place] [address] 01/02/2023 08:24:23 01/02/2023 08:43:01 [id number] Renuka Rubin MD [facility] [place] [address] [place] [address] 01/06/2023 16:41:17 01/06/2023 17:30:43 [facility] 04925369 E03.9 FT4 low and patient having more [...] and reduce inflammati on. Polycystic ovary syndrome 958131803 E28.2 Continue natural insulin screw machine set up operator tool s as struggled with metformin. Continue on spironolac tone as she has had less hair loss/ more growth. Tolerating well. Weight gain 4177409 R63. 5 Will send for low dose [...] she chooses to go outside of the [facility] to obtain labwork she was [...] in her case. She voiced understand ing. [id number] CHARISSA Hernandez [facility] [place] [address] [facility] [address] [place] [address] 01/08/2023 08:56:53 01/08/2023 09:00:37 [id number] Jess Plascencia MD [facility] [place] [address] [facility] [address] [place] [address] 04/02/2023 11:11:45 04/02/2023 11:39:23 [id number] Renuka Rubin MD [facility] [place] [address] [place] [address] 04/10/2023 16:16:28 04/10/2023 17:08:03 Prediabetes 254030901 R73.03 Glucose running around 99-115 mg/dL fasting- she is tolerating metformin well. Recommende d GLP1 agonist therapy as she is having trouble at times with cravings of sweets and portion control. 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 She has no [...] that day as tolerated. Polycystic ovary syndrome 890737604 E28.2 Continue natural insulin screw machine set up operator tool s as struggled with metformin. Continue on spironolac tone as she has had less hair loss/ more growth. Tolerating well. Hypothyroidism 45429609 E03.9 FT4 in range- continue on synthroid [...] and minerals and reduce inflammati on. Arthritis 2840994 M19.90 Will send for repeat SAIRA with specific antibodies along with rheumatoid screening to assess for any evidence of autoimmune disease. Thyroid nodule 040382822 E04.1 Repeat thyroid u/s prior to return visit. Send for calcitonin and parathyroi d function to screen for c cell hyperplasi a and hyperparat hyroidism. Mixed anxi ety and depressive disorder 373893373 F41.8 refer to psychiatry for further evaluation [...] she chooses to go outside of the [facility] to obtain labwork she was [...] in her case. She voiced understand ing. [id number] [facility] [address] [facility] [address] [place] [address] 04/14/2023 08:23:02 04/14/2023 09:57:18 [id number] [facility] [address] [facility] [address] [place] [address] 08/06/2023 11:10:43 09/02/2023 14:58:20 [id number] Renuka Rubin MD [facility] [place] [address] [place] [address] 08/14/2023 15:58:27 08/14/2023 16:49:03 Hypothyroidism 74175631 E03.9 FT4 high normal range and with [...] and minerals and reduce inflammati on. Prediabetes 204338078 R7 3.03 A1C 5.3% down from 6% range- she has lost 26 pounds- continue on trulicity but uptitrate to 3 mg once weekly as patient tolerating well. Discussed carb counting and how to read food labels. Recommende d patient to utilize the diabetesfo Aethonb.com from the ADA website to help with food preparatio n as this presents ideal carb content per meal so this will make carb counting much easier for patient. Recommende d she incorporat e natural insulin screw machine set up operator tool s such as pears, apples, cinnamon, cristóbal and sweet potatoes to help mobilize her endogenous insulin. Recommende d up to 150 minutes of moderate level activity/e xercise weekly. Polycystic ovary syndrome 154276128 E28.2 Continue natural insulin screw machine set up operator tool s as struggled with metformin. Continue on spironolac tone as she has had less hair loss/ more growth. Tolerating well. Generalize d anxiety disorder 71962701 F41.1 Continue on escitalopr am 40 mg [...] answered and refills necessary at visit today. [id number] Jess Plascencia MD [facility] Primary Care [address] [place] [address] 12/02/2023 17:40:44 12/02/2023 17:46:35 [id number] Jess Plascencia MD [facility] Primary Care [address] [place] [address] 02/04/2024 12:12:00 02/04/2024 12:42:54 Hypothyroidism 82684334 E03.9 refills givenhas appt with endocrinol ogy Dr. Rubin Prediabetes 245982715 R7 3.03 Vitamin D deficiency 347 86120 E55.9 Cobalamin deficiency 190 582700 E53.8 Hyperlipid emia screening 054013329 Z13.220 Z79.381 [id number] RACHELE Mcginnis [facility] Primary Care [address] [place] [address] 04/07/2024 14:00:02 04/07/2024 14:40:03 Varicose veins of lower extremity 30413401 I83.92 -noted only to the left lower extremity so far-declin es 81mg-trial aspirin Essential hypertension 86903195 I10 trial losartan Sleep apnea 00839435 G47 .30 snoring, witnessed apnea, excessive daytime somnolence . Will order home sleep study. [id number] Jw Phipps MD [address] [address] 04/22/2024 09:54:32 04/26/2024 09:11:25 Obstructive sleep apnea syndrome 48147179 G47.33 G47.36 G47.61 [id number] Jw Phipps MD [address] [address] 06/16/2024 08:55:08 06/17/2024 09:14:10 Obstructive sleep apnea syndrome 77400190 G47.33 G47.36 [id number] Jw Phipps [place] [address] 08/24/2024 09:07:43 08/24/2024 15:51:59 Obstructive sleep apnea syndrome 92279516 G47.33 G47.36 [id number] MD PRASANTH Trujillo_[address] [address] 11/24/2024 09:07:16 11/29/2024 14:55:34 Obstructive sleep apnea syndrome 10582413 G47.33 G47.36 Health Concerns Section Related Observation LastModified by Organization Detai ls LastModified Time None Recorded Concern Status LastModified by Organization Details LastModified Time None Recorded Advance Directives Directive None Recorded Payers Encounter Date Sequence Insurance Name Policy Number Policy Ring Covered Member ID Ring Member ID Guarantor Name 04/07/2024 1 [employer] [facility] [place] [employer] (MEDICARE - MEDICAID REPLACEMENT HMO) [id number] Cheryl B Shake [id number] Cheryl B Shake 04/22/2024 1 [employer] [place] [employer] [place]MEDICARE - MEDICAID REPLACEMENT HMO) [id number] Cheryl B Shake [id number] Cheryl B Shake 06/16/2024 1 [employer] [place] [employer] [place]MEDICARE - MEDICAID REPLACEMENT HMO) [id number] Cheryl B Shake [id number] Cheryl B Shake 08/24/2024 1 [employer] [place] [place]MEDICARE - MEDICAID REPLACEMENT HMO) [id number] Cheryl B Shake [id number] Cheryl B Shake 11/24/2024 1 [employer] [place] [employer] (MEDICARE - MEDICAID REPLACEMENT HMO) [id number] 0003 Cheryl B Shake [id number] Cheryl B Shake Notes Date Note Type Note Provider Name and Address Organization Details Recorded Time 04/07/2024 text/html pt is here for varicose veins MARTINE Mcginnis-Angel [address] [facility], [address], [place], [address], [place] [facility] 04/07/2024 15:30:09 04/22/2024 text/html Primary care/Ref erring provider: MARTINE Bernard-C During the [facility] home sleep study on 04/14/24 HI = [...] no chance of dozing. Jw Phipps MD [address] [place] [address], [address], [place] [facility] 04/22/2024 10:49:46 06/16/2024 text/html Primary care/Ref erring provider: Phil Evangelista, [facility] During the [facility] home sleep study on 04/14/24, HI = 4, supine HI = 18. During the [facility] diagnostic sleep study 06/08/24, sleep onset = [...] moderate chance of dozing. Jw Phipps MD [address] [place] [address], [address], [address], [facility] [employer] 06/16/2024 09:49:27 08/24/2024 text/html Primary care/Ref erring provider: Phil Evangelista, [facility] During the [facility] home sleep study on 04/14/24, HI = 4, supine HI = 18. During the [facility] diagnostic sleep study 06/08/24, sleep onset = 18 minutes, REM onset = none, AHI = 6, supine AHI = 36, PLMI = 2. During the [facility] titration sleep study on 08/03/24, sleep onset [...] slight chance of dozing. Jw Phipps MD [address] [place] [address], [facility] [address], [place], [address], [place] [facility] 08/24/2024 09:59:12 11/24/2024 text/html Primary care/Ref erring provider: Edwina Mckeon NP During the [facility] home sleep study on 04/14/24, HI = 4, supine HI = 18. During the [facility] diagnostic sleep study 06/08/24, sleep onset = 18 minutes, REM onset = none, AHI = 6, supine AHI = 36, PLMI = 2. During the [facility] titration sleep study on 08/03/24, sleep onset [...] chance of dozing. Jw Phipps MD [address] [facility], [facility] [address], [place], [address], [facility] [employer] 11/24/2024 10:52:51 OBGyn Episode No OBEpisode recorded.
--- OUTSIDE RECORDS SUMMARY | 2025-01-29 09:21 | XMS_ITS ---
Author Organization [facility] Address [address] [facility] [address] [place] [address] Care Team Providers Care Map Maker Name Role Phone Edwina Mckeon APN Primary Care Provider Unavailab Edwina May Unavailable [phone] REASON FOR VISIT RE:Cancellation Social History Sex Assigned At : Social History Observation Description Sex Assigned At Female Encounters Encounter Location Date Provider Diagnosis [facility] [address] [address] 01/11/2025 Edwina Blackwell Plan Of Treatment Next Appt Details Provider Name:Darcie Singh , 02/02/2025 10:00:00 AM, [facility], [address], [address], Provider Name:Darcie Singh , 02/09/2025 08:00:00 AM, [facility], [address], [address], Provider Name:Darcie Singh , 02/23/2025 02:00:00 PM, [facility], [address], [address], Provider Name:Sergio Aguayo , 02/23/2025 03:00:00 PM, [address], [address], [address], Provider Name:Darcie Singh , 03/02/2025 10:00:00 AM, [address], [address], [address], Progress Notes * LALA CAMERON:1980 ([age] yo F)Acc No.[id number]:01/11/2025 Patient: MATIAS KAHN :1980 A ge:44 Y S ex:Female Phone: Address: [address], [place], [address] * true * Date: Generated for Marita hinojosa/Sarita/eTransmitting on: 0 01/29/2025 09:20 AM CDT
--- OUTSIDE RECORDS SUMMARY | 2025-01-29 09:21 | XMS_ITS | Clinical Summary ---
Author Organization [facility] Address [address] [place] [address] Care Team Providers Care Plastic Surgery Coordinator Name Role Phone Jess Plascencia MD Primary [...] Comments Blood Pressure 126/83 10/01/2018 9:52 AM FORESTRY SUPPORT SPECIALIST Pulse 70 10/01/2018 9:52 AM FORESTRY SUPPORT SPECIALIST Temperature 36.7 C (98.1 F) 10/01/2018 9:52 AM FORESTRY SUPPORT SPECIALIST Respiratory Rate - - Oxygen Saturation 98% 10/01/2018 9:52 AM FORESTRY SUPPORT SPECIALIST Inhaled Oxygen Concentration - - Weight 112.7 kg (248 lb 8 oz) 10/01/2018 9:52 AM FORESTRY SUPPORT SPECIALIST Height 170.2 cm (5' 7 ) 10/01/2018 9:52 AM FORESTRY SUPPORT SPECIALIST Body Mass Index 38.92 10/01/2018 9:52 AM FORESTRY SUPPORT SPECIALIST Plan of Treatment Health Maintenance Due Date Last Done Comments DTAP/TDAP/TD VACCINES (1 - Tdap) 2000 HEPATITIS B VACCINES (1 of 3 - 19+ 3-dose series) 2000 PAP SMEAR 2002 CERVICAL CANCER SCREENING 2011 HPV/Cotest (30-65) 2011 PAP SMEAR 2011 BREAST CANCER SCREENING 2021 INFLUENZA VACCINE (#1) 2024 HPV VACCINES Aged Out No longer eligi ble based on patient's age to complete this topic Insurance Care Teams Plastic Surgery Coordinator Relationship Specialty Start Date End Date Jess Plascencia MD [address] [place] [address] [place] [phone] PCP - General Family Practice 09/01/18
--- OUTSIDE RECORDS SUMMARY | 2025-01-29 09:21 | XMS_ITS | Patient Health Record ---
Author Organization [facility] Address [address] [facility] [address] [place] [address] Care Team Providers Care Social Services Specialist Name Role Phone Edwina Mckeon APN Primary Care Provider Unavailab Edwina May Unavailable [phone] FranciscoDarcie Unavailable [phone] Sergio Aguayo Unavailable [phone] Migration, Provider Unavailable Unavailable Allergies Allergen (clinical drug ingredient) Drug/Non Drug [...] Oxazepam (BZO) NEG 0 - 300 ng/ml 8-ufxbkjgnvm-9,7-wwcoslpg-6,3-diphenylpyrrolidine (STEVIE P) NEG 0 - 300 ng/ml Methamphetamine (MET) NEG 0 - 1000 ng/ml Methylenedioxymethamphetamine (MDMA) NEG 0 - 500 ng/ml Morphine (MOP 300/YND8665) NEG 0 - 300 ng/ml Methadone (MTD) NEG 0 - 300 ng/ml Phencyclidine (PCP) NEG 0 - 25 ng/ml Nortriptyline (TCA) NEG 0 - 1000 ng/ml Oxycodone NEG 0 - 300 ng/ml x NEG 0 - 300 ng/ml Reason For Referral No Information Medications Medication SIG (Take, Route, Frequency, Duration) Notes Start Date End Date Status Atomoxetine HCl 40 MG 1 capsule Orally Once a day for 30 days 01/26/2025 02/25/2025 Active hydroCHLOROthiazide 25 MG 1 tablet in th e morning Orally Once a day Active Atomoxetine HCl 25 MG 1 capsule Oral once a day for 7 days after one week increase to 40 mg 01/26/2025 02/02/2025 Active ZyrTEC Allergy 10 MG 1 tablet Orally Once a day Active Pepcid 20 MG 1 tablet at bedtime as needed Orally Once a day Active Liothyronine Sodium 5 MCG Oral for 90 Days Unknown Escitalopram Oxalate 20 MG 2 tablet Oral once a day for 30 days Active Nystatin 416591 UNIT/GM External for 30 Days Unknown Synthroid 88 MCG Oral for 90 Days Unknown Vitamin D 25 MCG (1000 UT) 1 tablet Oral ly Once a day Unknown Vitamin B Complex - as directed Orally Unknown Lisinopril 5 MG Oral for 90 Days Not-Taking Bystolic 10 MG 1 tablet Orally Once [...] ast year? No Points 0 Interpretation Negative Problems Problem Type SNOMED Code ICD Code Onset Dates Problem Status W/U Status Risk Notes Problem Severe recurrent major depression without psychotic features (35379544) Major depressive disorder, recurrent severe without psychotic features (F33.2) Active confirmed Problem Generalized anxiety disorder (73565551) Generalized anxiety disorder (F41.1) Active confirmed Problem Essential hypertension (72079011) Essential (primary) hypertension (I10) 10/21/20 22 Active confirmed Problem Posttraumatic stress disorder (64310051) PTSD (post-traumatic stress disorder) (F43.10) Active confirmed Problem Attention deficit hyperactivity disorder, predominantly inattentive type (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) ADHD (attention deficit hyperactivity disorder), inattentive type (F90.0) Active confirmed Problem 654858715 Medical marijuan a use (Z79.899) Active confirmed Problem Polycystic ovary syndrome (disorder) (474646638) Polycystic ovarian syndrome (E28.2) 12/05/19 24 Active confirmed Problem Vitamin D deficiency (07152448) Vitamin D deficiency (E55.9) 05/29/20 23 Active confirmed Problem 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 (115744129) 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) 12/05/19 24 Active confirmed Problem Blindness - both eyes (disorder) (066369497) Blindness of both eyes (H54.3) 05/29/20 23 Active confirmed Problem Albinism (98475069) 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) 10/02/20 18 Active confirmed Vital Signs Heart Rate 60 /min 01/26/2025 Height-cm 170.18 cm 01/26/2025 Blood pressure diastolic 88 mm Hg 01/26/2025 Weight-kg 112.49 kg 01/26/2025 Height 67 in 01/26/2025 Blood pressure systolic 137 mm Hg 01/26/2025 Weight 248 lbs 01/26/2025 BMI 38.84 kg/m2 01/26/2025 Encounters Encounter Location Date Provider Diagnosis [facility] [address] [place] [address] 09/22/2024 Edwina Hinderliter Major depressive disorder, recurrent severe without psychotic features F33.2 [facility] [address] [place] [address] 09/29/2024 Edwina Hinderliter Major depressive disorder, recurrent severe without psychotic features F33.2 [facility] [address] [address] 10/06/2024 Edwina Hinderliter Major depressive disorder, recurrent severe without psychotic features F33.2 [facility] [address] [place] [address] 10/13/2024 Edwina Hinderliter Major depressive disorder, recurrent severe without psychotic features F33.2 [facility] [address] [place] [address] 10/20/2024 Edwina Hinderliter Major depressive disorder, recurrent severe without psychotic features F33.2 and Generalized anxiety disorder F41.1 [facility] [address] [place] [address] 10/29/2024 Edwina Hinderliter Major depressive disorder, recurrent severe without psychotic features F33.2 and Generalized anxiety disorder F41.1 [facility] [address] [place] [address] 11/10/2024 Edwinalottie Hanter Major depressive disorder, recurrent severe without psychotic features F33.2 and Generalized anxiety disorder F41.1 [facility] [address] [place] [address] 11/17/2024 Edwinalottie Mockliter Major depressive disorder, recurrent severe without psychotic features F33.2 and Generalized anxiety disorder F41.1 [facility] [address] [place] [address] 11/24/2024 Edwinalottie Mockliter Major depressive disorder, recurrent severe without psychotic features F33.2 and Generalized anxiety disorder F41.1 [facility] [address] [place] [address] 11/26/2024 Sergio Aguayo Major depressive disorder, recurrent severe without psychotic features F33.2 ; ADHD (attention deficit hyperactivity disorder), inattentive type F90.0 ; Polycystic ovarian syndrome E28.2 ; 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 E06.3 ; Essential (primary) hypertension I10 ; Blindness of both eyes H54.3 ; Vitamin D deficiency E55.9 ; Albinism E70.30 ; Generalized anxiety disorder F41.1 and Medical marijuana use Z79.899 [facility] [address] [place] [address] 12/08/2024 Edwinalottie Mockliter Major depressive disorder, recurrent severe without psychotic features F33.2 ; Generalized anxiety disorder F41.1 and ADHD (attention deficit hyperactivity disorder), inattentive type F90.0 [facility] [address] [place] [address] 12/15/2024 Edwinalottie Mockliter ADHD (attention deficit hyperactivity disorder), inattentive type F90.0 ; Major depressive disorder, recurrent severe without psychotic features F33.2 and Generalized anxiety disorder F41.1 [facility] [address] [place] [address] 12/22/2024 Edwina Mockliter Major depressive disorder, recurrent severe without psychotic features F33.2 ; Generalized anxiety disorder F41.1 ; ADHD (attention deficit hyperactivity disorder), inattentive type F90.0 and PTSD (post-traumatic stress disorder) F43.10 [facility] [address] [facility] [address] [place] [address] 12/29/2024 Sergio Olivier Major depressive disorder, recurrent severe without psychotic features F33.2 ; Generalized anxiety disorder F41.1 ; PTSD (post-traumatic stress disorder) F43.10 and ADHD (attention deficit hyperactivity disorder), inattentive type F90.0 [facility] [address] [place] [address] 12/29/2024 Edwina Mockchris Major depressive disorder, recurrent severe without psychotic features F33.2 ; ADHD (attention deficit hyperactivity disorder), inattentive type F90.0 and PTSD (post-traumatic stress disorder) F43.10 [facility] [address] [facility] [address] [facility] [address] [place] [address] 01/19/2025 Darcie Singh Encounter for screening for depression Z13.31 ; Major depressive disorder, recurrent severe without psychotic features F33.2 ; Generalized anxiety disorder F41.1 ; PTSD (post-traumatic stress disorder) F43.10 and ADHD (attention deficit hyperactivity disorder), inattentive type F90.0 [facility] [address] [facility] [address] [facility] [address] [place] [address] 01/26/2025 Sergio Olivier Major depressive disorder, recurrent severe without psychotic features F33.2 ; Generalized anxiety disorder F41.1 ; PTSD (post-traumatic stress disorder) F43.10 ; ADHD (attention deficit hyperactivity disorder), inattentive type F90.0 ; Encounter for screening for depression Z13.31 and Encounter for screening for cardiovascular disorders Z13.6 [facility] [address] [facility] [address] [facility] [address] [place] [address] 03/20/2024 Provider Migration [place] [address] [facility] [address] [facility] [address] [place] [address] 03/21/2024 Provider Migration [place] [id number] [facility] [address] [facility] [address] [place] [address] 11/26/2024 Edwina Rishi [place] [address] [place] [address] 12/15/2024 Edwina [facility] [address] [place] [address] 01/05/2025 Edwina [facility], [facility] [address] [place] [address] 11/09/2024 Edwina [facility], [facility] [address] [facility] [address] [place] [address] 11/29/2024 Edwina [facility], [facility] [address] [facility] [address] [place] [address] 11/30/2024 Edwina [facility], [facility] [address] [facility] [address] [place] [address] 12/15/2024 Edwina [facility], [facility] [address] [facility] [address] [place] [address] 01/11/2025 Edwina Blackwell Assessments Encounter Date Diagnosis (ICD Code) Assessment Notes Treatment Notes Treatment Clinical Notes Section Notes 09/22/2024 Major depressive disorder, recurrent severe without psychotic features (ICD-10 - F33.2) Marital Status: half-way partnership Living Arrangement: lives with partner and [...] potential medication adjustments. 4. Vision Impairment and [place] - Discuss strategies to enhance the patient's [...] and management under the care of her rn private duty for hyperthyroidism, as indicated by a TSH [...] a time convenient for the patient (, , or ). Offer the option to switch to a [...] a time convenient for the patient (, , or 1). Offer the option to switch [...] report any changes or worsening to the university extension specialist. PTSD Continue with current therapy sessions [...] report any changes or worsening to the university extension specialist. PTSD Continue with current therapy sessions [...] resources such as How to ADHD on Updox and [employer] for additional support and information. Rejection-Sensitiv e [...] as How to ADHD on YouTube and LegUP for additional support and information. Rejection-Sensitiv e [...] with them regarding her mental health needs. 01/19/2025 Major depressive disorder, recurrent severe without [...] when parents . Client grew up in [place], [place]. Client reports childhood was hard, traumatic, [...] irritability, hypervigilance, and exaggerated startle response. 01/19/2025 Encounter for screening for depression (ICD-10 [...] when parents . Client grew up in [place]. Client reports childhood was hard, traumatic, [...] concetration, irritability, hypervigilance, and exaggerated startle response. 01/26/2025 Major depressive disorder, recurrent severe without psychotic features (ICD-10 - F33.2) 01/26/2025 Generalized anxiety disorder (ICD-10 - F41.1) 01/26/2025 PTSD (post-traumatic stress disorder) (ICD-10 - F43.10) 01/19/2025 Generalized anxiety disorder (ICD-10 - F41.1) [...] when parents . Client grew up in [place]. Client reports childhood was hard, traumatic, [...] concetration, irritability, hypervigilance, and exaggerated startle response. 12/29/2024 PTSD (post-traumatic stress disorder) (ICD-10 - [...] which include reading books, painting, visiting the [employer], and considering streaming on Twitch. Plan: [...] resources such as How to ADHD on Updox and LegUP for additional support and information. Rejection-Sensitiv e [...] report any changes or worsening to the university extension specialist. PTSD Continue with current therapy sessions [...] hyperactivity disorder), inattentive type (ICD-10 - F90.0) 01/19/2025 PTSD (post-traumatic stress disorder) (ICD-10 - [...] when parents . Client grew up in [place]. Client reports childhood was hard, traumatic, [...] concetration, irritability, hypervigilance, and exaggerated startle response. 01/26/2025 ADHD (attention deficit hyperactivity disorder), inattentive type (ICD-10 - F90.0) 01/19/2025 ADHD (attention deficit hyperactivity disorder), inattentive [...] when parents . Client grew up in [place]. Client reports childhood was hard, traumatic, [...] concetration, irritability, hypervigilance, and exaggerated startle response. 01/26/2025 Encounter for screening for depression (ICD-10 - Z13.31) 11/26/2024 Essential (primary) hypertension (ICD-10 - I10) 11/26/2024 Blindness of both eyes (ICD-10 - H54.3) 01/26/2025 Encounter for screening for cardiovascular disorders (ICD-10 - Z13.6) 11/26/2024 Vitamin D deficiency (ICD-10 - E55.9) [...] noticing its absence. - Plan: - Await cushion worker appointment on January 19 for further evaluation [...] lisinopril and loxapine. - Follow up with cushion worker appointment on January 19 for further evaluation and management. - Continue taking Zyrtec as needed for allergy symptoms. Abnormal EKG - Assessment: Patient had an abnormal EKG in the ER during the angioedema episode. - Plan: - Proceed with scheduled echocardiogram next Friday at [facility] to further evaluate cardiac function and any [...] prednisone use. - Follow up as needed. 01/19/2025 Other Client was cooperative for the [...] when parents . Client grew up in [place], [place]. Client reports childhood was hard, traumatic, [...] concetration, irritability, hypervigilance, and exaggerated startle response. 01/26/2025 Other Problem-Based Assessment and Plan Matias, 44-year-old female with history of hypertension and ADHD, presenting with recent angioedema due to BRYN inhibitor use and daily THC vaping. Angioedema Assessment: Patient experienced throat swelling due to BRYN inhibitor (lisinopril) use. Rn Radiation Oncology consultation on January 19, 2025, included C4 and tryptase tests, which returned normal results. Rn Radiation Oncology advised avoiding lisinopril and Bactroban, with uncertainty about amlodipine's role. The second flare-up was attributed to residual lisinopril in the patient's system. Plan: - Avoid lisinopril and Bactroban - Continue current blood pressure medications - Follow up with cushion worker if another attack occurs Hypertension Assessment: Patient has a history of hypertension and is currently on blood pressure medications that are working. An EKG performed in the ER showed grade 1 diastolic dysfunction, which was noted to be normal for hypertensive patients. Plan: - Continue current blood pressure medications (specific medications not mentioned) - Monitor blood pressure regularly ADHD Assessment: Patient has a history of ADHD and was previously on Strattera (atomoxetine). Plan: - Restart atomoxetine: 25 mg daily for one week, then increase to 40 mg daily - Educate patient on potential side effects, including memory recall and mental fatigue Depression Assessment: Patient has been taking escitalopram 40 mg daily for a couple of years, which is above the maximum recommended dose of 20 mg. An EKG was performed due to the high dose, showing some abnormalities. Plan: - Continue escitalopram 40 mg daily for now - Check for refills and provide if necessary - Discuss potential dose reduction to 30 mg at next visit - Monitor for side effects and efficacy Cannabis Use Disorder Assessment: Patient reports daily, hourly use of THC through vaping. This frequent use is concerning and may be impacting the patient's overall health, including cardiovascular system, lungs, blood pressure, and PTSD symptoms. Patient expresses interest in discontinuing use. Plan: - Educate patient on gradual reduction strategy: * Decrease THC concentration in vape liquid * Alternate between current concentration and lower concentration * Gradually transition to lower concentration - Recommend patient document current usage patterns - Discuss potential use of clonidine for cravings when ready to quit - Refer to counseling for developing coping skills and support during withdrawal - Educate on the negative impacts of THC on heart, lungs, blood pressure, and PTSD - Acknowledge THC's perceived benefits for anxiety, insomnia, and nausea Disclaimer: This note has been transcribed using speech recognition software and serves as a reflection of the patient's visit. While efforts have been made to ensure accuracy, there may be errors, including ict support and test engineers inaccuracies and misspellings of medication names. This document should not be considered a verbatim record, and any discrepancies should be verified with the provider. Plan Of Treatment Next Appt Details Provider Name:Darcie Singh , 02/02/2025 10:00:00 AM, [address] [place] [address], [address], Provider Name:Darcie Singh , 02/09/2025 08:00:00 AM, [address], [place] [address], [address], Provider Name:Darcie Singh , 02/23/2025 02:00:00 PM, [address], [place] [address], [address], Provider Name:Sergio Aguayo , 02/23/2025 03:00:00 PM, [address], [place] [address], [address], Provider Name:Darcie Singh , 03/02/2025 10:00:00 AM, [address], [address], [place], [address], Insurance Providers Payer Name Payer Address Payer Phone Subscriber Number Group Number Insured Name Patient Relationship to Insured Coverage Start Date Coverage End Date Medicare-I l Medicare [address] [place] [id number] MATIAS CAMERON Self - patient is the [...]
--- OUTSIDE RECORDS SUMMARY | 2025-01-29 09:22 | XMS_ITS ---
Author Organization [facility] Address [address] [facility] [address] [place] [address] Care Team Providers Care Rug Cutter Name Role Phone Edwina Mckeon APN Primary Care Provider Unavailab Edwina May Unavailable [phone] Sergio Nicholson Unavailable [phone] Allergies Allergen (clinical drug ingredient) Drug/Non Drug Allergy documented on EMR Reaction Allergy Type Onset Date Status amoxicillin / clavulanate Augmentin Unknown Drug Allergy Active Vicodin Unknown Drug Allergy Active amlodipine Amlodipine Unknown Drug Allergy Activ e lisinopril Lisinopril Unknown Drug Allergy Activ e REASON FOR VISIT 1 month f/u, when i asked about med changes, she said i dont know but i dont think so, Depression screening positive Medications Medication SIG (Take, Route, Frequency, Duration) Notes Start Date End Date Status Liothyronine Sodium 5 MCG Oral for 90 Days Unknown Nystatin 904306 UNIT/GM External for 30 Days Unknown Synthroid 88 MCG Oral for 90 Days Unknown Vitamin D 25 MCG (1000 UT) 1 tablet Oral ly Once a day Unknown Vitamin B Complex - as directed Orally Unknown hydroCHLOROthiazide 25 MG 1 tablet in th e morning Orally Once a day Active ZyrTEC Allergy 10 MG 1 tablet Orally Once a day Active Pepcid 20 MG 1 tablet at bedtime as needed Orally Once a day Active Lisinopril 5 MG Oral for 90 Days Not-Taking Bystolic 10 MG 1 tablet Orally Once a day Active Atomoxetine HCl 40 MG 1 capsule Orally Once a day for 30 days 01/26/2025 02/25/2025 Active Atomoxetine HCl 25 MG 1 capsule Oral once a day for 7 days after one week increase to 40 mg 01/26/2025 02/02/2025 Active Escitalopram Oxalate 20 MG 2 tablet Oral once a day for 30 days Active Social History Tobacco Use: Social History [...] ast year? No Points 0 Interpretation Negative Vital Signs Blood pressure systolic 137 mm Hg 01/27/20 25 Blood pressure diastolic 88 mm Hg 025 Heart Rate 60 /min 01/26/2025 Height 67 in 01/26/2025 Weight 248 lbs 01/26/2025 BMI 38.84 kg/m2 01/26/2025 Height-cm 170.18 cm 01/26/2025 Weight-kg 112.49 kg 01/26/2025 Encounters Encounter Location Date Provider Diagnosis [facility] [address] [address] 01/26/2025 Sergio Nicholson Major depressive disorder, recurrent severe without psychotic features F33.2 ; Generalized anxiety disorder F41.1 ; PTSD (post-traumatic stress disorder) F43.10 ; ADHD (attention deficit hyperactivity disorder), inattentive type F90.0 ; Encounter for screening for depression Z13.31 and Encounter for screening for cardiovascular disorders Z13.6 Assessments Encounter Date Diagnosis (ICD Code) Assessment Notes Treatment Notes Treatment Clinical Notes Section Notes 01/26/2025 Major depressive disorder, recurrent severe without psychotic features (ICD-10 - F33.2) 01/26/2025 Generalized anxiety disorder (ICD-10 - F41.1) 01/26/2025 PTSD (post-traumatic stress disorder) (ICD-10 - F43.10) 01/26/2025 ADHD (attention deficit hyperactivity disorder), inattentive type (ICD-10 - F90.0) 01/26/2025 Encounter for screening for depression (ICD-10 - Z13.31) 01/26/2025 Encounter for screening for cardiovascular disorders (ICD-10 - Z13.6) 01/26/2025 Other Problem-Based Assessment and Plan Matias, 44-year-old female with history of hypertension and ADHD, presenting with recent angioedema due to BRYN inhibitor use and daily THC vaping. Angioedema Assessment: Patient experienced throat swelling due to BRYN inhibitor (lisinopril) use. Pizza Maker consultation on January 19, 2025, included C4 and tryptase tests, which returned normal results. Pizza Maker advised avoiding lisinopril and Bactroban, with uncertainty about amlodipine's role. The second flare-up was attributed to residual lisinopril in the patient's system. Plan: - Avoid lisinopril and Bactroban - Continue current blood pressure medications - Follow up with headlight adjuster if another attack occurs Hypertension Assessment: Patient [...] ensure accuracy, there may be errors, including polysomnographer inaccuracies and misspellings of medication names. This document should not be considered a verbatim record, and any discrepancies should be verified with the provider. Plan Of Treatment Medication Medication Name Sig Start Date Stop Date Notes Atomoxetine HCl 40 MG 1 capsule Orally O nce a day for 30 days 01/26/2025 02/25/2025 Atomoxetine HCl 25 MG 1 capsule Oral onc e a day for 7 days 01/26/2025 02/02/2025 Escitalopram Oxalate 20 MG 2 tablet Oral once a day for 30 days Next Appt Details Follow Up: 4 Weeks, Reason: Follow up Depression Provider Name:Darcie Singh , 02/02/2025 10:00:00 AM, [address], [facility] [address], [place], [address], Provider Name:Darcie Singh , 02/09/2025 08:00:00 AM, [address], [facility] [address], [place], [address], Provider Name:Darcie Singh , 02/23/2025 02:00:00 PM, [facility], [address], [place], [address], Provider Name:Sergio Nicholson , 02/23/2025 03:00:00 PM, [address], [address], [place], [address], Provider Name:Darcie Singh , 03/02/2025 10:00:00 AM, [facility], [facility] [address], [place], [address], Progress Notes * LALA CAMERON:1980 ([age] yo F)Acc No.[id number]:01/26/2025 Patient: MATIAS KAHN Provider: Tim NICHOLSON MD :1980 A ge:44 Y S ex:Female Date:01/26/2025 Phone: Address:[address] [place] [address], [id number] Pcp:Edwina Mckeon APN Subjective: * Chief Complaints: * 1 month f/uWhen i asked about med changes, she said i dont know but i dont think soDepression screening positive * HPI: D epression screening: Chief Complaint Follow-up for angioedema, daily THC use all day, like every hour , ADHD medication management History of Present Illness Matias, a 44-year-old female with a history of hypertension and ADHD, presents for follow-up regarding recent angioedema episodes and medication management. She recently consulted with an headlight adjuster who performed blood tests, including C4 and tryptase, which came back normal. The headlight adjuster advised her to avoid lisinopril, suspecting it was the cause of her angioedema episodes, including a second random flare-up that may have been due to residual effects of the medication. The headlight adjuster was unsure about the role of amlodipine but recommended avoiding BRYN inhibitors in general. The patient reports daily use of THC through vaping, describing it as all day and every hour. She acknowledges that while it helps with anxiety, insomnia, and nausea, she recognizes it as problematic due to its frequency and lack of control. The patient is currently taking escitalopram 40 mg daily, which she has been on for a couple of years. A recent EKG performed in the ER showed grade one diastolic dysfunction, which was explained as normal for hypertensive patients. Regarding her ADHD treatment, the patient is preparing to restart atomoxetine (Strattera). She expresses interest in potentially withdrawing from THC use and is open to discussing strategies for reducing consumption. Medical History - Hypertension - ADHD - Grade 1 diastolic dysfunction, noted as normal for hypertensive patients - PTSD - Angioedema, likely caused by BRYN inhibitors - Emergency room visit with abnormal EKG Medications and Supplements Patient is currently taking escitalopram 40 mg daily, which she has been on for a couple of years. She previously took lisinopril and amlodipine for hypertension, but these were discontinued due to angioedema. The patient was also taking Strattera (atomoxetine) in the past but had stopped it. She is now cleared to restart Strattera. The patient is advised to avoid Bactroban. Allergies - Lisinopril causes angioedema (throat swelling) Social History - Substance Use: Daily THC use via vaping, using all day (approximately every hour). Patient uses vape pens with varying THC concentrations. - Stress and Coping: Uses THC to manage anxiety, insomnia, and nausea. Review of Systems The patient reports daily THC use via vaping, occurring approximately every hour. She experienced throat swelling in the past, which was attributed to BRYN inhibitors. An EKG performed in the ER was noted to be slightly abnormal. The patient also mentions experiencing anxiety, insomnia, and nausea, which are reportedly alleviated by THC use. The note is transcribed using speech recognition software. It is a reflection of a visit with the patient. It might have some inaccuracy, including medication names and transcribing errors, though efforts have been made to correct them. PHQ-9 L ittle interest or pleasure in doing things?Several days F eeling down, depressed, or hopeless S ever T rouble falling or staying asleep, or sleeping too much M ore than half the days F eeling tired or having little energy M ore than half the days P oor appetite or overeating S ever [...] P ositve F ollow-Up for Depression M ental health treatment assessment, Patient follow-up to return when and if necessary S uicide Risk Assessment Performed 0 01/26/2025 A dditional Evaluation for Depression P sychiatric interview and evaluation N ayan of the standardized tool used for adult depression screening: P atient Health Questionnaire (PHQ-9) [place]-Suicide Severity Rating Scale: Suicide Risk (CSRS-screener) i n the past one month Have you wished you were or wished you could go to sleep and not wake up? Y es i n the past one month Have you actually had any thoughts of killing yourself? N o D epression Screening: EMY-7 (2018 Edition) F eeling nervous, anxious, or on edge S ever N ot being able to stop or control worrying?Several days W orrying too much about different things S everal T rouble relaxing S ever B eing so restless that it is hard to sit still S ever B ecoming easily annoyed or irritable S ever F eeling afraid as if something awful might happen S ever * ROS: P erformance Met: N ormal blood pressure reading documented, follow-up not required ( G8783). * Medical History: * Surgical History: * [...] alcohol in the past year? N o P oints 0 I nterpretation N egative H ousehold: H ousehold N umber of adults in household: 2 N umber of children in household: 2 M iscellaneous: S afety issues A re there any firearms in the house? N o Occupation: Disabled. Advance Care Planning A re you your own decision-maker Y es D o you have Power of Occupational Therapist Rehab Manager for Health or Medical? N o S ocial History: H john M arital Status: N ot Answered N umber of Adults in household: 2 N umber of Children in Household: 2 L evel of Education: N ot Finished College * Medications: T akingPepcid 20 MG Tablet 1 tablet at bedtime as needed Orally Once a day ZyrTEC Allergy 10 MG Tablet 1 tablet Orally Once a day hydroCHLOROthiazide 25 MG Tablet 1 tablet in the morning Orally Once a day Bystolic 10 MG Tablet 1 tablet Orally Once a day Taking Pepcid 20 MG Tablet 1 tablet at bedtime as needed Orally Once a day Taking ZyrTEC Allergy 10 MG Tablet 1 tablet Orally Once a day Taking hydroCHLOROthiazide 25 MG Tablet 1 tablet in the morning Orally Once a day Taking Bystolic 10 MG Tablet 1 tablet Orally Once a day Not-TakingLisinopril 5 MG Tablet Oral Not-Taking Lisinopril 5 MG Tablet Oral UnknownVitamin B Complex - Tablet as directed Orally Vitamin D 25 MCG (1000 UT) Tablet 1 tablet Orally Once a day Synthroid 88 MCG Tablet Oral Nystatin 985103 UNIT/GM Cream External Escitalopram Oxalate 20 MG Tablet Oral Liothyronine Sodium 5 MCG Tablet Oral Medication List reviewed and reconciled with the patientUnknown Vitamin B Complex - Tablet as directed Orally Unknown Vitamin D 25 MCG (1000 UT) Tablet 1 tablet Orally Once a day Unknown Synthroid 88 MCG Tablet Oral Unknown Nystatin 150398 UNIT/GM Cream External Unknown Escitalopram Oxalate 20 MG Tablet Oral Unknown Liothyronine Sodium 5 MCG Tablet Oral Medication List reviewed and reconciled with the patient * Allergies: A ugmentinVicodinAmlodipineLisinoprilno[Allergies Verified] Objective: * Vitals: B P:137/88mm Hg, HR:60/min, Wt:248lbs, Wt-k.49 kg, Ht: 67 in, Ht-cm: 170.18 cm, BMI:38.84Index, Body Surface Area: 2.3. * Examination: G eneral Examination: M ental Status Examination The patient presented as cooperative and engaged in the interview process. Her thought process appeared linear and goal-directed, as evidenced by her ability to provide detailed information about her recent medical appointments and medication history. The patient demonstrated intact recent memory, recalling specific dates of her headlight adjuster appointment and details of her medical tests. Her speech was spontaneous and coherent, with no apparent abnormalities in rate or volume. The patient exhibited good attention and concentration, following the conversation and responding appropriately to questions. She displayed fair insight into her medical conditions, as shown by her understanding of the need to avoid certain medications and follow up with specialists if symptoms recur. Judgment appeared intact, as evidenced by her willingness to discuss potential strategies for reducing substance use. Laboratory, Imaging, and Diagnostic Test Results Recent blood tests performed by the headlight adjuster included C4 and tryptase, both of which came back normal. An EKG performed in the ER showed a grade one diastolic dysfunction, which was noted to be abnormal. A follow-up ultrasound was also conducted. The patient reports having had these tests, but specific dates, numerical results, and reference ranges were not provided in the transcript. Assessment: * Assessment: 1. M ajor depressive disorder, recurrent severe without psychotic features - F33.2 (Primary)? 2. G eneralized anxiety disorder - F41.1 3 . P TSD (post-traumatic stress disorder) - F43.10 4 . A DHD (attention deficit hyperactivity disorder), inattentive type - F90.0 5 . E ncounter for screening for depression - Z13.31 6 . E ncounter for screening for cardiovascular disorders - Z13.6 Plan: * Treatment: 2. A DHD (attention deficit hyperactivity disorder), inattentive type Start Atomoxetine HCl Capsule, 25 MG, 1 capsule, Oral, once a day after one week increase to 40 mg, 7 days, 7 Capsule, Refills 0; S tart Atomoxetine HCl Capsule, 40 MG, 1 capsule, Orally, Once a day, 30 days, 30 Capsule, Refills 0. 3. O manjinder Clinical Notes: Problem-Based Assessment and Plan Matias, 44-year-old female with history of hypertension and ADHD, presenting with recent angioedema due to BRYN inhibitor use and daily THC vaping. Angioedema Assessment: Patient experienced throat swelling due to BRYN inhibitor (lisinopril) use. Pizza Maker consultation on January 19, 2025, included C4 and tryptase tests, which returned normal results. Pizza Maker advised avoiding lisinopril and Bactroban, with uncertainty about amlodipine's role. The second flare-up was attributed to residual lisinopril in the patient's system. Plan: - Avoid lisinopril and Bactroban - Continue current blood pressure medications - Follow up with headlight adjuster if another attack occurs Hypertension Assessment: Patient [...] ensure accuracy, there may be errors, including polysomnographer inaccuracies and misspellings of medication names. This document should not be considered a verbatim record, and any discrepancies should be verified with the provider. ? * Procedure Codes: 9 6127 BEHAV ASSMT W/SCORE & DOCD/STAND [id number] NORMAL BP READING DOC F/U NOT [id number] CLIN DEPRESSION SCREEN [id number] MOST RECENT SYSTOLIC BP < 140MM [id number] MOST RECENT DIASTOLIC BP < 90MM HG * Follow Up: 4 Weeks (Reason: Follow up Depression) * Billing Information: * Visit Code: 49236 OFFICE OUTPATIENT VISIT 25 MINUTES DETAILED HISTORY AND EXAM/MODERATE MEDICAL DECISION MAKING. * Procedure Codes: 57236 BEHAV ASSMT W/SCORE & DOCD/STAND INSTRUMENT. G8783 NORMAL BP READING DOC F/U NOT RQR. G8431 CLIN DEPRESSION SCREEN DOC. G8752 MOST RECENT SYSTOLIC BP < 140MM HG. G8754 MOST RECENT DIASTOLIC BP < 90MM HG. * Sign off status: Completed true * Provider: Tim NICHOLSON MD Date: 0 01/26/2025 Generated for Marita hinojosa/Sarita/Tonyitting on: 01/29/2025 09:21 AM CDT History and Physical Notes * HPI (History of Present Illness) Category Sub-Category Detail Notes Category Not es Depression screening PHQ-9 Little inte rest or pleasure in doing things: Several days Feeling down, depressed, or hopeless: Se veral days Trouble falling or staying a sleep, or [...] Assessment Risk) Intervention Depression Screening Findings: P ositve Follow-Up for Depression: [facility] treatment assessment, Patient follow-up to return when and if necessary Suicide Risk Assessment Performed: 01/26 Additional Evaluation for Depression: Ps ychiatric interview [...] something awful rhonda ht happen: Several days Carter-Suicide Severity Rating Scale Suicide Risk (CSRS-screener) in the past one month Have you wished you were or wished you could go to sleep and not wake up?: Yes in the past one month Have y ou actually had any thoughts of killing yourself?: No Examination Category Sub-Category Detail Notes Category Not es General Examination Mental Status Examination The patient presented as cooperative and engaged in the interview process. Her thought process appeared linear and goal-directed, as evidenced by her ability to provide detailed information about her recent medical appointments and medication history. The patient demonstrated intact recent memory, recalling specific dates of her headlight adjuster appointment and details of her medical tests. Her speech was spontaneous and coherent, with no apparent abnormalities in rate or volume. The patient exhibited good attention and concentration, following the conversation and responding appropriately to questions. She displayed fair insight into her medical conditions, as shown by her understanding of the need to avoid certain medications and follow up with specialists if symptoms recur. Judgment appeared intact, as evidenced by her willingness to discuss potential strategies for reducing substance use. Laboratory, Imaging, and Diagnostic Test Results Recent blood tests performed by the headlight adjuster included C4 and tryptase, both of which came back normal. An EKG performed in the ER showed a grade one diastolic dysfunction, which was noted to be abnormal. A follow-up ultrasound was also conducted. The patient reports having had these tests, but specific dates, numerical results, and reference ranges were not provided in the transcript.
--- OUTSIDE RECORDS SUMMARY | 2025-01-29 09:22 | XMS_ITS | Encounter Summary ---
Author Organization [facility] Address [address] [place] [address] Phone Care Team Providers Care Hand Knitter Name Role Phone Walter Erwin DO Primary Care Provider [phone] Encounter Details Date Type Department Care Team (Late st Contact Info) Description 01/24/2025 Results Follow-Up [facility] [address] [facility] [address] [place] [address] Dirk Mohr MD [address] [place], [place] [id number] Social History Tobacco Use Types Packs/Day Years [...] on file Legal Sex Female 5:17 PM [employer] MANAGER Gender Identity Female 12/05/2023 10:07 AM [employer] MANAGER Sexual Orientation Choose not to disclose 2023 10:07 AM [employer] MANAGER documented as of this encounter Plan of Treatment Not on file documented as of this encounter Visit Diagnoses Not on filedocumented in this encounter Care Teams Hand Knitter Relationship Specialty Start Date End Date Walter Erwin DO PCP - General Internal Medicine 10/20/24 documented as of this encounter
[2025-01-29 10:09] LABS: Hemoglobin A1C 5.4 % (<5.7)
== END 2025-01-29 09:17 | disposition home or self-care (01) ==
LOC: ANHLAB 09:18
PROVIDERS: PCP Internal Medicine; Visit Provider Internal Medicine Endocrinology, Diabetes & Metabolism
DX: E03.9 Hypothyroidism, unspecified (principal); R73.03 Prediabetes
CPT/HCPCS: 36415; 83036; 84439; 84443

== ENCOUNTER 2025-02-16 13:00 | Outpatient (NON) | payer OTHER, SELFPAY ==
--- OUTSIDE RECORDS SUMMARY | 2025-02-16 14:03 | XMS_ITS | Clinical Summary ---
Author Organization [facility] [address] Address [address] [place] [address] Care Team Providers Care Research Librarian Name Role Phone Walter Erwin DO Primary Care Provider [phone]- [phone] Allergies Active Allergy Reactions Criticality Noted Date [...] 12/08/2024 Assessment & Plan (12/08/2024 8:58 AM CASTING MOLDER): Very difficult views with nystagmus DFE generally [...] thyroiditis Assessment & Plan (12/08/2023 8:29 AM CASTING MOLDER): Chronic, unknown status Continue current dose of Synthroid 112 mcg oral daily Advised to stop Cytomel Recheck thyroid function test today and further plans based on it Class 1 obesity due to exces s calories with serious comorbidity and body mass index (BMI) of 33.0 to 33.9 in adult 12/05/2023 Assessment & Plan (12/08/2023 8:30 AM CASTING MOLDER): Chronic, progressively improving with Trulicity 3 mg subQ weekly dose Advised patient to include healthy lifestyle habits Include complex carbs, healthy fats and proteins Work on portion control Avoid eating processed food cutback on sugar Advised to start exercising at least 30-40 minutes every day Prediabetes 12/05/2023 Assessment & Plan (12/08/2023 8:30 AM CASTING MOLDER): On Trulicity Recheck A1c Counseled on diet [...] month Assessment & Plan (12/08/2023 8:30 AM CASTING MOLDER): Counseled on diet and exercise EMY (generalized [...] Department Care Team Description 01/24/2025 Results Follow-Up [facility] [address] [place] [address] Dirk Mohr MD 01/19/2025 3:30 PM CDT Lab [facility] [address] [place] [address] 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, initial encounter; Angioedema, initial encounter 01/19/2025 2:20 PM CDT Office Visit [facility] [address] [place], [place] [address] [place] [address] Dirk Mohr MD Angioedema, initial encounter (Primary Dx); 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, initial encounter 12/08/2024 8:00 AM CASTING MOLDER Office Visit [facility] [address] [address] Arnulfo Molina Justine, OD 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 Legal Sex Female 5:17 PM CASTING MOLDER Gender Identity Female 12/05/2023 10:07 AM CASTING MOLDER Sexual Orientation Choose not to disclose 2023 10:07 AM CASTING MOLDER Obstetrics History Last Filed Vital Signs Vital Sign Reading Time Taken Comments Blood Pressure 117/79 01/19/2025 2:21 PM CDT Pulse 54 01/19/2025 2:21 PM CDT Temperature 36.5 C (97.7 F) 01/19/2025 2:21 PM CDT Respiratory Rate 16 12/05/2023 11:22 AM CASTING MOLDER Oxygen Saturation 96% 01/19/2025 2:21 PM CDT [...] ORDERABLES Fi nal Result Performing Organization Address City/State/[facility] Phone Number [facility] Department [place] [address] * Tryptase (01/19/2025 3:30 PM CDT) Tryptase Level 3.1 <11.5 ng/mL Garcia ref Lab Comment: Test Performed by: [facility] [address] [id number] Assistant Store Leader: Galen Gallardo Ph.D.; CLIA# [id number] Blood 01/19/2025 3:30 PM CDT 01/19/2025 6:44 PM CDT Dirk Mohr MD LAB BLOOD ORDERABLES Fi nal Result [facility] Department [place] [address] [place] ref Lab from Last 3 Months Insurance [facility] Member Subscriber Plan / Payer (Ef fective 2024-Present) Name:Cheryl Alvarez Relation to Subscriber:Self Name:Cheryl Alvarez Payer ID:[id number] (NAIC) Group ID:Not on file Type:MEDICAID RISK OTHER Address: [address] [place] [facility] [place] Member Subscriber Plan / Payer (Ef fective 2021-Present) Name:Cheryl Alvarez Relation to Subscriber:Self Name:Cheryl Alvarez Payer ID:[id number] (NAIC) Type:MEDICARE RISK OTHER Address: [address] Care Teams Research Librarian Relationship Specialty Start Date End Date Walter Erwin DO PCP - General Internal Medicine 10/20/24
--- OUTSIDE RECORDS SUMMARY | 2025-02-16 14:03 | XMS_ITS | Referral Summary ---
Author Organization [facility] [address] Address [address] [place] [address] Care Team Providers Care Crop Duster Helper Name Role Phone Walter Erwin DO Primary Care Provider [phone]- [phone] Encounters Date Type Department Care Team Description 01/24/2025 Results Follow-Up [facility] [address] [place] [address] Dirk Mohr MD 01/19/2025 3:30 PM CDT Lab [facility] [address] [place] [address] [address] [place] [address] 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, initial encounter; Angioedema, initial encounter 01/19/2025 2:20 PM CDT Office Visit [facility] [address] [place] [address] Dirk Mohr MD Angioedema, initial encounter (Primary Dx); 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, initial encounter 12/08/2024 8:00 AM CNC LATHE PROGRAMMER Office Visit [facility] [address] [place] [address] Arnulfo Molina, MYRTLE Ocular albinism (Primary Dx) [...] 12/08/2024 Assessment & Plan (12/08/2024 8:58 AM CNC LATHE PROGRAMMER): Very difficult views with nystagmus DFE generally [...] thyroiditis Assessment & Plan (12/08/2023 8:29 AM CNC LATHE PROGRAMMER): Chronic, unknown status Continue current dose of Synthroid 112 mcg oral daily Advised to stop Cytomel Recheck thyroid function test today and further plans based on it Class 1 obesity due to exces s calories with serious comorbidity and body mass index (BMI) of 33.0 to 33.9 in adult 12/05/2023 Assessment & Plan (12/08/2023 8:30 AM CNC LATHE PROGRAMMER): Chronic, progressively improving with Trulicity 3 mg subQ weekly dose Advised patient to include healthy lifestyle habits Include complex carbs, healthy fats and proteins Work on portion control Avoid eating processed food cutback on sugar Advised to start exercising at least 30-40 minutes every day Prediabetes 12/05/2023 Assessment & Plan (12/08/2023 8:30 AM CNC LATHE PROGRAMMER): On Trulicity Recheck A1c Counseled on diet [...] month Assessment & Plan (12/08/2023 8:30 AM CNC LATHE PROGRAMMER): Counseled on diet and exercise EMY (generalized [...] on file Legal Sex Female 5:17 PM CNC LATHE PROGRAMMER Gender Identity Female 12/05/2023 10:07 AM CNC LATHE PROGRAMMER Sexual Orientation Choose not to disclose 2023 10:07 AM CNC LATHE PROGRAMMER Last Filed Vital Signs Vital Sign Reading Time Taken Comments Blood Pressure 117/79 01/19/2025 2:21 PM CDT Pulse 54 01/19/2025 2:21 PM CDT Temperature 36.5 C (97.7 F) 01/19/2025 2:21 PM CDT Respiratory Rate 16 12/05/2023 11:22 AM CNC LATHE PROGRAMMER Oxygen Saturation 96% 01/19/2025 2:21 PM CDT [...] MD LAB BLOOD ORDERABLES Fi nal Result [facility] Department [place] [address] * Tryptase (01/19/2025 3:30 PM CDT) Tryptase Level 3.1 <11.5 ng/mL Garcia ref Lab Comment: Test Performed by: [facility] [address] [place] [address] Helicopter Dispatcher: Galen Gallardo Ph.D.; CLIA# [id number] Blood 01/19/2025 3:30 PM CDT 01/19/2025 6:44 PM CDT Dirk Mohr MD LAB BLOOD ORDERABLES Fi nal Result Performing Organization Address [facility] Co de Phone Number [facility] Department [place] [address] [place] ref Lab from Last 3 Months Insurance [facility] Member Subscriber Plan / Payer (Ef fective 2021-Present) Name:Cheryl Alvarez Relation to Subscriber:Self Name:Cheryl Alvarez Payer ID:[id number] ([facility]) Type:MEDICARE RISK OTHER Address: [address] Care Teams Crop Duster Helper Relationship Specialty Start Date End Date Walter Erwin DO PCP - General Internal Medicine 10/20/24
--- OUTSIDE RECORDS SUMMARY | 2025-02-16 14:04 | XMS_ITS | Encounter Summary ---
Author Organization [facility] Address [address] [place] [address] Phone Care Team Providers Care Collateral Clerk Name Role Phone Walter Erwin DO Primary Care Provider +1- [phone] Encounter Details Date Type Department Care Team (Late st Contact Info) Description 01/24/2025 Results Follow-Up [facility] All[facility] Immunology [address] [place] [address] Dirk Mohr MD [address] [place], [place] [id number] Social History Tobacco Use Types Packs/Day Years [...] on file Legal Sex Female 5:17 PM REGISTERED PUBLIC SURVEYOR Gender Identity Female 12/05/2023 10:07 AM REGISTERED PUBLIC SURVEYOR Sexual Orientation Choose not to disclose 2023 10:07 AM REGISTERED PUBLIC SURVEYOR documented as of this encounter Plan of Treatment Not on file documented as of this encounter Visit Diagnoses Not on filedocumented in this encounter Care Teams Collateral Clerk Relationship Specialty Start Date End Date Walter Erwin DO PCP - General Internal Medicine 10/20/24 documented as of this encounter
--- OUTSIDE RECORDS SUMMARY | 2025-02-16 14:04 | XMS_ITS | Clinical Summary ---
Author Organization [facility] Address [address] [place] [address] Care Team Providers Care Education Officer Name Role Phone Jess Plascencia MD Primary [...] Comments Blood Pressure 126/83 10/01/2018 9:52 AM EYE DROPPER ASSEMBLER Pulse 70 10/01/2018 9:52 AM EYE DROPPER ASSEMBLER Temperature 36.7 C (98.1 F) 10/01/2018 9:52 AM EYE DROPPER ASSEMBLER Respiratory Rate - - Oxygen Saturation 98% 10/01/2018 9:52 AM EYE DROPPER ASSEMBLER Inhaled Oxygen Concentration - - Weight 112.7 kg (248 lb 8 oz) 10/01/2018 9:52 AM EYE DROPPER ASSEMBLER Height 170.2 cm (5' 7 ) 10/01/2018 9:52 AM EYE DROPPER ASSEMBLER Body Mass Index 38.92 10/01/2018 9:52 AM EYE DROPPER ASSEMBLER Plan of Treatment Health Maintenance Due Date Last Done Comments DTAP/TDAP/TD VACCINES (1 - Tdap) 2000 HEPATITIS B VACCINES (1 of 3 - 19+ 3-dose series) 2000 HPV/Cotest (21-29) 2002 PAP SMEAR 2002 CERVICAL CANCER SCREENING 2011 HPV/Cotest (30-65) 2011 PAP SMEAR 2011 BREAST CANCER SCREENING 2021 INFLUENZA VACCINE (#1) 2024 HPV VACCINES Aged Out No longer eligi ble based on patient's age to complete this topic Insurance MEDICARE PART A AND B Care Teams Education Officer Relationship Specialty Start Date End Date Jess Plascencia MD [address] [place] [address] [place] [id number] PCP - General Family Practice 09/01/18
[2025-02-16 19:59] LABS: Add Urine Microscopic? YES; Appearance Urine Clear (Clear); Bacteria Urine None Seen /hpf; Bilirubin Urine Negative (Negative); Blood Urine 3+ (Negative); Color Urine Yellow (Yellow); Glucose Urine UA Negative (Negative); Ketones Urine Negative (Negative); Leukocyte Esterase Ur Negative LEU/UL (Negative); Nitrate Urine Negative (Negative); Non Pathogenic Casts 0-2; Protein Urine Negative (Negative); Specific Grav Ur 1.013 (1.001-1.035); Squamous Epithelial Cell Urine Moderate /hpf (Few); Urobilinogen Urine 0.2 mg/dL (<2.0); WBC Urine 0-5 /hpf (0-3); pH Urine 7.5 (5.0-9.0)
== END 2025-02-16 13:01 | disposition home or self-care (01) ==
LOC: ANHGOSHLAB 13:02
PROVIDERS: PCP Nurse Practitioner; Visit Provider Nurse Practitioner
DX: R39.11 Hesitancy of micturition (principal)
CPT/HCPCS: 81001

== ENCOUNTER 2025-03-19 07:10 | Outpatient (CLI) | payer OTHER, SELFPAY ==
--- OUTSIDE RECORDS SUMMARY | 2025-03-19 07:13 | XMS_ITS | Referral Summary ---
Author Organization [facility] [place] [address] Address [address] [place] [address] Care Team Providers Care Structural Manager Name Role Phone Walter Erwin DO Primary Care Provider [phone]- [phone] Encounters Date Type Department Care Team Description 01/24/2025 Results Follow-Up [facility] Allergy and Immunology [address] 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 Take 1 tablet (112 mcg total) by mouth daily 90 tablet 3 4 Active Bystolic 10 mg tablet daily Active hydroCHLOROthiaz heidy (HYDRODIURIL) 25 mg tablet daily Active VITAMIN B COMPLEX ORAL as directed Orally Active famotidine (Pepcid) 20 mg tablet daily Active cetirizine (ZyrTEC) 10 mg tablet daily Active Active Problems Problem Noted Date Diagnosed Date 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 Assessment & Plan (12/08/2024 8:58 AM MACHINE BANDER AND CELLOPHANER): Very difficult views with nystagmus DFE generally [...] thyroiditis Assessment & Plan (12/08/2023 8:29 AM MACHINE BANDER AND CELLOPHANER): Chronic, unknown status Continue current dose of Synthroid 112 mcg oral daily Advised to stop Cytomel Recheck thyroid function test today and further plans based on it Class 1 obesity due to exces s calories with serious comorbidity and body mass index (BMI) of 33.0 to 33.9 in adult 12/05/2023 Assessment & Plan (12/08/2023 8:30 AM MACHINE BANDER AND CELLOPHANER): Chronic, progressively improving with Trulicity 3 mg subQ weekly dose Advised patient to include healthy lifestyle habits Include complex carbs, healthy fats and proteins Work on portion control Avoid eating processed food cutback on sugar Advised to start exercising at least 30-40 minutes every day Prediabetes 12/05/2023 Assessment & Plan (12/08/2023 8:30 AM MACHINE BANDER AND CELLOPHANER): On Trulicity Recheck A1c Counseled on diet [...] month Assessment & Plan (12/08/2023 8:30 AM MACHINE BANDER AND CELLOPHANER): Counseled on diet and exercise EMY (generalized [...] on file Legal Sex Female 5:17 PM MACHINE BANDER AND CELLOPHANER Gender Identity Female 12/05/2023 10:07 AM MACHINE BANDER AND CELLOPHANER Sexual Orientation Choose not to disclose 2023 10:07 AM MACHINE BANDER AND CELLOPHANER Last Filed Vital Signs Vital Sign Reading Time Taken Comments Blood Pressure 117/79 01/19/2025 2:21 PM CDT Pulse 54 01/19/2025 2:21 PM CDT Temperature 36.5 C (97.7 F) 01/19/2025 2:21 PM CDT Respiratory Rate 16 12/05/2023 11:22 AM MACHINE BANDER AND CELLOPHANER Oxygen Saturation 96% 01/19/2025 2:21 PM CDT [...] 3:30 PM CDT 01/19/2025 6:13 PM CDT us Dirk Mohr MD LAB BLOOD ORDERABLES Fi nal Result [facility] [place] [address] * Tryptase (01/19/2025 3:30 PM CDT) Tryptase Level 3.1 <11.5 ng/mL Garcia ref Lab Comment: Test Performed by: [facility] [address] [place] [address] Manager Transplant: Galen Gallardo Ph.D.; CLIA# [id number] Blood 01/19/2025 3:30 PM CDT 01/19/2025 6:44 PM CDT Dirk Mohr MD LAB BLOOD ORDERABLES nal Result ANGEL [facility] Department [place] [address] Garcia ref Lab from Last 3 Months Insurance [facility] Member Subscriber Plan / Payer ( fective 2024-Present) Name:Cheryl Alvarez Relation to Subscriber:Self Name:Cheryl Alvarez Payer ID:[id number] (NAIC) Group ID:Not on file Type:MEDICAID RISK OTHER Address: [address] [facility] Care Teams Structural Manager Relationship Specialty Start Date End Date Walter Erwin DO PCP - General Internal Medicine 10/20/24
--- OUTSIDE RECORDS SUMMARY | 2025-03-19 07:13 | XMS_ITS | Clinical Summary ---
Author Organization [facility] [place] [address] Address [address] [place] [address] Care Team Providers Care Cotton Inspector Name Role Phone Walter Erwin DO Primary Care Provider +1- [phone] Allergies Active Allergy Reactions Criticality Noted Date [...] 12/08/2024 Assessment & Plan (12/08/2024 8:58 AM MANAGER HOSPITALITY): Very difficult views with nystagmus DFE generally [...] thyroiditis Assessment & Plan (12/08/2023 8:29 AM MANAGER HOSPITALITY): Chronic, unknown status Continue current dose of Synthroid 112 mcg oral daily Advised to stop Cytomel Recheck thyroid function test today and further plans based on it Class 1 obesity due to exces s calories with serious comorbidity and body mass index (BMI) of 33.0 to 33.9 in adult 12/05/2023 Assessment & Plan (12/08/2023 8:30 AM MANAGER HOSPITALITY): Chronic, progressively improving with Trulicity 3 mg subQ weekly dose Advised patient to include healthy lifestyle habits Include complex carbs, healthy fats and proteins Work on portion control Avoid eating processed food cutback on sugar Advised to start exercising at least 30-40 minutes every day Prediabetes 12/05/2023 Assessment & Plan (12/08/2023 8:30 AM MANAGER HOSPITALITY): On Trulicity Recheck A1c Counseled on diet [...] month Assessment & Plan (12/08/2023 8:30 AM MANAGER HOSPITALITY): Counseled on diet and exercise EMY (generalized [...] Department Care Team Description 01/24/2025 Results Follow-Up [facility] Allergy and Immunology [address] [facility] [address] [place] [address] Dirk Mohr MD 01/19/2025 3:30 PM CDT Lab [facility] [address] [place] [address] [address] [place] [address] 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, initial encounter; Angioedema, initial encounter 01/19/2025 2:20 PM CDT Office Visit [facility] Allergy and Immunology [address] [place] [address] Dirk Mohr MD Angioedema, initial encounter (Primary Dx); 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, initial encounter from Last 3 Months Surgical History Surgery [...] on file Legal Sex Female 5:17 PM MANAGER HOSPITALITY Gender Identity Female 12/05/2023 10:07 AM MANAGER HOSPITALITY Sexual Orientation Choose not to disclose 2023 10:07 AM MANAGER HOSPITALITY Obstetrics History Last Filed Vital Signs Vital Sign Reading Time Taken Comments Blood Pressure 117/79 01/19/2025 2:21 PM CDT Pulse 54 01/19/2025 2:21 PM CDT Temperature 36.5 C (97.7 F) 01/19/2025 2:21 PM CDT Respiratory Rate 16 12/05/2023 11:22 AM MANAGER HOSPITALITY Oxygen Saturation 96% 01/19/2025 2:21 PM CDT [...] ORDERABLES Fi nal Result Performing Organization Address [facility] Co de Phone Number [facility] [place] [address] * Tryptase (01/19/2025 3:30 PM CDT) Tryptase Level 3.1 <11.5 ng/mL Garcia ref Lab Comment: Test Performed by: [facility] [address] [place] [address] Payment Poster: Galen Gallardo Ph.D.; CLIA# [id number] Blood 01/19/2025 3:30 PM CDT 01/19/2025 6:44 PM CDT Dirk Mohr MD LAB BLOOD ORDERABLES Fi nal Result Performing Organization Address City/State/[facility] Co de Phone Number [facility] [place] [address] [place] ref Lab from Last 3 Months Insurance [facility] [place] [address] [facility] Member Subscriber Plan / Payer ( fective 2021-Present) Name:Cheryl Alvarez Relation to Subscriber:Self Name:Cheryl Alvarez Payer ID:[id number] (NA) Type:MEDICARE RISK OTHER Address: [address] OF [place] Care Teams Cotton Inspector Relationship Specialty Start Date End Date Walter Erwin DO PCP - General Internal Medicine 10/20/24
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
--- OUTSIDE RECORDS SUMMARY | 2025-03-19 07:13 | XMS_ITS | Data Portability ---
Author Organization [place] - [facility], Main Office Address [address] [place] [address] Assessment Encounter Date Assessment Date Assessment LastModified by Organization Details LastModified Time 04/22/2024 04/22/2024 Assessment: Delayed sleep phase syndrome Mild OSHS, HI = 4 Plan: The following were reviewed and explained to the patient: primary care/referral note [facility] home sleep study 04/14/24 HI = 4, supine HI = 18. Sleep in lateral recumbent or semirecumbent position for the time being. There could also be substantial [id number]-xy-[id number] variability in the AHI that can lead [...] were reviewed and explained to the patient: [facility] home sleep study 04/14/24 HI = 4, supine HI = 18 [facility] diagnostic sleep study 06/08/24 sleep onset = [...] were reviewed and explained to the patient: [facility] home sleep study 04/14/24 HI = 4, supine HI = 18 [facility] diagnostic sleep study 06/08/24 sleep onset = 18 minutes, REM onset = none, AHI = 6, supine AHI = 36, PLMI = 2 [facility] titration sleep study 08/03/24 sleep onset = [...] carrier. Patient will setup an appointment with [facility] for supplies and pressure adjustments. A [...] were reviewed and explained to the patient: [facility] home sleep study 04/14/24 HI = 4, supine HI = 18 [facility] diagnostic sleep study 06/08/24 sleep onset = 18 minutes, REM onset = none, AHI = 6, supine AHI = 36, PLMI = 2 [facility] titration sleep study 08/03/24 sleep onset = [...] duration at 20 minutes. 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 Keep humidifier level at 2. Keep tube [...] carrier. Patient will setup an appointment with [facility] for supplies and pressure adjustments. A [...] Imaging polysomno gram, titration study 2023 024 [email or web address] [facility], [address] [place], [address], 07/19/2024 10:04:06 polysomno gram, diagnosti c, 6 yrs or older - approved [id number] 1 04/22/24-2023 024 [email or web address] [facility], [address] [place], [address], 05/03/2024 08:12:03 home sleep study - *Please call pt to schedule* 2023 024 [facility], [address] [place], [address], 04/16/2024 14:48:34 Medication Orders aspirin 81 mg tablet,de layed release 2023 024 [facility][id number], [address] [facility] [address] [place] [address], [id number], 11/24/2024 09:35:14 losartan 50 mg tablet 2023 024 [id number], [address], [id number], 04/22/2024 10:06:10 Patient TargetsNo targets recorded. Patient InstructionsNo instructions recorded. Reason for Referral None Reported. Results Created Date Observation Date Name Description Value Unit Range Abnormal Flag Note LastModifiedBy Organization Detail LastModifiedTime 03/17/2003/17/2024 US, thyro id No observ ation record ed. [facility] [address] [place] [address], [id number], 03/18/2024 13:20:14 04/16/20 24 04/14/2024 home sleep study No observ ation record ed. [email or web address] [facility] [address] [place], [address], 05/21/2024 09:41:12 04/16/20 24 04/14/2024 home sleep study No observ ation record ed. [facility] [address] [place], [address], 04/16/2024 14:48:34 06/11/20 24 06/08/2024 polys omnog mario, diagn ostic , 6 yrs or older No observ ation record ed. [facility] [address] [place], [address], 06/11/2024 12:17:27 08/24/20 24 08/03/2024 polys omnog mario, titra tion study No observ ation record ed. [facility] [address] [place], [address], 08/24/2024 10:07:59 Result Notes None recorded. Problems Name Problem SNOMED Code Status Onset Date Resolution Date Notes Provider Name and Address Organization Details Recorded Time Polycystic ovary syndrome 211507826 Active 2022 Not Available [facility] 3 22:28:42 Prediabete s 372549305 Active 2022 Not Available [employer] 3 22:28:42 Arthritis 7035831 Active 2022 Not Available [facility] 3 22:28:42 Mixed anxiety and depressive disorder 833103256 Active 2022 Not Available [facility] 3 22:28:42 Cobalamin deficiency 846066018 Active 2023 Jess Plascencia MD [address] [facility], [facility] [address], [place], [address] , [facility] [employer] [facility] 4 12:27:48 Albinism 89241181 Active Not Available [facility] 3 22:28:42 Pain in throat 815861711 Completed Not Available [facility] 3 03:22:27 Blindness - both eyes 925349593 Active Not Available [facility] 3 22:28:42 Vitamin D deficiency 27563713 Active Not Available [facility] 3 22:28:42 Goiter 3027729 Active Not Available [facility] 3 22:28:42 Hypothyroi dism 61307535 Active Not Available [facility] 3 22:28:42 Hemorrhoid s 97721848 Active Not Available [facility] 3 22:28:42 Essential hypertensi on 64704308 Active 2023 PAUL McginnisP[facility] [address], [place], [address] , [employer] 4 14:32:49 Varicose veins of lower extremity 51734000 Active 2023 PAUL McginnisP-[facility] [address], [place], [address] , [employer] 4 14:33:55 Obstructiv e sleep apnea syndrome 77172862 Active 2023 Jw Phipps MD [address], [place], [address] , [employer] 4 10:44:19 Notes:Medical History: [place] [facility] Depression/Anxiety Bilateral legal blindness Rhinitis with [...] Most Recent Mammogram completed Lola Chávez LPN [employer] 01/08/2024 11:27:10 4 delivery completed Not Available [facility] 01/01/2023 03:14:20 2 delivery completed Not Available [facility] 01/01/2023 03:14:20 Imaging Results Imaging Date Name Status LastModified by Organiz ation Details LastModified Time 03/17/2024 US, thyroid completed [facility] [address], [place], [address], 03/18/2024 13:20:14 04/14/2024 home sleep study completed [address] [place], [address], 05/21/2024 09:41:12 04/14/2024 home sleep study completed [facility] [address] [place], [address], 04/16/2024 14:48:34 06/08/2024 polysomnogram, diagnostic, 6 yrs or older completed [facility] [address] [place], [address], 06/11/2024 12:17:27 08/03/2024 polysomnogram, titration study completed [facility] [address] [place], [address], 08/24/2024 10:07:59 Procedure Notes None recorded. Medical Equipment None Reported. Allergies Allergen ID Allergen Name Allergen Category Reaction Reaction Severity Criticality Documentation Date Start Date Code Code System Note Provider Name and Address Organization Details Recorded Time 6274 acetamino phen / hydrocodo ne medicatio n itching Not available Not available 01/01/2023 41385 2 RxNorm Not Available [facility] 3 03:34:13 6275 Augmentin medicatio n diarrhea Not available Not available 01/01/2023 43775 2 RxNorm Not Available [facility] 3 03:34:13 Medications Name Sig [...] tablets in a dose pack TK PER [facility] DIRECTION S UTD FOR 6 DAYS active [...] Updated DateTime 4 170.18 cm 35.2 kg/m2 769656. 28 g 97.1 [degF] 79 /min 96 % 96 % 152 mm[Hg] 98 mm[Hg] Keara Santana RN [place] - [place] [employer] [facility] 4 14:13:47 Date Recorded Body height Body mass index (BMI) Body weight Heart rate Oxygen saturation Oxygen saturation in Arterial blood by Pulse oximetry Body temperature Systolic blood pressure Diastolic blood pressure Provider Name and Address Organization Details Last Updated DateTime 4 170.18 cm 35.2 kg/m2 782635. 28 g 70 /min [id number]|2025-03-19 07:13:00|2025-03-19 07:13:00|XMS_ITS|DARWING ZORAIDASUSHANTKATHERIN|External Medical Summaries|[id number]|" Clinical Summary Created on: March 19, 2025 Taylor Alvarezi : 1980 Sex: Female Author Organization [facility] Address [address] [place] [address] [place] [address] Care Team Providers Care Flatwork Tier Name Role Phone Jess Plascencia MD Primary [...] Comments Blood Pressure 126/83 10/01/2018 9:52 AM DISPATCH ASSOCIATE Pulse 70 10/01/2018 9:52 AM DISPATCH ASSOCIATE Temperature 36.7 C (98.1 F) 10/01/2018 9:52 AM DISPATCH ASSOCIATE Respiratory Rate - - Oxygen Saturation 98% 10/01/2018 9:52 AM DISPATCH ASSOCIATE Inhaled Oxygen Concentration - - Weight 112.7 kg (248 lb 8 oz) 10/01/2018 9:52 AM DISPATCH ASSOCIATE Height 170.2 cm (5' 7 ) 10/01/2018 9:52 AM DISPATCH ASSOCIATE Body Mass Index 38.92 10/01/2018 9:52 AM DISPATCH ASSOCIATE Plan of Treatment Health Maintenance Due Date Last Done Comments DTAP/TDAP/TD VACCINES (1 - Tdap) 2000 HEPATITIS B VACCINES (1 of 3 - 19+ 3-dose series) 2000 HPV/Cotest (21-29) 2002 CERVICAL CANCER SCREENING 2011 HPV/Cotest (30-65) 2011 PAP SMEAR 2011 BREAST CANCER SCREENING 2021 INFLUENZA VACCINE (#1) 2024 HPV VACCINES Aged Out No longer eligi ble based on patient's age to complete this topic Insurance MEDICARE PART A AND B Care Teams Flatwork Tier Relationship Specialty Start Date End Date Jess Plascencia MD [address] [place] [address] [place] [address] PCP - General Family Practice 09/01/18 "
--- OUTSIDE RECORDS SUMMARY | 2025-03-19 07:15 | XMS_ITS | Patient Health Record ---
Author Organization [facility] [employer] Address [address] [facility] [address] [place] [address] Care Team Providers Care Radiotelephone Technical Operator Name Role Phone Edwina Mckeon APN Primary Care Provider Unavailab Edwina May Unavailable [phone] FranciscoDarcie Unavailable [phone] Sergio Aguayo Unavailable [phone] Migration, Provider Unavailable Unavailable Allergies Allergen (clinical [...] Oxazepam (BZO) NEG 0 - 300 ng/ml 4-brvxudffjz-7,7-vzwntraz-3,3-diphenylpyrrolidine (STEVIE P) NEG 0 - 300 ng/ml Methamphetamine (MET) NEG 0 - 1000 ng/ml Methylenedioxymethamphetamine (MDMA) NEG 0 - 500 ng/ml Morphine (MOP 300/[id number]) NEG 0 - 300 ng/ml Methadone (MTD) NEG 0 - 300 ng/ml Phencyclidine (PCP) NEG 0 - 25 ng/ml Nortriptyline (TCA) NEG 0 - 1000 ng/ml Oxycodone NEG 0 - 300 ng/ml x NEG 0 - 300 ng/ml Reason For Referral No Information Medications Medication SIG (Take, Route, Frequency, Duration) Notes Start Date End Date Status Atomoxetine HCl 60 MG 1 capsule Orally O nce a day for 30 days Active Lisinopril 5 MG Oral for 90 Days Not-Taking Pepcid 20 MG 1 tablet at bedtime as needed Orally Once a day Active Vitamin D 25 MCG (1000 UT) 1 tablet Oral ly Once a day Active Synthroid 88 MCG Oral for 90 Days Active QUEtiapine Fumarate 25 MG 1 tablet at be dtime Orally Once a day for 30 day(s) 03/16/2025 Active Liothyronine Sodium 5 MCG Oral for 90 Days Active Escitalopram Oxalate 20 MG 2 tablet Oral once a day for 30 days Active ZyrTEC Allergy 10 MG 1 tablet Orally Onc e a day Active hydroCHLOROthiazide 25 MG 1 tablet in th e morning Orally Once a day Active Bystolic 10 MG 1 tablet Orally Once a day Active Vitamin B Complex [...] Severe recurrent major depression without psychotic features (65879086) Major depressive disorder, recurrent severe without psychotic features (F33.2) Active confirmed Problem Generalized anxiety disorder (94392417) Generalized anxiety disorder (F41.1) Active confirmed Problem Essential hypertension (91096281) Essential (primary) hypertension (I10) 10/21/20 22 Active confirmed Problem Posttraumatic stress disorder (91640403) PTSD (post-traumatic stress disorder) (F43.10) Active confirmed Problem Attention deficit hyperactivity disorder, predominantly inattentive type (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) ADHD (attention deficit hyperactivity disorder), inattentive type (F90.0) Active confirmed Problem 794905236 Medical marijuan a use (Z79.899) Active confirmed Problem Polycystic ovary syndrome (disorder) (974725326) Polycystic ovarian syndrome (E28.2) 12/05/19 24 Active confirmed Problem Vitamin D deficiency (26937192) Vitamin D deficiency (E55.9) 05/29/20 23 Active confirmed Problem 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 (122590013) 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) 12/05/19 24 Active confirmed Problem Blindness - both eyes (disorder) (581802765) Blindness of both eyes (H54.3) 05/29/20 23 Active confirmed Problem Albinism (24817861) 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) 10/02/20 18 Active confirmed Vital Signs Heart Rate 60 /min 02/23/2025 Height-cm 170.18 cm 02/23/2025 Blood pressure diastolic 90 mm Hg 02/23/2025 Weight-kg 111.13 kg 02/23/2025 Height 67 in 02/23/2025 Blood pressure systolic 135 mm Hg 02/23/2025 Weight 245 lbs 02/23/2025 BMI 38.37 kg/m2 02/23/2025 Encounters Encounter Location Date Provider Diagnosis [employer] [address] [facility] [address] [place] [address] 02/02/2025 Darcie Singh Encounter for screening for depression Z13.31 ; Major depressive disorder, recurrent severe without psychotic features F33.2 ; Generalized anxiety disorder F41.1 ; PTSD (post-traumatic stress disorder) F43.10 and ADHD (attention deficit hyperactivity disorder), inattentive type F90.0 [employer] [employer] [address] [place] [address] 09/22/2024 Edwina Hinderliter Major depressive disorder, recurrent severe without psychotic features F33.2 [employer] [employer] [address] [place] [address] 09/29/2024 Edwina Hinderliter Major depressive disorder, recurrent severe without psychotic features F33.2 [employer] [employer] [address] [place] [address] 10/06/2024 Edwina Hinderliter Major depressive disorder, recurrent severe without psychotic features F33.2 [employer] [employer] [address] [place] [address] 10/13/2024 Edwina Hinderliter Major depressive disorder, recurrent severe without psychotic features F33.2 [employer] [employer] [address] [place] [address] 10/20/2024 Edwinalottie Mockliter Major depressive disorder, recurrent severe without psychotic features F33.2 and Generalized anxiety disorder F41.1 [employer] [employer] [address] [place] [address] 10/29/2024 Edwinalottie Mockliter Major depressive disorder, recurrent severe without psychotic features F33.2 and Generalized anxiety disorder F41.1 [employer] [employer] [address] [place] [address] 11/10/2024 Edwinalottie Mockliter Major depressive disorder, recurrent severe without psychotic features F33.2 and Generalized anxiety disorder F41.1 [employer] [employer] [address] [place] [address] 11/17/2024 Edwinalottie Mockliter Major depressive disorder, recurrent severe without psychotic features F33.2 and Generalized anxiety disorder F41.1 [employer] [employer] [address] [place] [address] 11/24/2024 Edwinalottie Mockliter Major depressive disorder, recurrent severe without psychotic features F33.2 and Generalized anxiety disorder F41.1 [employer] [address] [place] [address] 11/26/2024 Sergio Aguayo Major depressive disorder, recurrent severe without psychotic features F33.2 ; ADHD (attention deficit hyperactivity disorder), inattentive type F90.0 ; Polycystic ovarian syndrome E28.2 ; 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 E06.3 ; Essential (primary) hypertension I10 ; Blindness of both eyes H54.3 ; Vitamin D deficiency E55.9 ; Albinism E70.30 ; Generalized anxiety disorder F41.1 and Medical marijuana use Z79.899 [employer] [employer] [address] [place] [address] 12/08/2024 Edwinalottie Mockliter Major depressive disorder, recurrent severe without psychotic features F33.2 ; Generalized anxiety disorder F41.1 and ADHD (attention deficit hyperactivity disorder), inattentive type F90.0 [employer] [employer] [address] [place] [address] 12/15/2024 Edwinalottie Mockliter ADHD (attention deficit hyperactivity disorder), inattentive type F90.0 ; Major depressive disorder, recurrent severe without psychotic features F33.2 and Generalized anxiety disorder F41.1 [facility] [employer] [facility] [address] [place] [address] 12/22/2024 Edwina Blackwell Major depressive disorder, recurrent severe without psychotic features F33.2 ; Generalized anxiety disorder F41.1 ; ADHD (attention deficit hyperactivity disorder), inattentive type F90.0 and PTSD (post-traumatic stress disorder) F43.10 [facility] [employer] [facility] [address] [place] [address] 12/29/2024 Sergio Olivier Major depressive disorder, recurrent severe without psychotic features F33.2 ; Generalized anxiety disorder F41.1 ; PTSD (post-traumatic stress disorder) F43.10 and ADHD (attention deficit hyperactivity disorder), inattentive type F90.0 [facility] [employer] [facility] [address] [place] [address] 12/29/2024 Edwina Blackwell Major depressive disorder, recurrent severe without psychotic features F33.2 ; ADHD (attention deficit hyperactivity disorder), inattentive type F90.0 and PTSD (post-traumatic stress disorder) F43.10 [facility] [employer] [place] [address] [place] [address] 01/19/2025 Darcie Singh Encounter for screening for depression Z13.31 ; Major depressive disorder, recurrent severe without psychotic features F33.2 ; Generalized anxiety disorder F41.1 ; PTSD (post-traumatic stress disorder) F43.10 and ADHD (attention deficit hyperactivity disorder), inattentive type F90.0 [facility] [employer] [place] [address] [place] [address] 01/26/2025 Sergio Olivier Major depressive disorder, recurrent severe without psychotic features F33.2 ; Generalized anxiety disorder F41.1 ; PTSD (post-traumatic stress disorder) F43.10 ; ADHD (attention deficit hyperactivity disorder), inattentive type F90.0 ; Encounter for screening for depression Z13.31 and Encounter for screening for cardiovascular disorders Z13.6 [facility] [employer] [place] [address] [place] [address] 02/09/2025 Darcie Francisco Encounter for screening for depression Z13.31 ; Major depressive disorder, recurrent severe without psychotic features F33.2 ; Generalized anxiety disorder F41.1 ; PTSD (post-traumatic stress disorder) F43.10 and ADHD (attention deficit hyperactivity disorder), inattentive type F90.0 [facility] [employer] [address] 02/23/2025 Darcie Francisco Encounter for screening for depression Z13.31 ; Major depressive disorder, recurrent severe without psychotic features F33.2 ; Generalized anxiety disorder F41.1 ; PTSD (post-traumatic stress disorder) F43.10 and ADHD (attention deficit hyperactivity disorder), inattentive type F90.0 [facility] [employer] [address] 02/23/2025 Sergio Aguayo ADHD (attention deficit hyperactivity disorder), inattentive type F90.0 ; Generalized anxiety disorder F41.1 ; PTSD (post-traumatic stress disorder) F43.10 ; Encounter for screening for depression Z13.31 ; Major depressive disorder, recurrent severe without psychotic features F33.2 ; Encounter for screening for cardiovascular disorders Z13.6 and Dietary counseling and surveillance Z71.3 [facility] [employer] [address] 03/02/2025 Darcie Francisco Encounter for screening for depression Z13.31 ; Major depressive disorder, recurrent severe without psychotic features F33.2 ; Generalized anxiety disorder F41.1 ; PTSD (post-traumatic stress disorder) F43.10 and ADHD (attention deficit hyperactivity disorder), inattentive type F90.[address] [address] 03/09/2025 Darcie Francisco Encounter for screening for depression Z13.31 ; Major depressive disorder, recurrent severe without psychotic features F33.2 ; Generalized anxiety disorder F41.1 ; PTSD (post-traumatic stress disorder) F43.10 and ADHD (attention deficit hyperactivity disorder), inattentive type F90.0 [facility] [employer] [address] 03/20/2024 Provider Migration [address] [address] 03/21/2024 Provider Migration [facility], [facility] [address] [place] [address] 11/26/2024 Edwina Blackwell [facility] [address] [place] [address] 12/15/2024 Edwina Blackwell [facility] [address] [place] [address] 01/05/2025 Edwina Blackwell [facility] [address] [place] [address] 02/09/2025 Edwina Blackwell [facility] [address] [place] [address] 11/09/2024 Edwina Blackwell [facility] [address] [place] [address] 11/29/2024 Edwina Blackwell [facility] [address] [place] [address] 11/30/2024 Edwina Blackwell [facility] [address] [place] [address] 12/15/2024 Edwina Blackwell [facility] [address] [place] [address] 01/11/2025 Edwina Blackwell [facility] [address] [place] [address] 03/16/2025 Sergio Aguayo Assessments Encounter Date Diagnosis (ICD Code) Assessment Notes Treatment Notes Treatment Clinical Notes Section Notes 09/22/2024 Major depressive disorder, recurrent severe without psychotic features (ICD-10 - F33.2) Marital Status: care home partnership Living Arrangement: lives with partner and [...] potential medication adjustments. 4. Vision Impairment and [place] - Discuss strategies to enhance the patient's [...] and management under the care of her fortune cookie maker for hyperthyroidism, as indicated by a TSH [...] report any changes or worsening to the redeye gunner. PTSD Continue with current therapy [id number]|2025-03-19 07:15:00|2025-03-19 07:14:00|XMS_ITS|[facility]|External Medical Summaries|[id number]|" Encounter Summary Created on: March 19, 2025 Matias Cameron : 1980 Sex: Female Author Organization [facility] Address [address] [place] [address] Phone Care Team Providers Care Radiotelephone Technical Operator Name Role Phone Walter Erwin DO Primary Care Provider [phone] Encounter Details Date Type Department Care Team (Late st Contact Info) Description 01/24/2025 Results Follow-Up [facility] Allergy and Immunology [address] [place] [address] Dirk Mohr MD [address] [place] [address] Social History Tobacco Use Types Packs/Day Years [...] on file Legal Sex Female 5:17 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
[2025-03-19 07:53] LABS: Free T4 Free Thyroxine 0.88 ng/dL (0.78-2.19)
== END 2025-03-19 07:11 | disposition home or self-care (01) ==
LOC: ANHLAB 07:11
PROVIDERS: PCP Internal Medicine; Visit Provider Internal Medicine Endocrinology, Diabetes & Metabolism
DX: E03.9 Hypothyroidism, unspecified (principal)
CPT/HCPCS: 36415; 84439; 84443

== ENCOUNTER 2025-04-20 13:59 | Outpatient (CLI) | payer OTHER, SELFPAY ==
--- NOTE | ~2025-04-20 | MM_ITS ---
EXAMINATION: MM screening [facility] HISTORY: Screening TECHNIQUE: Craniocaudal and mediolateral oblique 3-D tomosynthesis images were obtained and synthetic 2-D images were generated. CAD analysis was submitted and interpreted. COMPARISON: Comparison to multiple prior studies sequentially, with oldest reviewed study dated 11/26. BREAST PARENCHYMAL COMPOSITION: Not Dense: The breasts are almost entirely fatty. FINDINGS: There is no evidence of suspicious mass, calcification, or architectural distortion to sugg est malignancy in either breast. There has been no suspicious interval change. IMPRESSION: 1. No mammographic evidence of malignancy. 2. Recommend routine screening mammography in one year. BI-RADS Category 1: Negative Reviewed, dictated and finalized at location A.
--- OUTSIDE RECORDS SUMMARY | 2025-04-20 15:49 | XMS_ITS | Referral Summary ---
Author Organization [facility] [address] Address [address] [place] [address] Care Team Providers Care Health Science Specialist Name Role Phone Walter Erwin DO Primary Care Provider [phone] Encounters Date Type Department Care Team Description 01/24/2025 Results Follow-Up [facility] Allergy and Immunology [address] [facility] [address] [place] [address] Dirk Mohr MD C4 complement, Tryptase 01/19/2025 3:30 PM CDT Lab [facility] Advanced Medicine [facility] [address] [facility] [place] [address] 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, initial encounter; Angioedema, initial encounter 01/19/2025 2:20 PM CDT Office Visit [facility] Allergy and Immunology [address] [facility] [facility] [address] [place] [address] Dirk Mohr MD Angioedema, initial encounter (Primary [...] 12/08/2024 Assessment & Plan (12/08/2024 8:58 AM LAST TURNER): Very difficult views with nystagmus DFE generally [...] thyroiditis Assessment & Plan (12/08/2023 8:29 AM LAST TURNER): Chronic, unknown status Continue current dose of Synthroid 112 mcg oral daily Advised to stop Cytomel Recheck thyroid function test today and further plans based on it Class 1 obesity due to exces s calories with serious comorbidity and body mass index (BMI) of 33.0 to 33.9 in adult 12/05/2023 Assessment & Plan (12/08/2023 8:30 AM LAST TURNER): Chronic, progressively improving with Trulicity 3 mg subQ weekly dose Advised patient to include healthy lifestyle habits Include complex carbs, healthy fats and proteins Work on portion control Avoid eating processed food cutback on sugar Advised to start exercising at least 30-40 minutes every day Prediabetes 12/05/2023 Assessment & Plan (12/08/2023 8:30 AM LAST TURNER): On Trulicity Recheck A1c Counseled on diet [...] month Assessment & Plan (12/08/2023 8:30 AM LAST TURNER): Counseled on diet and exercise EMY (generalized [...] on file Legal Sex Female 5:17 PM LAST TURNER Gender Identity Female 12/05/2023 10:07 AM LAST TURNER Sexual Orientation Choose not to disclose 2023 10:07 AM LAST TURNER Last Filed Vital Signs Vital Sign Reading Time Taken Comments Blood Pressure 117/79 01/19/2025 2:21 PM CDT Pulse 54 01/19/2025 2:21 PM CDT Temperature 36.5 C (97.7 F) 01/19/2025 2:21 PM CDT Respiratory Rate 16 12/05/2023 11:22 AM LAST TURNER Oxygen Saturation 96% 01/19/2025 2:21 PM CDT Inhaled Oxygen Concentration - - Weight 112 kg (247 lb) 01/19/2025 2:21 PM CDT Height 170.2 cm (5' 7) 01/19/2025 2:21 PM CDT Body Mass Index [...] LAB BLOOD ORDERABLES Fi nal Result [facility] Department [place] [address] * Tryptase (01/19/2025 3:30 PM CDT) Tryptase Level 3.1 <11.5 ng/mL Garcia ref Lab Comment: Test Performed by: [facility] [id number] Reporter: Galen Gallardo Ph.D.; CLIA# [id number] Blood 01/19/2025 3:30 PM CDT 01/19/2025 6:44 PM CDT Dirk Mohr MD LAB BLOOD ORDERABLES nal Result [facility] Department [place] [address] Garcia ref Lab from Last 3 Months Insurance [facility] Member Subscriber Plan / Payer (Ef fective 2021-Present) Name:Cheryl Alvarez Relation to Subscriber:Self Name:Cheryl Alvarez Payer ID:[id number] ([employer]) Type:MEDICARE RISK OTHER Address: [address] Care Teams Health Science Specialist Relationship Specialty Start Date End Date Walter Erwin DO PCP - General Internal Medicine 10/20/24
--- OUTSIDE RECORDS SUMMARY | 2025-04-20 15:49 | XMS_ITS | Clinical Summary ---
Author Organization [facility] [address] Address [address] [place] [address] Care Team Providers Care Quality Control Tech Raw Materials Name Role Phone Walter Erwin DO Primary Care Provider [phone]- [phone] Allergies Active Allergy Reactions Criticality Noted Date [...] 12/08/2024 Assessment & Plan (12/08/2024 8:58 AM REINSURANCE CLAIM ANALYST): Very difficult views with nystagmus DFE generally [...] thyroiditis Assessment & Plan (12/08/2023 8:29 AM REINSURANCE CLAIM ANALYST): Chronic, unknown status Continue current dose of Synthroid 112 mcg oral daily Advised to stop Cytomel Recheck thyroid function test today and further plans based on it Class 1 obesity due to exces s calories with serious comorbidity and body mass index (BMI) of 33.0 to 33.9 in adult 12/05/2023 Assessment & Plan (12/08/2023 8:30 AM REINSURANCE CLAIM ANALYST): Chronic, progressively improving with Trulicity 3 mg subQ weekly dose Advised patient to include healthy lifestyle habits Include complex carbs, healthy fats and proteins Work on portion control Avoid eating processed food cutback on sugar Advised to start exercising at least 30-40 minutes every day Prediabetes 12/05/2023 Assessment & Plan (12/08/2023 8:30 AM REINSURANCE CLAIM ANALYST): On Trulicity Recheck A1c Counseled on diet [...] month Assessment & Plan (12/08/2023 8:30 AM REINSURANCE CLAIM ANALYST): Counseled on diet and exercise EMY (generalized [...] Department Care Team Description 01/24/2025 Results Follow-Up [facility] Allergy and Immunology [address] [facility] [address] [place] [address] Dirk Mohr MD C4 complement, Tryptase 01/19/2025 3:30 PM CDT Lab [facility] Advanced Medicine [facility] [address] [place] [address] [address] [place] [address] 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, initial encounter; Angioedema, initial encounter 01/19/2025 2:20 PM CDT Office Visit [facility] Allergy and Immunology [address] [facility] [address] [place] [address] Dirk Mohr MD Angioedema, initial encounter (Primary [...] on file Legal Sex Female 5:17 PM REINSURANCE CLAIM ANALYST Gender Identity Female 12/05/2023 10:07 AM REINSURANCE CLAIM ANALYST Sexual Orientation Choose not to disclose 2023 10:07 AM REINSURANCE CLAIM ANALYST Obstetrics History Last Filed Vital Signs Vital Sign Reading Time Taken Comments Blood Pressure 117/79 01/19/2025 2:21 PM CDT Pulse 54 01/19/2025 2:21 PM CDT Temperature 36.5 C (97.7 F) 01/19/2025 2:21 PM CDT Respiratory Rate 16 12/05/2023 11:22 AM REINSURANCE CLAIM ANALYST Oxygen Saturation 96% 01/19/2025 2:21 PM CDT [...] 5 season) 2024 10/12/2021, 01/05/2021 Influenza Vaccine (Season Ended) 2025 08/10/2015, 08/30/2013, 08/27/2013 HPV Vaccines Aged Out No [...] ORDERABLES Fi nal Result Performing Organization Address [facility] de Phone Number [facility] [place] [place] [address] * Tryptase (01/19/2025 3:30 PM CDT) Tryptase Level 3.1 <11.5 ng/mL Garcia ref Lab Comment: Test Performed by: [facility] [address] [place] [address] Shuttle Van Driver: Galen Gallardo Ph.D.; CLIA# [id number] Blood 01/19/2025 3:30 PM CDT 01/19/2025 6:44 PM CDT Dirk Mohr MD LAB BLOOD ORDERABLES Fi nal Result Performing Organization Address City/[facility]/ZIP Co de Phone Number [facility] [place] [address] [place] ref Lab from Last 3 Months Insurance [facility] [place] [address] [facility] [place] Member Subscriber Plan / Payer (Ef fective 2021-) Name:Cheryl Alvarez Relation to Subscriber:Self Name:MeekgerCheryl Payer ID:[id number] ([facility]) Type:MEDICARE RISK OTHER Address: [address] [place] Care Teams Quality Control Tech Raw Materials Relationship Specialty Start Date End Date Walter Erwin DO PCP - General Internal Medicine 10/20/24
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
--- OUTSIDE RECORDS SUMMARY | 2025-04-20 15:50 | XMS_ITS | Data Portability ---
Author Organization [place] - [facility] [employer], Main Office Address [address] [place] [address] Assessment Encounter Date Assessment Date Assessment LastModified by Organization Details LastModified Time 04/22/2024 04/22/2024 Assessment: Delayed sleep phase syndrome Mild OSHS, HI = 4 Plan: The following were reviewed and explained to the patient: primary care/referral note [facility] home sleep study 04/14/24 HI = 4, supine HI = 18. Sleep in lateral recumbent or semirecumbent position for the time being. There could also be substantial ozhtg-sc-wwbul variability in the AHI that can lead [...] were reviewed and explained to the patient: [facility] home sleep study 04/14/24 HI = 4, supine HI = 18 [facility] diagnostic sleep study 06/08/24 sleep onset [...] were reviewed and explained to the patient: [facility] home sleep study 04/14/24 HI = 4, supine HI = 18 [facility] diagnostic sleep study 06/08/24 sleep onset = 18 minutes, REM onset = none, AHI = 6, supine AHI = 36, PLMI = 2 [facility] titration sleep study 08/03/24 sleep onset [...] carrier. Patient will setup an appointment with [facility] for supplies and pressure adjustments. A major [...] were reviewed and explained to the patient: [facility] home sleep study 04/14/24 HI = 4, supine HI = 18 [facility] diagnostic sleep study 06/08/24 sleep onset = 18 minutes, REM onset = none, AHI = 6, supine AHI = 36, PLMI = 2 [facility] titration sleep study 08/03/24 sleep onset [...] duration at 20 minutes. 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 Keep humidifier level at 2. Keep tube [...] carrier. Patient will setup an appointment with [facility] for supplies and pressure adjustments. A major [...] Imaging polysomno gram, titration study 2023 024 [email or web address] [facility], [address] [place], [address], 07/19/2024 10:04:06 polysomno gram, diagnosti c, 6 yrs or older - approved [id number] 1 04/22/24-2023 024 [email or web address] [facility], [address] [place], [address], 05/03/2024 08:12:03 home sleep study - *Please call pt to schedule* 2023 024 [facility], [address] [place], [address], 04/16/2024 14:48:34 Medication Orders aspirin 81 mg tablet,de layed release 2023 024 [facility][id number], [address], [id number], 11/24/2024 09:35:14 losartan 50 mg tablet 2023 024 [email or web address] [facility] #[id number], [address], [id number], 04/22/2024 10:06:10 Patient TargetsNo targets recorded. Patient InstructionsNo instructions recorded. Reason for Referral None Reported. Results Created Date Observation Date Name Description Value Unit Range Abnormal Flag Note LastModifiedBy Organization Detail LastModifiedTime 03/17/2003/17/2024 US, thyro id No observ ation record ed. [facility] [address] [place] [address], [address], 03/18/2024 13:20:14 04/16/20 24 04/14/2024 home sleep study No observ ation record ed. [email or web address] [facility] [address] [place], [address], 05/21/2024 09:41:12 04/16/20 24 04/14/2024 home sleep study No observ ation record ed. [facility] [address] [place], [address], 04/16/2024 14:48:34 06/11/20 24 06/08/2024 polys omnog mario, diagn ostic , 6 yrs or older No observ ation record ed. [facility] [address] [place], [address], 06/11/2024 12:17:27 08/24/20 24 08/03/2024 polys omnog mario, titra tion study No observ ation record ed. [facility] [address] [place], [address], 08/24/2024 10:07:59 Result Notes None recorded. Problems Name Problem SNOMED Code Status Onset Date Resolution Date Notes Provider Name and Address Organization Details Recorded Time Polycystic ovary syndrome 544009956 Active 2022 Not Available [facility] 3 22:28:42 Prediabete s 571259821 Active 2022 Not Available [employer] 3 22:28:42 Arthritis 0705464 Active 2022 Not Available [facility] 3 22:28:42 Mixed anxiety and depressive disorder 886048775 Active 2022 Not Available [employer] 3 22:28:42 Cobalamin deficiency 883250585 Active 2023 Jess Plascencia MD [address] [facility], [facility] [address], [place], [address] , [facility] [place] [employer] [facility] 4 12:27:48 Albinism 14884860 Active Not Available [facility] 3 22:28:42 Pain in throat 886027430 Completed Not Available [facility] 3 03:22:27 Blindness - both eyes 603978842 Active Not Available [employer] 3 22:28:42 Vitamin D deficiency 65972439 Active Not Available [facility] 3 22:28:42 Goiter 0420140 Active Not Available [facility] 3 22:28:42 Hypothyroi dism 60143292 Active Not Available [facility] 3 22:28:42 Hemorrhoid s 18142428 Active Not Available [facility] 3 22:28:42 Essential hypertensi on 32940470 Active 2023 MARTINE Mcginnis-C [address], [place], [address] , [employer] 4 14:32:49 Varicose veins of lower extremity 91921562 Active 2023 MARTINE Mcginnis-C [address], [place], [address] , [employer] 4 14:33:55 Obstructiv e sleep apnea syndrome 71602593 Active 2023 Jw Phipps MD [address], [place], [address] , [employer] 4 10:44:19 Notes:Medical History: Beltran ism Depression/Anxiety [...] Most Recent Mammogram completed Lola Chávez LPN [employer] 01/08/2024 11:27:10 4 delivery completed Not Available [facility] 01/01/2023 03:14:20 2 delivery completed Not Available [employer] 01/01/2023 03:14:20 Imaging Results None recorded. Procedure Notes None recorded. Medical Equipment None Reported. Allergies Allergen ID Allergen Name Allergen Category Reaction Reaction Severity Criticality Documentation Date Start Date Code Code System Note Provider Name and Address Organization Details Recorded Time 6274 acetamino phen / hydrocodo ne medicatio n itching Not available Not available 01/01/2023 25805 2 RxNorm Not Available [facility] 3 03:34:13 6275 Augmentin medicatio n diarrhea Not available Not available 01/01/2023 14379 2 RxNorm Not Available [facility] 3 03:34:13 Medications Name Sig Start Date [...] tablets in a dose pack TK PER [facility] DIRECTION S UTD FOR 6 DAYS active [...] Not Available Not Available Vitals Date Recorded Heart rate Respiratory rate Provider N ayan and Address Organization Details Last Updated DateTime 11/24/2024 70 /min 15 /min Jw Phipps MD [address] [facility], [address], [place], [address], [employer] 11/24/2024 09:44:05 Date Recorded Body height Body mass index (BMI) Body weight Body temperature Heart rate Oxygen saturation Oxygen saturation in Arterial blood by Pulse oximetry Systolic blood pressure Diastolic blood pressure Provider Name and Address Organization Details Last Updated DateTime 5 170.18 cm 38.2 kg/m2 752441. 54 g 97.7 [degF] 70 /min 98 % 98 % 126 mm[Hg] 84 mm[Hg] Sosa Mazariegos MA [employer] 5 09:22:52 Date Recorded Body height Body mass index (BMI) Body weight Body temperature Heart rate Oxygen saturation Oxygen saturation in Arterial blood by Pulse oximetry Systolic blood pressure Diastolic blood pressure Provider Name and Address Organization Details Last Updated DateTime 4 170.18 cm 35.2 kg/m2 859367. 28 g 97.1 [degF] 79 /min 96 % 96 % 152 mm[Hg] 98 mm[Hg] Keara Santana RN [employer] 4 14:13:47 Date Recorded Heart rate Respiratory rate Provider Flor botello and Address Organization Details Last Updated DateTime 04/22/2024 70 /min 15 /min Jw Phipps MD [address] [employer] [address], [address], [place], [address], [employer] 04/22/2024 10:49:29 Date Recorded Body height Body mass index (BMI) Body weight Heart rate Oxygen saturation Oxygen saturation in Arterial blood by Pulse oximetry Body temperature Systolic blood pressure Diastolic blood pressure Provider Name and Address Organization Details Last Updated DateTime 4 170.18 cm 35.2 kg/m2 349545. 28 g 70 /min 98 % 98 % 97.6 [degF] 120 mm[Hg] 70 mm[Hg] Enedina Sánchez CMA [facility] [employer] [facility] 4 10:02:54 Date Recorded Heart rate Respiratory rate Provider Flor earle and Address Organization Details Last Updated DateTime 06/16/2024 76 /min 15 /min Jw Phipps MD [address] [facility], [address], [place], [address], [facility] [employer] [facility] 06/16/2024 09:49:18 Date Recorded Body height Body mass index (BMI) Body weight Body temperature Heart rate Oxygen saturation Oxygen saturation in Arterial blood by Pulse oximetry Systolic blood pressure Diastolic blood pressure Provider Name and Address Organization Details Last Updated DateTime 4 170.18 cm 37 kg/m2 256084. 8 g 98.1 [degF] 76 /min 97 % 97 % 118 mm[Hg] 76 mm[Hg] Sosa Mazariegos MA [facility] [employer] [facility] 4 09:09:52 Date Recorded Heart rate Respiratory rate Provider Flor botello and Address Organization Details Last Updated DateTime 08/24/2024 75 /min 15 /min Jw Phipps MD [address] [facility], [address], [place], [address], [facility] [employer] [facility] 08/24/2024 09:59:00 Date Recorded Body height Body mass index (BMI) Body weight Heart rate Oxygen saturation Oxygen saturation in Arterial blood by Pulse oximetry Body temperature Systolic blood pressure Diastolic blood pressure Provider Name and Address Organization Details Last Updated DateTime 4 170.18 cm 37.1 kg/m2 801114. 39 g 75 /min 97 % 97 % 98.1 [degF] 118 mm[Hg] 70 mm[Hg] Enedina Sánchez CMA [facility] [employer] [facility] 4 09:31:48 Social History Question Answer Notes LastModified by Organizat ion Details LastModified Time Tobacco Smoking Status Never Smoker Nandini AngeliSHERRI leigh [place] - [facility] 08/14/2023 15:59:16 What Is Your Level Of Caffeine Consumption? Occasional [id number] Information not available 01/01/2023 How Much Tobacco Do You Chew? None [id number] Information not available 01/01/2023 In The 14 Days Before Symptom Onset, Have You Had Close Contact With A Laboratory-confirm ed COVID-19 While That Case Was Ill? No Information n ot available 08/14/2023 In The 14 Days Before Symptom Onset, Have You Had Close Contact With A Person Who Is Under Investigation For COVID-19 While That Person Was Ill? No Information not available 08/14/2023 What Type Of Diet Are You Following? REGULAR Information n ot available 06/16/2024 Which Illicit Or Recreational Drugs Have You Used? None Information not available 08/14/2023 Do You Have An Electrostatic Air Filter? Yes Information not available 06/16/2024 Do You Have A Humidifier? Yes Information [...] Information no t available 06/16/2024 Do You Use Sunscreen Routinely? Yes Information not available 06/16/2024 Have You Recently Traveled Abroad? No Information not available 06/16/2024 Do You Have Any Dietary Restrictions? No Information not available 06/16/2024 Sex: Unknown Functional Status Question Answer Note LastModified by Organizat ion Details LastModified Time What is your level of alcohol consumption? None [id number] Information not available 01/01/2023 Do you or have you ever used smokeless tobacco? Never used smokeless tobacco [id number] Information not available 01/01/2023 Have you been exposed to chemicals or toxins? not that aware of Information not available 06/16/2024 What is your occupation? disabled Information not available 08/14/2023 Do you or have you ever used e-cigarettes or vape? Never used electronic cigarettes Information not available 08/14/2023 What is your exercise level? Occasional Information not available 06/16/2024 Mental Status Question Answer Note LastModified by Organization D etails LastModified Time Do you feel stressed (tense, restless, nervous, or anxious, or unable to sleep at night)? [id number] Information not available 06/16/2024 Family History Relationship Description Onset Age of this Age Resolved Age Notes LastModified by Organization Details LastModified Time Mother Rheumatoid arthritis [email or web address] Not available 11/24 09:08:12 Mother Fibromyalgia [email or web address] Not sherry ilable 11/24/2024 09:08:12 Mother Autoimmune hepatitis [email or web address] Not available 11/24 09:08:12 Mother Osteoporosis [email or web address] Not sherry ilable 11/24/2024 09:08:12 Mother Transient cerebral ischemia [email or web address] Not available 11/24 09:08:12 Maternal Grandfather Diabetes mellitus [id number] Not available 01/01/2023 03:14:27 Maternal Grandfather Heart disease [id number] [id number] Not available 01/01/2023 03:14:27 Maternal Grandfather Congestive heart failure [email or web address] Not available 11/24 09:08:12 Maternal Grandfather Malignant neoplasm of skin [email or web address] Not available 11/24 09:08:12 Maternal Grandfather Malignant neoplasm of prostate [email or web address] Not available 11/24 09:08:12 Maternal Grandfather Tuberculosis [email or web address] Not availabl e 11/24/2024 09:08:12 Maternal Grandmother Diabetes mellitus [id number].887 [id number] Not available 01/01/2023 03:14:27 Maternal Grandmother Heart disease [id number].866 [id number] Not available 01/01/2023 03:14:27 Paternal Grandfather Diabetes mellitus MIGRATION.014 [id number] Not available 01/01/2023 03:14:27 Paternal Grandmother Diabetes mellitus MIGRATION.896 [id number] Not available 01/01/2023 03:14:27 Sister Polycystic ovary syndrome [email or web address] Not available 11/24 09:08:12 Sister Prolactinoma [email or web address] Not sherry ilable 11/24/2024 09:08:12 Father Chronic obstructive pulmonary disease [email or web address] Not available 11/24 09:08:12 Paternal Grandfather Heart disease Not available 2023 10:17:10 Paternal Grandfather Cerebrovascu lar accident [email or web address] Not available 09:08:12 Paternal Grandmother Heart disease Not available 2023 10:17:13 Maternal Grandmother Cerebrovascu lar accident [email or web address] Not available 09:08:12 Medical History Condition Response [...] virus, trivalent, PF 3 completed Not Available [facility] 08/13/2023 22:28:42 Influenza, split virus, trivalent, preservative 3 completed Not Available [facility] 08/13/2023 22:28:42 Influenza, split virus, quadrivalent, PF 5 completed Not Available [facility] 08/13/2023 22:28:42 Past Encounters Encounter ID Performer Location Encounter Start Date Encounter Closed Date Diagnosis/Indication Diagnosis SNOMED-CT Code Diagnosis ICD10 Code Diagnosis Note [id number] Jess Plascencia MD [facility] [place] [address] [facility] [address] [place] [address] 01/09/2021 00:00:00 01/09/2021 09:15:01 [id number] Renuka Rubin MD [facility] [place] [address] [place] [address] 01/12/2021 00:00:00 01/12/2021 17:31:37 [id number] Jess Plascencia MD [facility] [place] [address] [place] [address] 02/23/2021 00:00:00 02/28/2021 16:27:12 [id number] Jess Plascencia MD [facility] [place] [address] [place] [address] 05/14/2021 00:00:00 05/14/2021 13:26:05 [id number] Jess Plascencia MD [facility] [place] [address] [place] [address] 08/09/2021 00:00:00 08/09/2021 09:17:14 [id number] Renuka Rubin MD [facility] [place] [address] [place] [address] 08/14/2021 00:00:00 08/14/2021 18:08:12 [id number] Jess Plascencia MD [facility] [place] [address] [place] [address] 10/31/2021 00:00:00 11/01/2021 07:47:28 [id number] Jess Plascencia MD [facility] [place] [address] [place] [address] 02/05/2022 00:00:00 02/05/2022 17:25:28 [id number] Renuka Rubin MD [facility] [place] [address] [place] [address] 02/12/2022 00:00:00 02/13/2022 12:25:32 [id number] Jess Plascencia MD [facility] [place] [address] [place] [address] 03/13/2022 00:00:00 03/13/2022 10:35:24 [id number] MARTINE Ruiz [facility] [place] [address] [facility] [address] [place] [address] 05/24/2022 00:00:00 05/24/2022 17:41:32 [id number] Renuka Rubin MD [facility] [place] [address] [place] [address] 05/28/2022 00:00:00 05/28/2022 17:28:27 [id number] CHARISSA Hernandez [facility] [place] [address] [facility] [address] [place] [address] 07/17/2022 00:00:00 07/17/2022 11:42:05 [id number] Jess Plascencia MD [facility] [place] [address] [facility] [address] [place] [address] 11/01/2022 00:00:00 11/01/2022 20:13:31 [id number] Cary Gonzalez [facility] Primary [facility] [place] [address] [facility] [address] [place] [address] 01/02/2023 08:24:23 01/02/2023 08:43:01 [id number] Renuka Rubin MD [facility] [place] [address] [place] [address] 01/06/2023 16:41:17 01/06/2023 17:30:43 Hypothyroidism 48001291 E03.9 FT4 low and patient having more [...] and reduce inflammati on. Polycystic ovary syndrome 045669584 E28.2 Continue natural insulin decker operator s as struggled with metformin. Continue on spironolac tone as she has had less hair loss/ more growth. Tolerating well. Weight gain 5418372 R63. 5 Will send for low dose [...] she chooses to go outside of the [facility] system to obtain labwork she was advised [...] in her case. She voiced understand ing. [id number] CHARISSA Hernandez [facility] Primary Care [facility] [address] [facility] [address] [place] [address] 01/08/2023 08:56:53 01/08/2023 09:00:37 [id number] Jess Plascencia MD [facility] Primary Care [facility] [address] [facility] [address] [place] [address] 04/02/2023 11:11:45 04/02/2023 11:39:23 [id number] Renuka Rubin MD [facility] [place] [address] [place] [address] 04/10/2023 16:16:28 04/10/2023 17:08:03 Prediabetes 684240398 R73.03 Glucose running around 99-115 mg/dL fasting- she is tolerating metformin well. Recommende d GLP1 agonist therapy as she is having trouble at times with cravings of sweets and portion control. Discussed potentiall y reducing total carb intake to 120 grams daily into 4-5 small split meals with addition of healthy protein based snack at bedtime to help reduce burrito maker hyperglyce austin. She has no hx of [...] that day as tolerated. Polycystic ovary syndrome 323110171 E28.2 Continue natural insulin decker operator s as struggled with metformin. Continue on spironolac tone as she has had less hair loss/ more growth. Tolerating well. Hypothyroidism 20527882 E03.9 FT4 in range- continue on synthroid [...] and minerals and reduce inflammati on. Arthritis 2323853 M19.90 Will send for repeat SAIRA with specific antibodies along with rheumatoid screening to assess for any evidence of autoimmune disease. Thyroid nodule 611903604 E04.1 Repeat thyroid u/s prior to return visit. Send for calcitonin and parathyroi d function to screen for c cell hyperplasi a and hyperparat hyroidism. Mixed anxi ety and depressive disorder 711170065 F41.8 refer to psychiatry for further evaluation [...] informatio n in the electronic health record, edna ortizy interpreti ng results and communicat ing results to the patient. RTC in 4 months. Patient was provided a handwritte n lab order which contains our fax number. If she chooses to go outside of the [facility] system to obtain labwork she was [...] [facility] to request her results be forwarded to us so I might have the ability to review and make further medical decision making in her case. She voiced understand ing. [id number] Jess Plascencia MD [facility] Primary Care [facility] [address] [facility] [address] [place] [address] 04/14/2023 08:23:02 04/14/2023 09:57:18 [id number] Jess Plascencia MD [facility] Primary Care [facility] [address] [facility] [address] [place] [address] 08/06/2023 11:10:43 09/02/2023 14:58:20 [id number] Renuka Rubin MD [facility] [place] [address] [place] [address] 08/14/2023 15:58:27 08/14/2023 16:49:03 Hypothyroidism 19962610 E03.9 FT4 high normal range and with [...] and minerals and reduce inflammati on. Prediabetes 987018127 R7 3.03 A1C 5.3% down from 6% range- she has lost 26 pounds- continue on trulicity but uptitrate to 3 mg once weekly as patient tolerating well. Discussed carb counting and how to read food labels. Recommende d patient to utilize the diabetesfo [employer] from the ADA website to help with food preparatio n as this presents ideal carb content per meal so this will make carb counting much easier for patient. Recommende d she incorporat e natural insulin decker operator s such as pears, apples, cinnamon, cristóbal and sweet potatoes to help mobilize her endogenous insulin. Recommende d up to 150 minutes of moderate level activity/e xercise weekly. Polycystic ovary syndrome 091309351 E28.2 Continue natural insulin decker operator s as struggled with metformin. Continue on spironolac tone as she has had less hair loss/ more growth. Tolerating well. Generalize d anxiety disorder 07780603 F41.1 Continue on escitalopr am 40 mg [...] answered and refills necessary at visit today. [id number] Jess Plascencia MD [facility] Primary Care [facility] [address] [facility] [address] [facility] [place] [address] 12/02/2023 17:40:44 12/02/2023 17:46:35 [id number] Jess Plascencia MD [facility] Primary Care [facility] [address] [facility] [address] [facility] [address] 02/04/2024 12:12:00 02/04/2024 12:42:54 Hypothyroidism 75583463 E03.9 refills givenhas appt with endocrinol concepcion Rubin Prediabetes 214621462 R7 3.03 Vitamin D deficiency 347 15108 E55.9 Cobalamin deficiency 190 711076 E53.8 Hyperlipid emia screening 214118136 Z13.220 Z79.490 [id number] RACHELE Mcginnis [facility] Primary Care [facility] [address] [facility] [address] [place] [address] 04/07/2024 14:00:02 04/07/2024 14:40:03 Varicose veins of lower extremity 04832680 I83.92 -noted only to the left lower extremity so far-declin es 81mg-trial aspirin Essential hypertension 82674135 I10 trial losartan Sleep apnea 34789550 G47 .30 snoring, witnessed apnea, excessive daytime somnolence . Will order home sleep study. [id number] Jw Phipps MD [address] [address] 04/22/2024 09:54:32 04/26/2024 09:11:25 Obstructive sleep apnea syndrome 91498173 G47.33 G47.36 G47.61 [id number] Jw Phipps MD [address] [address] 06/16/2024 08:55:08 06/17/2024 09:14:10 Obstructive sleep apnea syndrome 94845253 G47.33 G47.36 [id number] Jw Phipps MD [address] [address] 08/24/2024 09:07:43 08/24/2024 15:51:59 Obstructive sleep apnea syndrome 88737614 G47.33 G47.36 [id number] Jw Phipps MD [address] [address] 11/24/2024 09:07:16 11/29/2024 14:55:34 Obstructive sleep apnea syndrome 28148114 G47.33 G47.36 Health Concerns Section Related Observation LastModified by Organization Detai ls LastModified Time None Recorded Concern Status LastModified by Organization Details LastModified Time None Recorded Advance Directives Directive None Recorded Payers Insurance Date Sequence Insurance Name Policy Number Policy Ring Covered Member ID Ring Member ID Guarantor Name 11/23/2024 2 [place] Cheryl Alvarez [id number] Cheryl Alvarez 12/24/2024 2 UNSPECIFIED REMIT PAYOR Cheryl Alvarez 11/29/2024 1 [facility] - DUAL OPTIONS (MEDICARE - MEDICAID REPLACEMENT HMO) [id number] Cheryl Saenz Antonio [id number] Cheryl Edenger Notes Date Note Type Note Provider Name and Address Organization Details Recorded Time 04/07/2024 text/html pt is here for varicose veins RACHELE Mcginnis [address], [address], [facility], [facility] 04/07/2024 15:30:09 04/22/2024 text/html Primary care/Ref erring provider: RACHELE Bernard During the [facility] home sleep study on 04/14/24 HI [...] no chance of dozing. Jw Phipps MD [address] [place] [address], [id number], [facility] [place] [employer] 04/22/2024 10:49:46 06/16/2024 text/html Primary care/Ref erring provider: Phil Evangelista, [facility] During the [facility] home sleep study on 04/14/24, HI = 4, supine HI = 18. During the [facility] diagnostic sleep study 06/08/24, sleep onset [...] moderate chance of dozing. Jw Phipps MD [address] [place] [address] [address], [place], [address], [place] [facility] [employer] 06/16/2024 09:49:27 08/24/2024 text/html Primary care/Ref erring provider: Phil Evangelista, [employer] [facility] During the [facility] home sleep study on 04/14/24, HI = 4, supine HI = 18. During the [facility] diagnostic sleep study 06/08/24, sleep onset = 18 minutes, REM onset = none, AHI = 6, supine AHI = 36, PLMI = 2. During the [facility] titration sleep study on 08/03/24, sleep [...] slight chance of dozing. Jw Phipps MD [address] [place] [address], [id number], [place] [facility] 08/24/2024 09:59:12 11/24/2024 text/html Primary care/Ref erring provider: Edwina Mckeon NP During the [facility] home sleep study on 04/14/24, HI = 4, supine HI = 18. During the [facility] diagnostic sleep study 06/08/24, sleep onset = 18 minutes, REM onset = none, AHI = 6, supine AHI = 36, PLMI = 2. During the [facility] titration sleep study on 08/03/24, sleep [...] has a slight chance of dozing. Jw hPipps MD [address] [address], [place], [address], [place] [facility] [employer] 11/24/2024 10:52:51 OBGyn Episode No OBEpisode recorded.
--- OUTSIDE RECORDS SUMMARY | 2025-04-20 15:50 | XMS_ITS | Clinical Summary ---
Author Organization [facility] Address [address] [place] [address] Care Team Providers Care Van Owner Operator Name Role Phone Jess Plascencia MD Primary [...] Comments Blood Pressure 126/83 10/01/2018 9:52 AM OYSTER CULLER Pulse 70 10/01/2018 9:52 AM [facility] CULLER Temperature 36.7 C (98.1 F) 10/01/2018 9:52 AM [facility] CULLER Respiratory Rate - - Oxygen Saturation 98% 10/01/2018 9:52 AM [facility] CULLER Inhaled Oxygen Concentration - - Weight 112.7 kg (248 lb 8 oz) 10/01/2018 9:52 AM [facility] CULLER Height 170.2 cm (5' 7) 10/01/2018 9:52 AM [facility] CULLER Body Mass Index 38.92 10/01/2018 9:52 AM OYSTER CULLER Plan of Treatment Health Maintenance Due Date [...] MEDICARE PART A AND B Care Teams Van Owner Operator Relationship Specialty Start Date End Date Jess Plascencia MD [address] [place] [address] [place] [phone] PCP - General Family Practice 09/01/18
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
== END 2025-04-20 14:00 | disposition home or self-care (01) ==
PROVIDERS: PCP Internal Medicine; Visit Provider Nurse Practitioner
DX: Z12.31 Encounter for screening mammogram for malignant neoplasm of breast (principal)
CPT/HCPCS: 77063; 77067

== ENCOUNTER 2025-06-22 07:45 | Outpatient (CLI) | payer OTHER, SELFPAY ==
--- NOTE | ~2025-06-22 | XR_ITS ---
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 Reviewed, dictated and finalized at location A.
--- OUTSIDE RECORDS SUMMARY | 2025-06-22 07:50 | XMS_ITS | Patient Health Record ---
Author Organization [facility] [employer] Address [address] [facility] [address] [place] [address] Care Team Providers Care Dental Technician Metal Name Role Phone Edwina Mckeon APN Primary Care Provider Unavailab Sergio Al Unavailable [phone] Darcie Singh Unavailable [phone] Edwina Blackwell Unavailable [phone] Allergies Allergen (clinical drug ingredient) Drug/Non Drug [...] Oxazepam (BZO) NEG 0 - 300 ng/ml 8-ywevkqtlur-5,0-ykslhgez-6,3-diphenylpyrrolidine (STEVIE P) NEG 0 - 300 ng/ml Methamphetamine (MET) NEG 0 - 1000 ng/ml Methylenedioxymethamphetamine (MDMA) NEG 0 - 500 ng/ml Morphine (MOP 300/ABX5500) NEG 0 - 300 ng/ml Methadone (MTD) NEG 0 - 300 ng/ml Phencyclidine (PCP) NEG 0 - 25 ng/ml Nortriptyline (TCA) NEG 0 - 1000 ng/ml Oxycodone NEG 0 - 300 ng/ml x NEG 0 - 300 ng/ml Reason For Referral No Information Medications Medication SIG (Take, Route, Frequency, Duration) Notes Start Date End Date Status Liothyronine Sodium 5 MCG Tablet Oral; Duration: 90 Days Active Atomoxetine HCl 60 MG Capsule 1 capsule in the morning Orally Once a day; Duration: 90 days Active Synthroid 88 MCG Tablet Oral; Duration: 90 Days Active Vitamin D 25 MCG (1000 UT) Tablet 1 tablet Orally Once a day Active Pepcid 20 MG Tablet 1 tablet at bedtime as needed Orally Once a day Active Lisinopril 5 MG Tablet Oral; Duration: 9 0 Days Not-Taking Escitalopram Oxalate 20 MG Tablet 2 tablet Oral Once a day; Duration: 30 days Active Vitamin B Complex - Tablet as directed Orally Active Bystolic 10 MG Tablet 1 tablet Orally Once a day Active QUEtiapine Fumarate 25 MG Tablet TAKE 1 TABLET BY MOUTH DAILY AT BEDTIME; Duration: 30 Active hydroCHLOROthiazide 25 MG Tablet 1 tablet in the morning Orally Once a day Active ZyrTEC Allergy 10 MG Tablet 1 tablet Ora lly Once a day Active Social History Tobacco Use: Social History Observation Description Date Details (start date - stop date) Never Smoker NA - NA Sex Assigned At : Social History Observation Description Sex Assigned At Female Social History Miscellaneous: Social Info Question Answer Notes Advance Care Planning Are you your own decision-maker Yes Do you have Power of Cross Country/Track And Field Coach for Health or [facility]? No Safety issues: Are there any [...] medical card Do you drink alcohol? No Problems Problem Type SNOMED Code ICD Code Onset Dates Problem Status W/U Status Risk Notes Problem Severe recurrent major depression without psychotic features (64185749) Major depressive disorder, recurrent severe without psychotic features (F33.2) Active confirmed Problem Generalized anxiety disorder (07023778) Generalized anxiety disorder (F41.1) Active confirmed Problem Essential hypertension (13871751) Essential (primary) hypertension (I10) 10/21/20 22 Active confirmed Problem Posttraumatic stress disorder (36194758) PTSD (post-traumatic stress disorder) (F43.10) Active confirmed Problem Attention deficit hyperactivity disorder, 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), inattentive type (F90.0) Active confirmed Problem Long-term current use of drug therapy (717054300) Medical marijuana use (Z79.899) Active confirmed Problem Polycystic ovary syndrome (disorder) (859421311) Polycystic ovarian syndrome (E28.2) 12/05/19 24 Active confirmed Problem Vitamin D deficiency (59202200) Vitamin D deficiency (E55.9) 05/29/20 23 Active confirmed Problem 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 (196473665) 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) 12/05/19 24 Active confirmed Problem Blindness - both eyes (disorder) (660426873) Blindness of both eyes (H54.3) 05/29/20 23 Active confirmed Problem Albinism (70815212) 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) 10/02/20 18 Active confirmed Vital Signs Heart Rate 60 /min 02/23/2025 Height-cm 170.18 cm 02/23/2025 Blood pressure diastolic 90 mm Hg 02/23/2025 Weight-kg 111.13 kg 02/23/2025 Height 67 in 02/23/2025 Blood pressure systolic 135 mm Hg 02/23/2025 Weight 245 lbs 02/23/2025 BMI 38.37 kg/m2 02/23/2025 Encounters Encounter Location Date Provider Diagnosis [employer] [address] [place] [address] 02/02/2025 Darcie Singh Encounter for screening for depression Z13.31 ; Major depressive disorder, recurrent severe without psychotic features F33.2 ; Generalized anxiety disorder F41.1 ; PTSD (post-traumatic stress disorder) F43.10 and ADHD (attention deficit hyperactivity disorder), inattentive type F90.0 [facility] [place] [address] [place] [address] 09/22/2024 Edwina Hinderliter Major depressive disorder, recurrent severe without psychotic features F33.2 [facility] [employer] [facility], [place] [address] [place] [address] 09/29/2024 Edwina Hinderliter Major depressive disorder, recurrent severe without psychotic features F33.2 [facility] [employer] [facility], [place] [address] [place] [address] 10/06/2024 Edwina Hinderliter Major depressive disorder, recurrent severe without psychotic features F33.2 [facility] [employer] [facility], [place] [address] [place] [address] 10/13/2024 Edwina Hinderliter Major depressive disorder, recurrent severe without psychotic features F33.2 [facility] [employer] [facility], [place] [address] [place] [address] 10/20/2024 Edwina Hinderliter Major depressive disorder, recurrent severe without psychotic features F33.2 and Generalized anxiety disorder F41.1 [facility] [employer] [facility], [place] [address] [place] [address] 10/29/2024 Edwina Hinderliter Major depressive disorder, recurrent severe without psychotic features F33.2 and Generalized anxiety disorder F41.1 [facility] [employer] [facility], [place] [address] [place] [address] 11/10/2024 Edwina Hinderliter Major depressive disorder, recurrent severe without psychotic features F33.2 and Generalized anxiety disorder F41.1 [facility] [employer] [facility], [place] [address] [place] [address] 11/17/2024 Edwina Hinderliter Major depressive disorder, recurrent severe without psychotic features F33.2 and Generalized anxiety disorder F41.1 [facility] [employer] [facility], [place] [address] [place] [address] 11/24/2024 Edwina Hinderliter Major depressive disorder, recurrent severe without psychotic features F33.2 and Generalized anxiety disorder F41.1 [facility] [employer] [facility] [address] [place] [address] 11/26/2024 Sergio Olivier Major depressive disorder, recurrent severe without psychotic features F33.2 ; ADHD (attention deficit hyperactivity disorder), inattentive type F90.0 ; Polycystic ovarian syndrome E28.2 ; 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 E06.3 ; Essential (primary) hypertension I10 ; Blindness of both eyes H54.3 ; Vitamin D deficiency E55.9 ; Albinism E70.30 ; Generalized anxiety disorder F41.1 and Medical marijuana use Z79.899 [facility] [employer] [address] [place] [address] 12/08/2024 Edwina Rishi Major depressive disorder, recurrent severe without psychotic features F33.2 ; Generalized anxiety disorder F41.1 and ADHD (attention deficit hyperactivity disorder), inattentive type F90.0 [facility] [place] [address] [place] [address] 12/15/2024 Edwinalottie Mockkarthikter ADHD (attention deficit hyperactivity disorder), inattentive type F90.0 ; Major depressive disorder, recurrent severe without psychotic features F33.2 and Generalized anxiety disorder F41.1 [facility] [employer] [address] [place] [address] 12/22/2024 Edwina Rishi Major depressive disorder, recurrent severe without psychotic features F33.2 ; Generalized anxiety disorder F41.1 ; ADHD (attention deficit hyperactivity disorder), inattentive type F90.0 and PTSD (post-traumatic stress disorder) F43.10 [employer] [address] [place] [address] 12/29/2024 Sergio Olivier Major depressive disorder, recurrent severe without psychotic features F33.2 ; Generalized anxiety disorder F41.1 ; PTSD (post-traumatic stress disorder) F43.10 and ADHD (attention deficit hyperactivity disorder), inattentive type F90.0 [facility] [place] [address] [place] [address] 12/29/2024 Edwinalottie Mockliter Major depressive disorder, recurrent severe without psychotic features F33.2 ; ADHD (attention deficit hyperactivity disorder), inattentive type F90.0 and PTSD (post-traumatic stress disorder) F43.10 [employer] [address] [place] [address] 01/19/2025 Darcie Be for screening for depression Z13.31 ; Major depressive disorder, recurrent severe without psychotic features F33.2 ; Generalized anxiety disorder F41.1 ; PTSD (post-traumatic stress disorder) F43.10 and ADHD (attention deficit hyperactivity disorder), inattentive type F90.0 [facility] [employer] [place] [address] [facility] [address] [place] [address] 01/26/2025 Sergio Aguayo Major depressive disorder, recurrent severe without psychotic features F33.2 ; Generalized anxiety disorder F41.1 ; PTSD (post-traumatic stress disorder) F43.10 ; ADHD (attention deficit hyperactivity disorder), inattentive type F90.0 ; Encounter for screening for depression Z13.31 and Encounter for screening for cardiovascular disorders Z13.6 [facility] [employer] [place] [address] [facility] [address] [place] [address] 02/09/2025 Darcie Francisco Encounter for screening for depression Z13.31 ; Major depressive disorder, recurrent severe without psychotic features F33.2 ; Generalized anxiety disorder F41.1 ; PTSD (post-traumatic stress disorder) F43.10 and ADHD (attention deficit hyperactivity disorder), inattentive type F90.0 [facility] [employer] [place] [address] [facility] [address] [place] [address] 02/23/2025 Darcie Francisco Encounter for screening for depression Z13.31 ; Major depressive disorder, recurrent severe without psychotic features F33.2 ; Generalized anxiety disorder F41.1 ; PTSD (post-traumatic stress disorder) F43.10 and ADHD (attention deficit hyperactivity disorder), inattentive type F90.0 [facility] [employer] [address] [facility] [address] [place] [address] 02/23/2025 Sergio Aguayo ADHD (attention deficit hyperactivity disorder), inattentive type F90.0 ; Generalized anxiety disorder F41.1 ; PTSD (post-traumatic stress disorder) F43.10 ; Encounter for screening for depression Z13.31 ; Major depressive disorder, recurrent severe without psychotic features F33.2 ; Encounter for screening for cardiovascular disorders Z13.6 and Dietary counseling and surveillance Z71.3 [facility] [employer] [place] [address] [facility] [address] [place] [address] 03/02/2025 Darcie Francisco Encounter for screening for depression Z13.31 ; Major depressive disorder, recurrent severe without psychotic features F33.2 ; Generalized anxiety disorder F41.1 ; PTSD (post-traumatic stress disorder) F43.10 and ADHD (attention deficit hyperactivity disorder), inattentive type F90.0 [facility] [address] [place] [address] 03/09/2025 Darcie Singh Encounter for screening for depression Z13.31 ; Major depressive disorder, recurrent severe without psychotic features F33.2 ; Generalized anxiety disorder F41.1 ; PTSD (post-traumatic stress disorder) F43.10 and ADHD (attention deficit hyperactivity disorder), inattentive type F90.0 [facility], [facility] [address] [place] [address] 03/30/2025 Darciekiah Singh Major depressive disorder, recurrent severe without psychotic features F33.2 ; Generalized anxiety disorder F41.1 ; PTSD (post-traumatic stress disorder) F43.10 and Encounter for screening for depression Z13.31 [facility] [address] [place] [address] 04/13/2025 Darciekiah Singh Major depressive disorder, recurrent severe without psychotic features F33.2 ; Generalized anxiety disorder F41.1 ; PTSD (post-traumatic stress disorder) F43.10 ; ADHD (attention deficit hyperactivity disorder), inattentive type F90.0 and Encounter for screening for depression Z13.31 [facility] [address] [facility] [address] [place] [address] 06/21/2025 Sergio Aguayo [facility], [facility] [address] [place] [address] 11/26/2024 Edwina Blackwell [facility], [facility] [address] [place] [address] 12/15/2024 Edwina Blackwell [facility], [facility] [address] [place] [address] 01/05/2025 Edwina Blackwell [facility], [facility] [address] [place] [address] 02/09/2025 Edwina Blackwell [facility], [place] [address] [place] [address] 04/27/2025 Sergio Aguayo ADHD (attention deficit hyperactivity disorder), inattentive type F90.0 and Major depressive disorder, recurrent severe without psychotic features F33.2 [facility] [address] [facility] [address] [place] [address] 06/17/2025 Sergio Aguayo ADHD (attention deficit hyperactivity disorder), inattentive type F90.0 [place] [address] [facility] [address] [place] [address] 11/09/2024 Edwina Blackwell [place] [address] [facility] [address] [place] [address] 11/29/2024 Edwina Blackwell [facility] [address] [facility] [address] [place] [address] 11/30/2024 Edwina Emilichris [facility] [address] [address] 12/15/2024 Edwina Blackwell [place] [address] [address] 01/11/2025 Edwinalottie Mockcinda [place] [address] [address] [facility] [address] [address] 03/16/2025 Sergio Aguayo Assessments Encounter Date Diagnosis (ICD Code) Assessment Notes Treatment Notes Treatment Clinical Notes Section Notes 09/22/2024 Major depressive disorder, recurrent severe without psychotic features (ICD-10 - F33.2) Marital Status: correction partnership Living Arrangement: lives with partner and [...] potential medication adjustments. 4. Vision Impairment and [place] - Discuss strategies to enhance the patient's [...] and management under the care of her quilter fixer for hyperthyroidism, as indicated by a TSH [...] report any changes or worsening to the utilization review specialist. PTSD Continue with current therapy sessions [...] report any changes or worsening to the utilization review specialist. PTSD Continue with current therapy sessions [...] resources such as How to ADHD on [employer] and [employer] for additional support and information. Rejection-Sensitiv e [...] resources such as How to ADHD on [employer] and [employer] for additional support and information. Rejection-Sensitiv e [...] when parents . Client grew up in [place]. Client reports childhood was hard, traumatic, [...] when parents . Client grew up in [place]. Client reports childhood was hard, traumatic, [...] for screening for depression (ICD-10 - Z13.31) 03/30/2025 Major depressive disorder, recurrent severe without psychotic features (ICD-10 - F33.2) 03/30/2025 Generalized anxiety disorder (ICD-10 - F41.1) 04/13/2025 Major depressive disorder, recurrent severe without psychotic features (ICD-10 - F33.2) 04/13/2025 Generalized anxiety disorder (ICD-10 - F41.1) 04/27/2025 ADHD (attention deficit hyperactivity disorder), inattentive type (ICD-10 - F90.0) 06/17/2025 ADHD (attention deficit hyperactivity disorder), inattentive type (ICD-10 - F90.0) 04/13/2025 PTSD (post-traumatic stress disorder) (ICD-10 - F43.10) 04/27/2025 Major depressive disorder, recurrent severe without psychotic features (ICD-10 - F33.2) 03/30/2025 PTSD (post-traumatic stress disorder) (ICD-10 - [...] when parents . Client grew up in [place]. Client reports childhood was hard, traumatic, [...] which include reading books, painting, visiting the [employer], and considering streaming on [employer]. Plan: [...] resources such as How to ADHD on [employer] and [employer] for additional support and information. Rejection-Sensitiv e [...] report any changes or worsening to the utilization review specialist. PTSD Continue with current therapy sessions [...] when parents . Client grew up in [place]. Client reports childhood was hard, traumatic, [...] screening for depression (ICD-10 - Z13.31) 03/09/2025 PTSD (post-traumatic stress disorder) (ICD-10 - F43.10) 04/13/2025 ADHD (attention deficit hyperactivity disorder), inattentive type (ICD-10 - F90.0) 03/09/2025 ADHD (attention deficit hyperactivity disorder), inattentive [...] when parents . Client grew up in [place]. Client reports childhood was hard, traumatic, [...] concetration, irritability, hypervigilance, and exaggerated startle response. 11/26/2024 Essential (primary) hypertension (ICD-10 - I10) 11/26/2024 Blindness of both eyes (ICD-10 - H54.3) 01/26/2025 Encounter for screening for cardiovascular disorders (ICD-10 - Z13.6) 02/23/2025 Encounter for screening for cardiovascular disorders (ICD-10 - Z13.6) 02/23/2025 Dietary counseling and surveillance (ICD-10 - Z71.3) 11/26/2024 Vitamin D deficiency (ICD-10 - E55.9) [...] noticing its absence. - Plan: - Await medical billing supervisor appointment on January 19 for further evaluation and guidance on potential alternative ADHD medications. - Continue monitoring blood pressure. - Follow up with primary care provider, Edwina, for possible adjustments to hydrochlorothiazide dosage. Hypertension - Assessment: Patient's blood pressure remains elevated (165/113 today, 165/102 on 12-23, 160/110 on -21) despite being on hydrochlorothiazide 25 mg. Medication timing: Synthroid at 6 AM, blood pressure medication at 9 AM, Zyrtec at 11 AM. - Plan: - Follow up with primary care provider, Edwina tomorrow for possible adjustments to hydrochlorothiazide dosage. - Continue monitoring blood pressure daily and report any significant changes. Angioedema and Allergic Reactions - Assessment: Patient experienced angioedema from lisinopril and an allergic reaction to loxapine, leading to an ER visit. - Plan: - Discontinue lisinopril and loxapine. - Follow up with medical billing supervisor appointment on January 19 for further evaluation and management. - Continue taking Zyrtec as needed for allergy symptoms. Abnormal EKG - Assessment: Patient had an abnormal EKG in the ER during the angioedema episode. - Plan: - Proceed with scheduled echocardiogram next Friday at [facility] to further evaluate cardiac function and any [...] when parents . Client grew up in [place]. Client reports childhood was hard, traumatic, [...] swelling due to BRYN inhibitor (lisinopril) use. Straw Hat Washer Operator consultation on January 19, 2025, included C4 and tryptase tests, which returned normal results. Straw Hat Washer Operator advised avoiding lisinopril and Bactroban, with uncertainty about amlodipine's role. The second flare-up was attributed to residual lisinopril in the patient's system. Plan: - Avoid lisinopril and Bactroban - Continue current blood pressure medications - Follow up with medical billing supervisor if another attack occurs Hypertension Assessment: Patient [...] ensure accuracy, there may be errors, including materials specialist inaccuracies and misspellings of medication names. This [...] ensure accuracy, there may be errors, including materials specialist inaccuracies and misspellings of medication names. This [...] PHQ=3 minimal EMY=0 none Plan Of Treatment No Information Insurance Providers Payer Name Payer Address Payer Phone Subscriber Number Group Number Insured Name Patient Relationship to Insured Coverage Start Date Coverage End Date [facility] - Dual Eligible [address] [place] [address] [id number] GUNJANMATIAS MORRIS Self - patient is the insured Medical [...]
--- OUTSIDE RECORDS SUMMARY | 2025-06-22 07:50 | XMS_ITS | Clinical Summary ---
Author Organization [facility] Address [address] [place] [address] Care Team Providers Care Port Crane Operator Name Role Phone Jess Plascencia MD [...] Comments Blood Pressure 126/83 10/01/2018 9:52 AM [employer]M REMOVER Pulse 70 10/01/2018 9:52 AM [employer] Temperature 36.7 C (98.1 F) 10/01/2018 9:52 AM [employer] Respiratory Rate - - Oxygen Saturation 98% 10/01/2018 9:52 AM [employer]M [employer] Inhaled Oxygen Concentration - - Weight 112.7 kg (248 lb 8 oz) 10/01/2018 9:52 AM [employer] Height 170.2 cm (5' 7) 10/01/2018 9:52 AM [employer]M [employer]OVER Body Mass Index 38.92 10/01/2018 9:52 AM [employer] Plan of Treatment Health Maintenance Due Date Last Done Comments HPV VACCINES (1 - 3-dose series) 1996 DTAP/TDAP/TD VACCINES (1 - Tdap) 2000 HEPATITIS B VACCINES (1 of 3 - 19+ 3-dose series) 03/2000 HPV/Cotest (21-29) 2002 CERVICAL CANCER SCREENING 2011 HPV/Cotest (30-65) 2011 PAP SMEAR 2011 BREAST CANCER SCREENING 2021 INFLUENZA VACCINE (#1) 2025 Insurance MEDICARE PART A AND B Care Teams Port Crane Operator Relationship Specialty Start Date End Date Jess Plascencia MD [address] [place] [address] [place] [id number] PCP - General Family Practice 09/01/18
--- OUTSIDE RECORDS SUMMARY | 2025-06-22 07:50 | XMS_ITS | Clinical Summary ---
Author Organization [facility] [address] Address [address] [place] [address] Care Team Providers Care Metal Spray Operator Name Role Phone Walter Erwin DO Primary Care Provider [phone] Allergies Active Allergy Reactions Criticality Noted Date [...] 12/08/2024 Assessment & Plan (12/08/2024 8:58 AM MUSIC REHABILITATION THERAPIST): Very difficult views with nystagmus DFE generally [...] thyroiditis Assessment & Plan (12/08/2023 8:29 AM MUSIC REHABILITATION THERAPIST): Chronic, unknown status Continue current dose of Synthroid 112 mcg oral daily Advised to stop Cytomel Recheck thyroid function test today and further plans based on it Class 1 obesity due to exces s calories with serious comorbidity and body mass index (BMI) of 33.0 to 33.9 in adult 12/05/2023 Assessment & Plan (12/08/2023 8:30 AM MUSIC REHABILITATION THERAPIST): Chronic, progressively improving with Trulicity 3 mg subQ weekly dose Advised patient to include healthy lifestyle habits Include complex carbs, healthy fats and proteins Work on portion control Avoid eating processed food cutback on sugar Advised to start exercising at least 30-40 minutes every day Prediabetes 12/05/2023 Assessment & Plan (12/08/2023 8:30 AM MUSIC REHABILITATION THERAPIST): On Trulicity Recheck A1c Counseled on diet [...] month Assessment & Plan (12/08/2023 8:30 AM MUSIC REHABILITATION THERAPIST): Counseled on diet and exercise EMY (generalized [...] mastitis 09/04/2018 Mastodynia 09/01/2018 Swollen breast 09/01/2018 Surgical History Surgery Date Site/Laterality Comments SECTION [...] on file Legal Sex Female 5:17 PM MUSIC REHABILITATION THERAPIST Gender Identity Female 12/05/2023 10:07 AM MUSIC REHABILITATION THERAPIST Sexual Orientation Choose not to disclose 2023 10:07 AM MUSIC REHABILITATION THERAPIST Obstetrics History Last Filed Vital Signs Vital Sign Reading Time Taken Comments Blood Pressure 117/79 01/19/2025 2:21 PM CDT Pulse 54 01/19/2025 2:21 PM CDT Temperature 36.5 C (97.7 F) 01/19/2025 2:21 PM CDT Respiratory Rate 16 12/05/2023 11:22 AM MUSIC REHABILITATION THERAPIST Oxygen Saturation 96% 01/19/2025 2:21 PM CDT [...] Screening 1999 Regular Well Visit/Exam 18-64 1999 HPV Vaccines (1 - 3-dose SCD M series) 2008 Covid-19 Vaccine ( - 2023-2 5 season) 2024 10/12/2021, 01/05/2021 Influenza Vaccine (#1) 2025 5, 08/30/2013, 08/27/2013 Pneumococcal vaccine <65 Aged Out No longer eligible based on patient's age to complete this topic Insurance [facility] Member Subscriber Plan / Payer (Ef fective 2024-Present) Name:Cheryl Alvarez Relation to Subscriber:Self Name:Cheryl Alvarez Payer ID:[id number] (NAIC) Group ID:Not on file Type:MEDICAID RISK OTHER Address: [address] Member Subscriber Plan / Payer (Ef fective 2021-Present) Name:Cheryl Alvarez Relation to Subscriber:Self Name:Cheryl Alvarez Payer ID:[id number] (NAIC) Type:MEDICARE RISK OTHER Address: [address] [place] [id number] [facility] Care Teams Metal Spray Operator Relationship Specialty Start Date End Date Walter Erwin DO PCP - General Internal Medicine 10/20/24
--- OUTSIDE RECORDS SUMMARY | 2025-06-22 07:50 | XMS_ITS | Patient Health Record ---
Author Organization [facility] Address [address] [place] [address] Care Team Providers Care Tax Accounting Assistant Name Role Phone Mojgan Arora Primary Care Provider Allergies Allergen (clinical drug ingredient) Drug/Non Drug Allergy documented on EMR Reaction Allergy Type Onset Date Status amoxicillin / clavulanate Augmentin Unknown Drug Allergy Active Vicodin Unknown Drug Allergy Active angiotensin-converting enzyme inhibitor (FN) BRYN Inhibitors Unknown Drug Allergy Acti ve Reason For Referral Reason Substance use counse ling Diagnosis 1 Cannabis use disorde r (F12.90) Referral Organization [facility] Referring Provider First Name Mojgan Referring Provider Last Name Ulysses Referring Provider Speciality Psychiatry Referred Provider Specialty Behavioral [facility] General Notes Mojgan Arora 08:56:44 AM > Client would like to work on weaning down and off marijuana. She would like to have someone working with her on this and coming up with a [id number] plan along with support as she tries to stop use. States she has stopped before by going cold-turkey and wants to wean down and sustain sobriety. Thank you! Referral Priority Routine Medications Medication SIG (Take, Route, Frequency, Duration) Notes Start Date End Date Status Lexapro 20 MG 1 tablet Orally Once a day; Duration: 30 days Active Liothyronine Sodium 5 MCG 1 tablet on an empty stomach Orally Once a day; Duration: 30 day(s) Active SEROquel 50 MG 1 tablet at bedtime Orally Once a day; Duration: 30 days Active Nebivolol HCl 10 MG 1 tablet Orally Once a day; Duration: 30 day(s) Active Synthroid 50 MCG 1 tablet in the morn ing on an empty stomach Orally Once a day; Duration: 30 day(s) Active Vitamin C 100 MG 1 tablet Orally Once a day; Duration: 30 day(s) Active Multivitamin - 1 tablet Orally Once a day; Duration: 30 day(s) Active Atomoxetine HCl 60 MG 1 capsule in the m orning Orally Once a day; Duration: 30 days Active Vitamin D 50 MCG (1999 UT) 1 tablet Oral ly Once a day; Duration: 30 day(s) Active hydroCHLOROthiazide 25 MG 1 tablet in morning Orally Once a day; Duration: 30 day(s) Active Social History Tobacco Use: Social History Observation Description Date Details (start date - stop date) Never Smoker NA - NA Tobacco Control (Standard) Question Answer Notes Tobacco use: Nonsmoker Problems Problem Type SNOMED Code ICD Code Onset Dates Problem Status W/U Status Risk Notes Problem Attention deficit hyperactivity disorder (185599932) ADHD (attention deficit hyperactivity disorder), combined type (F90.2) Active confirmed Problem Posttraumatic stress disorder (87557344) PTSD (post-traumatic stress disorder) (F43.10) Active confirmed Problem Cannabis abuse (23683503) Cannabis abuse (F12.10) Active confirmed Problem Overweight (140737938) Over weight (E66.3) Active confirmed Vital Signs Heart Rate 76 /min 06/20/2025 Respiratory Rate 16 /min 06/20/2025 Blood pressure diastolic 76 mm Hg 06/20/2025 Oximetry 98 % 06/20/2025 Height 67 in 06/20/2025 Blood pressure systolic 130 mm Hg 06/20/2025 Weight 228.8 lbs 06/20/2025 BMI 35.83 kg/m2 06/20/2025 Encounters Encounter Location Date Provider Diagnosis [address] [address] 06/20/2025 Mojgan Arora ADHD (attention deficit hyperactivity disorder), combined type F90.2 ; PTSD (post-traumatic stress disorder) F43.10 and Over weight E66.3 Assessments Encounter Date Diagnosis (ICD Code) Assessment Notes Treatment Notes Treatment Clinical Notes Section Notes 06/20/2025 ADHD (attention deficit hyperactivity disorder), combined type (ICD-10 - F90.2) 06/20/2025 PTSD (post-traumatic stress disorder) (ICD-10 - F43.10) 06/20/2025 Over weight (ICD-10 - E66.3) 06/20/2025 Other Reasons, potential benefits, potential risks, interactions and side effects of all medications were discussed. The Patient/Guardian asked appropriate questions, appeared to understand the answers, and decided to accept the treatment and continue being followed. Alternatives and expected course without treatment were reviewed. The Patient/Guardian is aware of the need to contact the office or return for an earlier appointment if any problems or concerns arise. May also contact the 24-hour crisis hotline (R), refer to the closest emergency room or call 911 if new symptoms arise of existing symptoms worsen. The Patient/Guardian is aware that this would apply to symptoms like: suicidal ideation, homicidal ideation, high risk behaviors, manic symptoms, psychotic symptoms, physical symptoms, or any other symptoms that may be dangerous to self or others. Greater than 50% of time spent on coordination and counseling where psychopharmacology as well as psychotherapeutic interventions were discussed along with review of treatments in the past. Education provided concerning need for adequate hydration. Patient/Guardian verbalized understanding of education, treatment plan and follow up. Plan Of Treatment No Information Insurance Providers Payer Name Payer Address Payer Phone Subscriber Number Group Number Insured Name Patient Relationship to Insured Coverage Start Date Coverage End Date [employer] [address] [place] [address] [id number] Cheryl Alvarez Self - patient is the insured 5 [employer] [facility] [address] [place] [address] [id number] Cheryl Alvarez Self - patient is the insured 5 Medical (General) History Medical History History ICD Code ptsd rhoda adhd mdd hashimotos thyroiditis Surgical History Surgery Date(Month/Year) Caesarian section Hospitalization History Reason Date(Month/Year) [place] 2000
[2025-06-22 09:03] LABS: Hematocrit 45.0 % (37.0-47.0); Hemoglobin 15.0 g/dL (12.0-15.0); Mean Corpuscular HGB Conc 33.3 g/dl (32-36); Mean Corpuscular Hemoglobin 30.1 pg (26-34); Mean Corpuscular Volume 90.2 fl (80-100); Platelet Count Result 284 k/mm3 (150-375); Red Blood Count 4.99 M/mm3 (4.2-5.4); White Blood Count 10.3 K/mm3 (4.5-10.0)
[2025-06-22 09:20] LABS: Hemoglobin A1C 5.6 % (<5.7)
[2025-06-22 09:24] LABS: Uric Acid 7.7 mg/dL (2.5-7.5)
[2025-06-22 09:26] LABS: Alanine Aminotransferase 33 U/L (6-35); Albumin Level 4.3 g/dL (3.5-5.1); Alkaline Phosphatase 53 U/L (38-126); Anion Gap 9 mmol/L (4-12); Aspartate Amino Transferase 34 U/L (14-36); Bilirubin,Total 0.6 mg/dL (0.2-1.3); Blood Urea Nitrogen 11 mg/dL (7-17); Calcium 9.4 mg/dL (8.4-10.2); Carbon Dioxide 28 mmol/L (22-30); Chloride 101 mmol/L (98-107); Cholesterol 279 mg/dL (0-200); Estimated Glomerular Filt Rate > 60; Glucose 105 mg/dL (65-110); HDL Direct 44 mg/dL; Potassium 4.0 mmol/L (3.4-5.0); Sodium 138 mmol/L (137-145); Total Protein 7.4 g/dL (6.3-8.2); Triglycerides 231 mg/dL (<150)
[2025-06-22 10:02] LABS: Thyroid Stimulating Hormone 6.240 uIU/mL (0.465-4.680)
[2025-06-22 10:16] LABS: Free T4 Free Thyroxine 0.63 ng/dL (0.78-2.19)
[2025-06-22 10:20] LABS: Vitamin B12 801.0 pg/mL (239-931)
== END 2025-06-22 07:46 | disposition home or self-care (01) ==
PROVIDERS: PCP Nurse Practitioner; Visit Provider Nurse Practitioner Family
DX: M79.674 Pain in right toe(s) (principal); E07.9 Disorder of thyroid, unspecified; E70.30 Albinism, unspecified; E03.9 Hypothyroidism, unspecified; R73.03 Prediabetes; E55.9 Vitamin D deficiency, unspecified; R76.8 Other specified abnormal immunological findings in serum
CPT/HCPCS: 36415; 73630; 80053; 80061; 82306; 82607; 83036; 84439; 84443; 84550; 85027

== ENCOUNTER 2025-07-27 08:12 | Outpatient (CLI) | payer OTHER, SELFPAY ==
--- OUTSIDE RECORDS SUMMARY | 2025-07-27 08:25 | XMS_ITS | Clinical Summary ---
Author Organization [facility] Address [address] [place] [address] Care Team Providers Care Train Examiner Name Role Phone Jess Plascencia MD Primary [...] Comments Blood Pressure 126/83 10/01/2018 9:52 AM GEOTECHNICAL LABORATORY TECHNICIAN Pulse 70 10/01/2018 9:52 AM GEOTECHNICAL LABORATORY TECHNICIAN Temperature 36.7 C (98.1 F) 10/01/2018 9:52 AM GEOTECHNICAL LABORATORY TECHNICIAN Respiratory Rate - - Oxygen Saturation 98% 10/01/2018 9:52 AM GEOTECHNICAL LABORATORY TECHNICIAN Inhaled Oxygen Concentration - - Weight 112.7 kg (248 lb 8 oz) 10/01/2018 9:52 AM GEOTECHNICAL LABORATORY TECHNICIAN Height 170.2 cm (5' 7) 10/01/2018 9:52 AM GEOTECHNICAL LABORATORY TECHNICIAN Body Mass Index 38.92 10/01/2018 9:52 AM GEOTECHNICAL LABORATORY TECHNICIAN Plan of Treatment Health Maintenance Due Date Last Done Comments DTAP/TDAP/TD VACCINES (1 - Tdap) 2000 HEPATITIS B VACCINES (1 of 3 - 19+ 3-dose series) 03/2000 HPV/Cotest (21-29) 2002 HPV VACCINES (1 - 3-dose SCDM series) 2008 CERVICAL CANCER SCREENING 2011 HPV/Cotest (30-65) 2011 PAP SMEAR 2011 BREAST CANCER SCREENING 2021 INFLUENZA VACCINE (#1) 2025 Insurance MEDICARE PART A AND B Care Teams Train Examiner Relationship Specialty Start Date End Date Jess Plascencia MD [address] [place] [address] [place] [id number] PCP - General Family Practice 09/01/18
--- OUTSIDE RECORDS SUMMARY | 2025-07-27 08:25 | XMS_ITS | Patient Health Record ---
Author Organization [facility] Address [address] [place] [address] Care Team Providers Care Trial Judge Name Role Phone Mojgan Arora Primary Care [...] Cannabis use disorde r (F12.90) Referral Organization [facility] Referring Provider First Name Mojgan Referring Provider Last Name Ulysses Referring Provider Speciality Psychiatry Referred Provider Specialty Behavioral [facility] General Notes Mojgan Arora 08:56:44 AM > Client would like to work on weaning down and off marijuana. She would like to have someone working with her on this and coming up with a [id number] plan along with support as she tries to stop use. States she has stopped before by going cold-turkey and wants to wean down and sustain sobriety. Thank you! Clinical Notes Misty Knight 06/28 01:25:23 PM >Cheryl is currently engaged in therapy services through [facility] outpatient. Clinician forwarded information to pricing/signage team member. Referral Priority Routine Medications Medication SIG (Take, Route, Frequency, Duration) Notes Start Date End Date Status Atomoxetine HCl 60 MG 1 capsule in the morning Orally Once a day; Duration: 30 days Active Nebivolol HCl 10 MG 1 tablet Orally Once a day; Duration: 30 day(s) Active Liothyronine Sodium 5 MCG 1 tablet on an empty stomach Orally Once a day; Duration: 30 day(s) Active Citalopram Hydrobromide 40 MG as directe d Orally half a tablet for 4 days then increase to a full tablet; Duration: 30 days 07/12/2025 Active Synthroid 50 MCG 1 tablet in the morning on an empty stomach Orally Once a day; Duration: 30 day(s) Active Multivitamin - 1 tablet Orally Once a day; Duration: 30 day(s) Active Vitamin C 100 MG 1 tablet Orally Once a day; Duration: 30 day(s) Active Vitamin D 50 MCG (2000 UT) 1 tablet Oral ly Once a day; Duration: 30 day(s) Active hydroCHLOROthiazide 25 MG 1 tablet in th e morning Orally Once a day; Duration: 30 day(s) Active SEROquel 25 MG 1-2 tablet at bedtim e Orally Once a day; Duration: 30 days Active Lexapro 10 MG 1 tablet Orally Once a day; Duration: 7 days Active Social History Tobacco Use: Social History Observation Description Date Details (start date - stop date) Never Smoker NA - NA Tobacco Control (Standard) Question Answer Notes Tobacco use: Nonsmoker Problems Problem Type SNOMED Code ICD Code Onset Dates Problem Status W/U Status Risk Notes Problem Attention deficit hyperactivity disorder (479212759) ADHD (attention deficit hyperactivity disorder), combined type (F90.2) Active confirmed Problem Posttraumatic stress disorder (70299501) PTSD (post-traumatic stress disorder) (F43.10) Active confirmed Problem Cannabis abuse (47421600) Cannabis abuse (F12.10) Active confirmed Problem Overweight (317967663) Over weight (E66.3) Active confirmed Vital Signs Heart Rate 76 /min 06/20/2025 Respiratory Rate 16 /min 06/20/2025 Blood pressure diastolic 76 mm Hg 06/20/2025 Oximetry 98 % 06/20/2025 Height 67 in 06/20/2025 Blood pressure systolic 130 mm Hg 06/20/2025 Weight 228.8 lbs 06/20/2025 BMI 35.83 kg/m2 06/20/2025 Encounters Encounter Location Date Provider Diagnosis [address] [place] [address] 06/20/2025 Mojgan Arora ADHD (attention deficit hyperactivity disorder), combined type F90.2 ; PTSD (post-traumatic stress disorder) F43.10 and Over weight E66.3 [facility] Alberto [place] [address] 07/12/2025 Mojgan Arora ADHD (attention deficit hyperactivity disorder), combined type F90.2 ; PTSD (post-traumatic stress disorder) F43.10 and Over weight E66.3 Assessments Encounter Date Diagnosis (ICD Code) Assessment Notes Treatment Notes Treatment Clinical Notes Section Notes 06/20/2025 ADHD (attention deficit hyperactivity disorder), combined type (ICD-10 - F90.2) 07/12/2025 ADHD (attention deficit hyperactivity disorder), combined type (ICD-10 - F90.2) 07/12/2025 PTSD (post-traumatic stress disorder) (ICD-10 - F43.10) Discussed taper and change. Client v/u and agreement to plan. 06/20/2025 PTSD (post-traumatic stress disorder) (ICD-10 - F43.10) 06/20/2025 Over weight (ICD-10 - E66.3) 07/12/2025 Over weight (ICD-10 - E66.3) 06/20/2025 Other [...] May also contact the 24-hour crisis hotline ([facility] refer to the closest emergency room or [...] of education, treatment plan and follow up. 07/12/2025 Other Reasons, potential benefits, potential risks, interactions [...] of education, treatment plan and follow up. This session was completed telephonically with client/parental/guard eda consent: Unable to determine movement status, assess appearance, affect, AIMS, or vital signs. Plan Of Treatment No Information Insurance Providers Payer Name Payer Address Payer Phone Subscriber Number Group Number Insured Name Patient Relationship to Insured Coverage Start Date Coverage End Date [employer] [address] [place] [address] [id number] Cheryl Alvarez Self - patient is the insured 5 [email or web address] [facility] [address] [place] [address] [id number] Cheryl Alvarez Self - patient is the insured 5 Medical (General) History Medical History History ICD Code ptsd rhoda adhd mdd hashimotos thyroiditis Surgical History Surgery Date(Month/Year) Caesarian section Hospitalization History Reason Date(Month/Year) [place] 2000
--- OUTSIDE RECORDS SUMMARY | 2025-07-27 08:25 | XMS_ITS | Clinical Summary ---
Author Organization [facility] [address] Address [address] [place] [address] Care Team Providers Care Process Design Engineer Name Role Phone Walter Erwin DO Primary Care Provider [phone]- [phone] Allergies Active Allergy Reactions Criticality Noted Date [...] 12/08/2024 Assessment & Plan (12/08/2024 8:58 AM BLOOD AND PLASMA LABORATORY ASSISTANT): Very difficult views with nystagmus DFE [...] thyroiditis Assessment & Plan (12/08/2023 8:29 AM BLOOD AND PLASMA LABORATORY ASSISTANT): Chronic, unknown status Continue current dose of Synthroid 112 mcg oral daily Advised to stop Cytomel Recheck thyroid function test today and further plans based on it Class 1 obesity due to exces s calories with serious comorbidity and body mass index (BMI) of 33.0 to 33.9 in adult 12/05/2023 Assessment & Plan (12/08/2023 8:30 AM BLOOD AND PLASMA LABORATORY ASSISTANT): Chronic, progressively improving with Trulicity 3 mg subQ weekly dose Advised patient to include healthy lifestyle habits Include complex carbs, healthy fats and proteins Work on portion control Avoid eating processed food cutback on sugar Advised to start exercising at least 30-40 minutes every day Prediabetes 12/05/2023 Assessment & Plan (12/08/2023 8:30 AM BLOOD AND PLASMA LABORATORY ASSISTANT): On Trulicity Recheck A1c Counseled on [...] month Assessment & Plan (12/08/2023 8:30 AM BLOOD AND PLASMA LABORATORY ASSISTANT): Counseled on diet and exercise EMY [...] on file Legal Sex Female 5:17 PM BLOOD AND PLASMA LABORATORY ASSISTANT Gender Identity Female 12/05/2023 10:07 AM BLOOD AND PLASMA LABORATORY ASSISTANT Sexual Orientation Choose not to disclose 2023 10:07 AM BLOOD AND PLASMA LABORATORY ASSISTANT Obstetrics History Last Filed Vital Signs Vital Sign Reading Time Taken Comments Blood Pressure 117/79 01/19/2025 2:21 PM CDT Pulse 54 01/19/2025 2:21 PM CDT Temperature 36.5 C (97.7 F) 01/19/2025 2:21 PM CDT Respiratory Rate 16 12/05/2023 11:22 AM BLOOD AND PLASMA LABORATORY ASSISTANT Oxygen Saturation 96% 01/19/2025 2:21 PM CDT [...] M series) 2008 Covid-19 Vaccine ( - 2024-2 6 season) 2025 10/12/2021, 01/05/2021 Influenza Vaccine (#1) 2025 5, 08/30/2013, 08/27/2013 Pneumococcal vaccine <65 Aged Out No longer eligible based on patient's age to complete this topic Insurance [facility] Member Subscriber Plan / Payer (Ef fective 2024-Present) Name:Cheryl Alvarez Relation to Subscriber:Self Name:Cheryl Alvarez Payer ID:[id number] (NAIC) Group ID:Not on file Type:MEDICAID RISK OTHER Address: [address] [facility] Care Teams Process Design Engineer Relationship Specialty Start Date End Date Walter Erwin DO PCP - General Internal Medicine 10/20/24
--- OUTSIDE RECORDS SUMMARY | 2025-07-27 08:26 | XMS_ITS | Patient Health Record ---
Author Organization [facility] As [facility] Address [address] [facility] [address] [place] [address] Care Team Providers Care Supervisor Pyrotechnic Loading Name Role Phone Edwina Mckeon APN Primary Care Provider Unavailab Sergio Al Unavailable [phone] Darcie Singh Unavailable [phone] Edwina Blackwell Unavailable [phone] Allergies Allergen (clinical drug ingredient) Drug/Non Drug [...] Oxazepam (BZO) NEG 0 - 300 ng/ml 9-tytytihudj-4,3-ekzhtsjs-8,3-diphenylpyrrolidine (STEVIE P) NEG 0 - 300 ng/ml Methamphetamine (MET) NEG 0 - 1000 ng/ml Methylenedioxymethamphetamine (MDMA) NEG 0 - 500 ng/ml Morphine (MOP 300/NUL5532) NEG 0 - 300 ng/ml Methadone (MTD) [...] decision-maker Yes Do you have Power of Career Counselor for Health or [facility]? 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), inattentive type (F90.0) Active confirmed Problem Long-term current use of drug therapy (105978303) Medical marijuana use (Z79.899) Active confirmed Problem Polycystic ovary syndrome (disorder) (858415763) Polycystic ovarian syndrome (E28.2) 12/05/19 24 Active confirmed Problem Vitamin D deficiency (08902892) Vitamin D deficiency (E55.9) 05/29/20 23 Active confirmed Problem 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 (545296742) 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) 12/05/19 24 Active confirmed Problem Blindness - both eyes (disorder) (511916975) Blindness of both eyes (H54.3) 05/29/20 23 Active confirmed Problem Albinism (00473511) 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) 10/02/20 18 Active confirmed Vital Signs Heart Rate 60 /min 02/23/2025 Height-cm 170.18 cm 02/23/2025 Blood pressure diastolic 90 mm Hg 02/23/2025 Weight-kg 111.13 kg 02/23/2025 Height 67 in 02/23/2025 Blood pressure systolic 135 mm Hg 02/23/2025 Weight 245 lbs 02/23/2025 BMI 38.37 kg/m2 02/23/2025 Encounters Encounter Location Date Provider Diagnosis [facility] [address] [place] [address] 02/02/2025 Darcie Singh Encounter for screening for depression Z13.31 ; Major depressive disorder, recurrent severe without psychotic features F33.2 ; Generalized anxiety disorder F41.1 ; PTSD (post-traumatic stress disorder) F43.10 and ADHD (attention deficit hyperactivity disorder), inattentive type F90.0 [employer], [facility] [address] [place] [address] 09/22/2024 Edwina Hinderliter Major depressive disorder, recurrent severe without psychotic features F33.2 [facility] [employer] [facility], [address] [address] [place] [address] 09/29/2024 Edwina Hinderliter Major depressive disorder, recurrent severe without psychotic features F33.2 [facility] [employer] [facility], [place] [address] [place] [address] 10/06/2024 Edwina Hinderliter Major depressive disorder, recurrent severe without psychotic features F33.2 [facility] [employer] [facility], [place] [address] [place] [address] 10/13/2024 Edwina Hinderliter Major depressive disorder, recurrent severe without psychotic features F33.2 [facility] [employer] [facility], [address] [address] [place] [address] 10/20/2024 Edwina Hinderliter Major depressive disorder, recurrent severe without psychotic features F33.2 and Generalized anxiety disorder F41.1 [facility] [employer] [facility], [address] [address] [place] [address] 10/29/2024 Edwina Hinderliter Major depressive disorder, recurrent severe without psychotic features F33.2 and Generalized anxiety disorder F41.1 [facility] [employer] [facility], [facility] [address] [place] [address] 11/10/2024 Edwina Hinderliter Major depressive disorder, recurrent severe without psychotic features F33.2 and Generalized anxiety disorder F41.1 [facility] [employer] [facility], [address] [address] [place] [address] 11/17/2024 Edwina Hinderliter Major depressive disorder, recurrent severe without psychotic features F33.2 and Generalized anxiety disorder F41.1 [facility] [employer] [facility], [facility] [address] [place] [address] 11/24/2024 Edwina Hinderliter Major depressive disorder, recurrent severe without psychotic features F33.2 and Generalized anxiety disorder F41.1 [facility] [employer] [facility] [address] [place] [address] 11/26/2024 Sergio Olivier Major depressive disorder, recurrent severe without psychotic features F33.2 ; ADHD (attention deficit hyperactivity disorder), inattentive type F90.0 ; Polycystic ovarian syndrome E28.2 ; 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 E06.3 ; Essential (primary) hypertension I10 ; Blindness of both eyes H54.3 ; Vitamin D deficiency E55.9 ; Albinism E70.30 ; Generalized anxiety disorder F41.1 and Medical marijuana use Z79.899 [employer], [employer] [address] [place] [address] 12/08/2024 Edwina Rishi Major depressive disorder, recurrent severe without psychotic features F33.2 ; Generalized anxiety disorder F41.1 and ADHD (attention deficit hyperactivity disorder), inattentive type F90.0 [employer], [facility] [address] [place] [address] 12/15/2024 Edwinalottie Mockkarthikter ADHD (attention deficit hyperactivity disorder), inattentive type F90.0 ; Major depressive disorder, recurrent severe without psychotic features F33.2 and Generalized anxiety disorder F41.1 [employer], [employer] [address] [place] [address] 12/22/2024 Edwina Rishi Major depressive disorder, recurrent severe without psychotic features F33.2 ; Generalized anxiety disorder F41.1 ; ADHD (attention deficit hyperactivity disorder), inattentive type F90.0 and PTSD (post-traumatic stress disorder) F43.10 [facility] [address] [place] [address] 12/29/2024 Sergio Olivier Major depressive disorder, recurrent severe without psychotic features F33.2 ; Generalized anxiety disorder F41.1 ; PTSD (post-traumatic stress disorder) F43.10 and ADHD (attention deficit hyperactivity disorder), inattentive type F90.0 [employer], [facility] [address] [place] [address] 12/29/2024 Edwinalottie Mockliter Major depressive disorder, recurrent severe without psychotic features F33.2 ; ADHD (attention deficit hyperactivity disorder), inattentive type F90.0 and PTSD (post-traumatic stress disorder) F43.10 [facility] [address] [place] [address] 01/19/2025 Darcie Be for screening for depression Z13.31 ; Major depressive disorder, recurrent severe without psychotic features F33.2 ; Generalized anxiety disorder F41.1 ; PTSD (post-traumatic stress disorder) F43.10 and ADHD (attention deficit hyperactivity disorder), inattentive type F90.0 [facility] [employer] [place] [address] [facility] [address] [place] [address] 01/26/2025 Sergio Aguayo Major depressive disorder, recurrent severe without psychotic features F33.2 ; Generalized anxiety disorder F41.1 ; PTSD (post-traumatic stress disorder) F43.10 ; ADHD (attention deficit hyperactivity disorder), inattentive type F90.0 ; Encounter for screening for depression Z13.31 and Encounter for screening for cardiovascular disorders Z13.6 [facility] [employer] [place] [address] [facility] [address] [place] [address] 02/09/2025 Darcie Francisco Encounter for screening for depression Z13.31 ; Major depressive disorder, recurrent severe without psychotic features F33.2 ; Generalized anxiety disorder F41.1 ; PTSD (post-traumatic stress disorder) F43.10 and ADHD (attention deficit hyperactivity disorder), inattentive type F90.0 [facility] [employer] [place] [address] [facility] [address] [place] [address] 02/23/2025 Darcie Francisco Encounter for screening for depression Z13.31 ; Major depressive disorder, recurrent severe without psychotic features F33.2 ; Generalized anxiety disorder F41.1 ; PTSD (post-traumatic stress disorder) F43.10 and ADHD (attention deficit hyperactivity disorder), inattentive type F90.0 [facility] [employer] [address] [facility] [address] [place] [address] 02/23/2025 Sergio Aguayo ADHD (attention deficit hyperactivity disorder), inattentive type F90.0 ; Generalized anxiety disorder F41.1 ; PTSD (post-traumatic stress disorder) F43.10 ; Encounter for screening for depression Z13.31 ; Major depressive disorder, recurrent severe without psychotic features F33.2 ; Encounter for screening for cardiovascular disorders Z13.6 and Dietary counseling and surveillance Z71.3 [facility] [employer] [place] [address] [facility] [address] [place] [address] 03/02/2025 Darcie Francisco Encounter for screening for depression Z13.31 ; Major depressive disorder, recurrent severe without psychotic features F33.2 ; Generalized anxiety disorder F41.1 ; PTSD (post-traumatic stress disorder) F43.10 and ADHD (attention deficit hyperactivity disorder), inattentive type F90.0 [facility] [address] [place] [address] 03/09/2025 Darcie Singh Encounter for screening for depression Z13.31 ; Major depressive disorder, recurrent severe without psychotic features F33.2 ; Generalized anxiety disorder F41.1 ; PTSD (post-traumatic stress disorder) F43.10 and ADHD (attention deficit hyperactivity disorder), inattentive type F90.0 [facility] [address] [place] [address] 03/30/2025 Darciekiah Singh Major depressive disorder, recurrent severe without psychotic features F33.2 ; Generalized anxiety disorder F41.1 ; PTSD (post-traumatic stress disorder) F43.10 and Encounter for screening for depression Z13.31 [place] [address] [place] [address] 04/13/2025 Darciekiah Singh Major depressive disorder, recurrent severe without psychotic features F33.2 ; Generalized anxiety disorder F41.1 ; PTSD (post-traumatic stress disorder) F43.10 ; ADHD (attention deficit hyperactivity disorder), inattentive type F90.0 and Encounter for screening for depression Z13.31 [facility] [address] [place] [address] 11/26/2024 Edwina Blackwell [facility], [facility] [address] [place] [address] 12/15/2024 Edwina Blackwell [facility], [facility] [address] [place] [address] 01/05/2025 Edwina Blackwell [facility], [place] [address] [place] [address] 02/09/2025 Edwina Blackwell [facility], [facility] [address] [place] [address] 04/27/2025 Sergio Aguayo ADHD (attention deficit hyperactivity disorder), inattentive type F90.0 and Major depressive disorder, recurrent severe without psychotic features F33.2 [place] [address] [place] [address] 06/17/2025 Sergio Olivier ADHD (attention deficit hyperactivity disorder), inattentive type F90.0 [facility], [facility] [address] [facility] [address] [place] [address] 06/21/2025 Sergio Aguayo [facility] [address] [place] [address] 11/09/2024 Edwina Blackwell [facility], [place] [address] [facility] [address] [place] [address] 11/29/2024 Edwina Blackwell [facility], [facility] [address] [facility] [address] [place] [address] 11/30/2024 Edwina Blackwell [facility], [facility] [address] [facility] [address] [place] [address] 12/15/2024 Edwinalottie Mockchris [facility], [facility] [address] [facility] [address] [place] [address] 01/11/2025 Edwinalottie Mockchris [facility], [place] [address] [facility] [address] [place] [address] 03/16/2025 Sergio Aguayo Assessments Encounter Date Diagnosis (ICD Code) Assessment Notes Treatment Notes Treatment Clinical Notes Section Notes 10/13/2024 Major depressive disorder, recurrent severe without [...] progress, and adjust treatment strategies as necessary. 10/29/2024 Major depressive disorder, recurrent severe without [...] and continue working on the identified issues. 11/17/2024 Major depressive disorder, recurrent severe without [...] report any changes or worsening to the pharmacy clinical specialist. PTSD Continue with current therapy sessions [...] report any changes or worsening to the pharmacy clinical specialist. PTSD Continue with current therapy sessions [...] resources such as How to ADHD on [employer] and [employer] for additional support and information. Rejection-Sensitiv e [...] resources such as How to ADHD on [employer] and [employer] for additional support and information. Rejection-Sensitiv e [...] 12/29/2024 Generalized anxiety disorder (ICD-10 - F41.1) 01/26/2025 Major depressive disorder, recurrent severe without [...] without psychotic features (ICD-10 - F33.2) 02/23/2025 Encounter for screening for depression (ICD-10 - Z13.31) 03/02/2025 Major depressive disorder, recurrent severe without [...] disorder), inattentive type (ICD-10 - F90.0) 12/29/2024 ADHD (attention deficit hyperactivity disorder), inattentive [...] which include reading books, painting, visiting the [employer], and considering streaming on Twitch. Plan: [...] them regarding her mental health needs. 12/22/2024 Major depressive disorder, recurrent severe without [...] skills and establishing boundaries with loved ones. 10/20/2024 Major depressive disorder, recurrent severe without [...] to assess progress and discuss any concerns. 10/06/2024 Major depressive disorder, recurrent severe without psychotic features (ICD-10 - F33.2) 1. Thyroid Dysfunction Management - Continue monitoring and management under the care of her tire repairer for hyperthyroidism, as indicated by a TSH [...] new treatments or changes in current regimen. 09/29/2024 Major depressive disorder, recurrent severe without [...] progress and continue addressing the identified issues. 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 4. Vision Impairment and [place] - Discuss strategies to enhance the patient's [...] progress and continue addressing the identified issues. 01/19/2025 Major depressive disorder, recurrent severe without [...] when parents . Client grew up in [place], [place]. Client reports childhood was hard, traumatic, [...] concetration, irritability, hypervigilance, and exaggerated startle response. 02/23/2025 ADHD (attention deficit hyperactivity disorder), inattentive type (ICD-10 - F90.0) 12/29/2024 Major depressive disorder, recurrent severe without [...] which include reading books, painting, visiting the [employer] [place], and considering streaming on Twitch. Plan: [...] them regarding her mental health needs. 01/19/2025 Encounter for screening for depression (ICD-10 [...] when parents . Client grew up in [place]. Client reports childhood was hard, traumatic, [...] concetration, irritability, hypervigilance, and exaggerated startle response. 11/10/2024 Major depressive disorder, recurrent severe without [...] feeling well or prefers a telehealth appointment. 12/22/2024 ADHD (attention deficit hyperactivity disorder), inattentive [...] them regarding her mental health needs. 01/19/2025 Generalized anxiety disorder (ICD-10 - F41.1) [...] when parents . Client grew up in [place]. Client reports childhood was hard, traumatic, [...] concetration, irritability, hypervigilance, and exaggerated startle response. 03/30/2025 PTSD (post-traumatic stress disorder) (ICD-10 - F43.10) 04/27/2025 Major depressive disorder, recurrent severe without psychotic features (ICD-10 - F33.2) 02/23/2025 Generalized anxiety disorder (ICD-10 - F41.1) 04/13/2025 PTSD (post-traumatic stress disorder) (ICD-10 - F43.10) 03/09/2025 Generalized anxiety disorder (ICD-10 - F41.1) 03/02/2025 Generalized anxiety disorder (ICD-10 - F41.1) 02/23/2025 Generalized anxiety disorder (ICD-10 - F41.1) 02/09/2025 Generalized anxiety disorder (ICD-10 - F41.1) 02/02/2025 Generalized anxiety disorder (ICD-10 - F41.1) 01/26/2025 PTSD (post-traumatic stress disorder) (ICD-10 - F43.10) 12/29/2024 PTSD (post-traumatic stress disorder) (ICD-10 - F43.10) 12/15/2024 Generalized anxiety disorder (ICD-10 - F41.1) Assessment and Plan: ADHD Acknowledge the patient's increased awareness and understanding of ADHD symptoms and their impact. Maintain the current treatment plan and monitor progress. Recommend exploring resources such as How to ADHD on [employer] and [employer] for additional support and information. Rejection-Sensitiv e [...] report any changes or worsening to the pharmacy clinical specialist. PTSD Continue with current therapy sessions [...] due to Lynn's thyroiditis (ICD-10 - E06.3) 12/29/2024 ADHD (attention deficit hyperactivity disorder), inattentive type (ICD-10 - F90.0) 01/26/2025 ADHD (attention deficit hyperactivity disorder), inattentive type (ICD-10 - F90.0) 02/02/2025 PTSD (post-traumatic stress disorder) (ICD-10 - F43.10) 02/09/2025 PTSD (post-traumatic stress disorder) (ICD-10 - F43.10) 02/23/2025 PTSD (post-traumatic stress disorder) (ICD-10 - F43.10) 03/02/2025 PTSD (post-traumatic stress disorder) (ICD-10 - F43.10) 04/13/2025 ADHD (attention deficit hyperactivity disorder), inattentive type (ICD-10 - F90.0) 03/30/2025 Encounter for screening for depression (ICD-10 - Z13.31) 03/09/2025 PTSD (post-traumatic stress disorder) (ICD-10 - F43.10) 02/23/2025 PTSD (post-traumatic stress disorder) (ICD-10 - F43.10) 12/22/2024 PTSD (post-traumatic stress disorder) (ICD-10 - [...] skills and establishing boundaries with loved ones. 01/19/2025 PTSD (post-traumatic stress disorder) (ICD-10 - F43.10) Client is a 44 year old, never but in a 15 year relationship, with 13 and 10 y/o biological sons. Cient is the only member of [facility] family to have albanism. Client has some college. Client has been on disability since about 2006 or 2007 due to her being legally blind. Client1 of 6 children (all her siblings are half siblings). Client was a year and a half old when parents . Client grew up in [place], [place]. Client reports childhood was hard, traumatic, [...] sons. Keira is the only member of [facility] family to have albanism. Client has some college. Client has been on disability since about 2006 or 2007 due to her being legally blind. Client1 of 6 children (all her siblings are half siblings). Client was a year and a half old when parents . Client grew up in [place]. Client reports childhood was hard, traumatic, [...] concetration, irritability, hypervigilance, and exaggerated startle response. 02/23/2025 Encounter for screening for depression (ICD-10 - Z13.31) 02/23/2025 Major depressive disorder, recurrent severe without psychotic features (ICD-10 - F33.2) 03/09/2025 ADHD (attention deficit hyperactivity disorder), inattentive type (ICD-10 - F90.0) 04/13/2025 Encounter for screening for depression (ICD-10 - Z13.31) 03/02/2025 ADHD (attention deficit hyperactivity disorder), inattentive type (ICD-10 - F90.0) 02/23/2025 ADHD (attention deficit hyperactivity disorder), inattentive type (ICD-10 - F90.0) 02/09/2025 ADHD (attention deficit hyperactivity disorder), inattentive type (ICD-10 - F90.0) 02/02/2025 ADHD (attention deficit hyperactivity disorder), inattentive type (ICD-10 - F90.0) 11/26/2024 Essential (primary) hypertension (ICD-10 - I10) 01/26/2025 Encounter for screening for depression (ICD-10 - Z13.31) 01/26/2025 Encounter for screening for cardiovascular disorders (ICD-10 - Z13.6) 11/26/2024 Blindness of both eyes (ICD-10 - H54.3) 02/23/2025 Encounter for screening for cardiovascular disorders [...] noticing its absence. - Plan: - Await pharmacy technician instructor appointment on January 19 for further evaluation [...] lisinopril and loxapine. - Follow up with pharmacy technician instructor appointment on January 19 for further evaluation and management. - Continue taking Zyrtec as needed for allergy symptoms. Abnormal EKG - Assessment: Patient had an abnormal EKG in the ER during the angioedema episode. - Plan: - Proceed with scheduled echocardiogram next Friday at [facility] to further evaluate cardiac function and any [...] when parents . Client grew up in [place]. Client reports childhood was hard, traumatic, [...] swelling due to BRYN inhibitor (lisinopril) use. Lighting Designer consultation on January 19, 2025, included C4 and tryptase tests, which returned normal results. Lighting Designer advised avoiding lisinopril and Bactroban, with uncertainty about amlodipine's role. The second flare-up was attributed to residual lisinopril in the patient's system. Plan: - Avoid lisinopril and Bactroban - Continue current blood pressure medications - Follow up with pharmacy technician instructor if another attack occurs Hypertension Assessment: Patient [...] ensure accuracy, there may be errors, including machine clipper inaccuracies and misspellings of medication names. This [...] ensure accuracy, there may be errors, including machine clipper inaccuracies and misspellings of medication names. This [...] Insured Coverage Start Date Coverage End Date [facility] - Dual Eligible [address] [place] [address] [id number] GUNJANMATIAS MORRIS Self - patient is the [...]
[2025-07-27 09:15] LABS: Free T4 Free Thyroxine 0.89 ng/dL (0.78-2.19)
[2025-07-27 09:29] LABS: Thyroid Stimulating Hormone Reflex 0.457 uIU/mL (0.465-4.68)
[2025-07-27 13:48] LABS: Free T4 Free Thyroxine Reflex 0.89 ng/dL (0.78-2.19)
[2025-07-27 14:56] LABS: Total Triiodothyronine (T3) 1.18 NG/ML (0.82-1.58)
== END 2025-07-27 08:13 | disposition home or self-care (01) ==
LOC: ANHLAB 08:14
PROVIDERS: PCP Nurse Practitioner; Visit Provider Nurse Practitioner Family
DX: E04.1 Nontoxic single thyroid nodule (principal)
CPT/HCPCS: 36415; 84439; 84443; 84480

== ENCOUNTER 2025-09-10 08:36 | Outpatient (CLI) | payer OTHER, SELFPAY ==
[2025-09-10 09:26] LABS: Uric Acid 7.0 mg/dL (2.5-7.5)
[2025-09-10 09:44] LABS: Free T4 Free Thyroxine 0.81 ng/dL (0.78-2.19)
[2025-09-10 09:57] LABS: Thyroid Stimulating Hormone 0.820 uIU/mL (0.465-4.680); Total Triiodothyronine (T3) 1.32 NG/ML (0.82-1.58)
== END 2025-09-10 08:37 | disposition home or self-care (01) ==
PROVIDERS: PCP Nurse Practitioner; Referring Provider Nurse Practitioner; Visit Provider Nurse Practitioner Family
DX: M10.9 Gout, unspecified (principal); E07.9 Disorder of thyroid, unspecified; R73.03 Prediabetes
CPT/HCPCS: 36415; 84439; 84443; 84480; 84550

== ENCOUNTER 2025-10-27 19:00 | Emergency (ER) | payer OTHER, SELFPAY ==
--- OUTSIDE RECORDS SUMMARY | 2025-02-02 04:00 | XMS_ITS ---
Author Organization [facility] As OtherInbox [facility] Address [address] [facility] [address] [place] [address] Care Team Providers Care Business Systems Technician Name Role Phone Edwina Mckeon APN Primary Care Provider Unavailab Sergio Al Unavailable [phone] Darcie Massey Unavailable [phone] REASON FOR VISIT 2 week fu, depression, anxiety, trauma, ADHD Medications Medication SIG (Take, Route, Frequency, Duration) Notes Start Date End Date Status Lisinopril 5 MG Tablet Oral; Duration: 9 0 Days Not-Taking Vitamin B Complex - Tablet as directed Orally Unknown Atomoxetine HCl 40 MG Capsule 1 capsule Orally Once a day; Duration: 30 days 01/26/2025 02/25/2025 Active Vitamin D 25 MCG (1000 UT) Tablet 1 tablet Orally Once a day Unknown Synthroid 88 MCG Tablet Oral; Duration: 90 Days Unknown Bystolic 10 MG Tablet 1 tablet Orally Once a day Active Escitalopram Oxalate 20 MG Tablet 2 tablet Oral once a day; Duration: 30 days Active ZyrTEC Allergy 10 MG Tablet 1 tablet Ora lly Once a day Active hydroCHLOROthiazide 25 MG Tablet 1 tablet in the morning Orally Once a day Active Atomoxetine HCl 25 MG Capsule 1 capsule Oral once a day; Duration: 7 days after one week increase to 40 mg 01/26/2025 02/02/2025 Active Nystatin 727357 UNIT/GM Cream External; Duration: 30 Days Unknown Liothyronine Sodium 5 MCG Tablet Oral; Duration: 90 Days Unknown Pepcid 20 MG Tablet 1 tablet at bedtime as needed Orally Once a day Active Social History Tobacco Use: Social History Observation Description Date Details (start date - stop date) Never Smoker NA - NA Sex Assigned At : Social History Observation Description Sex Assigned At Female Social History Miscellaneous: Social Info Question Answer Notes Advance Care Planning Are you your own decision-maker Yes Do you have Power of [employer] or [facility]? No Safety issues: Are there any firearms in the house? No Social History Social Info Question Answer Notes Household: Marital Status: Not Answered Number of Adults in household: 2 Number of Children in Household: 2 Level of Education: Not Finished College Household: Social Info Question Answer Notes Household Number of adults in household: 2 Number of children in household: 2 Drug/Alcohol: Social Info Question Answer Notes Drugs Have you used drugs other than those for medical reasons in the past 12 months? No AUDIT-C (Standard) Did you have a drink containing alcohol in the past year? No Points 0 Interpretation Negative Tobacco Use: Social Info Question Answer Notes Tobacco Control (Standard) Tobacco use: Nonsmoker Additional Details Category Social Info Options Details Miscellaneous: Occupation: Disabled Drug/Alcohol: Do you smoke marijuana? Adm its, has medical card Do you drink alcohol? No Encounters Encounter Location Date Provider Diagnosis [facility] [employer] [facility] [address] [address] 02/02/2025 Darcie Massey Encounter for screen ing for depression Z13.31 ; Major depressive disorder, recurrent severe without psychotic features F33.2 ; Generalized anxiety disorder F41.1 ; PTSD (post-traumatic stress disorder) F43.10 and ADHD (attention deficit hyperactivity disorder), inattentive type F90.0 Assessments Encounter Date Diagnosis (ICD Code) Assessment Notes Treatment Notes Treatment Clinical Notes Section Notes 02/02/2025 Encounter for screening for depression (ICD-10 - Z13.31) 02/02/2025 Major depressive disorder, recurrent severe without psychotic features (ICD-10 - F33.2) 02/02/2025 Generalized anxiety disorder (ICD-10 - F41.1) 02/02/2025 PTSD (post-traumatic stress disorder) (ICD-10 - F43.10) 02/02/2025 ADHD (attention deficit hyperactivity disorder), inattentive type (ICD-10 - F90.0) 02/02/2025 Other Client focused on how the trauma in her childhood continues to iimpact her life and relationships. She went into detail about these issues. Therapist actively listened to client and utilized a cognitive behavioral intervention to help client explore strategies to minimize the impact of the trauma on her life and relationships (writing down how she is feeling before speaking to her partner). PHQ=15 moderately severe EMY=7 mild Plan Of Treatment Next Appt Details Follow Up: 1 Week, Reason: t herapy follow up History and Physical Notes * HPI (History of Present Illness) Category Sub-Category Detail Notes Category Not es Depression screening PHQ-9 Little inte rest or pleasure in doing things: More than half the days Feeling down, depressed, or hopeless: Se veral days Trouble falling or staying asleep, or sl eeping too much: Nearly every day Feeling tired or having little energy: N early every day Poor appetite or overeating: Several day s Feeling bad about yourself o r that you are a failure, or have let yourself or your family down: More than half the days Trouble concentrating on thi ngs, such [...] or of hurting yourself in some way: More than half the days (Consider Suicide Assessment Risk) Total Score: 15 Interpretation: Moderately Severe Depres spencer Intervention Depression Screening Findings: P ositve Follow-Up for Depression: [facility] treatment assessment, Patient follow-up to return when and if necessary Suicide Risk Assessment Performed: 02/02 Upon questioning, client reports passive SI, with no intent or plan to harm herself at this time. Additional Evaluation for De pression: Psychiatric interview and evaluation Name of the standardized too l used for adult depression screening:: Patient Health Questionnaire (PHQ-9) Depression Screening EMY-7 (2018 Edition) Feelin g nervous, anxious, or on edge: More than half the days Not being able to stop or control worryi ng: Several days Worrying too much about different things : Several days Trouble relaxing: Several days Being so restless that it is hard to sit still: Several days Becoming easily annoyed or irritable: No t at all Feeling afraid as if something awful rhonda ht happen: Several days Total EMY-7 Score: 7 If you checked any problems, how difficult have they made it for you to do your work, take care of things at home, or get along with other people?: Extremely difficult Interpretation of Total: (5 to 9) Mild [place]-Suicide Severity Rating Scale Suicide Risk (CSRS-screener) in the past one month Have you wished you were or wished you could go to sleep and not wake up?: Yes in the past one month Have y ou actually had any thoughts of killing yourself?: No Examination Category Sub-Category Detail Notes Category Not es Psychiatry Client is smootha lly groomed and oriented X 3 Progress Notes * SAMAN CAMERONB:1980 ([age] yo F)Acc No.[id number]:02/02/2025 Patient: MATIAS KAHN Provider: Roz MASSEY LCSW :1980 A ge:44 Y S ex:Female Date:02/02/2025 Phone: Address:[address], [place], [id number] Pcp:Edwina Mckeon APN Data: * Time Tracker: * Date Start Time End Time Duration User Type Captured By Mode Notes 02/02/2025 09:55 AM 10:54 AM 00:59:00 Therapist Darcie Massey anual * Chief Complaints: * 2 week fuDepressionAnxietyTraumaADHD * HPI: F unctional Status: Client is here today for psychotherapy to treat anxiety, depression, trauma, and ADHD issues. Based on our session, I think the patient is making moderate progress. At this time I do not recommend changes to the treatment plan. I do not think the patient poses significant risk of harm to self or others at this time. Discussed continued treatment with patient. D epression screening: PHQ-9 L ittle interest or pleasure in doing things?More than half the days F eeling down, depressed, or hopeless S everal days T rouble falling or staying asleep, or sleeping too much N early every day F eeling tired or having little energy N early every day P oor appetite or overeating S everal days F eeling bad about yourself or that you are a failure, or have let yourself or your family down M ore than half the days T rouble concentrating on things, such as reading the newspaper or watching television S everal days M oving or speaking so slowly that other people could have noticed; or the opposite, being so fidgety or restless that you have been moving around a lot more than usual N ot at all T houghts that you would be better off or of hurting yourself in some way M ore than half the days (Consider Suicide Assessment Risk) T otal Score 1 5 I nterpretation M oderately Severe Depression Intervention D epression Screening Findings P ositve F ollow-Up for Depression [facility] treatment assessment, Patient follow-up to return when and if necessary S uicide Risk Assessment Performed 0 02/02/2025 Upon questioning, client reports passive SI, with no intent or plan to harm herself at this time. A dditional Evaluation for Depression P sychiatric interview and evaluation N ayan of the standardized tool used for adult depression screening: [facility] Health Questionnaire (PHQ-9) D epression Screening: EMY-7 (2018 Edition) F eeling nervous, anxious, or on edge M ore than half the days N ot being able to stop or control worrying?Several days W orrying too much about different things S everal days T rouble relaxing S everal days B eing so restless that it is hard to sit still S everal days B ecoming easily annoyed or irritable N ot at all F eeling afraid as if something awful might happen S everal T otal EMY-7 Score 7 I f you checked any problems, how difficult have they made it for you to do your work, take care of things at home, or get along with other people? E xtremely difficult I nterpretation of Total ( 5 to 9) Mild [place]-Suicide Severity Rating Scale: Suicide Risk (CSRS-screener) i n the past one month Have you wished you were or wished you could go to sleep and not wake up? Y es i n the past one month Have you actually had any thoughts of killing yourself? N o * Behavioral History: Behavioral History W hen and where was the last admission?2000 starving herself plus 2 others. S I without plan or intent to harm herself P ast psychiatric HospitalizationYes. H istory of suicidal attempt?No. * Family History: F ather: alive, Anxiety [...] sister(s) . 2 son(s) - healthy. . F amily History Verified.. * Social History: T obacco Use: T [...] es D o you have Power of [employer] or Medical? N o S ocial History: H ousehold M arital Status: N ot Answered N umber of Adults in household: 2 N umber of Children in Household: 2 L evel of Education: N ot Finished College S ocial History Verified. * Medications: T akingPepcid 20 MG Tablet 1 tablet at bedtime as needed Orally Once a day ZyrTEC Allergy 10 MG Tablet 1 tablet Orally Once a day hydroCHLOROthiazide 25 MG Tablet 1 tablet in the morning Orally Once a day Bystolic 10 MG Tablet 1 tablet Orally Once a day Escitalopram Oxalate 20 MG Tablet 2 tablet Oral once a day Atomoxetine HCl 25 MG Capsule 1 capsule Oral once a day after one week increase to 40 mg, stop date 02/02/2025tomoxetine HCl 40 MG Capsule 1 capsule Orally Once a day , stop date 02/25/2025Taking Pepcid 20 MG Tablet 1 tablet at bedtime as needed Orally Once a day Taking ZyrTEC Allergy 10 MG Tablet 1 tablet Orally Once a day Taking hydroCHLOROthiazide 25 MG Tablet 1 tablet in the morning Orally Once a day Taking Bystolic 10 MG Tablet 1 tablet Orally Once a day Taking Escitalopram Oxalate 20 MG Tablet 2 tablet Oral once a day Taking Atomoxetine HCl 25 MG Capsule 1 capsule Oral once a day after one week increase to 40 mg, stop date 02/02/2025Taking Atomoxetine HCl 40 MG Capsule 1 capsule Orally Once a day , stop date 02/25/2025Not-TakingLisinopril 5 MG Tablet Oral Not-Taking Lisinopril 5 MG Tablet Oral UnknownVitamin B Complex - Tablet as directed Orally Vitamin D 25 MCG (1000 UT) Tablet 1 tablet Orally Once a day Synthroid 88 MCG Tablet Oral Nystatin 877552 UNIT/GM Cream External Liothyronine Sodium 5 MCG Tablet Oral Medication List reviewed and reconciled with the patientUnknown Vitamin B Complex - Tablet as directed Orally Unknown Vitamin D 25 MCG (1000 UT) Tablet 1 tablet Orally Once a day Unknown Synthroid 88 MCG Tablet Oral Unknown Nystatin 723875 UNIT/GM Cream External Unknown Liothyronine Sodium 5 MCG Tablet Oral Medication List reviewed and reconciled with the patient * Examination: P sychiatry: C edilberto is causally groomed and oriented X 3. Assessment: * Assessment: 1. M ajor depressive disorder, recurrent severe without psychotic features - F33.2 (Primary)? 2. E ncounter for screening for depression - Z13.31 3 . G eneralized anxiety disorder - F41.1 4 . P TSD (post-traumatic stress disorder) - F43.10 5 . A DHD (attention deficit hyperactivity disorder), inattentive type - F90.0 Plan: * Treatment: * Procedure Codes: 9 0837 PSYCHOTHERAPY W/PATIENT 60 [id number] BEHAV ASSMT W/SCORE & DOCD/STAND [id number] CLIN DEPRESSION SCREEN DOC * Follow Up: 1 Week (Reason: therapy follow up) Billing Information: * Procedure Codes: 29478 PSYCHOTHERAPY W/PATIENT 60 MINUTES. 11896 BEHAV ASSMT W/SCORE & DOCD/STAND INSTRUMENT. G8431 CLIN DEPRESSION SCREEN DOC. * Electronic signature of Vickie Massey LCSW on 10/27/2025 at 07:02 PM UPPER TIER Sign off status: Pending Signatures: No Ad Hoc Signature Added * Provider: Roz MASSEY LCSW Date: 0 02/02/2025 Generated for Marita Fraga on: 1 12/28/2024 07:02 PM UPPER TIER
--- NOTE | ~2025-10-27 | CT_ITS ---
EXAMINATION: CT soft tissue neck w con DATE: 10/27/2025 20:26 INDICATION: Neck and tongue swelling TECHNIQUE: Computed tomography (CT) of the neck was performed with 75 mL Omnipaque-350 intravenous contrast. Automated exposure control and iterative reconstruction technique were employed. The dose-length product was 536.64 mGy-cm. COMPARISON: None FINDINGS: Orbits are normal. Mucosal thickening in the bilateral maxillary sinuses.. Mastoid air cells and middle ear cavities are clear. Submandibular and parotid glands are normal and symmetric. Thyroid gland is unremarkable. There are scattered normal-sized lymph nodes in the neck, no lymphadenopathy. No masses or abnormal fluid collections identified. The vasculature is patent and normal in caliber. Normal epiglottis and prevertebral soft tissues. Airway is unremarkable. Superior mediastinum is unremarkable. Lung apices are normal. Bones are unremarkable. IMPRESSION: 1. No abnormal masses, fluid collections or pathologically enlarged lymphadenopathy at the neck or visualized upper chest. Reviewed, dictated and finalized at location A. ATTENDANT IMPRESSION: 1. No abnormal masses, fluid collections or pathologically enlarged lymphadenop athy at the neck or visualized upper chest.
--- OUTSIDE RECORDS SUMMARY | 2025-10-27 19:02 | XMS_ITS | Data Portability ---
Author Organization [place] - [facility] [employer], Main Office Address [address] [place] [address] Assessment Encounter Date Assessment Date Assessment LastModified by Organization Details LastModified Time 04/22/2024 04/22/2024 Assessment: Delayed sleep phase syndrome Mild OSHS, HI = 4 Plan: The following were reviewed and explained to the patient: primary care/referral note [facility] home sleep study 04/14/24 HI = 4, supine HI = 18. Sleep in lateral recumbent or semirecumbent position for the time being. There could also be substantial gnikd-yy-zvoyw variability in the AHI that can lead [...] were reviewed and explained to the patient: [facility] home sleep study 04/14/24 HI = 4, supine HI = 18 [facility] diagnostic sleep study 06/08/24 sleep [...] were reviewed and explained to the patient: [facility] home sleep study 04/14/24 HI = 4, supine HI = 18 [facility] diagnostic sleep study 06/08/24 sleep onset = 18 minutes, REM onset = none, AHI = 6, supine AHI = 36, PLMI = 2 [facility] titration sleep study 08/03/24 sleep [...] carrier. Patient will setup an appointment with [facility] for supplies and pressure adjustments. [...] were reviewed and explained to the patient: [facility] home sleep study 04/14/24 HI = 4, supine HI = 18 [facility] diagnostic sleep study 06/08/24 sleep onset = 18 minutes, REM onset = none, AHI = 6, supine AHI = 36, PLMI = 2 [facility] titration sleep study 08/03/24 sleep [...] duration at 20 minutes. Keep EPR +2 part time. Keep humidifier level at 2. Keep tube [...] carrier. Patient will setup an appointment with [facility] for supplies and pressure adjustments. [...] Imaging polysomno gram, titration study 2023 024 [email or web address] [facility], [address] [place], [address], 07/19/2024 10:04:06 polysomno gram, diagnosti c, 6 yrs or older - approved [id number] 1 04/22/24-2023 024 [email or web address] [facility], [address] [place], [address], 05/03/2024 08:12:03 home sleep study - *Please call pt to schedule* 2023 024 [facility], [address] [place], [address], 04/16/2024 14:48:34 Medication Orders aspirin 81 mg tablet,de layed release 2023 024 [id number], [address] [facility] [address] [place] [address], [id number], 11/24/2024 09:35:14 losartan 50 mg tablet 2023 024 [id number], [address], [id number], 04/22/2024 10:06:10 Patient TargetsNo targets recorded. Patient InstructionsNo instructions recorded. Reason for Referral None Reported. Results Created Date Observation Date Name Description Value Unit Range Abnormal Flag Note LastModifiedBy Organization Detail LastModifiedTime 03/17/2003/17/2024 US, thyro id No observ ation record ed. [facility] [address] [place] [address], [address], 03/18/2024 13:20:14 04/16/20 24 04/14/2024 home sleep study No observ ation record ed. [email or web address] [facility] [address] [place], [address], 05/21/2024 09:41:12 04/16/20 24 04/14/2024 home sleep study No observ ation record ed. [facility] [address] [place], [address], 04/16/2024 14:48:34 06/11/20 24 06/08/2024 polys omnog mario, diagn ostic , 6 yrs or older No observ ation record ed. [facility] [address] [place], [address], 06/11/2024 12:17:27 08/24/20 24 08/03/2024 polys omnog mario, titra tion study No observ ation record ed. [facility] [address] [place], [address], 08/24/2024 10:07:59 Result Notes None recorded. 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 Not Available [facility] 3 22:28:42 Pain in throat 401442361 Completed Not Available [facility] 3 03:22:27 Blindness - both eyes 769443202 Active Not Available [facility] 3 22:28:42 Vitamin D deficiency 91226703 Active Not Available [facility] 3 22:28:42 Goiter 0151848 Active Not Available [facility] 3 22:28:42 Hypothyroi dism 51735475 Active Not Available [facility] 3 22:28:42 Hemorrhoid s 48443821 Active Not Available [facility] 3 22:28:42 Polycystic ovary syndrome 158495830 Active 2022 Not Available [facility] 3 22:28:42 Prediabete s 866820320 Active 2022 Not Available [facility] 3 22:28:42 Arthritis 3642303 Active 2022 Not Available [facility] 3 22:28:42 Mixed anxiety and depressive disorder 841470993 Active 2022 Not Available [facility] 3 22:28:42 Cobalamin deficiency 286571605 Active 2023 Jess Plascencia MD [address], [place], [address] , [facility] 4 12:27:48 Essential hypertensi on 74190529 Active 2023 Phil Evangelista SYSTEMS ENGINEER-C [address], [place], [address] , [facility] 4 14:32:49 Varicose veins of lower extremity 86011691 Active 2023 Phil Evangelista SYSTEMS ENGINEER-C [address], [place], [address] , [facility] 4 14:33:55 Obstructiv e sleep apnea syndrome 21484645 Active 2023 Jw Phipps MD [address], [address], [place], [address] , [facility] 4 10:44:19 Notes:Medical History: Beltran ism Depression/Anxiety [...] Most Recent Mammogram completed Lola Chávez LPN [facility] 01/08/2024 11:27:10 4 delivery completed Not Available [facility] 01/01/2023 03:14:20 2 delivery completed Not Available [facility] 01/01/2023 03:14:20 Imaging Results None recorded. Procedure Notes None recorded. Medical Equipment None Reported. Allergies Allergen ID Allergen Name Allergen Category Reaction Reaction Severity Criticality Documentation Date Start Date Code Code System Note Provider Name and Address Organization Details Recorded Time 6274 acetamino phen / hydrocodo ne medicatio n itching Not available Not available 01/01/2023 16930 2 RxNorm Not Available [facility] 3 03:34:13 6275 Augmentin medicatio n diarrhea Not available Not available 01/01/2023 93700 2 RxNorm Not Available [facility] 3 03:34:13 Medications Name Sig Start [...] tablets in a dose pack TK PER [facility] DIRECTION S UTD FOR 6 DAYS [...] /min 15 /min Jw Phipps MD [address], [place], [address], [place] [facility] [employer] 11/24/2024 09:44:05 Date Recorded Body height Body mass index (BMI) Body weight Body temperature Heart rate Oxygen saturation Systolic And Diastolic Provider Name and Address Organization Details Last Updated DateTime 5 170.18 cm 38.2 kg/m2 195423. 54 g 97.7 [degF] 70 /min 98 % 126/84 mm[Hg] Sosa Mazariegos MA [facility] 5 09:22:52 Date Recorded Body height Body mass index (BMI) Body weight Body temperature Heart rate Oxygen saturation Systolic And Diastolic Provider Name and Address Organization Details Last Updated DateTime 4 170.18 cm 35.2 kg/m2 152433. 28 g 97.1 [degF] 79 /min 96 % 152/98 mm[Hg] Keara Santana RN [employer] [facility] [employer] 4 14:13:47 Date Recorded Heart rate Respiratory rate Provider N ayan and Address Organization Details Last Updated DateTime 04/22/2024 70 /min 15 /min Jw Phipps MD [address], [place], [address], [place] [facility] 04/22/2024 10:49:29 Date Recorded Body height Body mass index (BMI) Body weight Heart rate Oxygen saturation Body temperature Systolic And Diastolic Provider Name and Address Organization Details Last Updated DateTime 4 170.18 cm 35.2 kg/m2 619176. 28 g 70 /min 98 % 97.6 [degF] 120/70 mm[Hg] Enedina Sánchez [facility] [employer] 4 10:02:54 Date Recorded Heart rate Respiratory rate Provider N ayan and Address Organization Details Last Updated DateTime 06/16/2024 76 /min 15 /min Jw Phipps MD [address] [facility], [facility] [address], [address] [facility] [employer] 06/16/2024 09:49:18 Date Recorded Body height Body mass index (BMI) Body weight Body temperature Heart rate Oxygen saturation Systolic And Diastolic Provider Name and Address Organization Details Last Updated DateTime 170.18 cm 37 kg/m2 494822. 8 g 98.1 [degF] 76 /min 97 % 118/76 mm[Hg] Sosa Mazariegos MA [place] [facility] [employer] 09:09:52 Date Recorded Heart rate Respiratory rate Provider N ayan and Address Organization Details Last Updated DateTime 08/24/2024 75 /min 15 /min Jw Phipps MD [address] [facility], [address], [address], [place] [facility] [employer] 08/24/2024 09:59:00 Date Recorded Body height Body mass index (BMI) Body weight Heart rate Oxygen saturation Body temperature Systolic And Diastolic Provider Name and Address Organization Details Last Updated DateTime 170.18 cm 37.1 kg/m2 374171. 39 g 75 /min 97 % 98.1 [degF] 118/70 mm[Hg] Enedina Sánchez [facility] [employer] 09:31:48 Social History Question Answer Notes LastModified by Organizat ion Details LastModified Time Tobacco Smoking Status Never Smoker SHERIR Garg, [place] [facility] [employer] 08/14/2023 15:59:16 What Is Your Level Of Caffeine Consumption? Occasional [id number] Information not available 01/01/2023 How Much Tobacco Do You Chew? None [id number] Information not available 01/01/2023 In The 14 [...] is your level of alcohol consumption? None [id number] Information not available 01/01/2023 Do you or have you ever used smokeless tobacco? Never used smokeless tobacco [id number] Information not available 01/01/2023 Have you been [...] anxious, or unable to sleep at night)? [id number] Information not available 06/16/2024 Family History Relationship Description Onset Age of this Age Resolved Age Notes LastModified by Organization Details LastModified Time Mother Rheumatoid arthritis [email or web address] Not available 11/24 09:08:12 Mother Fibromyalgia [id number] Not sherry ilable 11/24/2024 09:08:12 Mother Autoimmune hepatitis [id number] Not available 11/24 09:08:12 Mother Osteoporosis [email or web address] Not sherry ilable 11/24/2024 09:08:12 Mother Transient cerebral ischemia [id number] Not available 11/24 09:08:12 Maternal Grandfather Diabetes mellitus [id number].105 [id number] Not available 01/01/2023 03:14:27 Maternal Grandfather Heart disease MIGRATION.180 [id number] Not available 01/01/2023 03:14:27 Maternal Grandfather Congestive heart failure Not available 11/24 09:08:12 Maternal Grandfather Malignant neoplasm of skin [id number] Not available 11/24 09:08:12 Maternal Grandfather Malignant neoplasm of prostate [id number] Not available 11/24 09:08:12 Maternal Grandfather Tuberculosis [email or web address] Not availabl e 11/24/2024 09:08:12 Maternal Grandmother Diabetes mellitus MIGRATION.450 [id number] Not available 01/01/2023 03:14:27 Maternal Grandmother Heart disease MIGRATION.357 [id number] Not available 01/01/2023 03:14:27 Paternal Grandfather Diabetes mellitus MIGRATION.503 [id number] Not available 01/01/2023 03:14:27 Paternal Grandmother Diabetes mellitus MIGRATION.214 [id number] Not available 01/01/2023 03:14:27 Sister Polycystic ovary syndrome [id number] Not available 11/24 09:08:12 Sister Prolactinoma [email or web address] Not sherry ilable 11/24/2024 09:08:12 Father Chronic obstructive pulmonary disease [id number] Not available 11/24 09:08:12 Paternal Grandfather Heart disease Not available 2023 10:17:10 Paternal Grandfather Cerebrovascu lar accident [email or web address] Not available 09:08:12 Paternal Grandmother Heart disease Not available 2023 10:17:13 Maternal Grandmother Cerebrovascu lar accident [id number] Not available 09:08:12 Medical History Condition Response [...] virus, trivalent, PF 3 completed Not Available [facility] 08/13/2023 22:28:42 Influenza, split virus, trivalent, preservative 3 completed Not Available [facility] 08/13/2023 22:28:42 Influenza, split virus, quadrivalent, PF 5 completed Not Available [facility] 08/13/2023 22:28:42 Past Encounters Encounter ID Performer Location Encounter Start Date Encounter Closed Date Diagnosis/Indication Diagnosis SNOMED-CT Code Diagnosis ICD10 Code Diagnosis IMO Codes Diagnosis Note [id number] Jess Plascencia MD [facility] [address] [place] [address] 01/09/2021 00:00:00 01/09/2021 09:15:01 [id number] Renuka Rubin MD [facility] End[facility] [place] [address] [place] [address] 01/12/2021 00:00:00 01/12/2021 17:31:37 [id number] Jess Plascencia MD [facility] [place] [address] [place] [address] 02/23/2021 00:00:00 02/28/2021 16:27:12 [id number] Jess Plascencia MD [facility] [place] [address] [place] [address] 05/14/2021 00:00:00 05/14/2021 13:26:05 [id number] Jess Plascencia MD [facility] [place] [address] [place] [address] 08/09/2021 00:00:00 08/09/2021 09:17:14 [id number] Renuka Rubin MD [facility] [place] [address] [place] [address] 08/14/2021 00:00:00 08/14/2021 18:08:12 [id number] Jess Plascencia MD [facility] [place] [address] [place] [address] 10/31/2021 00:00:00 11/01/2021 07:47:28 [id number] Jess Plascencia MD [facility] [place] [address] [place] [address] 02/05/2022 00:00:00 02/05/2022 17:25:28 [id number] Renuka Rubin MD [facility] [address] [place] [address] 02/12/2022 00:00:00 02/13/2022 12:25:32 [id number] Jess Plascencia MD [facility] [place] [address] [place] [address] 03/13/2022 00:00:00 03/13/2022 10:35:24 [id number] MARTINE Ruiz [facility] [place] [address] [place] [address] 05/24/2022 00:00:00 05/24/2022 17:41:32 [id number] MD TYRELL [facility] [place] [address] [place] [address] 05/28/2022 00:00:00 05/28/2022 17:28:27 [id number] CHARISSA Hernandez [facility] [place] [address] [facility] [address] [place] [address] 07/17/2022 00:00:00 07/17/2022 11:42:05 [id number] Jess Plascencia MD [facility] [place] [address] [facility] [address] [place] [address] 11/01/2022 00:00:00 11/01/2022 20:13:31 [id number] MARTINE Ruiz [facility] Primary [facility] [place] [address] [facility] [address] [place] [address] 01/02/2023 08:24:23 01/02/2023 08:43:01 [id number] Renuka Rubin MD [facility] Endo [place] [address] [place] [address] 01/06/2023 16:41:17 01/06/2023 17:30:43 Hypothyroidism 85142043 E03.9 FT4 low and patient having more [...] and reduce inflammati on. Polycystic ovary syndrome 295551326 E28.2 Continue natural insulin engineering document control clerk s as struggled with metformin. Continue on spironolac tone as she has had less hair loss/ more growth. Tolerating well. Weight gain 1298453 R63. 5 Will send for low dose [...] informatio n in the electronic health record, codyen tly interpreti ng results and communicat ing results to the patient. RTC in 3-4 months. Patient was provided a handwritte n lab order which contains our fax number. If she chooses to go outside of the [facility] system to obtain labwork she was [...] in her case. She voiced understand ing. [id number] CHARISSA Hernandez [facility] [address] [place] [address] 01/08/2023 08:56:53 01/08/2023 09:00:37 [id number] Jess Plascencia MD [facility] [address] [place] [address] 04/02/2023 11:11:45 04/02/2023 11:39:23 [id number] Renuka Rubin MD [facility] [place] [address] [place] [address] 04/10/2023 16:16:28 04/10/2023 17:08:03 Prediabetes 670406397 R73.03 Glucose running around 99-115 mg/dL fasting- she is tolerating metformin well. Recommende d GLP1 agonist therapy as she is having trouble at times with cravings of sweets and portion control. Discussed potentiall y reducing total carb intake to 120 grams daily into 4-5 small split meals with addition of healthy protein based snack at bedtime to help reduce aquatics manager hyperglyce austin. She has no hx [...] that day as tolerated. Polycystic ovary syndrome 890153882 E28.2 Continue natural insulin engineering document control clerk s as struggled with metformin. Continue on spironolac tone as she has had less hair loss/ more growth. Tolerating well. Hypothyroidism 82289266 E03.9 FT4 in range- continue on synthroid [...] and minerals and reduce inflammati on. Arthritis 6952348 M19.90 Will send for repeat SAIRA with specific antibodies along with rheumatoid screening to assess for any evidence of autoimmune disease. Thyroid nodule 002530603 E04.1 Repeat thyroid u/s prior to return visit. Send for calcitonin and parathyroi d function to screen for c cell hyperplasi a and hyperparat hyroidism. Mixed anxi ety and depressive disorder 467691496 F41.8 refer to psychiatry for further evaluation [...] she chooses to go outside of the [facility] system to obtain labwork she was [...] in her case. She voiced understand ing. [id number] Jess Plascencia MD [facility] [place] [address] [place] [address] 04/14/2023 08:23:02 04/14/2023 09:57:18 [id number] Jess Plascencia MD [facility] [address] [place] [address] 08/06/2023 11:10:43 09/02/2023 14:58:20 [id number] Renuka Rubin MD [facility] [place] [address] [place] [address] 08/14/2023 15:58:27 08/14/2023 16:49:03 Hypothyroidism 40169086 E03.9 FT4 high normal range and with [...] and minerals and reduce inflammati on. Prediabetes 697484620 R7 3.03 A1C 5.3% down from 6% range- she has lost 26 pounds- continue on trulicity but uptitrate to 3 mg once weekly as patient tolerating well. Discussed carb counting and how to read food labels. Recommende d patient to utilize the diabetesfo bookjamb.com from the ADA website to help with food preparatio n as this presents ideal carb content per meal so this will make carb counting much easier for patient. Recommende d she incorporat e natural insulin engineering document control clerk s such as pears, apples, cinnamon, cristóbal and sweet potatoes to help mobilize her endogenous insulin. Recommende d up to 150 minutes of moderate level activity/e xercise weekly. Polycystic ovary syndrome 370846660 E28.2 Continue natural insulin engineering document control clerk s as struggled with metformin. Continue on spironolac tone as she has had less hair loss/ more growth. Tolerating well. Generalize d anxiety disorder 19535890 F41.1 Continue on escitalopr am 40 mg [...] answered and refills necessary at visit today. [id number] Jess Plascencia MD [facility] Primary [facility] [address] [facility] [address] [place] [address] 12/02/2023 17:40:44 12/02/2023 17:46:35 [id number] Jess Plascencia MD [facility] Primary [facility] [address] [facility] [address] [place] [address] 02/04/2024 12:12:00 02/04/2024 12:42:54 Hypothyroidism 92451617 E03.9 refills givenhas appt with endocrinol ogy Dr. Rubin Prediabetes 831460029 R7 3.03 Vitamin D deficiency 347 25287 E55.9 Cobalamin deficiency 190 937288 E53.8 Hyperlipid emia screening 999693963 Z13.220 Z79.084 [id number] RACHELE Mcginnis [facility] [address] [facility] [address] [place] [address] 04/07/2024 14:00:02 04/07/2024 14:40:03 Varicose veins of lower extremity 11978270 I83.92 -noted only to the left lower extremity so far-declin es 81mg-trial aspirin Essential hypertension 37515502 I10 trial losartan Sleep apnea 00115938 G47 .30 snoring, witnessed apnea, excessive daytime somnolence . Will order home sleep study. [id number] Jw Phipps MD [facility] [address] 04/22/2024 09:54:32 04/26/2024 09:11:25 Obstructive sleep apnea syndrome 02055698 G47.33 G47.36 G47.61 [id number] Jw Phipps MD [facility] [address] 06/16/2024 08:55:08 06/17/2024 09:14:10 Obstructive sleep apnea syndrome 78660292 G47.33 G47.36 [id number] Jw Phipps MD [place] [address] 08/24/2024 09:07:43 08/24/2024 15:51:59 Obstructive sleep apnea syndrome 55977719 G47.33 G47.36 [id number] Jw Phipps MD [place] [address] 11/24/2024 09:07:16 11/29/2024 14:55:34 Obstructive sleep apnea syndrome 01299709 G47.33 G47.36 Health Concerns Section Related Observation LastModified by Organization Detai ls LastModified Time None Recorded Concern Status LastModified by Organization Details LastModified Time None Recorded Advance Directives Directive None Recorded Payers Insurance Date Sequence Insurance Name Policy Number Policy Ring Covered Member ID Ring Member ID Guarantor Name 11/23/2024 2 [place] Cheryl Alvarez [id number] Cheryl Alvarez 12/24/2024 2 UNSPECIFIED REMIT PAYOR Cheryl Alvarez 11/29/2024 1 [facility] [place] [facility] (MEDICARE - MEDICAID REPLACEMENT HMO) [id number] Cheryl Alvarez [id number] Cheryl Alvarez Notes Date Note Type Note Provider Name and Address Organization Details Recorded Time 04/07/2024 text/html pt is here for varicose veins RACHELE Mcginnis [address] [facility], [facility] [address], [place], [address], [facility] 04/07/2024 15:30:09 04/22/2024 text/html Primary care/Referring provider: RACHELE Bernard During the [facility] home sleep study on 04/14/24 [...] no chance of dozing. Jw Phipps MD [address] [place] [address], [phone], [facility] [employer] 04/22/2024 10:49:46 06/16/2024 text/html Primary care/Referring provider: Phil Evangelista, SYSTEMS ENGINEER-C During the [facility] home sleep study on 04/14/24, HI = 4, supine HI = 18. During the [facility] diagnostic sleep study 06/08/24, sleep [...] moderate chance of dozing. Jw Phipps MD [address] [place] [address], [phone], [place] [facility] 06/16/2024 09:49:27 08/24/2024 text/html Primary care/Referring provider: MARTINE Bernard-Angel During the [facility] home sleep study on 04/14/24, HI = 4, supine HI = 18. During the [facility] diagnostic sleep study 06/08/24, sleep onset = 18 minutes, REM onset = none, AHI = 6, supine AHI = 36, PLMI = 2. During the [facility] titration sleep study on 08/03/24, [...] slight chance of dozing. Jw Phipps MD [address] [place] [address], [phone], [facility] [employer] 08/24/2024 09:59:12 11/24/2024 text/html Primary care/Referring provider: Edwina Mckeon NP During the [facility] home sleep study on 04/14/24, HI = 4, supine HI = 18. During the [facility] diagnostic sleep study 06/08/24, sleep onset = 18 minutes, REM onset = none, AHI = 6, supine AHI = 36, PLMI = 2. During the [facility] titration sleep study on 08/03/24, [...] chance of dozing. Jw Phipps MD [address] [place] [address], [place], [address], [facility] 11/24/2024 10:52:51 OBGyn Episode No OBEpisode recorded.
--- OUTSIDE RECORDS SUMMARY | 2025-10-27 19:02 | XMS_ITS | Patient Health Record ---
Author Organization [facility] [employer] Address [address] [facility] [address] [place] [address] Care Team Providers Care Relay Dispatcher Name Role Phone Edwina Mckeon APN Primary Care Provider Unavailab Sergio Al Unavailable [phone] Darcie Singh Unavailable [phone] Edwina Blackwell Unavailable [phone] Allergies Allergen (clinical drug ingredient) Drug/Non Drug Allergy documented on EMR Reaction Allergy Type Onset Date Status amoxicillin / clavulanate Augmentin Unknown Drug Allergy Active Vicodin Unknown Drug Allergy Active amlodipine Amlodipine Unknown Drug Allergy Activ e lisinopril Lisinopril Unknown Drug Allergy Activ e Results Component Value Reference Range Notes UDT Reviewed date:11/26/2024 11:15:53 AM Interpretation: Performing Lab: Notes/Report: Amphetamine (AMP) NEG 0 - 1000 ng/ml Buprenorphine (BUP) NEG 0 - 10 ng/ml Oxazepam (BZO) NEG 0 - 300 ng/ml Cocaine (CHUCK) NEG 0 - 300 ng/ml Methamphetamine (mAMP) NEG 0 - 300 ng/ml Methylenedioxymethamphetamine (MDMA) NEG 0 - 500 ng/ml Morphine (MOP) NEG 0 - 25 ng/ml Methadone (MTD) NEG 0 - 300 ng/ml Oxycodone (OXY) NEG 0 - 300 ng/ml THC POS 0 - 50 ng/ml x NEG 0 - 1000 ng/ml x NEG 0 - 1000 ng/ml x NEG 0 - 300 ng/ml x NEG 0 - 300 ng/ml x NEG [...] decision-maker Yes Do you have Power of Digital Controls Technical Officer for Health or [facility]? No Safety issues: Are there any [...] Severe recurrent major depression without psychotic features (15429795) Major depressive disorder, recurrent severe without psychotic features (F33.2) Active confirmed Problem Generalized anxiety disorder (60948122) Generalized anxiety disorder (F41.1) Active confirmed Problem Essential hypertension (21066774) Essential (primary) hypertension (I10) 10/21/20 22 Active confirmed Problem Posttraumatic stress disorder (87504436) PTSD (post-traumatic stress disorder) (F43.10) Active confirmed Problem Attention deficit hyperactivity disorder, predominantly inattentive type (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), inattentive type (F90.0) Active confirmed Problem Long-term current use of drug therapy (899537166) Medical marijuana use (Z79.899) Active confirmed Problem Polycystic ovary syndrome (disorder) (508192882) Polycystic ovarian syndrome (E28.2) 12/05/19 24 Active confirmed Problem Vitamin D deficiency (79086469) Vitamin D deficiency (E55.9) 05/29/20 23 Active confirmed Problem 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 (835308009) 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) 12/05/19 24 Active confirmed Problem Blindness - both eyes (disorder) (310682279) Blindness of both eyes (H54.3) 05/29/20 23 Active confirmed Problem Albinism (33052200) 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) 10/02/20 18 Active confirmed Vital Signs Heart Rate 60 /min 02/23/2025 Height-cm 170.18 cm 02/23/2025 Blood pressure diastolic 90 mm Hg 02/23/2025 Weight-kg 111.13 kg 02/23/2025 Height 67 in 02/23/2025 Blood pressure systolic 135 mm Hg 02/23/2025 Weight 245 lbs 02/23/2025 BMI 38.37 kg/m2 02/23/2025 Encounters Encounter Location Date Provider Diagnosis [employer] [facility] [address] [address] 02/02/2025 Darcie Singh Encounter for screening for depression Z13.31 ; Major depressive disorder, recurrent severe without psychotic features F33.2 ; Generalized anxiety disorder F41.1 ; PTSD (post-traumatic stress disorder) F43.10 and ADHD (attention deficit hyperactivity disorder), inattentive type F90.0 [facility] [email or web address] [address] 10/29/2024 Edwina Blackwell Major depressive disorder, recurrent severe without psychotic features F33.2 and Generalized anxiety disorder F41.1 [facility], [facility] [email or web address] [address] 11/10/2024 Edwinalottie Blackwell Major depressive disorder, recurrent severe without psychotic features F33.2 and Generalized anxiety disorder F41.1 [employer], [facility] [address] [facility] [address] [place] [address] 11/17/2024 Edwinalottie Hanter Major depressive disorder, recurrent severe without psychotic features F33.2 and Generalized anxiety disorder F41.1 [employer], [facility] [address] [facility] [address] [place] [address] 11/24/2024 Edwinalottie Hanter Major depressive disorder, recurrent severe without psychotic features F33.2 and Generalized anxiety disorder F41.1 [employer] [address] [facility] [address] [place] [address] 11/26/2024 Sergio Aguayo Major depressive disorder, recurrent severe without psychotic features F33.2 ; ADHD (attention deficit hyperactivity disorder), inattentive type F90.0 ; Polycystic ovarian syndrome E28.2 ; 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 E06.3 ; Essential (primary) hypertension I10 ; Blindness of both eyes H54.3 ; Vitamin D deficiency E55.9 ; Albinism E70.30 ; Generalized anxiety disorder F41.1 and Medical marijuana use Z79.899 [employer], [facility] [address] [address] 12/08/2024 Edwinalottie Hanter Major depressive disorder, recurrent severe without psychotic features F33.2 ; Generalized anxiety disorder F41.1 and ADHD (attention deficit hyperactivity disorder), inattentive type F90.0 [employer], [facility] [address] [facility] [address] [place] [address] 12/15/2024 Edwinalottie Hanter ADHD (attention deficit hyperactivity disorder), inattentive type F90.0 ; Major depressive disorder, recurrent severe without psychotic features F33.2 and Generalized anxiety disorder F41.1 [employer], [facility] [address] [facility] [address] [place] [address] 12/22/2024 Edwinalottie Mockliter Major depressive disorder, recurrent severe without psychotic features F33.2 ; Generalized anxiety disorder F41.1 ; ADHD (attention deficit hyperactivity disorder), inattentive type F90.0 and PTSD (post-traumatic stress disorder) F43.10 [facility] [address] [place] [address] 12/29/2024 Sergio Olivier Major depressive disorder, recurrent severe without psychotic features F33.2 ; Generalized anxiety disorder F41.1 ; PTSD (post-traumatic stress disorder) F43.10 and ADHD (attention deficit hyperactivity disorder), inattentive type F90.0 [facility], [place] [address] [place] [address] 12/29/2024 Edwina Blackwell Major depressive disorder, recurrent severe without psychotic features F33.2 ; ADHD (attention deficit hyperactivity disorder), inattentive type F90.0 and PTSD (post-traumatic stress disorder) F43.10 [facility] [address] [place] [address] 01/19/2025 Darcie Singh Encounter for screening for depression Z13.31 ; Major depressive disorder, recurrent severe without psychotic features F33.2 ; Generalized anxiety disorder F41.1 ; PTSD (post-traumatic stress disorder) F43.10 and ADHD (attention deficit hyperactivity disorder), inattentive type F90.0 [facility] [address] [place] [address] 01/26/2025 Sergio Olivier Major depressive disorder, recurrent severe without psychotic features F33.2 ; Generalized anxiety disorder F41.1 ; PTSD (post-traumatic stress disorder) F43.10 ; ADHD (attention deficit hyperactivity disorder), inattentive type F90.0 ; Encounter for screening for depression Z13.31 and Encounter for screening for cardiovascular disorders Z13.6 [facility] [address] [place] [address] 02/09/2025 Darcie Francisco Encounter for screening for depression Z13.31 ; Major depressive disorder, recurrent severe without psychotic features F33.2 ; Generalized anxiety disorder F41.1 ; PTSD (post-traumatic stress disorder) F43.10 and ADHD (attention deficit hyperactivity disorder), inattentive type F90.0 [facility] [address] [place] [address] 02/23/2025 Darcie Francisco Encounter for screening for depression Z13.31 ; Major depressive disorder, recurrent severe without psychotic features F33.2 ; Generalized anxiety disorder F41.1 ; PTSD (post-traumatic stress disorder) F43.10 and ADHD (attention deficit hyperactivity disorder), inattentive type F90.0 [place] [address] [facility] [address] [place] [address] 02/23/2025 Sergio Aguayo ADHD (attention deficit hyperactivity disorder), inattentive type F90.0 ; Generalized anxiety disorder F41.1 ; PTSD (post-traumatic stress disorder) F43.10 ; Encounter for screening for depression Z13.31 ; Major depressive disorder, recurrent severe without psychotic features F33.2 ; Encounter for screening for cardiovascular disorders Z13.6 and Dietary counseling and surveillance Z71.[address] [facility] [address] [place] [address] 03/02/2025 Darcie Singh Encounter for screening for depression Z13.31 ; Major depressive disorder, recurrent severe without psychotic features F33.2 ; Generalized anxiety disorder F41.1 ; PTSD (post-traumatic stress disorder) F43.10 and ADHD (attention deficit hyperactivity disorder), inattentive type F90.[address] [facility] [address] [place] [address] 03/09/2025 Darcie Singh Encounter for screening for depression Z13.31 ; Major depressive disorder, recurrent severe without psychotic features F33.2 ; Generalized anxiety disorder F41.1 ; PTSD (post-traumatic stress disorder) F43.10 and ADHD (attention deficit hyperactivity disorder), inattentive type F90.0 [place] [address] [facility] [address] [address] 03/30/2025 Darcie Singh Major depressive disorder, recurrent severe without psychotic features F33.2 ; Generalized anxiety disorder F41.1 ; PTSD (post-traumatic stress disorder) F43.10 and Encounter for screening for depression Z13.31 [place] [address] [facility] [address] [facility] [address] [place] [address] 04/13/2025 Darcie Singh Major depressive disorder, recurrent severe without psychotic features F33.2 ; Generalized anxiety disorder F41.1 ; PTSD (post-traumatic stress disorder) F43.10 ; ADHD (attention deficit hyperactivity disorder), inattentive type F90.0 and Encounter for screening for depression Z13.31 [facility], [place] [address] [place] [address] 11/26/2024 Edwina Blackwell [facility], [facility] [address] [place] [address] 12/15/2024 Edwina Blackwell [facility], [place] [address] [place] [address] 01/05/2025 Edwina Blackwell [facility], [facility] [address] [place] [address] 02/09/2025 Edwina Blackwell [facility], [facility] [address] [place] [address] 04/27/2025 Sergiotunde Aguayo ADHD (attention deficit hyperactivity disorder), inattentive type F90.0 and Major depressive disorder, recurrent severe without psychotic features F33.2 [facility], [place] [address] [place] [address] 06/17/2025 Sergio Aguayo ADHD (attention deficit hyperactivity disorder), inattentive type F90.0 [facility], [place] [address] [place] [address] 06/21/2025 Sergiotunde Toledoam [facility], [facility] [address] [place] [address] 11/09/2024 Edwina Blackwell [facility], [facility] [address] [place] [address] 11/29/2024 Edwina Blackwell [facility], [facility] [address] [place] [address] 11/30/2024 Edwina Blackwell [facility], [facility] [address] [place] [address] 12/15/2024 Edwina Blackwell [facility], [facility] [address] [place] [address] 01/11/2025 Edwina Blackwell [facility], [facility] [address] [place] [address] 03/16/2025 Sergio Aguayo Assessments Encounter Date Diagnosis (ICD Code) Assessment Notes Treatment Notes Treatment Clinical Notes Section Notes 10/29/2024 Major depressive disorder, recurrent severe without [...] report any changes or worsening to the therapeutic recreation specialist. PTSD Continue with current therapy sessions [...] report any changes or worsening to the therapeutic recreation specialist. PTSD Continue with current therapy sessions [...] resources such as How to ADHD on [place] management and [employer] for additional support and information. Rejection-Sensitiv e [...] resources such as How to ADHD on [place] management and [employer] for additional support and information. Rejection-Sensitiv e [...] sons. Cient is the only member of e family to have albanism. Client has some college. Client has been on disability since about 2006 or 2007 due to her being legally blind. Client1 of 6 children (all her siblings are half siblings). Client was a year and a half old when parents . Client grew up in [place], [place]. Client reports childhood was hard, traumatic, [...] [facility] from 09/22/24-. Client started seening Dr. Aguaoy in this office on 11/10/2024 and is [...] when parents . Client grew up in [place]. Client reports childhood was hard, traumatic, [...] when parents . Client grew up in [place]. Client reports childhood was hard, traumatic, [...] which include reading books, painting, visiting the [place], and considering streaming on Tw[employer]. Plan: [...] resources such as How to ADHD on [place] management and [employer] for additional support and information. Rejection-Sensitiv e [...] report any changes or worsening to the therapeutic recreation specialist. PTSD Continue with current therapy sessions [...] when parents . Client grew up in [place]. Client reports childhood was hard, traumatic, [...] when parents . Client grew up in [place]. Client reports childhood was hard, traumatic, [...] speaking to her partner). PHQ=15 moderately severe EYM=7 mild 11/26/2024 Other Learning About Depression Screening [...] noticing its absence. - Plan: - Await customer counter associate appointment on January 19 for further evaluation [...] lisinopril and loxapine. - Follow up with customer counter associate appointment on January 19 for further evaluation and management. - Continue taking Zyrtec as needed for allergy symptoms. Abnormal EKG - Assessment: Patient had an abnormal EKG in the ER during the angioedema episode. - Plan: - Proceed with scheduled echocardiogram next Friday at [facility] to further evaluate cardiac function and any [...] when parents . Client grew up in [place]. Client reports childhood was hard, traumatic, [...] swelling due to BRYN inhibitor (lisinopril) use. Carbide Tool Maker consultation on January 19, 2025, included C4 and tryptase tests, which returned normal results. [employer]ide Tool Maker advised avoiding lisinopril and Bactroban, with uncertainty about amlodipine's role. The second flare-up was attributed to residual lisinopril in the patient's system. Plan: - Avoid lisinopril and Bactroban - Continue current blood pressure medications - Follow up with customer counter associate if another attack occurs Hypertension Assessment: Patient [...] ensure accuracy, there may be errors, including gumming machine operator inaccuracies and misspellings of medication names. This [...] ensure accuracy, there may be errors, including gumming machine operator inaccuracies and misspellings of medication names. This [...] Insured Coverage Start Date Coverage End Date [facility] Dual Eligible [address] [address] [id number] MATIAS CAMERON Self - patient is the [...]
--- OUTSIDE RECORDS SUMMARY | 2025-10-27 19:02 | XMS_ITS | Clinical Summary ---
Author Organization [facility] Address [address] [place] [address] Care Team Providers Care Hospice Home Health Aide Name Role Phone Jess Plascencia MD Primary [...] Comments Blood Pressure 126/83 10/01/2018 9:52 AM MECHANICAL ENGINEERING LECTURER Pulse 70 10/01/2018 9:52 AM MECHANICAL ENGINEERING LECTURER Temperature 36.7 C (98.1 F) 10/01/2018 9:52 AM MECHANICAL ENGINEERING LECTURER Respiratory Rate - - Oxygen Saturation 98% 10/01/2018 9:52 AM MECHANICAL ENGINEERING LECTURER Inhaled Oxygen Concentration - - Weight 112.7 kg (248 lb 8 oz) 10/01/2018 9:52 AM MECHANICAL ENGINEERING LECTURER Height 170.2 cm (5' 7) 10/01/2018 9:52 AM MECHANICAL ENGINEERING LECTURER Body Mass Index 38.92 10/01/2018 9:52 AM MECHANICAL ENGINEERING LECTURER Plan of Treatment Health Maintenance Due Date Last Done Comments DTAP/TDAP/TD VACCINES (1 - Tdap) 2000 HEPATITIS B VACCINES (1 of 3 - 19+ 3-dose series) 03/2000 HPV/Cotest (21-29) 2002 CERVICAL CANCER SCREENING 2011 HPV/Cotest (30-65) 2011 PAP SMEAR 2011 BREAST CANCER SCREENING 2021 INFLUENZA VACCINE (#1) 2025 HPV VACCINES (No Doses Required) Completed Insurance MEDICARE PART A AND B Care Teams Hospice Home Health Aide Relationship Specialty Start Date End Date Jess Plascencia MD [address] [place] [address] NEREYDA NARAYAN [phone] PCP - General Family Practice 09/01/18
--- OUTSIDE RECORDS SUMMARY | 2025-10-27 19:02 | XMS_ITS | Continuity of Care Document ---
Author Organization [place] [facility], [place] Address [address] [facility] [address] [place] [address] Care Team Providers Care Upper Marker Name Role Phone DEMARCUS WATSON Primary Care Provider [phone] Assessment No assessment recorded. Plan of Treatment Reminders Order Date Submit Date Provider Last Modified By Organization Details Last Modified Time Details Appointments None record ed. Lab None record ed. Referral None record ed. Procedures None record ed. Surgeries None record ed. Imaging None record ed. Medication Orders None record ed. Patient TargetsNo targets recorded. Patient Instructions Encounter Date Encounter Id Patient Instructions Last Modified By Organization Details Last Modified Time 09/19/2025 [id number] gout: care instructions Not available 09/22/2025 22:24:46 attention defici t hyperactivity disorder (ADHD) in adults: care instructions [email or web address] Not available 09/22/2025 22:24:46 hypothyroidism: care instructions Not available 09/22/2025 22:35:03 allergies: care instructions [email or web address] Not available 09/22/2025 22:35:03 sleep apnea: car e instructions [email or web address] Not available 09/22/2025 22:35:03 gastroesophageal reflux disease (GERD): care instructions [email or web address] Not available 09/22/2025 22:24:46 GERD diet education [email or web address] Not availa ble 09/22/2025 22:24:46 high blood press ure: care instructions [email or web address] Not available 09/22/2025 22:24:46 depression treatment: care instructions [email or web address] Not available 09/23/2025 13:35:12 obesity educatio n information Not available 09/23/2025 13:15:10 Follow up with P CP as indicated Continue all medication as prescribed Refer to [facility] Guide for review of care plan and care coordination Seek medical attention with any worsening of condition or any new symptoms [email or web address] Not available 09/22/2025 22:19:47 Reason for Referral None Reported. Problems Name Problem SNOMED Code Status Onset Date Resolution Date Notes Provider Name and Address Organization Details Recorded Time Essential hypertension 72680950 Active 2024 KENDELL POWERS CNP [address] 9, [facility] 22:21:36 Gout 98711329 Active 2024 KENDELL POWERS CNP [address] 9, [facility] 22:34:25 Attention deficit hyperactivity disorder, combined type 15943841 Active 2024 KENDELL POWERS CNP [address] [place] [address] 9, [facility] 22:34:26 Gastroesophage al reflux disease without esophagitis 503460665 Active 2024 KENDELL POWERS CNP [address] [place] [address] 9, [facility] 22:34:29 Primary hypothyroidism 42637886 Active 2024 KENDELL POWERS CNP [address] [place] [address], [facility] 22:34:31 Seasonal allergy 482456055 Active 2024 KENDELL POWERS CNP [address] [place] [address], [facility] 22:34:47 Obstructive sleep apnea syndrome 67481710 Active 2024 KENDELL POWERS CNP [address] [place] [address], [facility] 5 22:34:49 Body mass index 30+ - obesity 380783306 Active 2024 KENDELL POWERS CNP [address] [facility] [address], [place], [address], [facility] 5 13:12:32 Depressive disorder 98017753 Active 2024 KENDELL POWERS CNP [address] [facility] [address], [place], [address], [facility] 5 13:17:42 Problem Notes None recorded. Medical Equipment None Reported. Allergies Allergen ID Allergen Name Allergen Category Reaction Reaction Severity Criticality Documentation Date Start Date Code Code System Note Provider Name and Address Organization Details Recorded Time amoxicill in / clavulana te medicatio n Not available Not available Not available 09/19/2025 06358 RxNorm Not Available [employer] - prod 5 11:32:32 25407 amlodipin e medicatio n Not available Not available Not available 09/19/2025 15511 RxNorm Not Available [employer] - prod 5 11:32:32 58811 lisinopri l medicatio n Not available Not available Not available 09/19/2025 09977 RxNorm Not Available [employer] - prod 5 11:32:32 59149 acetamino phen / hydrocodo ne medicatio n hives itching Not available Not available high 09/19/20252017 86641 2 RxNorm Not Available [employer] - prod 5 11:37:10 28983 levothyro xine sodium medicatio n other Not available low 09/19/20252023 58391 RxNorm Does not work. Must have brand name Synth roid unrec ogniz ed react ion (text : Unkno wn, code: [id number]) (from [facility]) Not Available [employer] - prod 5 11:37:10 Medications Name Sig Start Date Stop Date Status Note LastModified by Organization Details LastModified Time quetiapine 25 mg tablet TAKE 1 TO 2 TABLETS BY MOUTH DAILY AT BEDTIME 09/22 completed Not Available Not Available Not Available prednisone 10 mg tablet TAKE 1 TABLET BY MOUTH TWICE DAILY FOR 10 DAYS 09/23 completed Not Available Not Available Not Available citalopram 40 mg tablet TAKE 1 TABLET BY MOUTH DAILY active Not Available Not Available No t Available fluconazole 150 mg tablet TAKE 1 TABLET BY MOUTH 1 TIME. MAY REPEAT IN 72 HOURS NEEDED 09/22 completed Not Available Not Available Not Available Zyrtec 10 mg tablet Take 1 tablet every day by oral route in the morning. active Not Available Not Available No t Available amlodipine 5 mg tablet TAKE 1 TABLET BY MOUTH DAILY 09/22 completed Not Available Not Available Not Available allopurinol 100 mg tablet TAKE 2 TABLETS BY MOUTH DAILY active Not Available Not Available No t Available liothyronin e 5 mcg tablet TAKE 1 TABLET BY MOUTH DAILY active Not Available Not Available No t Available triamcinolo ne acetonide 0.1 % topical cream APPLY TO THE AFFECTED AREA ON BILATERAL ARMS TWICE DAILY FOR 7 TO 10 DAYS 09/22 completed Not Available Not Available Not Available famotidine 20 mg tablet Take 1 tablet twice a day by oral route as directed. active Not Available Not Available No t Available amlodipine 10 mg tablet TAKE 1 TABLET BY MOUTH DAILY active Not Available Not Available No t Available Synthroid 88 mcg tablet TAKE 1 TABLET BY MOUTH DAILY 09/22 completed Not Available Not Available Not Available Synthroid 75 mcg tablet TAKE 1 TABLET BY MOUTH DAILY active Not Available Not Available No t Available Synthroid 50 mcg tablet TAKE 1 TABLET BY MOUTH FRIDAY TO FRIDAY AND 2 TABLETS ON Sundays completed Not Available Not Available Not Available lisinopril 5 mg tablet TAKE 1 TABLET BY MOUTH DAILY active Not Available Not Available No t Available hydrochloro thiazide 25 mg tablet TAKE 1 TABLET BY MOUTH DAILY active Not Available Not Available No t Available mupirocin 2 % topical ointment APPLY TOPICALLY TO THE AFFECTED AREA TWICE DAILY 09/19 completed Not Available Not Available Not Available methylpredn isolone 4 mg tablets in a dose pack FOLLOW PACKAGE DIRECTION S 09/22 completed Not Available Not Available Not Available colchicine 0.6 mg tablet TAKE 2 TABLETS BY MOUTH 1 TIME THEN TAKE 1 TABLET BY MOUTH 1 HOUR LATER 11/20 /2025 completed Not Available Not Available Not Available doxycycline hyclate 100 mg tablet TAKE 1 TABLET BY MOUTH EVERY 12 HOURS FOR 7 DAYS 09/19 completed Not Available Not Available Not Available escitalopra m 10 mg tablet TAKE 1 TABLET BY MOUTH DAILY active Not Available Not Available No t Available escitalopra m 20 mg tablet TAKE 1 TABLET BY MOUTH DAILY 09/23 completed Not Available Not Available Not Available atomoxetine 40 mg capsule TAKE 1 CAPSULE BY MOUTH DAILY 09/22 completed Not Available Not Available Not Available atomoxetine 60 mg capsule TAKE 1 CAPSULE BY MOUTH DAILY active Not Available Not Available No t Available quetiapine 50 mg tablet TAKE 1 TABLET BY MOUTH DAILY AT BEDTIME active Not Available Not Available No t Available nebivolol 10 mg tablet TAKE 1 TABLET BY MOUTH DAILY active Not Available Not Available No t Available nebivolol 5 mg tablet TAKE 1 TABLET BY MOUTH DAILY 09/22 completed Not Available Not Available Not Available Vitals Date Recorded Body height Body mass index (BMI) Body weight Provider Name and Address Organization Details Last Updated DateTime 09/19/2025 170.18 cm 36 kg/m2 697378.25 g KENDELL POWERS CNP [address] [facility] [address], [place], [address], [place] 09/22/2025 22:14:23 Social History None recorded. Functional Status None recorded. Mental Status None recorded. Family History Nothing Reported. Medical History No medical history recorded. Gynecological HistoryNo gynecological history recorded. Obstetrics History GPAL:G 0 P 0 0 0 0 Past Encounters Encounter ID Performer Location Encounter Start Date Encounter Closed Date Diagnosis/Indication Diagnosis SNOMED-CT Code Diagnosis ICD10 Code Diagnosis IMO Codes Diagnosis Note [id number] KENDELL POWERS CNP [place] [address] [facility] [address] [place] [address] 09/19/2025 11:30:26 09/23/2025 13:36:11 Essential hypertension 56051752 I10 77136 Stable.-Co ntinue Lisinopril ,amlodipin e and Hydrochlor othiazide as prescribed .-Pt needs to keep logbook for BP readings at home and bring back with each appointmen t. Educated on Low salt diet, importance of regular exercise., maintain healthy weight by portion control and Eat less processed foods.-F/u with PCP as scheduled. Gout 96314245 M10.9 6653206 Stable.-Co ntinue Allopurino l as prescribed .-F/u with PCP as Scheduled. Attention deficit hyperactivity disorder, combined type 00858704 F90.2 350231 Stable.-Co ntinue atomoxetin e as prescribed .-F/u with PCP as scheduled. Gastroesop hageal reflux disease without esophagitis 086320065 K21.9 406645 Stable.-Co ntinue Famotidine as prescribed .-Recommen ded diet modificati ons, including reducing fatty food, caffeine, spicy food, carbonated beverage intake, to reduce episodes. Patient is to adopt diet modificati ons.-Recom mended abdominal breathing exercises to strengthen anti-reflu x barrier.-D iscussed elevating head of the bed and avoiding lying supine after meals.-F/u with PCP as scheduled. Primary hypothyroidism 88005008 E03.9 61594 Stale.-Con tinue Liothyroni ne as prescribed .-F/u with PCP as scheduled. Obstructiv e sleep apnea syndrome 36515797 G47.33 1027003 Stable.-Pt not using Cpap as it is not comfortabl e for her.-F/u with Pulmonolog ist as scheduled. Seasonal allergy 1483213 04 J30.2 95501 Stable.-Co ntinue Zyrtec as prescribed .-F/u with PCP as scheduled. Body mass index 30+ - obesity 111923785 E66.9 9975765 BMI:36.-Dario asm was advised on diet and medication compliance . Advised to exercise regularly (at least 3 times a week for 30 minutes) and lose weight. Patient also needs to maintain logbook for weight readings and bring back for each appointmen t. -Choose heart-heal thy foods. It s important to eat the right number of calories to maintain a healthy weight. If you need to lose weight, try to reduce your total daily calories gradually. Use the DASH Eating Plan to find out your daily calorie needs and to set goals. View healthy recipes and plan for success. Talk with your provider before beginning any diet or eating plan. -Get regular physical activity. Many health benefits are associated with physical activity and getting the recommende d amount of physical activity needed each week. Before starting any exercise program, ask your provider about what level of physical activity is right for you. -Get enough good-quali ty sleep. Experts recommend 7 to 8 hours of sleep per night for adults.-F/ u with PCP as scheduled. Depressive disorder 3205 2023 F32.A 07598 Stable.-Co ntinue citalopram as prescribed .At this time patient is asymptomat ic; symptoms are stable. Patient denies suicidal or homicidal ideation.- Patient was advised to call or come in if symptoms persist. Patient verbalized understand ing. Health Concerns Section Related Observation LastModified by Organization Detai ls LastModified Time None Recorded Concern Status LastModified by Organization Details LastModified Time None Recorded Payers Encounter Date Sequence Insurance Name Policy Number Policy Ring Covered Member ID Ring Member ID Guarantor Name 09/19/2025 1 [facility] (MEDICARE REPLACEMENT/A DVANTAGE - HMO) [id number] Cheryl Alvarez [id number] Cheryl Alvarez Notes Date Note Type Note Provider Name and Address Organization Details Recorded Time 09/19/2025 text/html ROS as noted in the HPI A 45 year old female patient was seen via Tele Health for Home Healthy visit. A patient is well appearing and medically stable. Pt is legally blind, use cane for ambulation. Pt is alert,orientedx4 and able to answer all questions appropriately.Hermelindo es any Pain,Sob,nausea, vomiting ,Dizziness, palpitations, chest pain or any other form of acute discomforts at this time. KENDELL POWERS, TEACHERS AIDE [address] [facility] [facility],[address], [place], [address], [place] [facility] 09/23/2025 13:36:10 OBGyn Episode No OBEpisode recorded.
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
--- OUTSIDE RECORDS SUMMARY | 2025-10-27 19:02 | XMS_ITS | Patient Health Record ---
Author Organization [facility] Address [address] [place] [address] Phone [phone] Care Team Providers Care Syrup Maker Name Role Phone Mojgan Arora Primary Care Provider [phone] Misty Mckee LCSW [phone] Allergies Allergen (clinical drug ingredient) Drug/Non Drug Allergy documented on EMR Reaction Allergy Type Onset Date Status amoxicillin / clavulanate Augmentin Unknown Drug Allergy Active Vicodin Unknown Drug Allergy Active angiotensin-converting enzyme inhibitor (FN) BRYN Inhibitors Unknown Drug Allergy Acti ve Reason For Referral Addressed Referral details can be found under 'Consultation Request Notes' section Medications Medication SIG (Take, Route, Frequency, Duration) Notes Start Date End Date Diagnosis (ICD Code) Status Vitamin D 50 MCG (1999) Tablet 1 tablet Orally Once a day; Duration: 30 day(s) Active Vitamin C 100 MG Tablet Chewable 1 tablet Orally Once a day; Duration: 30 day(s) Active Multivitamin - Tablet 1 tablet Orally Once a day; Duration: 30 day(s) Active Atomoxetine HCl 60 MG Capsule 1 capsule in the morning Orally Once a day; Duration: 30 days ADHD (attention deficit hyperactivity disorder), combined type (ICD_10 - F90.2) Active Liothyronine Sodium 5 MCG Tablet 1 tablet on an empty stomach Orally Once a day; Duration: 30 day(s) Active Nebivolol HCl 10 MG Tablet 1 tablet Orally Once a day; Duration: 30 day(s) Active hydroCHLOROthiazide 25 MG Tablet 1 tablet in the morning Orally Once a day; Duration: 30 day(s) Active SEROquel 25 MG Tablet 1-2 tablet at bedtime Orally Once a day; Duration: 30 days PTSD (post-traumatic stress disorder) (ICD_10 - F43.10) Active Citalopram Hydrobromide 40 MG Tablet 1 tablet Orally Once a day; Duration: 30 days PTSD (post-traumatic stress disorder) (ICD_10 - F43.10) Active busPIRone HCl 10 MG Tablet 1 tablet Orally Twice a day; Duration: 30 days PTSD (post-traumatic stress disorder) (ICD_10 - F43.10) Active Synthroid 50 MCG Tablet 1 tablet in the morning on an empty stomach Orally Once a day; Duration: 30 day(s) Active Social History Tobacco Use: Social History Observation Description Date Details (start date - stop date) Never Smoker NA - NA Sex Observation Social History Observation Description Sex Observation Female SDOH Assessments Date Tool Assessment Assessment LOINC Value Assessment Notes Goals Interventions 10/06/20 25 PRAPARE (LOINC: 31268-7) Total Score: 6 Date Completed/Upda chon: 08/30/20 25 What is your current housing situation? 77872-6 I have housing (IX66319-5) Are you worried about losing your housing? 18080-4 No (LA32-8) What is the highest level of school that you have finished? 65951-4 More than high school (RB41860-5) What is your current work situation? 91644-1 Otherwise unemployed but not seeking work (ex. student, retired, disabled, unpaid primary personal care worker) (NK51091-8) In the past year, have you o r any family members you live with been unable to get any of the following when it was really needed? Check all that apply 28977-4 I do not have problems meeting my needs Has lack of transportation k ept you from medical appointments, meetings, work or from getting things needed for daily living? 25125-9 Yes, it has kept me from non-medical meetings, appointments, work, or getting things needed for daily living (JE36171-1) How often do you see or talk to people that you care about and feel close to? (For example: talking to friends on the phone, visiting friends or family, going to mormon or club meetings) 57386-3 More than 5 times a week (PF31021-5) How stressed are you? Stress is when someone feels tense, nervous, anxious, or can\t sleep at night because their mind is troubled 91101-6 A little bit (LW34893-0) In the past year have you sp ent more than 2 nights in a row in a prison, retirement, skilled nursing center, or juvenile correctional facility? 00183-3 No (LA32-8) Do you feel physically and emotionally safe where you currently live? 63378-2 Yes (LA33-6) In the past year, have you b een afraid of your partner or ex-partner? 40775-6 No (LA32-8) Are you a refugee? Yes What country are you from? [facility] PRAPARE Score: 6 Social History Social Determinants Social Info Question Answer Notes PRAPARE Date Completed/Updated: 08/30/2025 What is your current housing situation? I have h ousing Are you worried about losing your housing? No What is the highest level of school that you have finished? More than high school What is your current work situation? Oth erwise unemployed but not seeking work (ex. student, retired, disabled, unpaid primary personal care worker) In the past year, have you o r any family members you live with been unable to get any of the following when it was really needed? Check all that apply I do not have problems meeting my needs Has lack of transportation k ept you from medical appointments, meetings, work or from getting things needed for daily living? Yes, it has kept me from non-medical meetings, appointments, work, or getting things needed for daily living How often do you see or talk to people that you care about and feel close to? (For example: talking to friends on the phone, visiting friends or family, going to mormon or club meetings) More than 5 times a week How stressed are you? Stress is when someone feels tense, nervous, anxious, or can\t sleep at night because their mind is troubled A little bit In the past year have you sp ent more than 2 nights in a row in a prison, retirement, skilled nursing center, or juvenile correctional facility? No Are you a refugee? Yes What country are you from? [place] Do you feel physically and e motionally safe where you currently live? Yes In the past year, have you b een afraid of your partner or ex-partner? No PRAPARE Score: 6 Miscellaneous Social Info Question Answer Notes Method of learning: Preferred method of learning: Reading,Discussion,Demonstrat ion,Hearing,Other Primary Social History Social Info Question Answer Notes Living Arrangement Living Arrangement: Independent Danica ing Is this a supportive environment? Yes Single Question Alcohol Screening How ma ny times in the past year have you had (4 for women, or 5 for men) or more drinks in a day? 0 Illicit Substance Usage Illicit Substance Usage: Yes Interested in quitting: Yes Substance Used: Cannabis Alcohol Use Alcohol Use Frequency: Never Tobacco Use: Social Info Question Answer Notes Tobacco Control (Standard) Tobacco use: Nonsmoker Problems Problem Type SNOMED Code ICD Code Dates Problem Status W/U Status Risk Notes Problem Attention deficit hyperactivity disorder (783555993) ADHD (attention deficit hyperactivity disorder), combined type (F90.2) Added On:06/20 Active confirmed Problem Posttraumatic stress disorder (83063787) PTSD (post-traumatic stress disorder) (F43.10) Added On:06/20 Active confirmed Problem Cannabis abuse (03825040) Cannabis abuse (F12.10) Added On:06/21 Active confirmed Problem Overweight (297492833) Over weight (E66.3) Added On:06/20 Active confirmed Vital Signs Vital Sign Value Notes Appt Date Heart Rate 76 /min 10/04/2025 Temperature 97.7 degrees Fahrenheit 12/2024 Respiratory Rate 18 /min 10/04/2025 Oximetry 96 % 10/04/2025 Blood pressure diastolic 86 mm Hg 12/2024 Height 67 in 10/04/2025 Blood pressure systolic 124 mm Hg 12/2024 Weight 241.0 lbs 10/04/2025 BMI 37.74 kg/m2 10/04/2025 Encounters Date Time Type Facility Location Provider Diagnosis 06/20/20 02:00 PM Office Visit, New Pt., Level 3 (07678) [address] [place] [address] Mojgan Arora ADHD (attention deficit hyperactivity disorder), combined type F90.2 ; PTSD (post-traumatic stress disorder) F43.10 and Over weight E66.3 07/12/20 01:00 PM Telehealth Office Visit, Est Pt., Level 4 (63023) [facility] [address] [place] [address] Mojgan Arora ADHD (attention deficit hyperactivity disorder), combined type F90.2 ; PTSD (post-traumatic stress disorder) F43.10 and Over weight E66.3 08/30/20 09:00 AM Office Visit, Est Pt., Level 4 (90829) [facility] [place] [address] Mojgan Arora ADHD (attention deficit hyperactivity disorder), combined type F90.2 ; PTSD (post-traumatic stress disorder) F43.10 and Over weight E66.3 08/30/20 03:40 PM Office Visit [address] [place] [address] Misty Sanftvinayakbecherelle Over weight E66.3 ; ADHD (attention deficit hyperactivity disorder), combined type F90.2 and PTSD (post-traumatic stress disorder) F43.10 09/08/20 10:00 AM Office Visit [facility] [place] [address] Misty Sanftlebecherelle PTSD (post-traumatic stress disorder) F43.10 and ADHD (attention deficit hyperactivity disorder), combined type F90.2 09/22/20 01:00 PM Office Visit [facility] [place] [address] Misty Sanftlebecherelle Over weight E66.3 ; PTSD (post-traumatic stress disorder) F43.10 and ADHD (attention deficit hyperactivity disorder), combined type F90.2 10/04/20 08:20 AM Office Visit, Est Pt., Level 4 (01222) [facility] [place] [address] Mojgan Arora Over weight E66.3 ; ADHD (attention deficit hyperactivity disorder), combined type F90.2 and PTSD (post-traumatic stress disorder) F43.10 10/06/20 01:00 PM Office Visit [facility] [address] [place] [address] Misty Richardcherelle Over weight E66.3 and PTSD (post-traumatic stress disorder) F43.10 08/08/20 09:14 AM Telephone Encounter [address] [place] [address] Mojgan Arora PTSD (post-traumatic stress disorder) F43.10 and ADHD (attention deficit hyperactivity disorder), combined type F90.2 09/20/20 09:40 AM Telephone Encounter [address] [address] Mojgan Arora PTSD (post-traumatic stress disorder) F43.10 09/27/20 09:52 AM Telephone Encounter [facility] [address] [place] [address] Mojgan Arora PTSD (post-traumatic stress disorder) F43.10 and ADHD (attention deficit hyperactivity disorder), combined type F90.2 Assessments Encounter Date Diagnosis (ICD Code) Assessment Notes Treatment Notes Section Notes 08/30/2025 ADHD (attention deficit hyperactivity disorder), combined type (ICD-10 - F90.2) 06/20/2025 ADHD (attention deficit hyperactivity disorder), combined type (ICD-10 - F90.2) 07/12/2025 ADHD (attention deficit hyperactivity disorder), combined type (ICD-10 - F90.2) 08/08/2025 PTSD (post-traumatic stress disorder) (ICD-10 - F43.10) 09/08/2025 PTSD (post-traumatic stress disorder) (ICD-10 - F43.10) 09/20/2025 PTSD (post-traumatic stress disorder) (ICD-10 - F43.10) 09/27/2025 PTSD (post-traumatic stress disorder) (ICD-10 - F43.10) 08/30/2025 Over weight (ICD-10 - E66.3) 09/22/2025 Over weight (ICD-10 - E66.3) 10/04/2025 Over weight (ICD-10 - E66.3) 10/06/2025 Over weight (ICD-10 - E66.3) 10/06/2025 PTSD (post-traumatic stress disorder) (ICD-10 - F43.10) 09/22/2025 PTSD (post-traumatic stress disorder) (ICD-10 - F43.10) 08/30/2025 PTSD (post-traumatic stress disorder) (ICD-10 - F43.10) Start for anxiety and THC use. Discussed r/b/se. 08/08/2025 ADHD (attention deficit hyperactivity disorder), combined type (ICD-10 - F90.2) 08/30/2025 ADHD (attention deficit hyperactivity disorder), combined type (ICD-10 - F90.2) 09/08/2025 ADHD (attention deficit hyperactivity disorder), combined type (ICD-10 - F90.2) 09/27/2025 ADHD (attention deficit hyperactivity disorder), combined type (ICD-10 - F90.2) 10/04/2025 ADHD (attention deficit hyperactivity disorder), combined type (ICD-10 - F90.2) 06/20/2025 PTSD (post-traumatic stress disorder) (ICD-10 - F43.10) 07/12/2025 PTSD (post-traumatic stress disorder) (ICD-10 - F43.10) Discussed taper and change. Client v/u and agreement to plan. 09/22/2025 ADHD (attention deficit hyperactivity disorder), combined type (ICD-10 - F90.2) 08/30/2025 PTSD (post-traumatic stress disorder) (ICD-10 - F43.10) 10/04/2025 PTSD (post-traumatic stress disorder) (ICD-10 - F43.10) Continue for anxiety and THC use. Discussed r/b/se. 06/20/2025 Over weight (ICD-10 - E66.3) 07/12/2025 Over weight (ICD-10 - E66.3) 08/30/2025 Over weight (ICD-10 - E66.3) 06/20/2025 Other [...] May also contact the 24-hour crisis hotline ([facility]), refer to the closest emergency room or [...] May also contact the 24-hour crisis hotline ([facility]), refer to the closest emergency room or [...] up. This session was completed telephonically with client/parental/desi n consent: Unable to determine movement status, assess appearance, affect, AIMS, or vital signs. 08/30/2025 Other Reasons, potential benefits, potential risks, interactions [...] May also contact the 24-hour crisis hotline ([facility]), refer to the closest emergency room or [...] of education, treatment plan and follow up. 10/04/2025 Other Reasons, potential benefits, potential risks, interactions [...] May also contact the 24-hour crisis hotline ([facility]), refer to the closest emergency room or [...] plan and follow up. Plan Of Treatment Next Appt Details Provider Name:Misty mendoza, 11/10/2025 01:00:00 PM, [address], [place], [address], Insurance Providers Payer Name Payer Address Payer Phone Subscriber Number Group Number Insured Name Patient Relationship to Insured Coverage Start Date Coverage End Date [employer] [address] [place], [place] [id number] [phone] [id number] Cheryl Alvarez Self - patient is the insured 5 [facility] [address] [place] [phone] [id number] Cheryl Alvarez Self - patient is the insured 5 [employer] LCSW [address] [place] [phone] [id number] Cheryl Alvarez Self - patient is the insured 5 Medical (General) History Medical History History ICD Code ptsd rhoda adhd mdd hashimotos thyroiditis Surgical History Surgery Date(Month/Year) Caesarian section Hospitalization History Reason Date(Month/Year) [place] 2000
--- OUTSIDE RECORDS SUMMARY | 2025-10-27 19:02 | XMS_ITS | Clinical Summary ---
Author Organization [facility] [address] Address [address] [place] [address] Care Team Providers Care Extension Service Advisor Name Role Phone Walter Erwin DO Primary Care Provider [phone] Allergies Active Allergy Reactions Criticality Noted Date [...] 12/08/2024 Assessment & Plan (12/08/2024 8:58 AM PELLETIZER TENDER): Very difficult views with nystagmus DFE [...] thyroiditis Assessment & Plan (12/08/2023 8:29 AM PELLETIZER TENDER): Chronic, unknown status Continue current dose of Synthroid 112 mcg oral daily Advised to stop Cytomel Recheck thyroid function test today and further plans based on it Class 1 obesity due to exces s calories with serious comorbidity and body mass index (BMI) of 33.0 to 33.9 in adult 12/05/2023 Assessment & Plan (12/08/2023 8:30 AM PELLETIZER TENDER): Chronic, progressively improving with Trulicity 3 mg subQ weekly dose Advised patient to include healthy lifestyle habits Include complex carbs, healthy fats and proteins Work on portion control Avoid eating processed food cutback on sugar Advised to start exercising at least 30-40 minutes every day Prediabetes 12/05/2023 Assessment & Plan (12/08/2023 8:30 AM PELLETIZER TENDER): On Trulicity Recheck A1c Counseled on [...] month Assessment & Plan (12/08/2023 8:30 AM PELLETIZER TENDER): Counseled on diet and exercise EMY [...] on file Legal Sex Female 5:17 PM PELLETIZER TENDER Gender Identity Female 12/05/2023 10:07 AM PELLETIZER TENDER Sexual Orientation Choose not to disclose 2023 10:07 AM PELLETIZER TENDER Last Filed Vital Signs Vital Sign Reading Time Taken Comments Blood Pressure 117/79 01/19/2025 2:21 PM CDT Pulse 54 01/19/2025 2:21 PM CDT Temperature 36.5 C (97.7 F) 01/19/2025 2:21 PM CDT Respiratory Rate 16 12/05/2023 11:22 AM PELLETIZER TENDER Oxygen Saturation 96% 01/19/2025 2:21 PM CDT [...] 3-dose SCD M series) 2008 Covid-19 Vaccine (3 - 2024-2 6 season) 2025 10/12/2021, 01/05/2021 Influenza Vaccine (#1) 2025 5, 08/30/2013, 08/27/2013 Pneumococcal vaccine <65 Aged Out No longer eligible based on patient's age to complete this topic Insurance [facility] Care Teams Extension Service Advisor Relationship Specialty Start Date End Date Walter Erwin DO PCP - General Internal Medicine 10/20/24
[2025-10-27 19:10] VITALS: BP 136/98; PULSE 84; RESP 16; TEMP 36.8; O2SAT 98
--- NOTE | 2025-10-27 19:27 | ECG_ITS ---
Test Date: 2025-10-27 19:34:31 Measurements Intervals [place] Rate: 79 P: -12 CT: 136 QRS: 8 QRSD: 101 T: 17 QT: 409 QTc: 470 Interpretive Statements SINUS RHYTHM BORDERLINE T WAVE ABNORMALITY- ANTERIOR LEADS MINIMAL Q WAVES- HIGH LATERAL LEADS BASELINE ARTIFACT- II, III, AVR, AVL, AVF, V1-V6 BORDERLINE ECG Compared to ECG 12/22/2024 10:25:28 HEART RATE HAS DECREASED Electronically Signed On 10-27-2025 20:34:40 MASTER BREWER by Chencho Mendez D.O.
--- NOTE | 2025-10-27 19:30 | ED.ALLEREA ---
HPI - Allergic Reaction General Chief complaint: Weakness Stated complaint: SWELLING TO LIPS AND TONGUE Time Seen by Provider: 10/27/25 19:23 Source: patient and other Mode of arrival: ambulatory Limitations: no limitations History of Present Illness HPI narrative: Patient presents with report of swelling to her lips tongue and face. She reports pain and swelling in her neck as well as jaw pain. She reports a history of angioedema in December of 2024 which had been attributed to lisinopril and she has subsequently discontinued Ru inhibitors. She was evaluated by an loom stop checker at [facility] in [place] in January. She reports not much was found from this work up. She states she was tested for MCAS but that she was told that the only way to truly test is to be in the middle of a flare and she wasn't at the time so no diagnosis of this. she reports her bottom lip this most problematic and that her tongue feels larger than it should for the size of her mouth. When she sticks her tongue out she reports that it causes her to have to hold her breath and this causes her to cough but she has otherwise not been coughing. She reports being diaphoretic because she has thyroid issues and is on multiple serotonergic medications. She has a sore throat but reports that it is deep in her throat more in her neck. Denies any fevers or chills. Pain was rated 6/10 in severity had triage. Her symptoms started at approximately 12:00 p.m.. She has taken 2 Zyrtec, 1 at approximately 12:30 p.m. and 1 at 6:00 p.m.. She has taken 225 mg tablets of Benadryl at the same time periods. She also took 10 mg of Pepcid at 3:30 p.m.. Her PCP is Edwina Mckeon in Dr Erwin's office. She has been having migraines so started a new medication recently, took 1 dose of Imitrix at 10am 2 days ago, none since. For her more frequent headaches she has an MRI scheduled in November. She has some mild sleep apnea for which she uses CPAP but tried this earlier and had difficulty with it which is unusual. She also complains of weakness. No pruritus. Related Data Home Medications ?Medication ?Instructions ?Recorded ?Confirmed ?Last Taken ?Type cholecalciferol (vitamin D3) 250 250 mcg PO DAILY 08/06/2610/20/25 12/21/24 History mcg (10,000 unit) tablet vitamin B complex 1 tablet PO DAILY 06/10/24 10/20/25 12/21/24 History Saccharomyces boulardii 250 mg 250 mg PO DAILY 10/20/24 10/20/25 12/21/24 History capsule (Daily Probiotic (S. boulardii)) famotidine 20 mg tablet (Pepcid) 20 mg PO DAILY 12/30/24 10/20/25 Unknown History nystatin 100,000 unit/gram topical topical 12/30/24 10/20/25 Unknown History cream quetiapine 25 mg tablet (Seroquel) 50 mg PO QHS 06/23/25 10/20/25 Unknown History citalopram 20 mg tablet (Celexa) 20 mg PO DAILY 07/26/25 10/20/25 Unknown History Allergies Allergy/AdvReac Type Severity Reaction Status Date / Time RU Inhibitors Allergy Severe Swelling Verified 08/23/25 07:11 of Lip/Tongue/Throat hydrocodone Allergy Unknown Itching Verified 08/23/25 07:11 amoxicillin AdvReac Unknown Diarrhea Verified 08/23/25 07:11 clavulanic acid AdvReac Unknown Diarrhea Verified 08/23/25 07:11 [facility] Past Medical History Medical History Albinism Thyroid disorder ADHD Hidradenitis suppurativa Legal blindness delivery delivered 11/22/2011 and 04/01/2014 Headache Arthritis Anxiety Family History Family History Mother Depression Anxiety Cerebrovascular accident Bright esophagus Father Alcoholism Anxiety Depression Sibling Depression Anxiety Other Diabetes mellitus Heart disease Hypertension Social History Social History (Updated 10/27/25 @ 23:36 by Ronda Sanders MD) Smoking status: Never smoker Alcohol intake: never Substance use: never Lack of Transportation: YES Lack of Food: Sometimes True Current Housing: I Have Housing Concerned About Future Housing: No Difficulty Paying Gas/Electric Bills: No Difficulty Paying for Meds: No Currently Unemployed: No Education: Decline to Answer Difficulty w/ Childcare or Family Care: No Living arrangements: with family Occupation/Education: unemployed Additional occupation/education comments: legally blind Gender identity (if verbalized by the patient): Female Exam Narrative: GENERAL: Well-appearing, well-nourished, and in no acute distress. HEAD: Normocephalic, atraumatic. EYES: Non injected, non icteric ENT: Nares clear, no rhinorrhea or epistaxis. Gross auditory acuity intact. Tongue slightly enlarged but fits in mouth, managing secretions. White plaque on tongue. No trismus. No swelling under tongue. No submandibular swelling. Bilateral tonsillar swelling/edema but not kissing. Uvula midline. No dysphonia. Mild lip swelling, barely appreciable. Posterior oropharynx hyperemic. NECK: Supple. No meningismus. Mild lymphadenopathy. CHEST: Speaking in full sentences. No respiratory distress. Lungs clear to auscultation bilaterally. No stridor, wheezes, crackles. HEART: Regular rate and rhythm. ABDOMEN: Soft, nondistended. No rigidity or guarding. Not peritoneal EXTREMITIES: Normal range of motion. No lower extremity edema. SKIN: Warm, dry, no rash. NEURO: No focal deficits. Alert and oriented. Answering questions. Following commands. Normal speech without aphasia or dysarthria. Tongue protrudes midline without deviation. PSYCH: Normal mood and affect. Course Vital Signs Vital signs: Vital Signs Temperature 98.3 F 10/27/25 19:10 Pulse Rate 84 10/27/25 19:10 Respiratory Rate 16 10/27/25 19:10 Blood Pressure 136/98 H 10/27/25 19:10 Pulse Oximetry 98 10/27/25 19:10 Oxygen Delivery Room Air 10/27/25 19:10 Temperature 98.3 F 10/27/25 19:10 Pulse Rate 84 10/27/25 19:10 Respiratory Rate 16 10/27/25 19:10 Blood Pressure 136/98 H 10/27/25 19:10 Pulse Oximetry 98 10/27/25 19:10 Oxygen Delivery Room Air 10/27/25 19:10 [facility] MDM Narrative Medical decision making narrative: Patient presents with report of swelling to her lips and tongue as well as at her jaw, left more so than the right. Also neck pain/discomfort with a sore throat. History of allergic reaction/angioedema in December 2024 which had been attributed to lisinopril, no longer on RU inhibitors. Did recently start taking 1 dose of Imitrix 2 days ago for headaches, her only new med and only this dose without repeat. She already took Zyrtec, Benadryl, and Pepcid at home. In the emergency department she is afebrile with acceptable vital signs, mildly elevated blood pressure particularly diastolic however not tachycardic or hypoxic. Labs including swabs are ordered as is Solu-Medrol and additional IV diphenhydramine. Also CT scan. Tryptase and complement levels are ordered as is cardiac and pulse oximetry monitoring. Very mild hyponatremia. Complement C4 within normal limits. Very mild leukocytosis. Strep negative. She tests positive for COVID. Ketorolac and acetaminophen ordered as is a lozenge. Patient is reassessed approximately 11:25 p.m.. We discussed her work up. Shared decision making to discuss Paxlovid, patient declines and this is reasonable. We talked about the importance of supportive care and that her C4 level had come back but the complement 1 level and tryptase levels send out labs that her PCP can follow-up on and/or in conjunction with her loom stop checker. She is otherwise stable for discharge. She reports the pain throughout her to and jaw and neck is much better and she feels that the swelling is going down although tongue. does still feel slightly larger than normal. It remains perhaps slightly enlarged but without stridor, trismus. She is easily managing her secretions. Discharged with prescriptions for [id number] analgesics ox/ antipyretics as well as Cepacol lozenges. Denies needing a work note. Differential Diagnosis Differential Diagnosis: angioedema, RPA, BRIM POUNCING MACHINE OPERATOR, allergic reaction, anaphylaxis, anxiety attack, MCAS, cardiac etiology, medication side effect Medical Records I have reviewed the following patient records and this information was taken into consideration when formulating the assessment and plan.: previous ER visits and previous clinic visits Lab Data MDM Lab Attestation statement: I personally reviewed the patient's lab results. Lab results narrative: test negative. Urine cloudy but without signs of infection. 10/27/25 19:37 10/27/25 19:37 Labs: Lab Results 10/27/25 10/27/25 10/27/25 Range/Units 19:37 19:43 19:48 WBC 11.5 H (4.5-10.0) K/mm3 RBC 4.59 (4.2-5.4) M/mm3 Hgb 13.7 (12.0-15.0) g/dL Hct 40.5 (37.0-47.0) % MCV 88.2 (80-100) fl MCH 29.8 (26-34) pg MCHC 33.8 (32-36) g/dl RDW 13.1 (11.5-14.5) % Plt Count 287 (150-375) k/mm3 MPV 8.9 (7.4-10.4) fl Immature Gran % (Auto) 0.7 H (0-0.5) % Neut % (Auto) 64.3 (45.5-73.1) % Lymph % (Auto) 26.0 (18.3-44.2) % [place] % (Auto) 7.0 (2.6-8.5) % Eos % (Auto) 1.5 (0-4.4) % Baso % (Auto) 0.5 (0.2-1.2) % Lymph # (Auto) 2.98 (0.9-3.2) K/mm3 [place] # (Auto) 0.8 H (0.1-0.6) K/mm3 Eos # (Auto) 0.2 (0-0.3) K/mm3 Baso # (Auto) 0.1 (0.0-0.1) K/mm3 Abs Immat Gran (auto) 0.08 H (0.00-0.031) K/mm3 Absolute Neuts (auto) 7.4 H (1.3-6.7) K/mm3 Absolute Nucleated RBC 0.000 (0.0-0.012) K/mm3 Nucleated RBC % 0.0 (0.0-0.2) % % Immature Plt Fraction 1.3 (0.9-11.2) % Sodium 136 L (137-145) mmol/L Potassium 3.5 (3.4-5.0) mmol/L Chloride 100 (98-107) mmol/L Carbon Dioxide 30 (22-30) mmol/L Anion Gap 6 (4-12) mmol/L BUN 10 (7-17) mg/dL Creatinine 0.74 (0.7-1.0) mg/dL Estim Creat Clear Calc Not Reportable Estimated GFR > 60 (59 - ) Glucose 89 (65-110) mg/dL Calcium 9.9 (8.4-10.2) mg/dL Tryptase Pending Urine Color Yellow (Yellow) Urine Appearance Cloudy H (Clear) Urine pH 6.5 (5.0-9.0) Ur Specific [place] 1.014 (1.001-1.035) Urine Protein Negative (Negative) mg/dL Urine Glucose (UA) Negative (Negative) mg/dL Urine Ketones Negative (Negative) mg/dL Ur Blood (Man) Negative (Negative) Urine Nitrate Negative (Negative) Urine Bilirubin Negative (Negative) Urine Urobilinogen 0.2 (<2.0) mg/dL Leukocyte Esterase Rfl Negative (Negative) MEL/UL Urine RBC 0-2 (0-2) /hpf Urine WBC 0-5 (0-3) /hpf Ur Squamous Epith Cells Occasional (Few) /hpf Urine Bacteria None seen /hpf Urine Casts 0-2 POC Urine HCG, Qual Negative (Negative) C1q Level Pending Complement C4 42.1 (14.0-44.0) mg/dL Influenza A (RT-PCR) (Negative) Influenza B (RT-PCR) (Negative) RSV (RT-PCR) (Negative) SARS-CoV-2 RNA (RT-PCR) (Negative) Group A Strep (PCR) (Negative) 10/27/25 Range/Units 19:51 WBC (4.5-10.0) K/mm3 RBC (4.2-5.4) M/mm3 Hgb (12.0-15.0) g/dL Hct (37.0-47.0) % MCV (80-100) fl MCH (26-34) pg MCHC (32-36) g/dl RDW (11.5-14.5) % Plt Count (150-375) k/mm3 MPV (7.4-10.4) fl Immature Gran % (Auto) (0-0.5) % Neut % (Auto) (45.5-73.1) % Lymph % (Auto) (18.3-44.2) % [place] % (Auto) (2.6-8.5) % Eos % (Auto) (0-4.4) % Baso % (Auto) (0.2-1.2) % Lymph # (Auto) (0.9-3.2) K/mm3 [place] # (Auto) (0.1-0.6) K/mm3 Eos # (Auto) (0-0.3) K/mm3 Baso # (Auto) (0.0-0.1) K/mm3 Abs Immat Gran (auto) (0.00-0.031) K/mm3 Absolute Neuts (auto) (1.3-6.7) K/mm3 Absolute Nucleated RBC (0.0-0.012) K/mm3 Nucleated RBC % (0.0-0.2) % % Immature Plt Fraction (0.9-11.2) % Sodium (137-145) mmol/L Potassium (3.4-5.0) mmol/L Chloride (98-107) mmol/L Carbon Dioxide (22-30) mmol/L Anion Gap (4-12) mmol/L BUN (7-17) mg/dL Creatinine (0.7-1.0) mg/dL Estim Creat Clear Calc Estimated GFR (59 - ) Glucose (65-110) mg/dL Calcium (8.4-10.2) mg/dL Tryptase Urine Color (Yellow) Urine Appearance (Clear) Urine pH (5.0-9.0) Ur Specific [place] (1.001-1.035) Urine Protein (Negative) mg/dL Urine Glucose (UA) (Negative) mg/dL Urine Ketones (Negative) mg/dL Ur Blood (Man) (Negative) Urine Nitrate (Negative) Urine Bilirubin (Negative) Urine Urobilinogen (<2.0) mg/dL Leukocyte Esterase Rfl (Negative) MEL/UL Urine RBC (0-2) /hpf Urine WBC (0-3) /hpf Ur Squamous Epith Cells (Few) /hpf Urine Bacteria /hpf Urine Casts POC Urine HCG, Qual (Negative) C1q Level Complement C4 (14.0-44.0) mg/dL Influenza A (RT-PCR) Negative (Negative) Influenza B (RT-PCR) Negative (Negative) RSV (RT-PCR) Negative (Negative) SARS-CoV-2 RNA (RT-PCR) Positive A (Negative) Group A Strep (PCR) Not detected (Negative) Imaging Data Radiologist's impression: CT Neck soft tissue Stat Rad: Prominent cervical lymph nodes and lingual tonsils. No evidence of abscess or epiglottitis. Incidental findings: Chronic maxillary sinusitis. No comparisons. ECG Data EKG #1: Attestation: I personally reviewed and interpreted this ECG as follows: ECG completion date: 10/27/25 ECG completion time: 19:34 Interpretation: Normal sinus rhythm at a rate of 79 beats per minute. MS interval 136. QRS 101. QT /QTC 409/443. Good R-wave progression across the precordial leads. Baseline artifact limits full interpretation however there are no obvious ST segment elevations or depressions. Discharge Plan Discharge Clinical Impression: Swelling of lip, tongue, and throat, Leukocytosis, COVID-19, Adenopathy, cervical Patient Disposition: Home Condition: Stable Instructions: Antibiotic Form, Lymphadenopathy (ED), COVID-19 (Coronavirus Disease 2019) (ED), Face Coverings (Masks) and COVID-19 (ED), How to Recover from COVID-19 at Home (ED) Additional Instructions: As we discussed, your CT showed swollen lymph nodes. You tested positive for Covid. Rest and maintain your hydration. Your complement 4 (C4 level) returned but the C1 and tryptase are send out labs your PCP/[facility] loom stop checker can follow up on. Return to the ED with any new/worsening symptoms. Acetaminophen/Tylenol (maximum 4000 mg per day) is safe to take with NSAIDs (ibuprofen/Motrin) for pain relief. Patient Language: Swedish Prescriptions: New ibuprofen 600 mg tablet 600 mg PO TID PRN (Reason: pain) Qty: 30 0RF acetaminophen 500 mg capsule 1,000 mg PO Q6H PRN (Reason: pain) Qty: 30 0RF Cepacol Sore Throat-Cough 5-7.5 mg lozenge 1 carly PO Q4H PRN (Reason: cough) Qty: 16 0RF No Action cholecalciferol (vitamin D3) 250 mcg (10,000 unit) tablet 250 mcg PO DAILY vitamin B complex Tablet 1 tablet PO DAILY Saccharomyces boulardii [Daily Probiotic (S. boulardii)] 250 mg capsule 250 mg PO DAILY nystatin 100,000 unit/gram cream topical famotidine [Pepcid] 20 mg tablet 20 mg PO DAILY atomoxetine 60 mg capsule 60 mg PO DAILY Qty: 90 0RF triamcinolone acetonide 0.1 % cream 1 applic topical BID Qty: 30 0RF Rx Instructions: Use BID 7-10 days (on bilateral arms) quetiapine [Seroquel] 25 mg tablet 50 mg PO QHS citalopram [Celexa] 20 mg tablet 20 mg PO DAILY sumatriptan succinate [Imitrex] 50 mg tablet See Rx Instructions PO .COMPLEX Qty: 9 0RF Rx Instructions: take 1 tab at onset of headache; if no relief may repeat 1 tab after at least 2 hrs; max = 4 tabs/24 hr PO mupirocin [Centany] 2 % ointment 1 applic topical BID Qty: 15 0RF levothyroxine [Synthroid] 75 mcg tablet 75 mcg PO DAILY Qty: 90 1RF nebivolol [Bystolic] 10 mg tablet 10 mg PO DAILY Qty: 90 1RF liothyronine 5 mcg tablet 5 mcg PO DAILY Qty: 90 1RF hydrochlorothiazide 25 mg tablet 25 mg PO DAILY Qty: 90 1RF allopurinol 100 mg tablet 200 mg PO DAILY 90 Days Qty: 180 0RF Follow-up/Referrals: Edwina Mckeon APRN [Advanced Practice Nurse, Internal Medicine] Referral Note: pt's PCP Walter Erwin DO [Primary Care Provider, Internal Medicine] Time of Disposition: 23:35
[2025-10-27 19:50] LABS: BEDSIDEPREGUCG Negative (Negative)
[2025-10-27 19:53] LABS: Hematocrit 40.5 % (37.0-47.0); Hemoglobin 13.7 g/dL (12.0-15.0); Immature Granulocyte Percent A 0.7 % (0-0.5); Immature Platelet Fraction Pct 1.3 % (0.9-11.2); Lymphocytes Absolute Auto 2.98 K/mm3 (0.9-3.2); Mean Corpuscular HGB Conc 33.8 g/dl (32-36); Mean Corpuscular Hemoglobin 29.8 pg (26-34); Mean Corpuscular Volume 88.2 fl (80-100); Nucleated Red Blood Cells Absolute Auto 0.000 K/mm3 (0.0-0.012); Nucleated Red Blood Cells Perc 0.0 % (0.0-0.2); Platelet Count Result 287 k/mm3 (150-375); Red Blood Count 4.59 M/mm3 (4.2-5.4); White Blood Count 11.5 K/mm3 (4.5-10.0)
[2025-10-27 19:57] LABS: Add Urine Microscopic? YES; Appearance Urine Cloudy (Clear); Glucose Urine UA Negative (Negative); Leukocyte Esterase Ur Negative LEU/UL (Negative); Nitrate Urine Negative (Negative); Non Pathogenic Casts 0-2; Specific Grav Ur 1.014 (1.001-1.035)
--- OUTSIDE RECORDS SUMMARY | 2025-10-27 20:00 | XMS_ITS | Clinical Summary ---
Author Organization [facility] Address [address] [place] [address] Care Team Providers Care Welder And Fitter Name Role Phone Jess Plascencia MD Primary [...] Comments Blood Pressure 126/83 10/01/2018 9:52 AM PARQUETRY LAYER Pulse 70 10/01/2018 9:52 AM PARQUETRY LAYER Temperature 36.7 C (98.1 F) 10/01/2018 9:52 AM PARQUETRY LAYER Respiratory Rate - - Oxygen Saturation 98% 10/01/2018 9:52 AM PARQUETRY LAYER Inhaled Oxygen Concentration - - Weight 112.7 kg (248 lb 8 oz) 10/01/2018 9:52 AM PARQUETRY LAYER Height 170.2 cm (5' 7) 10/01/2018 9:52 AM PARQUETRY LAYER Body Mass Index 38.92 10/01/2018 9:52 AM PARQUETRY LAYER Plan of Treatment Health Maintenance Due Date Last Done Comments DTAP/TDAP/TD VACCINES (1 - Tdap) 2000 HEPATITIS B VACCINES (1 of 3 - 19+ 3-dose series) 03/2000 HPV/Cotest (21-29) 2002 CERVICAL CANCER SCREENING 2011 HPV/Cotest (30-65) 2011 PAP SMEAR 2011 BREAST CANCER SCREENING 2021 INFLUENZA VACCINE (#1) 2025 HPV VACCINES (No Doses Required) Completed Insurance MEDICARE PART A AND B Care Teams Welder And Fitter Relationship Specialty Start Date End Date Jess Plascencia MD [address] [place] [address] N[place] NARAYAN [id number] PCP - General Family Practice 09/01/18
--- OUTSIDE RECORDS SUMMARY | 2025-10-27 20:00 | XMS_ITS | Clinical Summary ---
Author Organization [facility] [place] [address] Address [address] [place] [address] Care Team Providers Care Principal Quality Engineer Name Role Phone Walter Erwin DO Primary Care Provider [phone] Allergies Active Allergy Reactions Criticality Noted Date [...] 12/08/2024 Assessment & Plan (12/08/2024 8:58 AM LICENSED MORTGAGE LOAN OFFICER): Very difficult views with nystagmus DFE generally [...] thyroiditis Assessment & Plan (12/08/2023 8:29 AM LICENSED MORTGAGE LOAN OFFICER): Chronic, unknown status Continue current dose of Synthroid 112 mcg oral daily Advised to stop Cytomel Recheck thyroid function test today and further plans based on it Class 1 obesity due to exces s calories with serious comorbidity and body mass index (BMI) of 33.0 to 33.9 in adult 12/05/2023 Assessment & Plan (12/08/2023 8:30 AM LICENSED MORTGAGE LOAN OFFICER): Chronic, progressively improving with Trulicity 3 mg subQ weekly dose Advised patient to include healthy lifestyle habits Include complex carbs, healthy fats and proteins Work on portion control Avoid eating processed food cutback on sugar Advised to start exercising at least 30-40 minutes every day Prediabetes 12/05/2023 Assessment & Plan (12/08/2023 8:30 AM LICENSED MORTGAGE LOAN OFFICER): On Trulicity Recheck A1c Counseled on diet [...] month Assessment & Plan (12/08/2023 8:30 AM LICENSED MORTGAGE LOAN OFFICER): Counseled on diet and exercise EMY (generalized [...] on file Legal Sex Female 5:17 PM LICENSED MORTGAGE LOAN OFFICER Gender Identity Female 12/05/2023 10:07 AM LICENSED MORTGAGE LOAN OFFICER Sexual Orientation Choose not to disclose 2023 10:07 AM LICENSED MORTGAGE LOAN OFFICER Last Filed Vital Signs Vital Sign Reading Time Taken Comments Blood Pressure 117/79 01/19/2025 2:21 PM CDT Pulse 54 01/19/2025 2:21 PM CDT Temperature 36.5 C (97.7 F) 01/19/2025 2:21 PM CDT Respiratory Rate 16 12/05/2023 11:22 AM LICENSED MORTGAGE LOAN OFFICER Oxygen Saturation 96% 01/19/2025 2:21 PM CDT [...] age to complete this topic Insurance [facility] Care Teams Principal Quality Engineer Relationship Specialty Start Date End Date Walter Erwin DO PCP - General Internal Medicine 10/20/24
[2025-10-27 20:01] LABS: Anion Gap 6 mmol/L (4-12); Blood Urea Nitrogen 10 mg/dL (7-17); Calcium 9.9 mg/dL (8.4-10.2); Carbon Dioxide 30 mmol/L (22-30); Chloride 100 mmol/L (98-107); Estimated Glomerular Filt Rate > 60; Glucose 89 mg/dL (65-110); Potassium 3.5 mmol/L (3.4-5.0); Sodium 136 mmol/L (137-145)
[2025-10-27 20:21] LABS: Strep Group A RT-PCR NOT DETECTED (Negative)
[2025-10-27 20:33] LABS: Influenza A QL RT-PCR Negative (Negative); Influenza B QL RT-PCR Negative (Negative); RSV RNA, RT-PCR Negative (Negative); SARS-CoV-2 RNA PCR Positive (Negative)
[2025-10-27] MEDS: BENZOCAINE/MENTHOL (*BKC) 18 EA LOZENGE 1 LOZENGE PO (20:58)
[2025-10-27] MEDS: ACETAMINOPHEN 500 MG TABLET 1000 MG PO (20:59)
[2025-10-27] MEDS: KETOROLAC 15 MG/ML VIAL (*BKC) IV PUSH (20:59)
[2025-10-27 23:10] VITALS: BP 134/72; PULSE 77; RESP 166; TEMP 36.6; O2SAT 100
[2025-10-27 23:57] VITALS: BP 138/79; PULSE 77; RESP 16; TEMP 36.8; O2SAT 99
[2025-11-05 00:07] LABS: Complement C1q, Quantitative 17.1 mg/dL (10.3-20.5)
== END 2025-10-27 23:58 | disposition home or self-care (01) ==
PROVIDERS: Emergency Provider Student in an Organized Health Care Education/Training Program; PCP Internal Medicine
DX: D72.829 Elevated white blood cell count, unspecified (principal); U07.1 COVID-19; R59.0 Localized enlarged lymph nodes; E70.30 Albinism, unspecified; F90.9 Attention-deficit hyperactivity disorder, unspecified type; M19.90 Unspecified osteoarthritis, unspecified site; F41.9 Anxiety disorder, unspecified
CPT/HCPCS: 36415; 70491; 80048; 81001; 81025; 83520; 85025; 85055; 86160; 87637; 87651; 93005; 96374; 96375; 99284; A9270; J1200; J1885; J2919; Q9967